=== PATIENT | male | born 1995 | race Caucasian/White ===

== ENCOUNTER 2019-02-22 13:03 | Emergency (ER) | payer BC ==
[2019-02-22] MEDS ORDERED: TETANUS & DIPHTHERIA TOX,ADULT 0.5 ML VIAL ONE (13:59)
--- NOTE | 2019-02-22 16:10 | RAD REPORT ---
EXAM DESCRIPTION: RAD - Hand Left 3 View - 02/22/2019 1:55 pm CLINICAL HISTORY: SMASH INJURY Trauma, injury to fingers. COMPARISON: No comparisons FINDINGS: No fracture or dislocation is seen.
--- NOTE | 2019-02-22 16:35 | EDPHYS ---
Physician Documentation [facility] Name: Gaudencio Kothari Age: 23 yrs Sex: Male : 1995 Arrival Date: 02/22/2019 Time: 13:08 Bed 24 Private MD: ED Physician Doug Chamorro HPI: 02/22 18:39 This 23 yrs old Male presents to ER via Ambulatory with complaints of Finger kdr Injury. 18:39 Mechanism of injury: Crush injury: from Angle iron weighted approximately 20# - 30#, kdr that weighed approximately 20 lb(s). Associated injuries: The patient sustained Left hand finger tips. Onset: The symptoms/episode began/occurred acutely, this morning. The patient has not experienced similar symptoms in the past. The patient has not recently seen a physician. Historical: - Allergies: 13:25 No Known Allergies; aj - Home Meds: 13:25 None [Active]; aj - PMHx: 13:25 None; aj - PSHx: 13:25 None; aj - Immunization history:: Adult Immunizations up to date. - Social history:: Smoking status: Patient uses tobacco products, smokes one-half pack cigarettes per day. - Ebola Screening: : Patient negative for fever greater than or equal to 101.5 degrees Fahrenheit, and additional compatible Ebola Virus Disease symptoms Patient denies exposure to infectious person Patient denies travel to an Ebola-affected area in the 21 days before illness onset No symptoms or risks identified at this time. ROS: 18:39 Constitutional: Negative for fever, chills, and weight loss. kdr 18:39 MS/extremity: Positive for injury or acute deformity, ecchymosis, pain, swelling, tenderness, of the left index fingernail, left middle fingernail and left ring fingernail. Exam: 18:39 Constitutional: This is a well developed, well nourished patient who is awake, alert, kdr and in no acute distress. 18:39 Musculoskeletal/extremity: Extremities: grossly normal except: noted in the left index finger, left middle finger, left ring finger, dorsal aspect of distal phalanx of left ring finger, left index fingernail and left middle fingernail: ecchymosis, pain, swelling, Circulation is intact in all extremities. Sensation intact. Vital Signs: 13:25 BP 130 / 85; Pulse 93; Resp 18; Temp 98.3; Pulse Ox 99% on R/A; Weight 129.27 kg; aj Height 5 ft. 10 in. (177.80 cm); 14:21 BP 123 / 69; Pulse 63; Resp 18 S; Temp 98.1(O); Pulse Ox 98% on R/A; ca1 15:25 BP 115 / 75; Pulse 66; Resp 17 S; Temp 98.3(O); Pulse Ox 98% on R/A; ca1 16:23 BP 121 / 68; Pulse 62; Resp 17 S; Temp 98.1(O); Pulse Ox 99% on R/A; ca1 17:00 BP 118 / 72; Pulse 65; Resp 18 S; Temp 98.2(O); Pulse Ox 99% on R/A; ca1 13:25 Body Mass Index 40.89 (129.27 kg, 177.80 cm) aj MDM: 15:36 Patient medically screened. kdr 18:39 Data reviewed: vital signs, nurses notes, radiologic studies. Counseling: I had a kdr detailed discussion with the patient and/or guardian regarding: the historical points, exam findings, and any diagnostic results supporting the discharge/admit diagnosis, radiology results, the need for outpatient follow up. ED course: The patient declined nail treffination. 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 Exp: ca1 12/16/2020. Lot #: [id number]. } Route: IM; Site: left deltoid; 16:02 Follow up: Response: No adverse reaction ca1 Disposition: 02/22/19 16:34 Discharged to Home. Impression: Crush injury to fingers - 2, 3, 4, (index, middle and ring) of left hand. - Condition is Stable. - Discharge Instructions: Crush Injury of the Hand, [id number], Subungual Hematoma, [id number]. - Prescriptions for ibuprofen 200 mg Oral capsule - take 2 capsule by ORAL route every 6 hours As needed as needed; 20 capsule. - Medication Reconciliation Form, Thank You Letter, Work release form form. - Follow up: Private Physician; When: 2 - 3 days; Reason: If symptoms return, Further diagnostic work-up, Recheck today's complaints, Continuance of care, Re-evaluation by your physician. - Problem is new. - Symptoms have improved. Signatures: Dispatcher [employer] Brittani Lainez, RN RN Doug Martinez MD MD kdr Krystal, Emily RN RN ca1 Corrections: (The following items were deleted from the chart) 15:37 15:36 02/22/2019 15:36 Discharged to Home. Impression: Acute Intracrainial Bleed. kdr Condition is Stable. Forms are Medication Reconciliation Form, Thank You Letter, Antibiotic Education, Prescription Opioid Use. Follow up: Private Physician; When: 2 - 3 days; Reason: If symptoms return, Further diagnostic work-up, Recheck today's complaints, Continuance of care, Re-evaluation by your physician. Problem is new. Symptoms have improved. kdr 17:20 16:34 02/22/2019 16:34 Discharged to Home. Impression: Crush injury to fingers - 2, 3, ca1 4, (index, middle and ring) of left hand. Condition is Stable. Forms are Medication Reconciliation Form, Thank You Letter, Antibiotic Education, Prescription Opioid Use. Follow up: Private Physician; When: 2 - 3 days; Reason: If symptoms return, Further diagnostic work-up, Recheck today's complaints, Continuance of care, Re-evaluation by your physician. Problem is new. Symptoms have improved. kdr
--- NOTE | 2019-02-22 16:35 | ER ---
Nurse's Notes [facility] Name: Gaudencio Kothari Age: 23 yrs Sex: Male : 1995 Arrival Date: 02/22/2019 Time: 13:08 Bed 24 Private MD: Diagnosis: Crush injury to fingers - 2, 3, 4, (index, middle and ring) of left hand Presentation: 02/22 13:23 Presenting complaint: Patient states: Smashed left 2nd, 3rd, and 4th distal digits on aj steel plate today at work. Took 1 Motrin 800 MG. Transition of care: patient was not received from another setting of care. Onset of symptoms was February 22, 2019. Risk Assessment: Do you want to hurt yourself or someone else? Patient reports no desire to harm self or others. Initial Sepsis Screen: Does the patient meet any 2 criteria? No. Patient's initial sepsis screen is negative. Does the patient have a suspected source of infection? No. Patient's initial sepsis screen is negative. Care prior to arrival: None. 13:23 Method Of Arrival: Ambulatory 13:23 Acuity: BELEM 4 Triage Assessment: 13:25 General: Appears in no apparent distress. comfortable, Behavior is calm, cooperative, aj appropriate for age. Pain: Complains of pain in left index fingernail, left middle fingernail and left ring fingernail. Neuro: Level of Consciousness is awake, alert, obeys commands, Oriented to person, place, time, situation, Appropriate for age. Respiratory: Airway is patent Respiratory effort is even, unlabored, Respiratory pattern is regular, symmetrical. Derm: Skin is intact, is healthy with good turgor, Skin is pink, warm \T\ dry. normal. Musculoskeletal: Reports pain in dorsal aspect of distal phalanx of left index finger, dorsal aspect of distal phalanx of left middle finger and dorsal aspect of distal phalanx of left ring finger. 13:25 Injury Description: Bruise sustained to left ring fingernail and left middle fingernail ca1 and left index fingernail is green, was sustained 4-6 hours ago. Historical: - Allergies: 13:25 No Known Allergies; aj - Home Meds: 13:25 None [Active]; aj - PMHx: 13:25 None; aj - PSHx: 13:25 None; aj - Immunization history:: Adult Immunizations up to date. - Social history:: Smoking status: Patient uses tobacco products, smokes one-half pack cigarettes per day. - Ebola Screening: : Patient negative for fever greater than or equal to 101.5 degrees Fahrenheit, and additional compatible Ebola Virus Disease symptoms Patient denies exposure to infectious person Patient denies travel to an Ebola-affected area in the 21 days before illness onset No symptoms or risks identified at this time. Screenin:38 Abuse screen: Denies threats or abuse. Denies injuries from another. Nutritional ca1 screening: No deficits noted. Tuberculosis screening: No symptoms or risk factors identified. Fall Risk None identified. Assessment: 13:38 General: Appears in no apparent distress. comfortable, Behavior is calm, cooperative, ca1 appropriate for age. Pain: Complains of pain in dorsal aspect of distal phalanx of left ring finger and dorsal aspect of distal phalanx of left middle finger and dorsal aspect of distal phalanx of left index finger and left hand and left ring fingernail and left middle fingernail and left index fingernail Pain currently is 3 out of 10 on a pain scale. at worst was 6 out of 10 on a pain scale. Pain began 4 hours ago. Neuro: Level of Consciousness is awake, alert, obeys commands, Oriented to person, place, time, situation. Cardiovascular: Heart tones S1 S2 present Capillary refill < 3 seconds Patient's skin is warm and dry. Respiratory: Airway is patent Respiratory effort is even, unlabored, Respiratory pattern is regular, symmetrical. GI: No deficits noted. No signs and/or symptoms were reported involving the gastrointestinal system. : No deficits noted. No signs and/or symptoms were reported regarding the genitourinary system. EENT: No deficits noted. No signs and/or symptoms were reported regarding the EENT system. Derm: Skin is intact, is healthy with good turgor, Skin is pink, warm \T\ dry. Bruising that is dark purple, on left ring fingernail and left middle fingernail and left index fingernail. Musculoskeletal: Circulation, motion, and sensation intact. Capillary refill < 3 seconds, Range of motion: intact in all extremities. 14:21 Reassessment: Patient appears in no apparent distress at this time. Patient and/or ca1 family updated on plan of care and expected duration. Pain level reassessed. Patient is alert, oriented x 3, equal unlabored respirations, skin warm/dry/pink. 15:25 Reassessment: Patient appears in no apparent distress at this time. Patient is alert, ca1 oriented x 3, equal unlabored respirations, skin warm/dry/pink. Dr. Chamorro at bedside. 16:23 Reassessment: Patient appears in no apparent distress at this time. Patient is alert, ca1 oriented x 3, equal unlabored respirations, skin warm/dry/pink. 17:00 Reassessment: Patient appears in no apparent distress at this time. Patient is alert, ca1 oriented x 3, equal unlabored respirations, skin warm/dry/pink. Patient states feeling better. Vital Signs: 13:25 BP 130 / 85; Pulse 93; Resp 18; Temp 98.3; Pulse Ox 99% on R/A; Weight 129.27 kg; aj Height 5 ft. 10 in. (177.80 cm); 14:21 BP 123 / 69; Pulse 63; Resp 18 S; Temp 98.1(O); Pulse Ox 98% on R/A; ca1 15:25 BP 115 / 75; Pulse 66; Resp 17 S; Temp 98.3(O); Pulse Ox 98% on R/A; ca1 16:23 BP 121 / 68; Pulse 62; Resp 17 S; Temp 98.1(O); Pulse Ox 99% on R/A; ca1 17:00 BP 118 / 72; Pulse 65; Resp 18 S; Temp 98.2(O); Pulse Ox 99% on R/A; ca1 13:25 Body Mass Index 40.89 (129.27 kg, 177.80 cm) ED Course: 13:08 Patient arrived in ED. rg4 13:25 Triage completed. aj 13:25 Doug Chamorro MD is Attending Physician. kdr 13:25 Arm band placed on left wrist. Patient placed in an exam room. aj 13:35 Emily Rice, TOBI is Primary Nurse. ca1 13:38 Patient has correct armband on for positive identification. Bed in low position. Call ca1 light in reach. Side rails up X 1. Pulse ox on. NIBP on. Warm blanket given. 13:38 No provider procedures requiring assistance completed. Patient did not have IV access ca1 during this emergency room visit. 13:56 XRAY Hand LEFT 3 View In Process Unspecified. 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 Exp: ca1 12/16/2020. Lot #: [id number]. } Route: IM; Site: left deltoid; 16:02 Follow up: Response: No adverse reaction ca1 Outcome: 15:36 Discharge ordered by . kdr 16:34 Discharge ordered by . kdr 17:19 Discharged to home ambulatory. ca1 17:19 Condition: stable 17:19 Discharge instructions given to patient, Instructed on discharge instructions, follow up and referral plans. medication usage, Demonstrated understanding of instructions, follow-up care, medications, Prescriptions given X 1. 17:20 Patient left the ED. ca1 Signatures: Dispatcher [employer] EDMS Brittani Quiroz, RN Doug Patterson MD MD kdr Garcia, Rubi rg4 Emily Rice RN RN ca1
== END 2019-02-22 17:20 | disposition home or self-care (01) ==
LOC: ER 13:03
DX: S67.191A Crushing injury of left index finger, initial encounter (principal); S67.193A Crushing injury of left middle finger, initial encounter; S67.195A Crushing injury of left ring finger, initial encounter; W23.0XXA Caught, crushed, jammed, or pinched between moving objects, initial encounter; Y93.89 Activity, other specified; Y92.69 Other specified industrial and construction area as the place of occurrence of the external cause; Y99.0 Civilian activity done for income or pay; F17.210 Nicotine dependence, cigarettes, uncomplicated
CPT/HCPCS: 90471; 90714; 99284

== ENCOUNTER 2019-11-01 13:41 | Emergency (ER) | payer BC, OTHER ==
--- OUTSIDE RECORDS SUMMARY | 2019-11-01 13:43 | XMS REPORT ---
:1995 Author Organization [facility] Address [address] [place] [address] Dr. Brunner [address] [place] [id number] Care Team Providers Name Role Phone Unavailable Unavailable Unavailable Problems This patient has no known problems. Allergies, Adverse Reactions, Alerts This patient has no known allergies or adverse reactions. Medications This patient has no known medications. Encounters Start End Encounter Admission Attending Care Care Encounter Date/Time Date/Time Type Type Clinicians Facility Department ID 2019-10-03 2019-10-03 Emergency E [id number] 19:16:00 19:16:00
--- OUTSIDE RECORDS SUMMARY | 2019-11-01 13:43 | XMS REPORT | Summary of Care ---
:1995 Author Organization [facility] Address [address] [place] [id number] Care Team Providers Name Role Phone Unknown, Attending Unavailable Unavailable Pcp, Patient Does Not Have A Primary Care Provider Reason for Visit Reason Comments Vomiting Body Aches Encounter Details Date Type Department Care Team Description 05/31/2019 Urgent Care [facility] Unknown, Attending Viral gastroenteritis Urgent Care Ernestina Mendoza PA-C [address] [place] [id number] (Primary Dx) [address] [facility] [place] [address] Allergies No Known Allergiesdocumented as of this encounter (statuses as of 05/31/2019) Medications Medication Sig Dispensed Refills Start Date End Date Status bacitracin 500 unit/g Apply to affected 1 Tube 1 04/10/2012 Active ointment area(s) 4 (four) times daily. escitalopram oxalate Take 20 mg by 0 Active 20 mg tablet mouth daily. trazodone HCl Take by mouth. 0 Active (TRAZODONE ORAL) documented as of this encounter (statuses as of 05/31/2019) Active Problems No known active problemsdocumented as of this encounter (statuses as of 2018) Immunizations Name Administration Dates Next Due DTP 09/22/2000, 12/18/1996, 09/14/1996, 05/02/1996, 01/30/1996, 1995 HIB 4 Dose Schedule 12/18/1996, 05/02/1996, 01/30/1996, 1995 Hep B, Adol or Pedi Dosage 05/02/1996, 1995, 1995 MMR 04/26/2001, 12/18/1996, 05/20/1996 Polio (IPV/OPV) 09/22/2000, 09/14/1996, 05/02/1996, 01/30/1996, 1995 Tdap 04/10/2012 Varicella (varivax)(chicken pox) 09/22/2000 documented as of this encounter Social History Tobacco Use Types Packs/Day Years Used Date Never Smoker Alcohol Use Drinks/Week oz/Week Comments Not Asked Sex Assigned at Date Recorded Not on file Job Start Date Occupation Industry Not on file Not on file Not on file Travel History Travel Start Travel End No recent travel history available. documented as of this encounter Last Filed Vital Signs Vital Sign Reading Time Taken Comments Blood Pressure 145/78 05/31/2019 8:09 PM CDT Pulse 100 05/31/2019 8:09 PM CDT Temperature 36.9 C (98.5 F) 05/31/2019 8:09 PM CDT Respiratory Rate 17 05/31/2019 8:09 PM CDT Oxygen Saturation 100% 05/31/2019 8:09 PM CDT Inhaled Oxygen Concentration - - Weight 133.3 kg (293 lb 12.8 oz) 05/31/2019 8:09 PM CDT Height 177.8 cm (5' 10") 05/31/2019 8:09 PM CDT Body Mass Index 42.16 05/31/2019 8:09 PM CDT documented in this encounter Patient Instructions Patient InstructionsErnestina Mendoza PA-C - 05/31/2019 8:00 PM CDT [place] Diet Your healthcare provider may recommend a bland dietif you have an upset stomach. It consists of foods that are mild and easy to digest. It is better to eat small frequent meals rather than3 large meals a day. Beverages OK: Fruit juices, non-caffeinated teas and coffee, non-carbonated merida Avoid: Carbonated beverage, caffeinated tea and coffee, all alcoholic beverages Bread OK: Refined white, wheat or rye bread, jennie or soda crackers, Moore toast, plain rolls, bagels Avoid: Whole-grain bread Cereal OK: Refined cereals: cooked or ready to eat Avoid: Whole-grain cereals and granola, or those containing bran, seeds or nuts Desserts OK: Peanut butter and all others except those to "avoid" Avoid: Chocolate, cocoa, coconut, popcorn, nuts, seeds, jam, marmalade Fruits OK: Canned, cooked, frozen or fresh fruits without seeds or tough skin Avoid: Olives, skin and seeds of fruit Meats OK: All fresh or preserved meat, fish and fowl Avoid: Any that are prepared with those spices to "avoid" Cheese and eggs OK: Eggs, cottage cheese, cream cheese, other cheeses Avoid: All cheeses made with those spices to "avoid" Potatoes and pasta OK: Potato, rice, macaroni, noodles, spaghetti Avoid: None Soups OK: All soups without heavy seasoning Avoid: Soups made with those spices to "avoid" Vegetables OK: Canned, cooked, fresh or frozen mildly flavored vegetables without seeds, skins or coarse fiber Avoid: Vegetables prepared with those spices to "avoid"; skin and seeds of vegetables and those withcoarse fiber Spices OK: Salt, lemon and [place]ond[place] juice, vinegar, all extracts, dwayne, cinnamon, thyme, mace, allspice, paprika Avoid: [place] powder, cloves, pepper, seed spices, garlic, gravy pickles, highly seasoned salad dressings Date Last Reviewed: 08/15/201519990224-9315 [employer]. [address] [place] [address]. All rights reserved. This information is not intended as a substitute for professional medical care. Always follow your healthcare professional's instructions. Food Poisoning or Viral Gastroenteritis (Adult) You have a stomach illness that is likely either food poisoning or viral gastroenteritis. Food poisoning is illness that is passed along in food and affects the stomach and intestinal tract.It usually occurs from 1 to 24 hours after eating food that has spoiled. When it happens within a few hours of eating, it is often caused by toxins from bacteria in food that has not been cooked or refrigerated properly. Viral gastroenteritis is also anillness from a virus that affects the stomach and intestinal tract. Many people call it the stomach flu, but it has nothing to do with influenza. In fact, it canhappen from food poisoning, but it can also happen when germsare passed from nkpmyi-aq-aigxtk or contaminated surface (toothbrush, cutting board, toilet) to a person. Either illness can cause these symptoms: Abdominal pain and cramping Nausea Vomiting Diarrhea Fever and chills Loss of bowel control The symptoms of food poisoning usually last 1 to 2 days. The symptoms of viral gastroenteritis can sometimes last up to 7 days but usually end sooner. Antibiotics are not effective for either illness. Other causes of gastroenteritis include bacteria and parasites which are not discussed here. Home care Follow all instructions given by your healthcare provider. Rest at home for the next 24 hours, or until you feel better. Avoid caffeine, tobacco, and alcohol. These can make diarrhea, cramping, and pain worse. If taking medicines: Dont take mlpz-niw-fwgcxte diarrhea or nausea medicines unless your healthcare provider tells you to. You may use acetaminophen or NSAID medicines like ibuprofen or naproxen to reduce pain and fever.Dont use these if you have chronic liver or kidney disease, or ever had a stomach ulcer or GI bleeding. Talk with your healthcare provider first. Don't use NSAID medicines if you are already taking one for another condition (like arthritis) or are on daily aspirin therapy (such as for heart diseaseor after a stroke). To prevent the spread of illness: Remember that washing with soap and water is the best way to prevent the spread of infection. Wash your hands before and after caring for a sick person. Clean the toilet after each use. Wash your hands or use alcohol-based hand towboat operator before eating. Wash your hands or use alcohol-based hand towboat operator before and after preparing food. Keep in mindthat people with diarrhea or vomiting should not prepare food for others. Wash your hands or use alcohol-based hand towboat operator after using cutting boards, counter-tops, andknives (and other utensils) that have been in contact with raw foods. Wash and then peel fruits and vegetables. Keep uncooked meats away from cooked and awgav-qz-nmx foods. Use a food thermometer when cooking. Cook poultry to at least 165F (74C) . Cook ground meat (beef, veal, pork, thomas) to at least 160F (71C). Cook fresh beef, veal, thomas, and pork to at least 145F (63C). Dont eat raw or undercooked eggs (poached or vicente side up), poultry, meat or unpasteurized milk and juices. Food and drinks The main goal while treating vomiting or diarrhea is to prevent dehydration. This is done by taking small amounts of liquids often. Keep in mind that liquids are more important than food right now. Drink only small amounts of liquids at a time. Dont force yourself to eat, especially if you arehaving cramping, vomiting, or diarrhea. Dont eat large amounts at a time, even if you are hungry. If you eat, avoid fatty, greasy, spicy, or fried foods. Dont eat dairy foods or drink milk if you have diarrhea.These can make diarrhea worse. The first 24 hours you can try: Oral rehydration solutions, available at grocery stores and pharmacies. Sports drinks are not a good choice if you are very dehydrated. They have too much sugar and not enough electrolytes. Soft drinks without caffeine Briana eden Water (plain or flavored) Decaf tea or coffee Clear broth, consomm, or bouillon Gelatin, popsicles, or frozen fruit juice bars The second 24 hours, if you are feeling better, you can add: Hot cereal, plain toast, bread, rolls, or crackers Plain noodles, rice, mashed potatoes, chicken noodle soup, or rice soup Unsweetened canned fruit (no pineapple) Bananas As you recover: Limit fat intake to less than 15 grams per day. Dont eat margarine, butter , oils, mayonnaise, sauces, gravies, fried foods, peanut butter, meat, poultry, or fish. Limit fiber. Dont eat raw or cooked vegetables, fresh fruits except bananas, and bran cereals. Limit caffeine and chocolate. Dont use spices or seasonings except salt. Resume a normal diet over time, as you feel better and your symptoms improve. If the symptoms come back, go back to a simple diet or clear liquids. Follow-up care Follow up with your healthcare provider, or as advised. If a stool sample was taken or cultures weredone, call the healthcare provider for the results as instructed. Call 911 Call 911 if you have any of these symptoms: Trouble breathing Confusion Extreme drowsiness or trouble walking Loss of consciousness Rapid heart rate Chest pain Stiff neck Seizure When to seek medical advice Call your healthcare provider right away if any of these occur: Abdominal pain that gets worse Constant lower right abdominal pain Continued vomiting and inability to keep liquids down Diarrhea more than 5 times a day Blood in vomit or stool Dark urine or no urine for 8 hours, dry mouth and tongue, tiredness, weakness , or dizziness New rash You dont get better in 2 to 3 days Fever of 100.4F (38C) or higher, or asdirected by your healthcare provider You have new symptoms of arthritis Date Last Reviewed: 09/28/201519997151-9958 [employer]. [address] [place] [address]. All rights reserved. This information is not intended as a substitute for professional medical care. Always follow your healthcare professional's instructions. documented in this encounter Progress Notes Ernestina Mendoza PA-C - 05/31/2019 8:00 PM CDT Cc: Chief Complaint Patient presents with Vomiting Body Aches Gaudencio Kothari is a 23 year old male coming in with nausea and vomiting and diarrhea x 1 day. Patient reports his son had simliar sx. Patient denies any fever, chills, body aches. Patient reports he only had 2 episodes of vomiting today and no more diarrhea. HPI Allergies Gaudencio has No Known Allergies. Medications Outpatient Medications Prior to Visit Medication Sig Dispense Refill escitalopram oxalate 20 mg tablet Take 20 mg by mouth daily. trazodone HCl (TRAZODONE ORAL) Take by mouth. bacitracin 500 unit/g ointment Apply to affected area(s) 4 (four) times daily. 1 Tube 1 No facility-administered medications prior to visit. Histories No past medical history on file. No past surgical history on file. Social History Socioeconomic History Marital status: Spouse name: Not on file Number of children: Not on file Years of education: Not on file Highest education level: Not on file Occupational History Not on file Social Needs Financial resource strain: Not on file Food insecurity: Worry: Not on file Inability: Not on file Transportation needs: Medical: Not on file Non-medical: Not on file Tobacco Use Smoking status: Never Smoker Substance and Sexual Activity Alcohol use: Not on file Drug use: Not on file Sexual activity: Not on file Lifestyle Physical activity: Days per week: Not on file Minutes per session: Not on file Stress: Not on file Relationships Social connections: Talks on phone: Not on file Gets together: Not on file Attends congregational service: Not on file Active member of club or organization: Not on file Attends meetings of clubs or organizations: Not on file Relationship status: Not on file Intimate partner violence: Fear of current or ex partner: Not on file Emotionally abused: Not on file Physically abused: Not on file Forced sexual activity: Not on file Other Topics Concern Not on file Social History Narrative 1 sibling . parent . No smoekrs or pets Family History Problem Relation Age of Onset Allergies Mother Allergies Maternal Grandmother Allergies Brother Heart Maternal Grandmother Mitral valve prolapse Review of Systems Constitutional: Negative for chills, fatigue and fever. HENT: Negative for ear pain and sore throat. Eyes: Negative for pain. Respiratory: Negative for cough. Gastrointestinal: Positive for abdominal pain, diarrhea, nausea and vomiting. Negative for constipation. Genitourinary: Negative for dysuria. Musculoskeletal: Negative for arthralgias. Skin: Negative for rash. Neurological: Negative for weakness and headaches. Psychiatric/Behavioral: The patient is not nervous/anxious. Vital Signs BP (!) 145/78 | Pulse 100 | Temp 36.9 C (98.5 F) (Oral) | Resp 17 | Ht 5 ' 10" (1.778 m) | Wt 293 lb 12.8 oz (133.3 kg) | SpO2 100% | BMI 42.16 kg/m Physical Exam Constitutional: He appears well-developed and well-nourished. HENT: Head: Normocephalic and atraumatic. Eyes: Pupils are equal, round, and reactive to light. Conjunctivae are normal. Neck: Normal range of motion. Cardiovascular: Normal rate, regular rhythm and normal heart sounds. Pulmonary/Chest: Effort normal and breath sounds normal. Abdominal: Soft. Bowel sounds are normal. There is no tenderness. Psychiatric: He has a normal mood and affect. His behavior is normal. Judgment and thought content normal. Assessment/Plan Viral gastroenteritis (primary encounter diagnosis) Good hand washing and surface hygiene can reduce contagion. May give acetaminophen or ibuprofen as needed for fever. Follow up recommended as needed or if concerned. Worrisome symptoms would be bloody diarrhea, high-grade fever, inconsolability or lack of urine output within an 8 hour span of time. Most viral diarrheal illnesses would resolve within a two-week span of time. Advised patient to follow bland diet for next few days. - Pt advised to follow up with PCP within 1 week. - Pt advised to return to Urgent Care or go to the nearest Emergency Room sooner for any new, worsening, persistent, or concerning symptoms - Pt verbalized understanding of all instructions This visit did not involve counseling and coordination that comprised more than 50% of the visit time. Ernestina Mendoza PA-C 05/31/2019 9:04 PM documented in this encounter Plan of Treatment Health Maintenance Due Date Last Done Comments VARICELLA VACCINES (2 of 2 - 12/15/2000 09/22/2000 2-dose childhood series) MENINGOCOCCAL B VACCINES (1 2005 of 2 - Risk Bexsero 2-dose series) INFLUENZA VACCINE (#1) 2019 DTaP,Tdap,and Td Vaccines (6 04/10/2022 04/10/2012, 09/22/2000, - Td) 12/18/1996, Additional history exists HPV VACCINES Aged Out No longer eligible based on patient's age to complete this topic PNEUMOCOCCAL 0-64 YEARS Aged Out No longer eligible COMBINED SERIES based on patient's age to complete this topic documented as of this encounter Results Not on filedocumented in this encounter Visit Diagnoses Diagnosis Viral gastroenteritis - Primary Intestinal infection due to other organism, not elsewhere classified documented in this encounter Insurance Payer Benefit Plan Subscriber ID Effective Dates Phone Address Type / Group [facility] [id number] 2018-Maegan [phone] [address] PPO/ POS [place] [employer] t [id number] [place] [address] (Work) documented as of this encounter
[2019-11-01 14:59] LABS: Absolute Lymphocytes (CBC) 0.8 K/uL (0.7-4.9); Basophils % 0.4 % (0-1.3); Lymphocytes % 14.3 % (15.3-44.8); MPV 8.1 fL (7.6-11.3); RBC Red Blood Cell Count 5.16 M/uL (4.33-5.43)
[2019-11-01 15:16] LABS: ALT/SGPT 24 U/L (12-78); AST/SGOT 15 U/L (15-37); Albumin 4.1 g/dL (3.4-5.0); Alkaline Phosphatase 70 U/L (45-117); BUN Blood Urea Nitrogen 6 mg/dL (7-18); Bicarbonate 26 mmol/L (21-32); Bilirubin Total 0.5 mg/dL (0.2-1.0); Glucose Level 84 mg/dL (74-106); Potassium 3.6 mmol/L (3.5-5.1); Protein, Total 7.3 g/dL (6.4-8.2); Sodium Level 141 mmol/L (136-145)
--- NOTE | 2019-11-01 15:57 | RAD REPORT ---
EXAM DESCRIPTION: CT - Chest For Pe Angio - 11/01/2019 3:37 pm CLINICAL HISTORY: HEMOPTYSIS COMPARISON: No comparisonsNo comparisons TECHNIQUE: Dynamically enhanced 3 mm thick images of the chest were obtained during administration o f approximately 150mL Isovue 370 IV contrast. Coronal and oblique MIP reconstruction images were gene rated and reviewed. Exam utilizes a protocol to evaluate the pulmonary arterial tree. All CT scans are performed using dose optimization technique as appropriate and may include automated exposure control or mA/KV adjustment according to patient size. FINDINGS: No pulmonary emboli are identified. The aorta as imaged shows no acute or suspicious finding. No pericardial thickening or effusion. No infiltrate or mass in the lung parenchyma. No pleural effusion or pleural thickening. No mediastinal or hilar suspicious masses. No chest wall masses or abnormal axillary lymphadenopathy. No endobronchial lesion. IMPRESSION: No pulmonary emboli identified. No other significant or suspicious findings.
--- NOTE | 2019-11-01 16:26 | ER ---
Nurse's Notes [facility] Name: Gaudencio Kothari Age: 24 yrs Sex: Male : 1995 Arrival Date: 11/01/2019 Time: 13:44 Bed 27 Private MD: Diagnosis: Acute bronchitis Presentation: 11/01 13:58 Presenting complaint: Patient states: i have had a cough for 4 days, this morning there tw2 was specs of blood in my phlegm and i work in a [employer] and havent had a TB test and i am supposed to be getting my kids this weekend so i wanted to be checked. my chest does feel like its on fire, usually its just when i cough and then it goes away. i also feel congested. Transition of care: patient was not received from another setting of care. Onset of symptoms was November 01, 2019. Risk Assessment: Do you want to hurt yourself or someone else? Patient reports no desire to harm self or others. Initial Sepsis Screen: Does the patient meet any 2 criteria? No. Patient's initial sepsis screen is negative. Does the patient have a suspected source of infection? No. Patient's initial sepsis screen is negative. Care prior to arrival: None. 13:58 Method Of Arrival: Ambulatory tw2 13:58 Acuity: BELEM 2 tw2 14:00 Presenting complaint: Patient states: also i have been having some night sweats as well tw2 for a few days. Note pt is wearing a mask in lobby and in triage. Triage Assessment: 14:03 General: Appears in no apparent distress. well groomed, Behavior is calm, cooperative, tw2 appropriate for age. Pain: Denies pain. Historical: - Allergies: 14:02 No Known Allergies; tw2 - Home Meds: 14:02 citalopram 20 mg tab 1 tab once daily [Active]; Latuda 40 mg oral tab 1 tab once daily tw2 [Active]; trazodone 50 mg Oral tab 1 tab 3 times per day [Active]; - PMHx: 14:02 Anxiety; Depression; borderline personality disorder; tw2 - PSHx: 14:02 None; tw2 - Immunization history:: Adult Immunizations. - Coronavirus screen:: The patient has NOT traveled to [place], [place], or [place] in the past 14 days. - Social history:: Smoking status: Patient reports the use of cigarette tobacco products, smokes one pack cigarettes per day. "i quit few days ago, i have a vape and i hit i often it says its 5 mics of nicotine", Patient reports use of chewing tobacco. Reported history of juuling and/or vaping. - Ebola Screening: : Patient denies travel to an Ebola-affected area in the 21 days before illness onset. Screenin:24 Abuse screen: Denies threats or abuse. Nutritional screening: No deficits noted. tw2 Tuberculosis screening: Possible symptoms: recent fever, recent bloody sputum, Risk factors: pt works in [employer]. Fall Risk None identified. Assessment: 14:39 General: Appears in no apparent distress. comfortable, Behavior is calm, cooperative. ls4 15:29 Neuro: No deficits noted. Cardiovascular: No deficits noted. Respiratory: Reports cough ls4 that is productive, pain with cough Airway is patent Respiratory effort is even, unlabored, Respiratory pattern is regular, Breath sounds are clear bilaterally. GI: No deficits noted. : No deficits noted. Derm: No deficits noted. Musculoskeletal: No deficits noted. Vital Signs: 14:02 BP 140 / 73; Pulse 87; Resp 18; Temp 98.3(TE); Pulse Ox 100% on R/A; Weight 113.4 kg tw2 (R); Height 5 ft. 10 in. (177.80 cm); Pain 3/10; 14:54 BP 110 / 69; Pulse 76; Resp 18; Temp 98.9(O); Pulse Ox 100% on R/A; mh5 15:02 BP 116 / 67; Pulse 72; Resp 16; Pulse Ox 100% on R/A; Pain 3/10; ls4 16:02 BP 110 / 60; Pulse 70; Resp 16; Temp 98.4(O); Pulse Ox 99% on R/A; Pain 3/10; ls4 14:02 Body Mass Index 35.87 (113.40 kg, 177.80 cm) tw2 ED Course: 13:44 Patient arrived in ED. mr 14:00 Triage completed. tw2 14:00 Arm band placed on. tw2 14:02 Bed in low position. Call light in reach. pt placed in n95 mask, pt agreeable to wear tw2 the mask at this time. 14:08 Lawson Chan PA is PHCP. jmm 14:08 Eduardo Long MD is Attending Physician. [facility] 14:46 Mackenzie Mcneil, RN is Primary Nurse. ls4 14:47 CMP Sent. ls4 14:47 CBC with Diff Sent. ls4 14:49 Initial lab(s) drawn, by sd, sent to lab. Inserted saline lock: 22 gauge in left mh5 antecubital area, using aseptic technique. Blood collected. 15:37 No provider procedures requiring assistance completed. ls4 16:[address] Chest For PE Angio CT Sent. ls4 16:53 IV discontinued, intact, bleeding controlled, No redness/swelling at site. Pressure ls4 dressing applied. Administered Medications: No medications were administered Outcome: 16:25 Discharge ordered by . [facility] 16:48 Discharged to home ambulatory. ls4 16:48 Condition: stable 16:48 Discharge instructions given to patient, Instructed on discharge instructions, follow up and referral plans. medication usage, Demonstrated understanding of instructions, follow-up care, medications, Prescriptions given X 3. 16:54 Patient left the ED. ls4 Signatures: Lawson Chan PA PA [facility] Jaswinder Janet mr Sheeba Baldwin, RN RN Nimo Paz, TOBI RN 2 [facility] Mackenzie Mcneil, RN RN ls4 Corrections: (The following items were deleted from the chart) 14:05 14:05 Tuberculosis screening: [facility] 15:36 15:29 General: Appears in no apparent distress. comfortable, ls4 ls4
--- NOTE | 2019-11-01 16:26 | EDPHYS ---
Physician Documentation [facility] Name: Gaudencio Kothari Age: 24 yrs Sex: Male : 1995 Arrival Date: 11/01/2019 Time: 13:44 Bed 27 Private MD: ED Physician Eduardo Long HPI: 11/01 15:17 This 24 yrs old Male presents to ER via Ambulatory with complaints of jmm Coughing up blood. 15:17 The patient or guardian reports cough. Onset: The symptoms/episode began/occurred jmm gradually, 4 day(s) ago. Modifying factors: The symptoms are alleviated by nothing, the symptoms are aggravated by nothing. This is a 24 year old male with a history of depression that presents to the ED with complaints of cough ongoing for the past 4 days. Patient states developing productive cough with blood. Denies chest pain but occasionally has shortness of breath. . Historical: - Allergies: 14:02 No Known Allergies; tw2 - Home Meds: 14:02 citalopram 20 mg tab 1 tab once daily [Active]; Latuda 40 mg oral tab 1 tab once daily tw2 [Active]; trazodone 50 mg Oral tab 1 tab 3 times per day [Active]; - PMHx: 14:02 Anxiety; Depression; borderline personality disorder; tw2 - PSHx: 14:02 None; tw2 - Immunization history:: Adult Immunizations. - Coronavirus screen:: The patient has NOT traveled to [place], [place], or [place] in the past 14 days. - Social history:: Smoking status: Patient reports the use of cigarette tobacco products, smokes one pack cigarettes per day. "i quit few days ago, i have a vape and i hit i often it says its 5 mics of nicotine", Patient reports use of chewing tobacco. Reported history of juuling and/or vaping. - Ebola Screening: : Patient denies travel to an Ebola-affected area in the 21 days before illness onset. ROS: 15:17 Abdomen/GI: Negative for abdominal pain, nausea, vomiting, diarrhea, and constipation, jmm Back: Negative for injury and pain, Skin: Negative for injury, rash, and discoloration, Neuro: Negative for headache, weakness, numbness, tingling, and seizure. 15:17 Constitutional: Positive for chills. 15:17 Cardiovascular: Positive for chest pain, with cough. 15:17 Respiratory: Positive for cough, hemoptysis. 15:17 All other systems are negative. Exam: 15:17 Constitutional: This is a well developed, well nourished patient who is awake, alert, jmm and in no acute distress. Head/Face: atraumatic. Eyes: EOMI, no conjunctival erythema appreciated ENT: Moist Mucus Membranes Neck: Trachea midline, Supple Chest/axilla: Normal chest wall appearance and motion. Cardiovascular: Regular rate and rhythm. No edema appreciated Respiratory: Normal respirations, no respiratory distress appreciated Abdomen/GI: Non distended, soft Back: Normal ROM Skin: General appearance color normal MS/ Extremity: Moves all extremities, no obvious deformities appreciated, no edema noted to the lower extremities Neuro: Awake and alert, normal gait Psych: Behavior is normal, Mood is normal, Patient is cooperative and pleasant 15:17 Respiratory: the patient does not display signs of respiratory distress, Respirations: normal, Breath sounds: are clear throughout. Vital Signs: 14:02 BP 140 / 73; Pulse 87; Resp 18; Temp 98.3(TE); Pulse Ox 100% on R/A; Weight 113.4 kg tw2 (R); Height 5 ft. 10 in. (177.80 cm); Pain 3/10; 14:54 BP 110 / 69; Pulse 76; Resp 18; Temp 98.9(O); Pulse Ox 100% on R/A; mh5 15:02 BP 116 / 67; Pulse 72; Resp 16; Pulse Ox 100% on R/A; Pain 3/10; ls4 16:02 BP 110 / 60; Pulse 70; Resp 16; Temp 98.4(O); Pulse Ox 99% on R/A; Pain 3/10; ls4 14:02 Body Mass Index 35.87 (113.40 kg, 177.80 cm) tw2 MDM: 14:19 Patient medically screened. [facility] 16:24 Data reviewed: vital signs, nurses notes. Counseling: I had a detailed discussion with leon the patient and/or guardian regarding: the historical points, exam findings, and any diagnostic results supporting the discharge/admit diagnosis, lab results, radiology results, the need for outpatient follow up, to return to the emergency department if symptoms worsen or persist or if there are any questions or concerns that arise at home. ED course: Patient is alert and non toxic in appearance in the ED. CTA negative. Patient advised to follow up with pcp and otherwise given strict return precautions. Patient understood and agrees with the plan of care. . 11/01 14:20 Order name: CBC with Diff [facility] 11/01 14:20 Order name: CMP [facility] 11/01 14:20 Order name: Saline Lock; Complete Time: 14:47 [facility] 11/01 14:20 Order name: Chest For PE Angio CT [facility] 11/01 15:02 Order name: CBC with Automated Diff; Complete Time: 15:15 EDMS 11/01 15:17 Order name: Comprehensive Metabolic Panel; Complete Time: 15:29 EDMS Administered Medications: No medications were administered Disposition: 16:24 Chart complete. [facility] 17:38 Co-signature as Attending Physician, Eduardo Long MD. rn Disposition: 11/01/19 16:25 Discharged to Home. Impression: Acute bronchitis. - Condition is Stable. - Discharge Instructions: Acute Bronchitis, Adult. - Prescriptions for Bromfed DM 2- 30-10 mg/5 mL Oral syrup - take 10 milliliter by ORAL route every 4 hours; 1 bottle. Prednisone 20 mg Oral Tablet - take 3 tablet by ORAL route once daily for 5 days; 15 tablet. Albuterol Sulfate 90 mcg/actuation - inhale 1-2 puff by INHALATION route every 4-6 hours; 1 Inhaler. - Medication Reconciliation Form, Thank You Letter, Antibiotic Education, Prescription Opioid Use, Work release form form. - Follow up: Private Physician; When: 2 - 3 days; Reason: Recheck today's complaints, Continuance of care, Re-evaluation by your physician. Signatures: Dispatcher [employer] EDMS Lawson Chan PA PA [facility] Eduardo Long MD MD rn Wise, Tara, RN RN tw2 Mackenzie Mcneil, RN RN ls4 Corrections: (The following items were deleted from the chart) 16:54 16:25 11/01/2019 16:25 Discharged to Home. Impression: Acute bronchitis. Condition is ls4 Stable. Forms are Work release form, Medication Reconciliation Form, Thank You Letter, Antibiotic Education, Prescription Opioid Use. Follow up: Private Physician; When: 2 - 3 days; Reason: Recheck today's complaints, Continuance of care, Re-evaluation by your physician. leon
[2019-11-01 17:29] VITALS: BP 110/60; TEMP 98.4; O2SAT 99
== END 2019-11-01 16:54 | disposition home or self-care (01) ==
LOC: ER 13:41
DX: J20.9 Acute bronchitis, unspecified (principal); F41.8 Other specified anxiety disorders
CPT/HCPCS: 85025; 36415; 80053; 71275; 99284; Q9967

== ENCOUNTER 2021-07-28 13:05 | Emergency (ER) | payer BC, OTHER ==
[2021-07-28 14:14] LABS: Absolute Lymphocytes (CBC) 1.6 K/uL (0.7-4.9); Basophils % 0.3 % (0-1.3); Hematocrit 40.8 % (39.6-49.0); Lymphocytes % 19.4 % (15.3-44.8); MPV 7.5 fL (7.6-11.3); RBC Red Blood Cell Count 4.66 M/uL (4.33-5.43)
[2021-07-28 14:24] LABS: Urine Blood Negative (Negative); Urine Glucose Negative (Negative); Urine Protein Negative (Negative)
[2021-07-28 14:28] LABS: ALT/SGPT 26 U/L (12-78); AST/SGOT 16 U/L (15-37); Alkaline Phosphatase 65 U/L (45-117); BUN Blood Urea Nitrogen 13 mg/dL (7-18); Bicarbonate 30 mmol/L (21-32); Bilirubin Direct 0.1 mg/dL (0-0.2); Bilirubin Total 0.4 mg/dL (0.2-1.0); Glucose Level 74 mg/dL (74-106); Lipase 64 U/L (73-393); Protein, Total 7.2 g/dL (6.4-8.2); Sodium Level 143 mmol/L (136-145)
--- NOTE | 2021-07-28 15:22 | RAD REPORT ---
EXAM DESCRIPTION: CTAbdomen Pelvis W Contrast - 07/28/2021 3:14 pm CLINICAL HISTORY: Abdominal pain. ABD PAIN COMPARISON: No comparisons TECHNIQUE: Biphasic CT imaging of the abdomen and pelvis was performed with 100 ml non-ionic IV cont rast. All CT scans are performed using dose optimization technique as appropriate and may include automated exposure control or mA/KV adjustment according to patient size. FINDINGS: The lung bases are clear. The liver, spleen, pancreas, adrenal glands and kidneys are within normal limits. No bowel obstruction, free air, free fluid or abscess. Mild sigmoid diverticulosis coli is present wi thout diverticulitis. The appendix is normal. No evidence of significant lymphadenopathy. No suspicious bony findings. IMPRESSION: No acute intra-abdominal or pelvic finding.
[2021-07-28] MEDS ORDERED: ONDANSETRON 4 MG/2 ML VIAL ONE (15:26)
[2021-07-28] MEDS ORDERED: NA CHLORIDE 0.9% 1,000 ML ONE (15:26)
--- NOTE | 2021-07-28 16:27 | ER ---
Nurse's Notes [facility] Name: Gaudencio Kothari Age: 25 yrs Sex: Male : 1995 Arrival Date: 07/28/2021 Time: 13:15 Bed DIS1 Private MD: Diagnosis: Diarrhea, unspecified;Nausea with vomiting, unspecified Presentation: 07/28 13:44 Chief complaint: Patient states: Diarrhea started Tuesday, yesterday I began throwing ld1 up. Today I have vomited three times. Left side ABD pain. Coronavirus screen: At this time, the client does not indicate any symptoms associated with coronavirus-19. Ebola Screen: No symptoms or risks identified at this time. Initial Sepsis Screen: Does the patient meet any 2 criteria? No. Patient's initial sepsis screen is negative. Does the patient have a suspected source of infection? No. Patient's initial sepsis screen is negative. Risk Assessment: Do you want to hurt yourself or someone else? Patient reports no desire to harm self or others. Onset of symptoms was July 28, 2021. 13:44 Method Of Arrival: Ambulatory ld1 13:44 Acuity: BELEM 3 ld1 Triage Assessment: 13:46 General: Appears in no apparent distress. comfortable, Behavior is calm, cooperative, ld1 appropriate for age. Pain: Complains of pain in left upper quadrant and left lower quadrant Pain does not radiate. Pain currently is 1 out of 10 on a pain scale. at worst was 8 out of 10 on a pain scale. Quality of pain is described as throbbing, Pain began 2-3 days ago. Is intermittent. EENT: No signs and/or symptoms were reported regarding the EENT system. Neuro: Level of Consciousness is awake, alert, obeys commands, Oriented to person, place, time, situation. Cardiovascular: Capillary refill < 3 seconds Patient's skin is warm and dry. Respiratory: Airway is patent Respiratory effort is even, unlabored, Respiratory pattern is regular, symmetrical. GI: Abdomen is round non-distended, Reports lower abdominal pain, upper abdominal pain, cramping, diarrhea, nausea, vomiting. Historical: - Allergies: 13:46 No Known Allergies; ld1 - Home Meds: 13:46 citalopram 20 mg tab 1 tab once daily [Active]; trazodone 50 mg Oral tab 1 tab 3 times ld1 per day [Active]; Abilify 10 mg oral tab [Active]; - PMHx: 13:46 Anxiety; BORDERLINE PERSONALITY DISORDER; Depression; ld1 - PSHx: 13:46 None; ld1 - Immunization history:: Adult Immunizations not up to date, Client reports having NOT received the Covid vaccine. - Social history:: Smoking status: Patient reports the use of cigarette tobacco products, smokes one-half pack cigarettes per day, Reported history of juuling and/or vaping. Patient uses alcohol, weekly. street drugs, marijuana. Vital Signs: 13:44 BP 131 / 66; Pulse 72; Resp 18; Temp 97.8(TE); Pulse Ox 99% on R/A; Weight 99.79 kg; ld1 Height 5 ft. 11 in. (180.34 cm); Pain 1/10; 13:44 Body Mass Index 30.68 (99.79 kg, 180.34 cm) ld1 ED Course: 13:15 Patient arrived in ED. as 13:46 Triage completed. ld1 13:46 Arm band placed on left wrist. ld1 15:02 Syeda Wolfe FNP-C is PHCP. kb 15:02 Avelino Wright MD is Attending Physician. kb 15:13 CT Abd/Pelvis - IV Contrast Only In Process Unspecified. EDMS 15:23 Sheeba Baldwin, RN is Primary Nurse. iw Administered Medications: 15:34 Drug: NS 0.9% 1000 ml Route: IV; Rate: 1000 ml; Site: right antecubital; iw 15:34 Drug: Zofran (Ondansetron) 4 mg Route: IVP; Site: right antecubital; iw Outcome: 16:27 Discharge ordered by . kb 16:34 Patient left the ED. ap3 Signatures: Dispatcher [employer] EDMS Syeda Wolfe FNP-C FNP-Nola Cox as Sheeba Baldwin, TOBI BRITTON iw Brittani Kam RN RN ap3 Na Sullivan RN RN ld1
--- NOTE | 2021-07-28 16:28 | EDPHYS ---
Physician Documentation [facility] Name: Gaudencio Kothari Age: 25 yrs Sex: Male : 1995 Arrival Date: 07/28/2021 Time: 13:15 Bed DIS1 Private MD: ED Physician Avelino Wright HPI: 07/28 16:28 This 25 yrs old Male presents to ER via Ambulatory with complaints of kb Abdominal Pain, Vomiting. 16:28 The patient presents with abdominal pain. Onset: The symptoms/episode began/occurred 3 kb day(s) ago. The symptoms do not radiate. Associated signs and symptoms: Pertinent positives: nausea, vomiting, and diarrhea, Pertinent negatives: fever. The symptoms are described as crampy. Modifying factors: The symptoms are alleviated by nothing, the symptoms are aggravated by nothing. Severity of pain: At its worst the pain was mild in the emergency department the pain is unchanged. The patient has not experienced similar symptoms in the past. The patient has not recently seen a physician. Pt reports diarrhea since Tuesday with abd cramps. States he has been vomiting twice a day for 4-6 months. Historical: - Allergies: 13:46 No Known Allergies; ld1 - Home Meds: 13:46 citalopram 20 mg tab 1 tab once daily [Active]; trazodone 50 mg Oral tab 1 tab 3 times ld1 per day [Active]; Abilify 10 mg oral tab [Active]; - PMHx: 13:46 Anxiety; BORDERLINE PERSONALITY DISORDER; Depression; ld1 - PSHx: 13:46 None; ld1 - Immunization history:: Adult Immunizations not up to date, Client reports having NOT received the Covid vaccine. - Social history:: Smoking status: Patient reports the use of cigarette tobacco products, smokes one-half pack cigarettes per day, Reported history of juuling and/or vaping. Patient uses alcohol, weekly. street drugs, marijuana. ROS: 16:25 Constitutional: Negative for fever, chills, and weight loss. kb 16:25 Abdomen/GI: Positive for abdominal pain, nausea, vomiting, and diarrhea. 16:25 All other systems are negative. Exam: 16:25 Constitutional: This is a well developed, well nourished patient who is awake, alert, kb and in no acute distress. Head/Face: Normocephalic, atraumatic. ENT: Moist Mucous membranes Cardiovascular: Regular rate and rhythm with a normal S1 and S2. No gallops, murmurs, or rubs. No pulse deficits. Respiratory: Respirations even and unlabored. No increased work of breathing, no retractions or nasal flaring. Skin: Warm, dry with normal turgor. Normal color. MS/ Extremity: Pulses equal, no cyanosis. Neurovascular intact. Full, normal range of motion. Neuro: Awake and alert, GCS 15, oriented to person, place, time, and situation. Moves all extremities. Normal gait. Psych: Awake, alert, with orientation to person, place and time. Behavior, mood, and affect are within normal limits. 16:25 Abdomen/GI: Inspection: abdomen appears normal, Bowel sounds: normal, Palpation: soft, in all quadrants, mild abdominal tenderness, in the left upper quadrant and left lower quadrant. Vital Signs: 13:44 BP 131 / 66; Pulse 72; Resp 18; Temp 97.8(TE); Pulse Ox 99% on R/A; Weight 99.79 kg; ld1 Height 5 ft. 11 in. (180.34 cm); Pain 1/10; 13:44 Body Mass Index 30.68 (99.79 kg, 180.34 cm) ld1 MDM: 15:24 Patient medically screened. kb 16:25 Data reviewed: vital signs, nurses notes. Data interpreted: Pulse oximetry: on room air kb is 99 %. Interpretation: normal. Counseling: I had a detailed discussion with the patient and/or guardian regarding: the historical points, exam findings, and any diagnostic results supporting the discharge/admit diagnosis, lab results, radiology results, the need for outpatient follow up, a family practitioner, to return to the emergency department if symptoms worsen or persist or if there are any questions or concerns that arise at home. 07/28 13:44 Order name: Basic Metabolic Panel; Complete Time: 15: ld1 07/28 13:44 Order name: CBC with Diff; Complete Time: 15: ld1 07/28 13:44 Order name: Hepatic Function; Complete Time: 15: ld1 07/28 13:44 Order name: Lipase; Complete Time: 15: ld1 07/28 14:24 Order name: Urine Dipstick-Ancillary; Complete Time: 15: EDPR 07/28 15:01 Order name: CT Abd/Pelvis - IV Contrast Only; Complete Time: 15:24 kb 07/28 13:44 Order name: IV Saline Lock; Complete Time: 15:34 ld1 07/28 13:44 Order name: Labs collected and sent; Complete Time: 15:34 ld1 07/28 15:26 Order name: PO challenge; Complete Time: 15:46 kb Administered Medications: 15:34 Drug: NS 0.9% 1000 ml Route: IV; Rate: 1000 ml; Site: right antecubital; iw 15:34 Drug: Zofran (Ondansetron) 4 mg Route: IVP; Site: right antecubital; iw Disposition: 23:13 Co-signature as Attending Physician, Avelino Wright MD I agree with the assessment and muna plan of care. Disposition Summary: 07/28/21 16:27 Discharge Ordered Location: Home kb Condition: Stable kb Diagnosis - Diarrhea, unspecified kb - Nausea with vomiting, unspecified kb Followup: kb - With: Emergency Department - When: As needed - Reason: Worsening of condition Followup: kb - With: Private Physician - When: 2 - 3 days - Reason: Recheck today's complaints, Continuance of care, Re-evaluation by your physician Discharge Instructions: - Discharge Summary Sheet kb - Viral Gastroenteritis, Adult, [id number] kb Forms: - Medication Reconciliation Form kb - Thank You Letter kb - Antibiotic Education kb - Prescription Opioid Use kb Prescriptions: - Zofran 4 mg Oral Tablet - take 1 tablet by ORAL route every 6 hours As needed; 20 tablet; Refills: 0, kb Product Selection Permitted - dicyclomine 20 mg Oral Tablet - take 1 tablet by ORAL route 4 times per day As needed; 20 tablet; Refills: 0, kb Product Selection Permitted Signatures: Dispatcher [employer] EDPR Syeda Wolfe, ERIC MORATAYA-Avelino Watts MD MD cha Williams, Irene, RN RN iw Na Sullivan RN RN ld1
[2021-07-28 17:28] VITALS: BP 131/66; TEMP 97.8; O2SAT 99
== END 2021-07-28 16:34 | disposition home or self-care (01) ==
LOC: ER 13:05
DX: R19.7 Diarrhea, unspecified (principal); F41.8 Other specified anxiety disorders; F17.210 Nicotine dependence, cigarettes, uncomplicated
CPT/HCPCS: 85025; 80048; 36415; 80076; 81003; 83690; 74177; 96374; 99283; Q9967; J7030; J2405

== ENCOUNTER 2021-12-23 11:05 | Emergency (ER) | payer OTHER ==
[2021-12-23] MEDS ORDERED: KETOROLAC 30 MG/ML INJ ONE (11:23)
[2021-12-23] MEDS ORDERED: NA CHLORIDE 0.9% 1,000 ML ONE (11:23)
[2021-12-23] MEDS ORDERED: DIPHENHYDRAMINE 50 MG/ML VIAL ONE (11:23)
[2021-12-23] MEDS ORDERED: METOCLOPRAMIDE 10 MG/2mL INJ ONE (11:23)
[2021-12-23] MEDS ORDERED: NA CHLORIDE 0.9% 50 ML ONE (11:23)
--- OUTSIDE RECORDS SUMMARY | 2021-12-23 11:24 | XMS REPORT | Continuity of Care Document ---
:1995 Author Organization [facility] t Address [address] [place] [address] [place] [id number] Care Team Providers Name Role Phone Unavailable Unavailable Unavailable Problems This patient has no known problems. Allergies, Adverse Reactions, Alerts This patient has no known allergies or adverse reactions. Medications This patient has no known medications. Procedures This patient has no known procedures. Results This patient has no known results.
--- NOTE | 2021-12-23 11:43 | RAD REPORT ---
EXAM DESCRIPTION: CT - Head Brain Wo Cont - 12/23/2021 11:38 am CLINICAL HISTORY: HEADACHE COMPARISON: No comparisons TECHNIQUE: All CT scans are performed using dose optimization technique as appropriate and may inclu de automated exposure control or mA/KV adjustment according to patient size. FINDINGS: No intracranial hemorrhage, hydrocephalus or extra-axial fluid collection.No areas of brai n edema or evidence of midline shift. Near complete opacification of the right maxillary sinus. Circumferential thickening in left maxillar y sinus. The calvarium is intact. IMPRESSION: No acute intracranial abnormality.
[2021-12-23 11:44] LABS: Hematocrit 40.1 % (39.6-49.0); Lymphocytes % 26.6 % (15.3-44.8); MPV 7.5 fL (7.6-11.3); RBC Red Blood Cell Count 4.67 M/uL (4.33-5.43)
[2021-12-23 11:53] LABS: BUN Blood Urea Nitrogen 15 mg/dL (7-18); Bicarbonate 29 mmol/L (21-32); Glucose Level 93 mg/dL (74-106); Sodium Level 141 mmol/L (136-145)
--- NOTE | 2021-12-23 12:04 | ER ---
Nurse's Notes [facility] Name: Gaudencio Kothari Age: 26 yrs Sex: Male : 1995 Arrival Date: 12/23/2021 Time: 11:09 Bed 17 Private MD: Diagnosis: Acute sinusitis, unspecified;Headache Presentation: 12/23 11:15 Chief complaint: Patient states: Migraine MUNOZ for 1 week. No fever or N/V. States he ll1 thought it was a sinus infection initially. Coronavirus screen: Vaccine status: Patient reports being unvaccinated. Client denies travel out of the [place] in the last 14 days. congestion. Ebola Screen: Patient denies travel to an Ebola-affected area in the 21 days before illness onset. Initial Sepsis Screen: Does the patient meet any 2 criteria? No. Patient's initial sepsis screen is negative. Does the patient have a suspected source of infection? No. Patient's initial sepsis screen is negative. Risk Assessment: Do you want to hurt yourself or someone else? Patient reports no desire to harm self or others. Onset of symptoms was December 16, 2021. 11:15 Method Of Arrival: Ambulatory 1 11:15 Acuity: BELEM 4 ll1 Triage Assessment: 11:17 General: Appears uncomfortable, Behavior is calm, cooperative, appropriate for age. ll1 Pain: Complains of pain in head Quality of pain is described as aching, throbbing, Pain began 1 week. EENT: Reports nasal congestion. Neuro: Reports headache. Historical: - Allergies: 11:17 No Known Allergies; ll1 - PMHx: 11:10 Anxiety; BORDERLINE PERSONALITY DISORDER; Depression; ph - PSHx: 11:17 None; ll1 - Immunization history:: Client reports having NOT received the Covid vaccine. - Social history:: Smoking status: Reported history of juuling and/or vaping. Screenin:10 Abuse screen: Denies threats or abuse. Denies injuries from another. Nutritional ph screening: No deficits noted. Tuberculosis screening: No symptoms or risk factors identified. Fall Risk None identified. Assessment: 11:54 General: Appears in no apparent distress. comfortable, well groomed, Behavior is calm, ph cooperative, appropriate for age, Denies fever, feeling ill. Pain: Complains of pain in right side of forehead, right church and right eye Pain does not radiate. Neuro: Level of Consciousness is awake, alert, obeys commands, Oriented to person, place, time, situation, Reports headache in right frontal area, Denies weakness blurred vision dizziness. Cardiovascular: Capillary refill < 3 seconds in bilateral fingers Patient's skin is warm and dry. Respiratory: Airway is patent Respiratory effort is even, unlabored. EENT: Reports nasal congestion. Derm: Skin is intact, is healthy with good turgor, Skin is pink, warm \T\ dry. Musculoskeletal: Circulation, motion, and sensation intact. Range of motion: intact in all extremities. 12:06 Reassessment: Patient appears in no apparent distress at this time. Patient and/or ph family updated on plan of care and expected duration. Pain level reassessed. Patient is alert, oriented x 3, equal unlabored respirations, skin warm/dry/pink. D/C pending completion of IV fluids. 12:55 Reassessment: Patient appears in no apparent distress at this time. Patient and/or ph family updated on plan of care and expected duration. Pain level reassessed. Patient is alert, oriented x 3, equal unlabored respirations, skin warm/dry/pink. Patient denies pain at this time. Patient states symptoms have improved. Vital Signs: 11:15 BP 143 / 105; Pulse 96; Resp 17; Temp 98.6(O); Pulse Ox 99% ; Weight 105.69 kg; Height ll1 5 ft. 10 in. (177.80 cm); 11:55 Pulse 70; Resp 18; Pulse Ox 98% on R/A; ph 12:06 BP 114 / 62; ph 12:45 BP 112 / 72; Pulse 71; Resp 16; Temp 97.9; Pulse Ox 99% on R/A; ph 11:15 Body Mass Index 33.43 (105.69 kg, 177.80 cm) ll1 ED Course: 11:09 Patient arrived in ED. ds1 11:10 Syeda Wolfe FNP-C is PHCP. kb 11:10 Cale Ramos DO is Attending Physician. kb 11:10 Kaylyn Jackson RN is Primary Nurse. ph 11:10 Patient has correct armband on for positive identification. Bed in low position. Call ph light in reach. Side rails up X 1. Pulse ox on. NIBP on. Door closed. Noise minimized. Warm blanket given. 11:17 Triage completed. ll1 11:30 Initial lab(s) drawn, by me, sent to lab. Inserted saline lock: 20 gauge in right ph antecubital area, using aseptic technique. Blood collected. 11:39 CT Head Brain wo Cont In Process Unspecified. EDMS 11:52 Arm band placed on Patient placed in an exam room. ph 12:50 No provider procedures requiring assistance completed. IV discontinued, intact, ph bleeding controlled, No redness/swelling at site. Pressure dressing applied. Administered Medications: 11:48 Drug: NS 0.9% 1000 ml Route: IV; Rate: 1000 ml; Site: right antecubital; ph 12:55 Follow up: IV Status: Completed infusion; IV Intake: 1000ml ph 11:48 Drug: Benadryl (diphenhydrAMINE) 12.5 mg Route: IVP; Site: right antecubital; ph 12:15 Follow up: Response: No adverse reaction ph 11:49 Drug: Ketorolac 15 mg Route: IVP; Site: right antecubital; ph 12:15 Follow up: Response: No adverse reaction ph 11:50 Drug: Reglan (metoCLOPramide) 10 mg Route: IVP; Site: right antecubital; ph 12:15 Follow up: Response: No adverse reaction ph Intake: 12:55 IV: 1000ml; Total: 1000ml. ph Outcome: 12:03 Discharge ordered by . kb 12:58 Patient left the ED. ph 12:58 Discharged to home ambulatory. ph 12:58 Condition: good 12:58 Discharge instructions given to patient, Instructed on discharge instructions, follow up and referral plans. medication usage, Demonstrated understanding of instructions, follow-up care, medications, Prescriptions given X 1. Signatures: Dispatcher [employer] EDAL Syeda Wolfe, Annette Damon ds1 Kaylyn Jackson, TOBI RN ph Josephine Xavier RN RN ll1
--- NOTE | 2021-12-23 12:04 | EDPHYS ---
Physician Documentation [facility] Name: Gaudencio Kothari Age: 26 yrs Sex: Male : 1995 Arrival Date: 12/23/2021 Time: 11:09 Bed 17 Private MD: ED Physician Cale Ramos HPI: 12/23 12:01 This 26 yrs old Male presents to ER via Ambulatory with complaints of Migraine. kb 12:01 The patient complains of pain to the right side of forehead. The patient describes the kb headache as throbbing. Onset: The symptoms/episode began/occurred 1 week(s) ago. Associated signs and symptoms: Pertinent positives: Photophobia. Severity of symptoms: At its worst the pain was moderate, in the emergency department the pain is unchanged. Headache History: Denies prior headaches. The symptoms are alleviated by nothing. the symptoms are aggravated by nothing. The patient has not experienced similar symptoms in the past. The patient has not recently seen a physician. Pt reports headache to right side of head. States the pain gets worse when he looks down, reports dizziness upon standing. States lights and sound make the pain worse. . Historical: - Allergies: 11:17 No Known Allergies; ll1 - PMHx: 11:10 Anxiety; BORDERLINE PERSONALITY DISORDER; Depression; ph - PSHx: 11:17 None; ll1 - Immunization history:: Client reports having NOT received the Covid vaccine. - Social history:: Smoking status: Reported history of juuling and/or vaping. ROS: 12:00 Constitutional: Negative for fever, chills, and weight loss. kb 12:00 Neuro: Positive for dizziness, headache. 12:00 All other systems are negative. Exam: 12:00 Constitutional: This is a well developed, well nourished patient who is awake, alert, kb and in no acute distress. Head/Face: Normocephalic, atraumatic. Eyes: Pupils equal round and reactive to light, extra-ocular motions intact. Lids and lashes normal. Conjunctiva and sclera are non-icteric and not injected. Cornea within normal limits. Periorbital areas with no swelling, redness, or edema. Cardiovascular: Regular rate and rhythm with a normal S1 and S2. No gallops, murmurs, or rubs. No pulse deficits. Respiratory: Respirations even and unlabored. No increased work of breathing. Talking in full sentences Skin: Warm, dry with normal turgor. Normal color. MS/ Extremity: Pulses equal, no cyanosis. Neurovascular intact. Full, normal range of motion. Neuro: Awake and alert, GCS 15, oriented to person, place, time, and situation. Moves all extremities. Normal gait. Psych: Awake, alert, with orientation to person, place and time. Behavior, mood, and affect are within normal limits. Vital Signs: 11:15 BP 143 / 105; Pulse 96; Resp 17; Temp 98.6(O); Pulse Ox 99% ; Weight 105.69 kg; Height ll1 5 ft. 10 in. (177.80 cm); 11:55 Pulse 70; Resp 18; Pulse Ox 98% on R/A; ph 12:06 BP 114 / 62; ph 12:45 BP 112 / 72; Pulse 71; Resp 16; Temp 97.9; Pulse Ox 99% on R/A; ph 11:15 Body Mass Index 33.43 (105.69 kg, 177.80 cm) ll1 MDM: 11:10 Patient medically screened. kb 12:00 Data reviewed: vital signs, nurses notes. Data interpreted: Pulse oximetry: on room air kb is 98 %. Interpretation: normal. Counseling: I had a detailed discussion with the patient and/or guardian regarding: the historical points, exam findings, and any diagnostic results supporting the discharge/admit diagnosis, lab results, radiology results, the need for outpatient follow up, a family practitioner, to return to the emergency department if symptoms worsen or persist or if there are any questions or concerns that arise at home. 12/23 11:14 Order name: CBC with Diff; Complete Time: 11:45 kb 12/23 11:14 Order name: Basic Metabolic Panel; Complete Time: 11:53 kb 12/23 11:14 Order name: CT Head Brain wo Cont; Complete Time: 11:45 kb 12/23 11:14 Order name: IV Start; Complete Time: 11:52 kb Administered Medications: 11:48 Drug: NS 0.9% 1000 ml Route: IV; Rate: 1000 ml; Site: right antecubital; ph 12:55 Follow up: IV Status: Completed infusion; IV Intake: 1000ml ph 11:48 Drug: Benadryl (diphenhydrAMINE) 12.5 mg Route: IVP; Site: right antecubital; ph 12:15 Follow up: Response: No adverse reaction ph 11:49 Drug: Ketorolac 15 mg Route: IVP; Site: right antecubital; ph 12:15 Follow up: Response: No adverse reaction ph 11:50 Drug: Reglan (metoCLOPramide) 10 mg Route: IVP; Site: right antecubital; ph 12:15 Follow up: Response: No adverse reaction ph Disposition: 14:53 Co-signature as Attending Physician, Cale Ramos DO I was immediately available on-site ms3 in the Emergency Department for consultation in the care of the patient.. Disposition Summary: 12/23/21 12:03 Discharge Ordered Location: Home kb Condition: Stable kb Diagnosis - Acute sinusitis, unspecified kb - Headache kb Followup: kb - With: Emergency Department - When: As needed - Reason: Worsening of condition Followup: kb - With: Private Physician - When: 2 - 3 days - Reason: Recheck today's complaints, Continuance of care, Re-evaluation by your physician Discharge Instructions: - Discharge Summary Sheet kb - Sinusitis, Adult, Weyt-kh-Nrhl kb - General Headache Without Cause, Micc-lq-Lbzr kb Forms: - Medication Reconciliation Form kb - Thank You Letter kb - Antibiotic Education kb - Prescription Opioid Use kb - Work release form ph Prescriptions: - Augmentin 875-125 mg Oral Tablet - take 1 tablet by ORAL route every 12 hours for 10 days; 20 tablet; Refills: 0, kb Product Selection Permitted Signatures: Dispatcher [employer] Syeda Martinez, ERIC MORATAYA-Kaylyn Cervantes, RN RN Josephine Xavier RN RN [facility] Cale Ramos DO DO ms3
[2021-12-23 13:04] VITALS: TEMP 98.6
[2021-12-23 13:05] VITALS: O2SAT 98
[2021-12-23 13:06] VITALS: BP 114/62
== END 2021-12-23 12:58 | disposition home or self-care (01) ==
LOC: ER 11:05
DX: J01.90 Acute sinusitis, unspecified (principal)
CPT/HCPCS: 96361; 85025; 80048; 36415; 70450; 96375; 96374; 99284; J2765; J1200; J7030

== ENCOUNTER 2022-10-06 10:27 | Emergency (ER) | payer OTHER ==
--- OUTSIDE RECORDS SUMMARY | 2022-10-06 10:30 | XMS REPORT | Continuity of Care Document ---
:1995 Author Organization [facility] t Address [address] [place] [address] Care Team Providers Name Role Phone Asked, No Pcp Primary Care Physician Unavailable Donna Phillip Attending Clinician DONNA PHILLIP Attending Clinician Unavailable Problems Condition Condition Condition Status Onset Resolution Last Treating Co mments Source Name Details Category Date Date Treatment Clinician Date BACK/ BACK/ Diagnosis Active 2020-01-11 Mem [facility] RIBCAGE RIBCAGE 10-03 16:57:00 l PAIN PAIN 00:00: Brooks Active 00 10/03/2019 [facility] History of Past Illness Condition Condition Condition Status Onset Resolution Last Treating Co mments Source Name Details Category Date Date Treatment Clinician Date Suicidal Suicidal Problem 2019-10-06 2019-10-06 Memoria ideations ideations 10-04 22:22:41 22:22:41 l 10/04/2019 18:00: Javy n 00 0 Krzysztof Allergies, Adverse Reactions, Alerts This patient has no known allergies or adverse reactions. Social History Social Habit Start Date Stop Date Quantity Comments Source Tobacco use and 2018-06-17 2018-06-17 Smokeless tobacco [facility] exposure 00:00:00 00:00:00 non-user Hospital Alcohol intake 2018-06-17 2018-06-17 Current [employer] 00:00:00 00:00:00 non-drinker of Hospital alcohol (finding) Sex Ass[birth year] [employer] 00:00:00 00:00:00 Hospital Smoking Status Start Date Stop Date Source Social History [facility] Medications Ordered Filled Start Stop Current Ordering Indication Dosage Frequency Signature Comments Components Source Medication Medication Date Date Medication? Clinician (SIG) Name Name Ibuprofen Yes Notes: Memori a 10-04 (Same as: l 12:09: Motrin) [facility] 00 "Do Not Crush" Take with food. No known No No known Metho di medications 06-[address] 17:53: [facility] l Vital Signs Vital Name Observation Time Observation Value Comments Source Heart Rate 2019-10-04 15:38:00 [facility] Respitory Rate 2019-10-04 15:38:00 [facility] al [facility] Systolic (mm Hg) 2019-10-04 15:38:00 Azar rial [facility] Diastolic (mm Hg) 2019-10-04 15:38:00 Mem orial [place] Temperature Oral (F) 2019-10-04 07:32:00 98.9 F [facility] Heart Rate 2019-10-04 07:32:00 [facility] Respitory Rate 2019-10-04 07:32:00 Memori al [facility] Systolic (mm Hg) 2019-10-04 07:32:00 Azar rial [place] Diastolic (mm Hg) 2019-10-04 07:32:00 Mem orial [facility] Systolic (mm Hg) 2019-10-04 02:45:00 Azar rial [facility] Diastolic (mm Hg) 2019-10-04 02:45:00 Mem orial [place] Respitory Rate 2019-10-04 02:45:00 [facility]ori al [facility] Heart Rate 2019-10-04 02:45:00 [facility] Temperature Oral (F) 2019-10-04 01:34:00 98.1 F [facility] Weight 2019-10-04 01:34:00 [facility] Procedures This patient has no known procedures. Plan of Care Planned Activity Planned Date Details Comments Source Future Scheduled 2022-10-06 COVID-[address] [facility] Test 10:29:53 (#1) [code = COVID-19 VACCINE (#1)] Future Scheduled 2022-10-06 [facility]ACCINE [facility] 10:29:53 [code = INFLUENZA VACCINE] Encounters Start End Encounter Admission Attending Care Care Encounter Source Date/Time Date/Time Type Type Clinicians Facility Department ID 2019-10-04 2019-10-04 Emergency [facility] [id number] Memoria 01:16:42 16:09:00 r [place] 00 l [facility] 2019-10-03 2019-10-04 Outpatient [place], [facility] [id number] 19:16:42 10:09:00 Donna 00 [place] 2019-10-03 2019-10-04 Emergency E F[place], [facility] 7500 [facility] 19:16:00 10:09:00 DONNA Results Test Description Test Time Test Comments Results Result Comments Source DRUG SCREEN 2019-10-04 03:20:00 Test Item Value Reference Range Interpretation Comme nts U Cocaine Scr (test code = U Cocaine Scr) Negative *NA*(10/03/19 9:20 PM) [id number] 03:20:00 Test Item Value Reference Range Interpretation Comments U Cannab Scr (test Negative *NA*(10/03/19 code = U Cannab Scr) 9:20 PM) [facility] [id number] 03:20:00 Test Item Value Reference Range Interpretation Comments U Opiate Scr (test Negative *NA*(10/03/19 code = U Opiate Scr) 9:20 PM) [facility] [id number] 03:20:00 Test Item Value Reference Range Interpretation Comments U Phencyclidine Scr (test Negative *NA*(10/03/19 code = U Phencyclidine 9:20 PM) Scr) [facility] [id number] 03:20:00 Test Item Value Reference Range Interpretation Comments UDS Note (test code = See Note *NA*(10/03/19 UDS Note) 9:20 PM) [facility] [id number] 03:20:00 Test Item Value Reference Range Interpretation Comments U Amph Scr (test code Negative *NA*(10/03/19 = U Amph Scr) 9:20 PM) [facility] [id number] 03:20:00 Test Item Value Reference Range Interpretation Comments U Dede Scr (test code Negative *NA*(10/03/19 = U Dede Scr) 9:20 PM) [facility] [id number] 03:20:00 Test Item Value Reference Range Interpretation Comments U Benzodiaz Scr (test Negative *NA*(10/03/19 code = U Benzodiaz Scr) 9:20 PM) [facility]2020-01-09 03:11:00 Test Item Value Reference Range Interpretation Comments Glucose Lvl (test code = Glucose Lvl) 91 70-99 [facility]2020-01-09 03:11:00 Test Item Value Reference Range Interpretation Comments BUN (test code = BUN) 14 7-22 [facility]2020-01-09 03:11:00 Test Item Value Reference Range Interpretation Comments Creatinine Lvl (test code = Creatinine 1.10 0.50-1.40 Lvl) [facility]2020-01-09 03:11:00 Test Item Value Reference Range Interpretation Comments Sodium Lvl (test code = Sodium Lvl) 140 135-145 [facility]2020-01-09 03:11:00 Test Item Value Reference Range Interpretation Comments Potassium Lvl (test code = Potassium 3.8 3.5-5.1 Lvl) [facility]2020-01-09 03:11:00 Test Item Value Reference Range Interpretation Comments Chloride Lvl (test code = Chloride Lvl) 105 95-109 [facility]2020-01-09 03:11:00 Test Item Value Reference Range Interpretation Comments CO2 (test code = CO2) 27 24-32 [facility]2020-01-09 03:11:00 Test Item Value Reference Range Interpretation Comments Calcium Lvl (test code = Calcium Lvl) 9.5 8.5-10.5 [facility]2020-01-09 03:11:00 Test Item Value Reference Range Interpretation Comments Total Protein (test code = Total 7.5 6.4-8.4 Protein) [facility]2020-01-09 03:11:00 Test Item Value Reference Range Interpretation Comments Albumin Lvl (test code = Albumin Lvl) 4.2 3.5-5.0 [place] [id number] 03:11:00 Test Item Value Reference Range Interpretation Comments ALT (test code = ALT) 25 See_Comment [Auto mated message] The system which ge nerated this result transmit mark reference range : <=65. The reference range was not used to interpr et this result as melinda l/abnormal. [facility] [employer] [id number] 03:11:00 Test Item Value Reference Range Interpretation Comments AST (test code = AST) 13 See_Comment [Auto mated message] The system which ge nerated this result transmit mark reference range : <=37. The reference range was not used to interpr et this result as melinda l/abnormal. [facility] [employer] [id number] 03:11:00 Test Item Value Reference Range Interpretation Comments Alk Phos (test code = Alk Phos) 74 39-136 [facility] [employer] [id number] 03:11:00 Test Item Value Reference Range Interpretation Comments Bili Total (test code = Bili Total) 0.5 0.2-1.3 [facility] [employer] [id number] 03:11:00 Test Item Value Reference Range Interpretation Comments eGFR (test code = eGFR) 93 [facility] [employer] [id number] 03:11:00 Test Item Value Reference Range Interpretation Comments AGAP (test code = AGAP) 11.8 10.0-20.0 [facility] [employer] [id number] 03:11:00 Test Item Value Reference Range Interpretation Comments B/C Ratio (test code = B/C Ratio) 13 1 6-25 [facility] [employer] [id number] 03:11:00 Test Item Value Reference Range Interpretation Comments Globulin (test code = Globulin) 3.3 2.7-4.2 [facility] [employer] [id number] 03:11:00 Test Item Value Reference Range Interpretation Comments A/G Ratio (test code = A/G Ratio) 1.3 1 0.7-1.6 [facility] [id number] 03:11:00 Test Item Value Reference Range Interpretation Comments WBC (test code = WBC) 10.6 3.7-10.4 [id number] 03:11:00 Test Item Value Reference Range Interpretation Comments RBC (test code = RBC) 4.99 4.70-6.10 [id number] 03:11:00 Test Item Value Reference Range Interpretation Comments Hgb (test code = Hgb) 14.3 14.0-18.0 [place] [id number] 03:11:00 Test Item Value Reference Range Interpretation Comments Hct (test code = Hct) 41.9 42.0-54.0 [place] [id number] 03:11:00 Test Item Value Reference Range Interpretation Comments MCV (test code = MCV) 83.8 80.0-94.0 [id number] 03:11:00 Test Item Value Reference Range Interpretation Comments MCH (test code = MCH) 28.6 pg 27.0-31.0 [facility] R[id number] 03:11:00 Test Item Value Reference Range Interpretation Comments MCHC (test code = MCHC) 34.1 32.0-36.0 [place] [id number] 03:11:00 Test Item Value Reference Range Interpretation Comments RDW (test code = RDW) 13.8 11.5-14.5 [facility] [id number] 03:11:00 Test Item Value Reference Range Interpretation Comments Platelet (test code = Platelet) 297 133-450 [facility] [id number] 03:11:00 Test Item Value Reference Range Interpretation Comments MPV (test code = MPV) 7.9 7.4-10.4 [facility] [id number] 03:11:00 Test Item Value Reference Range Interpretation Comments Segs (test code = Segs) 63.8 45.0-75.0 [facility] R[id number] 03:11:00 Test Item Value Reference Range Interpretation Comments Lymphocytes (test code = Lymphocytes) 26.9 20.0-40.0 [place] [id number] 03:11:00 Test Item Value Reference Range Interpretation Comments Monocytes (test code = Monocytes) 8.5 2.0-12.0 [facility] R[id number] 03:11:00 Test Item Value Reference Range Interpretation Comments Eosinophils (test code = 0.4 See_Comment [A utomated message] The Eosinophils) system which ge nerated this result tra nsmitted reference range : <=4.0. The reference r carin was not used to int erpret this result as normal/abnormal . [facility] R[id number] 03:11:00 Test Item Value Reference Range Interpretation Comments Basophils (test code = 0.4 See_Comment [Aut omated message] The Basophils) system which ge nerated this result tra nsmitted reference range : <=1.0. The reference r carin was not used to int erpret this result as normal/abnormal . [facility] [id number] 03:11:00 Test Item Value Reference Range Interpretation Comments Neutrophils # (test code = Neutrophils 6.8 1.5-8.1 #) [facility] [id number] 03:11:00 Test Item Value Reference Range Interpretation Comments Lymphocytes # (test code = Lymphocytes 2.9 1.0-5.5 #) [facility] [id number] 03:11:00 Test Item Value Reference Range Interpretation Comments Monocytes # (test code 0.9 See_Comment [Aut omated message] The = Monocytes #) system which generated this result tra nsmitted reference range : <=0.8. The reference r carin was not used to int erpret this result as normal/abnormal . [id number] 03:11:00 Test Item Value Reference Range Interpretation Comments Acetaminoph Lvl (test code = (10/03/19 9:11 PM) 10-20 Acetaminoph Lvl) [place] [id number] 03:11:00 Test Item Value Reference Range Interpretation Comments Ethanol Lvl (test code = Ethanol Lvl) no gt [id number] 03:11:00 Test Item Value Reference Range Interpretation Comments Etoh (%) (test code = Etoh (%)) no gt [facility] [id number] 03:11:00 Test Item Value Reference Range Interpretation Comments Salicylate Lvl (test no gt See_Comment [Autom ated message] The code = Salicylate Lvl) syste m which generated this result tra nsmitted reference range : <=30.0. The reference r carin was not used to int erpret this result as normal/abnormal . [facility]
[2022-10-06 11:17] LABS: Absolute Lymphocytes (CBC) 1.9 K/uL (0.7-4.9); Hematocrit 42.2 % (39.6-49.0); Lymphocytes % 27.8 % (15.3-44.8); MCV 86.2 fL (80-100); MPV 7.7 fL (7.6-11.3)
[2022-10-06 11:17] LABS: Urine Blood Negative (Negative); Urine Glucose Negative (Negative); Urine Protein Negative (Negative); Urine Specific Gravity >=1.030 (1.005-1.030)
[2022-10-06 11:36] LABS: Albumin 3.9 g/dL (3.4-5.0); Bilirubin Total 0.3 mg/dL (0.2-1.0); Potassium 3.9 mmol/L (3.5-5.1); Protein, Total 6.8 g/dL (6.4-8.2)
[2022-10-06] MEDS ORDERED: NA CHLORIDE 0.9% 1,000 ML ONE (11:47)
--- NOTE | 2022-10-06 12:04 | RAD REPORT ---
EXAM DESCRIPTION: CTAbdomen Pelvis W Contrast - 10/06/2022 11:48 am CLINICAL HISTORY: Abdominal pain. abd pain COMPARISON: Abdomen Pelvis W Contrast dated 07/28/2021 TECHNIQUE: Biphasic CT imaging of the abdomen and pelvis was performed with 100 ml non-ionic IV cont rast. All CT scans are performed using dose optimization technique as appropriate and may include automated exposure control or mA/KV adjustment according to patient size. FINDINGS: The lung bases are clear. The liver, spleen, pancreas, adrenal glands and kidneys are within normal limits. No bowel obstruction, free air, free fluid or abscess. The appendix is normal. No evidence of signi ficant lymphadenopathy. No suspicious bony findings. IMPRESSION: No acute intra-abdominal or pelvic finding.
--- NOTE | 2022-10-06 12:11 | EDPHYS ---
Physician Documentation [facility] Name: Gaudencio Kothari Age: 27 yrs Sex: Male : 1995 Arrival Date: 10/06/2022 Time: 10:28 Bed 9 Private MD: ED Physician Aris Trujillo HPI: 10/06 12:02 This 27 yrs old Male presents to ER via Ambulatory with complaints of Abdominal Pain - kb LUQ. 12:02 The patient presents with abdominal pain in the left upper quadrant. The patient has kb not recently seen a physician. 12:02 Onset: The symptoms/episode began/occurred 3 day(s) ago. The symptoms radiate to left kb lower quadrant. Associated signs and symptoms: Pertinent positives: nausea, vomiting, and diarrhea, Pertinent negatives: fever. The symptoms are described as constant. Modifying factors: The symptoms are alleviated by nothing, the symptoms are aggravated by nothing. Severity of pain: At its worst the pain was moderate in the emergency department the pain is unchanged. The patient has not experienced similar symptoms in the past. Historical: - Allergies: 10:49 No Known Allergies; aa5 - Home Meds: 10:49 Abilify 10 mg Oral tab [Active]; citalopram 20 mg tab 1 tab once daily [Active]; aa5 trazodone 50 mg Oral tab 1 tab 3 times per day [Active]; - PMHx: 10:49 Anxiety; BORDERLINE PERSONALITY DISORDER; Depression; aa5 - PSHx: 10:49 None; aa5 - Immunization history:: Adult Immunizations up to date. - Social history:: Smoking status: Reported history of juuling and/or vaping. ROS: 12:02 Constitutional: Negative for fever, chills, and weight loss. kb 12:02 Abdomen/GI: Positive for abdominal pain, nausea, vomiting, and diarrhea. 12:02 All other systems are negative. Exam: 12:02 Constitutional: This is a well developed, well nourished patient who is awake, alert, kb and in no acute distress. Head/Face: Normocephalic, atraumatic. ENT: Moist Mucous membranes Cardiovascular: Regular rate and rhythm with a normal S1 and S2. No gallops, murmurs, or rubs. No pulse deficits. Respiratory: Respirations even and unlabored. No increased work of breathing. Talking in full sentences Skin: Warm, dry with normal turgor. Normal color. MS/ Extremity: Pulses equal, no cyanosis. Neurovascular intact. Full, normal range of motion. Neuro: Awake and alert, GCS 15, oriented to person, place, time, and situation. Moves all extremities. Normal gait. Psych: Awake, alert, with orientation to person, place and time. Behavior, mood, and affect are within normal limits. 12:02 Abdomen/GI: Inspection: abdomen appears normal, Bowel sounds: normal, Palpation: soft, in all quadrants, mild abdominal tenderness, in the left upper quadrant and left lower quadrant. Vital Signs: 10:48 BP 136 / 71; Pulse 96; Resp 18 S; Temp 97.3(TE); Pulse Ox 99% on R/A; Weight 115.21 kg aa5 (R); Height 5 ft. 10 in. (177.80 cm) (R); 10:48 Body Mass Index 36.44 (115.21 kg, 177.80 cm) aa5 MDM: 10:52 Patient medically screened. 12:02 Data reviewed: vital signs, nurses notes. 12:02 Differential diagnosis: bowel obstruction, diverticulitis, gastritis, non-specific abd kb pain. 12:06 I considered the following discharge prescriptions or medication management in the emergency department Antibiotics: At this time antibiotics are not recommended. Counseling: I had a detailed discussion with the patient and/or guardian regarding: the historical points, exam findings, and any diagnostic results supporting the discharge/admit diagnosis, lab results, radiology results, the need for outpatient follow up, a family practitioner, to return to the emergency department if symptoms worsen or persist or if there are any questions or concerns that arise at home. 10/06 10:52 Order name: CBC with Diff; Complete Time: 11:30 kb 10/06 10:52 Order name: CMP; Complete Time: 11:43 kb 10/06 10:52 Order name: Lipase; Complete Time: 11:43 kb 10/06 10:52 Order name: CT Abd/Pelvis - IV Contrast Only; Complete Time: 12:06 kb 10/06 11:17 Order name: Urine Dipstick-Ancillary; Complete Time: 11:30 EDMS 10/06 10:52 Order name: IV Saline Lock; Complete Time: 11:18 kb 10/06 10:52 Order name: Labs collected and sent; Complete Time: 11:18 kb 10/06 10:52 Order name: Urine Dipstick-Ancillary (obtain specimen); Complete Time: 11:18 kb Administered Medications: 12:01 Drug: NS 0.9% 1000 ml Route: IV; Rate: 1 bolus; Site: left antecubital; [facility] 12:22 Drug: Zofran (Ondansetron) 4 mg Route: IVP; Site: left antecubital; [facility] 12:22 Drug: Bentyl (dicyclomine) 20 mg Route: PO; [facility] Disposition Summary: 10/06/22 12:10 Discharge Ordered Location: Home kb Condition: Stable kb Diagnosis - Abdominal pain, Generalized - left kb Followup: kb - With: Emergency Department - When: As needed - Reason: Worsening of condition Followup: kb - With: Private Physician - When: 2 - 3 days - Reason: Recheck today's complaints, Continuance of care, Re-evaluation by your physician Discharge Instructions: - Discharge Summary Sheet kb - Abdominal Pain, Adult, [id number] kb Forms: - Medication Reconciliation Form kb - Thank You Letter kb - Antibiotic Education kb - Prescription Opioid Use kb Prescriptions: - Zofran 4 mg Oral Tablet - take 1 tablet by ORAL route every 6 hours As needed; 20 tablet; Refills: 0, kb Product Selection Permitted - dicyclomine 20 mg Oral Tablet - take 1 tablet by ORAL route 4 times per day As needed; 20 tablet; Refills: 0, kb Product Selection Permitted Signatures: Dispatcher [employer] Syeda Martinez, RAFIA-C CORK INSULATION INSTALLER-Cristela Cates, RN RN aa5 Dedra Zavala RN RN [id number]
--- NOTE | 2022-10-06 12:11 | ER ---
Nurse's Notes [facility] Name: Gaudencio Kothari Age: 27 yrs Sex: Male : 1995 Arrival Date: 10/06/2022 Time: 10:28 Bed 9 Private MD: Diagnosis: Abdominal pain, Generalized-left Presentation: 10/06 10:48 Chief complaint: Patient states: LUQ cramping pain that began 2-3 days ago. Pt also aa5 reports nausea/vomiting/diarrhea. Coronavirus screen: nausea, vomiting. Ebola Screen: Patient denies travel to an Ebola-affected area in the 21 days before illness onset. Initial Sepsis Screen: Does the patient meet any 2 criteria? HR > 90 bpm. Does the patient have a suspected source of infection? No. Patient's initial sepsis screen is negative. Risk Assessment: Do you want to hurt yourself or someone else? Patient reports no desire to harm self or others. Onset of symptoms was September 2022. 10:48 Method Of Arrival: Ambulatory aa5 10:48 Acuity: BELEM 3 aa5 Historical: - Allergies: 10:49 No Known Allergies; aa5 - Home Meds: 10:49 Abilify 10 mg Oral tab [Active]; citalopram 20 mg tab 1 tab once daily [Active]; aa5 trazodone 50 mg Oral tab 1 tab 3 times per day [Active]; - PMHx: 10:49 Anxiety; BORDERLINE PERSONALITY DISORDER; Depression; aa5 - PSHx: 10:49 None; aa5 - Immunization history:: Adult Immunizations up to date. - Social history:: Smoking status: Reported history of juuling and/or vaping. Vital Signs: 10:48 BP 136 / 71; Pulse 96; Resp 18 S; Temp 97.3(TE); Pulse Ox 99% on R/A; Weight 115.21 kg aa5 (R); Height 5 ft. 10 in. (177.80 cm) (R); 10:48 Body Mass Index 36.44 (115.21 kg, 177.80 cm) aa5 ED Course: 10:28 Patient arrived in ED. am2 10:30 Syeda Wolfe FNP-C [facility]. kb 10:30 Aris Trujillo MD is Attending Physician. kb 10:48 Arm band placed on. aa5 10:49 Triage completed. aa5 11:18 CBC with Diff Sent. bc6 11:18 CMP Sent. bc6 11:18 Lipase Sent. bc6 11:18 Initial lab(s) drawn, by me, sent to lab. Urine collected: clean catch specimen. bc6 Inserted saline lock: 20 gauge in left antecubital area, using aseptic technique. 11:50 CT Abd/Pelvis - IV Contrast Only In Process Unspecified. EDMS Administered Medications: 12:01 Drug: NS 0.9% 1000 ml Route: IV; Rate: 1 bolus; Site: left antecubital; [facility] 12:22 Drug: Zofran (Ondansetron) 4 mg Route: IVP; Site: left antecubital; [facility] 12:22 Drug: Bentyl (dicyclomine) 20 mg Route: PO; 5 Outcome: 12:10 Discharge ordered by . kb 12:50 Patient left the ED. [facility] Signatures: Dispatcher [employer] EDMS Syeda Wolfe, DIABETES TERRITORY MANAGER-C DIABETES TERRITORY MANAGER-Cristela Cates, RN RN aa5 Brittani Rodarte amDedra Be RN RN 5 Kelly Monroy 6
[2022-10-06] MEDS ORDERED: ONDANSETRON 4 MG/2 ML VIAL ONE (12:20)
[2022-10-06] MEDS ORDERED: DICYCLOMINE HCL 10 MG CAP ONE (12:21)
[2022-10-06 13:10] VITALS: BP 136/71; TEMP 97.3; O2SAT 99
== END 2022-10-06 12:50 | disposition home or self-care (01) ==
LOC: ER 10:27
DX: R10.84 Generalized abdominal pain (principal)
CPT/HCPCS: 85025; 36415; 81003; 83690; 80053; 74177; 96374; 99284; Q9967; J7030; J2405

== ENCOUNTER 2022-11-29 09:06 | Emergency (ER) | payer OTHER ==
[2022-11-29] MEDS ORDERED: MAGNES/ALUMIN/SIMET 30ML UCUP ONE (09:28)
[2022-11-29] MEDS ORDERED: FAMOTIDINE 20 MG TAB ONE (09:28)
[2022-11-29] MEDS ORDERED: LIDOCAINE VISCOUS 2% SOLN 15 ML UDC ONE (09:28)
--- OUTSIDE RECORDS SUMMARY | 2022-11-29 09:34 | XMS REPORT | Continuity of Care Document ---
:1995 Author Organization [facility] t Address [address] [place] [address] [address] [place] [address] Care Team Providers Name Role Phone Asked, No Pcp Primary Care Physician Unavailable Donna Phillip Attending Clinician [phone] DONNA PHILLIP Attending Clinician Unavailable Problems Condition Condition Condition Status Onset Resolution Last Treating Co mments Source Name Details Category Date Date Treatment Clinician Date BACK/ BACK/ Diagnosis Active 2020-01-11 [facility] RIBCAGE RIBCAGE 10-03 16:57:00 l PAIN PAIN 00:00: Wilber[place] Active 00 10/03/2019 [facility] History of Past Illness Condition Condition Condition [...] Start Date Stop Date Quantity Comments Source Alcohol intake 2018-06-17 2018-06-17 Current Catholic 00:00:00 00:00:00 non-drinker of Hospital alcohol (finding) Tobacco use and 2018-06-17 2018-06-17 Smokeless tobacco Me [facility] exposure 00:00:00 00:00:00 non-user Hospital Sex Assigned At [birth year] Catholic 00:00:00 00:00:00 Hospital Smoking Status Start Date Stop Date Source Social History [facility] Medications Ordered Filled Start Stop Current Ordering Indication Dosage Frequency Signature Comments Components Source Medication Medication Date Date Medication? Clinician (SIG) Name Name Ibuprofen Yes Notes: Memori a 10-04 (Same as: l 12:09: Motrin) [place] 00 "Do Not Crush" Take with food. Ibuprofen Yes Notes: [facility] a 10-04 (Same as: l 12:09: Motrin) [place] 00 "Do Not Crush" Take with food. No known No No known Metho di medications 06-[address] 17:53: [facility] l Vital Signs Vital Name Observation Time Observation Value Comments Source Heart Rate 2019-10-04 15:38:00 [facility] Respitory Rate 2019-10-04 15:38:00 [facility] [place] Systolic (mm Hg) 2019-10-04 15:38:00 Azar rial [place] Diastolic (mm Hg) 2019-10-04 15:38:00 Mem orial [place] Temperature Oral (F) 2019-10-04 07:32:00 98.9 F [facility] Heart Rate 2019-10-04 07:32:00 [facility] Respitory Rate 2019-10-04 07:32:00 [facility] [place] Systolic (mm Hg) 2019-10-04 07:32:00 Azar rial [place] Diastolic (mm Hg) 2019-10-04 07:32:00 Mem orial [place] Systolic (mm Hg) 2019-10-04 02:45:00 Azar rial [place] Diastolic (mm Hg) 2019-10-04 02:45:00 Mem orial [place] Respitory Rate 2019-10-04 02:45:00 [facility] [place] Heart Rate 2019-10-04 02:45:00 [facility] Temperature Oral (F) 2019-10-04 01:34:00 98.1 F [facility] [place] Weight 2019-10-04 01:34:00 [facility] [place] Procedures This patient has no known procedures. Plan of Care Planned Activity Planned Date Details Comments Source Future Scheduled 2022-10-06 COVID-[address] [facility] Test 10:29:53 (#1) [code = COVID-19 VACCINE (#1)] Future Scheduled 2022-10-06 INFLUENZA VACCINE Method [facility] Test 10:29:53 [code = INFLUENZA VACCINE] [facility]22[facility]10-[facility] (#[facility] [code = COVID-19 VACCINE (#1)] Future Scheduled 2022-10-06 INFLUENZA VACCINE Method [facility] Test 10:29:53 [code = INFLUENZA VACCINE] Encounters Start End Encounter Admission Attending Care Care Encounter Source Date/Time Date/Time Type Type Clinicians Facility Department ID 2019-10-04 2019-10-04 [facility] [id number] Memoria 01:16:42 16:09:00 r [place] 00 [facility] 2019-10-04 2019-10-04 Emergency [facility] [id number] Memoria 01:16:42 16:09:00 r [place] 00 [facility] 2019-10-03 2019-10-04 Outpatient [place], MHPL MHPL [id number] 19:16:42 10:09:00 Donna 00 [place] 2019-10-03 2019-10-04 Emergency E FADOWOLE, MHBL MHBL [id number] MHBL 19:16:00 10:09:00 DONNA Results Test Description Test Time Test Comments Results Result Comments Source DRUG SCREEN 2019-10-04 03:20:00 Test Item Value Reference Range Interpretation Comme nts U Amph Scr (test code = U Amph Scr) Negative *NA*(10/03/19 9:20 PM) [facility] [id number] 03:20:00 Test Item Value Reference Range Interpretation Comments U Dede Scr (test code Negative *NA*(10/03/19 = U Dede Scr) 9:20 PM) [facility] [id number] 03:20:00 Test Item Value Reference Range Interpretation Comments U Benzodiaz Scr (test Negative *NA*(10/03/19 code = U Benzodiaz Scr) 9:20 PM) [facility] [id number] 03:20:00 Test Item Value Reference Range Interpretation Comments U Cannab Scr (test Negative *NA*(10/03/19 code = U Cannab Scr) 9:20 PM) [facility] [id number] 03:20:00 Test Item Value Reference Range Interpretation Comments U Opiate Scr (test Negative *NA*(10/03/19 code = U Opiate Scr) 9:20 PM) [facility] [id number] 03:20:00 Test Item Value Reference Range Interpretation Comments U Amph Scr (test code Negative *NA*(10/03/19 = U Amph Scr) 9:20 PM) [facility] [id number] 03:20:00 Test Item Value Reference Range Interpretation Comments U Dede Scr (test code Negative *NA*(10/03/19 = U Dede Scr) 9:20 PM) [facility] [id number] 03:20:00 Test Item Value Reference Range Interpretation Comments U Benzodiaz Scr (test Negative *NA*(10/03/19 code = U Benzodiaz Scr) 9:20 PM) [facility] [id number] 03:20:00 Test Item Value Reference Range Interpretation Comments U Cocaine Scr (test Negative *NA*(10/03/19 code = U Cocaine Scr) 9:20 PM) [facility] [id number] 03:20:00 Test Item Value Reference Range Interpretation Comments U Phencyclidine Scr (test Negative *NA*(10/03/19 code = U Phencyclidine 9:20 PM) Scr) [facility] [id number] 03:20:00 Test Item Value Reference Range Interpretation Comments UDS Note (test code = See Note *NA*(10/03/19 UDS Note) 9:20 PM) [facility] [id number] 03:20:00 Test Item Value Reference Range Interpretation Comments U Cocaine Scr (test Negative *NA*(10/03/19 code = U Cocaine Scr) 9:20 PM) [facility] [id number] 03:20:00 Test Item Value Reference Range Interpretation Comments U Cannab Scr (test Negative *NA*(10/03/19 code = U Cannab Scr) 9:20 PM) [facility] [id number] 03:20:00 Test Item Value Reference Range Interpretation Comments U Opiate Scr (test Negative *NA*(10/03/19 code = U Opiate Scr) 9:20 PM) [facility] [id number] 03:20:00 Test Item Value Reference Range Interpretation Comments U Phencyclidine Scr (test Negative *NA*(10/03/19 code = U Phencyclidine 9:20 PM) Scr) [facility] [id number] 03:20:00 Test Item Value Reference Range Interpretation Comments UDS Note (test code = See Note *NA*(10/03/19 UDS Note) 9:20 PM) [facility] [employer] [id number] 03:11:00 Test Item Value Reference Range Interpretation Comments Glucose Lvl (test code = Glucose Lvl) 91 70-99 [facility] [employer] [id number] 03:11:00 Test Item Value Reference Range Interpretation Comments Chloride Lvl (test code = Chloride Lvl) 105 95-109 [facility] [employer] [id number] 03:11:00 Test Item Value Reference Range Interpretation Comments CO2 (test code = CO2) 27 24-32 [facility] [employer] [id number] 03:11:00 Test Item Value Reference Range Interpretation Comments Calcium Lvl (test code = Calcium Lvl) 9.5 8.5-10.5 [facility] [employer] [id number] 03:11:00 Test Item Value Reference Range Interpretation Comments Total Protein (test code = Total 7.5 6.4-8.4 Protein) [facility] [id number] 03:11:00 Test Item Value Reference Range Interpretation Comments Albumin Lvl (test code = Albumin Lvl) 4.2 3.5-5.0 [facility] [employer] [id number] 03:11:00 Test Item Value Reference Range Interpretation Comments ALT (test code = ALT) 25 See_Comment [Auto mated message] The system which ge nerated this result transmit mark reference range : <=65. The reference range was not used to interpr et this result as melinda l/abnormal. [facility] [employer] [id number] 03:11:00 Test Item Value Reference Range Interpretation Comments AST (test code = AST) 13 See_Comment [Auto mated message] The system which ge nerated this result transmit mark reference range : <=37. The reference range was not used to interpr et this result as melinda l/abnormal. [facility]2020-01-09 03:11:00 Test Item Value Reference Range Interpretation Comments Alk Phos (test code = Alk Phos) 74 39-136 [place] [id number] 03:11:00 Test Item Value Reference Range Interpretation Comments Bili Total (test code = Bili Total) 0.5 0.2-1.3 [facility]2020-01-09 03:11:00 Test Item Value Reference Range Interpretation Comments eGFR (test code = eGFR) 93 [facility]2020-01-09 03:11:00 Test Item Value Reference Range Interpretation Comments BUN (test code = BUN) 14 7-22 [facility]2020-01-09 03:11:00 Test Item Value Reference Range Interpretation Comments AGAP (test code = AGAP) 11.8 10.0-20.0 [facility]2020-01-09 03:11:00 Test Item Value Reference Range Interpretation Comments B/C Ratio (test code = B/C Ratio) 13 1 6-25 [facility]2020-01-09 03:11:00 Test Item Value Reference Range Interpretation Comments Globulin (test code = Globulin) 3.3 2.7-4.2 [facility] [id number] 03:11:00 Test Item Value Reference Range Interpretation Comments A/G Ratio (test code = A/G Ratio) 1.3 1 0.7-1.6 [facility] [id number] 03:11:00 Test Item Value Reference Range Interpretation Comments WBC (test code = WBC) 10.6 3.7-10.4 [facility] S[id number] 03:11:00 Test Item Value Reference Range Interpretation Comments RBC (test code = RBC) 4.99 4.70-6.10 [place] [id number] 03:11:00 Test Item Value Reference Range Interpretation Comments Hgb (test code = Hgb) 14.3 14.0-18.0 [place] [id number] 03:11:00 Test Item Value Reference Range Interpretation Comments Hct (test code = Hct) 41.9 42.0-54.0 [place] [id number] 03:11:00 Test Item Value Reference Range Interpretation Comments MCV (test code = MCV) 83.8 80.0-94.0 [facility] [id number] 03:11:00 Test Item Value Reference Range Interpretation Comments MCH (test code = MCH) 28.6 pg 27.0-31.0 [facility]2020-01-09 03:11:00 Test Item Value Reference Range Interpretation Comments Creatinine Lvl (test code = Creatinine 1.10 0.50-1.40 Lvl) [facility] [id number] 03:11:00 Test Item Value Reference Range Interpretation Comments MCHC (test code = MCHC) 34.1 32.0-36.0 [facility]UjkuwizXXRBEUIANV1590-55-13 03:11:00 Test Item Value Reference Range Interpretation Comments RDW (test code = RDW) 13.8 11.5-14.5 [facility] [id number] 03:11:00 Test Item Value Reference Range Interpretation Comments Platelet (test code = Platelet) 297 133-450 [facility] S[id number] 03:11:00 Test Item Value Reference Range Interpretation Comments MPV (test code = MPV) 7.9 7.4-10.4 [facility] HospitalUzunnctHVAKOWVKDF9478-73-11 03:11:00 Test Item Value Reference Range Interpretation Comments Segs (test code = Segs) 63.8 45.0-75.0 [facility] SystemNohtxuhWIGDPUZHNG6498-54-59 03:11:00 Test Item Value Reference Range Interpretation Comments Lymphocytes (test code = Lymphocytes) 26.9 20.0-40.0 [facility] H[id number] 03:11:00 Test Item Value Reference Range Interpretation Comments Monocytes (test code = Monocytes) 8.5 2.0-12.0 [facility] SystemCeycjapWGKUUIYQBE0277-73-00 03:11:00 Test Item Value Reference Range Interpretation Comments Eosinophils (test code = 0.4 See_Comment [A utomated message] The Eosinophils) system which ge nerated this result tra nsmitted reference range : <=4.0. The reference r carin was not used to int erpret this result as normal/abnormal . [facility] [id number] 03:11:00 Test Item Value Reference Range Interpretation Comments Basophils (test code = 0.4 See_Comment [Aut omated message] The Basophils) system which ge nerated this result tra nsmitted reference range : <=1.0. The reference r carin was not used to int erpret this result as normal/abnormal . [facility] SystemAfrtynzFOOLNWVNAZ7143-56-03 03:11:00 Test Item Value Reference Range Interpretation Comments Neutrophils # (test code = Neutrophils 6.8 1.5-8.1 #) [facility] [id number] 03:11:00 Test Item Value Reference Range Interpretation Comments Sodium Lvl (test code = Sodium Lvl) 140 135-145 [facility] SystemZgmhzteYBAQCVMBWR7102-96-30 03:11:00 Test Item Value Reference Range Interpretation Comments Lymphocytes # (test code = Lymphocytes 2.9 1.0-5.5 #) [facility] SystemHxzagduEHZWQVRLZX8817-67-55 03:11:00 Test Item Value Reference Range Interpretation Comments Monocytes # (test code 0.9 See_Comment [Aut omated message] The = Monocytes #) system which generated this result tra nsmitted reference range : <=0.8. The reference r carin was not used to int erpret this result as normal/abnormal . [facility] AustinJvbxhcoYYGLEESJJM7505-90-06 03:11:00 Test Item Value Reference Range Interpretation Comments Acetaminoph Lvl (test code = (10/03/19 9:11 PM) 10-20 Acetaminoph Lvl) [place] [id number] 03:11:00 Test Item Value Reference Range Interpretation Comments Ethanol Lvl (test code = Ethanol Lvl) no gt [facility] AustinSxsmxezSXIOYCXKZL5287-45-14 03:11:00 Test Item Value Reference Range Interpretation Comments Etoh (%) (test code = Etoh (%)) no gt [facility] AustinWiiengnKUXLCWSRKC9386-72-73 03:11:00 Test Item Value Reference Range Interpretation Comments Salicylate Lvl (test no gt See_Comment [Autom ated message] The code = Salicylate Lvl) syste m which generated this result tra nsmitted reference range : <=30.0. The reference r carin was not used to int erpret this result as normal/abnormal . [facility] [id number] 03:11:00 Test Item Value Reference Range Interpretation Comments Potassium Lvl (test code = Potassium 3.8 3.5-5.1 Lvl) [place] 657910-01-09 03:11:00 Test Item Value Reference Range Interpretation Comments Chloride Lvl (test code = Chloride Lvl) 105 95-109 [place] 657910-01-09 03:11:00 Test Item Value Reference Range Interpretation Comments CO2 (test code = CO2) 27 24-32 [place] 657910-01-09 03:11:00 Test Item Value Reference Range Interpretation Comments Calcium Lvl (test code = Calcium Lvl) 9.5 8.5-10.5 [facility]BL[facility] [id number] 03:11:00 Test Item Value Reference Range Interpretation Comments Total Protein (test code = Total 7.5 6.4-8.4 Protein) [facility]2020-01-09 03:11:00 Test Item Value Reference Range Interpretation Comments Albumin Lvl (test code = Albumin Lvl) 4.2 3.5-5.0 [facility] [id number] 03:11:00 Test Item Value Reference Range Interpretation Comments ALT (test code = ALT) 25 See_Comment [Auto mated message] The system which ge nerated this result transmit mark reference range : <=65. The reference range was not used to interpr et this result as melinda l/abnormal. [facility] [id number] 03:11:00 Test Item Value Reference Range Interpretation Comments AST (test code = AST) 13 See_Comment [Auto mated message] The system which ge nerated this result transmit mark reference range : <=37. The reference range was not used to interpr et this result as melinda l/abnormal. [facility] [id number] 03:11:00 Test Item Value Reference Range Interpretation Comments Alk Phos (test code = Alk Phos) 74 39-136 [place] 657910-01-09 03:11:00 Test Item Value Reference Range Interpretation Comments Bili Total (test code = Bili Total) 0.5 0.2-1.3 [place] 657910-01-09 03:11:00 Test Item Value Reference Range Interpretation Comments eGFR (test code = eGFR) 93 [place] 657910-01-09 03:11:00 Test Item Value Reference Range Interpretation Comments AGAP (test code = AGAP) 11.8 10.0-20.0 [facility]2020-01-09 03:11:00 Test Item Value Reference Range Interpretation Comments B/C Ratio (test code = B/C Ratio) 13 1 6-25 [facility]2020-01-09 03:11:00 Test Item Value Reference Range Interpretation Comments Globulin (test code = Globulin) 3.3 2.7-4.2 [facility]2020-01-09 03:11:00 Test Item Value Reference Range Interpretation Comments A/G Ratio (test code = A/G Ratio) 1.3 1 0.7-1.6 [facility] S[id number] 03:11:00 Test Item Value Reference Range Interpretation Comments WBC (test code = WBC) 10.6 3.7-10.4 [facility] SystemTbgoklsGEOVTMCEMG7959-89-43 03:11:00 Test Item Value Reference Range Interpretation Comments RBC (test code = RBC) 4.99 4.70-6.10 [facility] SystemYjskpjfXRGLHYATON7800-36-11 03:11:00 Test Item Value Reference Range Interpretation Comments Hgb (test code = Hgb) 14.3 14.0-18.0 [facility] SystemLbaprpnJUCVCWERSF6082-31-52 03:11:00 Test Item Value Reference Range Interpretation Comments Hct (test code = Hct) 41.9 42.0-54.0 [facility] SystemNavtbzcMOHWOYWNOL0657-51-72 03:11:00 Test Item Value Reference Range Interpretation Comments MCV (test code = MCV) 83.8 80.0-94.0 [facility] SystemJscqyhwAUHTOLBNGK4585-80-96 03:11:00 Test Item Value Reference Range Interpretation Comments MCH (test code = MCH) 28.6 pg 27.0-31.0 [facility] SystemYqugldvDUSKKIVUSK9828-61-31 03:11:00 Test Item Value Reference Range Interpretation Comments MCHC (test code = MCHC) 34.1 32.0-36.0 [place] 912070-01-09 03:11:00 Test Item Value Reference Range Interpretation Comments RDW (test code = RDW) 13.8 11.5-14.5 [facility] SystemNjeekghXMHNLEBJEE0574-36-85 03:11:00 Test Item Value Reference Range Interpretation Comments Platelet (test code = Platelet) 297 133-450 [place] 912070-01-09 03:11:00 Test Item Value Reference Range Interpretation Comments MPV (test code = MPV) 7.9 7.4-10.4 [place] 912070-01-09 03:11:00 Test Item Value Reference Range Interpretation Comments Segs (test code = Segs) 63.8 45.0-75.0 [place] 912070-01-09 03:11:00 Test Item Value Reference Range Interpretation Comments Lymphocytes (test code = Lymphocytes) 26.9 20.0-40.0 [place] 912070-01-09 03:11:00 Test Item Value Reference Range Interpretation Comments Monocytes (test code = Monocytes) 8.5 2.0-12.0 [place] 912070-01-09 03:11:00 Test Item Value Reference Range Interpretation Comments Eosinophils (test code = 0.4 See_Comment [A utomated message] The Eosinophils) system which ge nerated this result tra nsmitted reference range : <=4.0. The reference r carin was not used to int erpret this result as normal/abnormal . [facility] SystemRbntsmnJFMXIFKDWZ6483-33-15 03:11:00 Test Item Value Reference Range Interpretation Comments Basophils (test code = 0.4 See_Comment [Aut omated message] The Basophils) system which ge nerated this result tra nsmitted reference range : <=1.0. The reference r carin was not used to int erpret this result as normal/abnormal . [facility] SystemEeuieqhNIVAEUSCOA3931-27-15 03:11:00 Test Item Value Reference Range Interpretation Comments Neutrophils # (test code = Neutrophils 6.8 1.5-8.1 #) [facility] SystemIofvuwpLUZRIUHTQV2110-49-63 03:11:00 Test Item Value Reference Range Interpretation Comments Lymphocytes # (test code = Lymphocytes 2.9 1.0-5.5 #) [facility] SystemDsaeyrjNCGDPTUQXQ7060-38-64 03:11:00 Test Item Value Reference Range Interpretation Comments Monocytes # (test code 0.9 See_Comment [Aut omated message] The = Monocytes #) system which generated this result tra nsmitted reference range : <=0.8. The reference r carin was not used to int erpret this result as normal/abnormal . [place] [id number] 03:11:00 Test Item Value Reference Range Interpretation Comments Acetaminoph Lvl (test code = (10/03/19 9:11 PM) 10-20 Acetaminoph Lvl) [place] 311290-01-09 03:11:00 Test Item Value Reference Range Interpretation Comments Ethanol Lvl (test code = Ethanol Lvl) no gt [place] [id number] 03:11:00 Test Item Value Reference Range Interpretation Comments Etoh (%) (test code = Etoh (%)) no gt [place] [id number] 03:11:00 Test Item Value Reference Range Interpretation Comments Salicylate Lvl (test no gt See_Comment [Autom ated message] The code = Salicylate Lvl) syste m which generated this result tra nsmitted reference range : <=30.0. The reference r carin was not used to int erpret this result as normal/abnormal . [facility] [employer] [id number] 03:11:00 Test Item Value Reference Range Interpretation Comments Glucose Lvl (test code = Glucose Lvl) 91 70-99 [facility] [employer] [id number] 03:11:00 Test Item Value Reference Range Interpretation Comments BUN (test code = BUN) 14 7-22 [facility] [employer] [id number] 03:11:00 Test Item Value Reference Range Interpretation Comments Creatinine Lvl (test code = Creatinine 1.10 0.50-1.40 Lvl) [facility] [id number] 03:11:00 Test Item Value Reference Range Interpretation Comments Sodium Lvl (test code = Sodium Lvl) 140 135-145 [facility] [employer] [id number] 03:11:00 Test Item Value Reference Range Interpretation Comments Potassium Lvl (test code = Potassium 3.8 3.5-5.1 Lvl) [facility]
--- NOTE | 2022-11-29 09:56 | EDPHYS ---
Physician Documentation [facility] Name: Gaudencio Kothari Age: 27 yrs Sex: Male : 1995 Arrival Date: 11/29/2022 Time: 09:09 Bed 9 Private MD: ED Physician Cale Ramos HPI: 11/29 09:58 This 27 yrs old Male presents to ER via Ambulatory with complaints of Abdominal Pain, ms3 Nausea/Vomiting/Diarrhea. 09:58 27-year-old male with past medical history of anxiety, borderline personality disorder, ms3 depression presents for abdominal pain that has been ongoing for 1/2 months. Patient states the pain is described as cramping. Patient states he has been seen in the emergency department previously and had negative blood work and CT scans. Patient states his discomfort is a 6/10 located in the left upper quadrant. Patient states alcohol makes his pain worse. Tylenol makes the pain better.. Historical: - Allergies: 09:19 No Known Allergies; aa5 - PMHx: 09:19 Anxiety; BORDERLINE PERSONALITY DISORDER; Depression; aa5 - Immunization history:: Adult Immunizations unknown. - Social history:: Smoking status: Patient reports the use of cigarette tobacco products, 5 cigarettes a day. ROS: 09:58 Constitutional: Negative for fever, and chills. Neck: Negative for injury, pain, and ms3 swelling, Cardiovascular: Negative for chest pain, and palpitations. Respiratory: Negative for shortness of breath, cough, wheezing, and pleuritic chest pain. 09:58 MS/Extremity: Negative for injury and deformity, Skin: Negative for injury, rash, and discoloration. 09:58 Abdomen/GI: Positive for abdominal pain. 09:58 All other systems are negative. Exam: 09:58 Constitutional: This is a well developed, well nourished patient who is awake, alert, ms3 and in no acute distress. Head/Face: Normocephalic, atraumatic. Neck: Trachea midline, no cervical lymphadenopathy. Supple, full range of motion without nuchal rigidity, or vertebral point tenderness. No Meningismus. Chest/axilla: Normal chest wall appearance and motion. Nontender with no deformity. Cardiovascular: Regular rate and rhythm with a normal S1 and S2. No gallops, murmurs, or rubs. Normal PMI, no JVD. No pulse deficits. Respiratory: Lungs have equal breath sounds bilaterally, clear to auscultation and percussion. No rales, rhonchi or wheezes noted. No increased work of breathing, no retractions or nasal flaring. 09:58 Abdomen/GI: Inspection: abdomen appears normal, Bowel sounds: normal, Palpation: mild abdominal tenderness, in the left upper quadrant. Vital Signs: 09:19 BP 138 / 73; Pulse 82; Resp 18 S; Temp 97.8(TE); Pulse Ox 100% on R/A; Weight 113.4 kg aa5 (R); Height 5 ft. 10 in. (177.80 cm) (R); 09:19 Body Mass Index 35.87 (113.40 kg, 177.80 cm) aa5 MDM: 09:24 Patient medically screened. ms3 09:58 Differential diagnosis: Nonspecific abd pain, gastritis, viral gastroenteritis. Data ms3 reviewed: vital signs, nurses notes, and as a result, I will discharge patient. I considered the following discharge prescriptions or medication management in the emergency department I discussed and recommended Over The Counter medications, Medications were administered in the Emergency Department. See MAR. Counseling: I had a detailed discussion with the patient and/or guardian regarding: the historical points, exam findings, and any diagnostic results supporting the discharge/admit diagnosis, the need for outpatient follow up, to return to the emergency department if symptoms worsen or persist or if there are any questions or concerns that arise at home. ED course: Patient symptoms improved at this time after GI cocktail and Pepcid. Patient to follow-up with Dr. Christie in 2 to 3 days. Patient understands and agrees to plan. All questions were answered. Return precautions discussed include worsening symptoms, or any other concerns. Administered Medications: 09:31 Drug: GI Cocktail without - (Maalox Suspension 30 ml, Lidocaine Liquid 2 % 15 iw ml) Route: PO; 09:31 Drug: Pepcid (famotidine) 20 mg Route: PO; iw Disposition Summary: 11/29/22 09:56 Discharge Ordered Location: Home ms3 Condition: Stable ms3 Diagnosis - Acute gastritis ms3 - Upper abdominal pain, unspecified ms3 Followup: ms3 - With: Agus Christie MD - When: 2 - 3 days - Reason: Recheck today's complaints Discharge Instructions: - Discharge Summary Sheet ms3 - Abdominal Pain, Adult ms3 - Gastritis, Adult ms3 Forms: - Work release form iw - Medication Reconciliation Form ms3 - Thank You Letter ms3 - Antibiotic Education ms3 - Prescription Opioid Use ms3 Prescriptions: - Pepcid 20 mg Oral Tablet - take 1 tablet by ORAL route once daily; 20 tablet; Refills: 0, Product ms3 Selection Permitted Signatures: Sheeba Baldwin RN RN iw Cristela Fuller RN RN aa5 Cale Ramos DO DO ms3
--- NOTE | 2022-11-29 09:56 | ER ---
Nurse's Notes [facility] Name: Gaudencio Kothari Age: 27 yrs Sex: Male : 1995 Arrival Date: 11/29/2022 Time: 09:09 Bed 9 Private MD: Diagnosis: Acute gastritis;Upper abdominal pain, unspecified Presentation: 11/29 09:19 Chief complaint: Patient states: abd burning pain x 1 month ago, pt also reports aa5 nausea/vomiting. States "when I drink alcohol it hurts". Coronavirus screen: vomiting. Ebola Screen: Patient denies travel to an Ebola-affected area in the 21 days before illness onset. Initial Sepsis Screen: Does the patient meet any 2 criteria? No. Patient's initial sepsis screen is negative. Does the patient have a suspected source of infection? No. Patient's initial sepsis screen is negative. Risk Assessment: Do you want to hurt yourself or someone else? Patient reports no desire to harm self or others. Onset of symptoms was November 2022. 09:19 Acuity: BELEM 3 aa5 09:19 Method Of Arrival: Ambulatory aa5 Historical: - Allergies: 09:19 No Known Allergies; aa5 - PMHx: 09:19 Anxiety; BORDERLINE PERSONALITY DISORDER; Depression; aa5 - Immunization history:: Adult Immunizations unknown. - Social history:: Smoking status: Patient reports the use of cigarette tobacco products, 5 cigarettes a day. Vital Signs: 09:19 BP 138 / 73; Pulse 82; Resp 18 S; Temp 97.8(TE); Pulse Ox 100% on R/A; Weight 113.4 kg aa5 (R); Height 5 ft. 10 in. (177.80 cm) (R); 09:19 Body Mass Index 35.87 (113.40 kg, 177.80 cm) aa5 ED Course: 09:09 Patient arrived in ED. rg4 09:14 Cale Ramos DO is Attending Physician. ms3 09:19 Arm band placed on. aa5 09:20 Triage completed. aa5 09:22 Sheeba Baldwin, TOBI is Primary Nurse. iw 09:55 Agus Christie MD is Referral Physician. ms3 Administered Medications: 09:31 Drug: GI Cocktail without - (Maalox Suspension 30 ml, Lidocaine Liquid 2 % 15 iw ml) Route: PO; 09:31 Drug: Pepcid (famotidine) 20 mg Route: PO; iw Outcome: 09:56 Discharge ordered by ms3 10:03 Patient left the ED. iw Signatures: Sheeba Baldwin, RN Cristela Joseph RN RN aa5 Reyna Lama4 Cale Ramos DO DO ms3
[2022-11-29 10:14] VITALS: BP 138/73; TEMP 97.8; O2SAT 100
== END 2022-11-29 10:03 | disposition home or self-care (01) ==
LOC: ER 09:06
DX: K29.00 Acute gastritis without bleeding (principal)
CPT/HCPCS: 99283

== ENCOUNTER 2022-12-14 12:06 | Emergency (ER) | payer OTHER ==
--- OUTSIDE RECORDS SUMMARY | 2022-12-14 12:13 | XMS REPORT | Continuity of Care Document ---
:1995 [facility] t Address [address] [facility] [address] [place] [address] Care Team Providers Name Role Phone Asked, No Pcp Primary Care Physician Unavailable Donna Phillip Attending Clinician DONNA PHILLIP Attending Clinician Unavailable Problems Condition Condition Condition Status Onset Resolution Last Treating Co mments Source Name Details Category Date Date Treatment Clinician Date BACK/ BACK/ Diagnosis Active 2020-01-11 Mem oria RIBCAGE RIBCAGE 10-03 16:57:00 l PAIN PAIN 00:00: Wilberto Active 00 10/03/2019 [facility] History of Past Illness Condition Condition Condition Status Onset Resolution Last Treating Co mments Source Name Details Category Date Date Treatment Clinician Date Suicidal Suicidal Problem 2019-10-06 2019-10-06 Memoria ideations ideations 10-04 22:22:41 22:22:41 l 10/04/2019 18:00: Javy n 10/06/[address] [place] [address] Allergies, Adverse Reactions, Alerts This patient has no known allergies or adverse reactions. Social History Social Habit Start Date Stop Date Quantity Comments Source Alcohol intake 2018-06-17 2018-06-17 Current [facility] 00:00:00 00:00:00 non-drinker of Hospital alcohol (finding) Tobacco use and 2018-06-17 2018-06-17 Smokeless tobacco [facility] exposure 00:00:00 00:00:00 non-user Hospital Sex Assigned At [birth year] [facility] 00:00:00 00:00:00 Hospital Smoking Status Start Date Stop Date Source Social History [facility] Medications Ordered Filled Start Stop Current Ordering Indication Dosage Frequency Signature Comments Components Source Medication Medication Date Date Medication? Clinician (SIG) Name Name Ibuprofen Yes Notes: Memori a 10-04 (Same as: l 12:09: Motrin) [place] 00 "Do Not Crush" Take with food. Ibuprofen Yes Notes: Memori a 10-04 (Same as: l 12:09: Motrin) [place] 00 "Do Not Crush" Take with food. Ibuprofen Yes Notes: Memori a 10-04 (Same as: l 12:09: Motrin) [place] 00 "Do Not Crush" Take with food. No known No No known Metho di medications 06-[address] 17:53: [facility] l Vital Signs Vital Name Observation Time Observation Value Comments Source Heart Rate 2019-10-04 15:38:00 [facility] [place] Respitory Rate 2019-10-04 15:38:00 Memori al [place] Systolic (mm Hg) 2019-10-04 15:38:00 Azar rial [place] Diastolic (mm Hg) 2019-10-04 15:38:00 Mem orial [place] Temperature Oral (F) 2019-10-04 07:32:00 98.9 F [facility] Heart Rate 2019-10-04 07:32:00 [facility] [place] Respitory Rate 2019-10-04 07:32:00 Memori al [place] Systolic (mm Hg) 2019-10-04 07:32:00 Azar rial [place] Diastolic (mm Hg) 2019-10-04 07:32:00 Mem orial [place] Systolic (mm Hg) 2019-10-04 02:45:00 Azar rial [place] Diastolic (mm Hg) 2019-10-04 02:45:00 Mem o[facility] [place] Respitory Rate 2019-10-04 02:45:00 Memori al [place] Heart Rate 2019-10-04 02:45:00 [facility] Temperature Oral (F) 2019-10-04 01:34:00 98.1 F [facility] Weight 2019-10-04 01:34:00 [facility] [place] Procedures This patient has no known procedures. Plan of Care Planned Activity Planned Date Details Comments Source Future Scheduled 2022-10-06 COVID-19 VACCINE [facility] Test 10:29:53 (#1) [code = COVID-19 VACCINE (#1)] Future Scheduled 2022-10-06 INFLUENZA VACCINE Method [facility] Test 10:29:53 [code = INFLUENZA VACCINE] Future Scheduled 2022-10-06 COVID-19 VACCINE [facility] Test 10:29:53 (#1) [code = COVID-19 VACCINE (#1)] Future Scheduled 2022-10-06 INFLUENZA VACCINE Method [facility] Test 10:29:53 [code = INFLUENZA VACCINE] Future Scheduled 2022-10-06 COVID-19 VACCINE [facility] Test 10:29:53 (#1) [code = COVID-19 VACCINE (#1)] Future Scheduled 2022-10-06 INFLUENZA VACCINE Method [facility] Test 10:29:53 [code = INFLUENZA VACCINE] Encounters Start End Encounter Admission Attending Care Care Encounter Source Date/Time Date/Time Type Type Clinicians Facility Department ID 2019-10-04 2019-10-04 Emergency [facility] [id number] Memoria 01:16:42 16:09:00 r [place] 00 [facility] 2019-10-04 2019-10-04 Emergency nullFlavo [facility] [id number] Memoria 01:16:42 16:09:00 r [place] 00 [facility] 2019-10-03 2019-10-04 [place]patient [place], [place] [id number] 19:16:42 10:09:00 Donna 00 [place] 2019-10-03 2019-10-04 Emergency E [place], MHBL MHBL 7500 MHBL 19:16:00 10:09:00 DONNA Results Test Description Test Time Test Comments Results Result Comments Source DRUG SCREEN 2019-10-04 03:20:00 Test Item Value Reference Range Interpretation Comme nts U Cocaine Scr (test code = U Cocaine Scr) Negative *NA*(10/03/19 9:20 PM) [facility] [id number] 03:20:00 Test Item Value Reference Range Interpretation Comments U Cocaine Scr (test Negative *NA*(10/03/19 code = U Cocaine Scr) 9:20 PM) [facility] [id number] 03:20:00 Test Item Value Reference Range Interpretation Comments U Cannab Scr (test Negative *NA*(10/03/19 code = U Cannab Scr) 9:20 PM) [facility] [id number] 03:20:00 Test Item Value Reference Range Interpretation Comments U Opiate Scr (test Negative *NA*(10/03/19 code = U Opiate Scr) 9:20 PM) [facility] [id number] 03:20:00 Test Item Value Reference Range Interpretation Comments U Phencyclidine Scr (test Negative *NA*(10/03/19 code = U Phencyclidine 9:20 PM) Scr) [facility] [id number] 03:20:00 Test Item Value Reference Range Interpretation Comments UDS Note (test code = See Note *NA*(10/03/19 UDS Note) 9:20 PM) [facility] [id number] 03:20:00 Test Item Value Reference Range Interpretation Comments U Amph Scr (test code Negative *NA*(10/03/19 = U Amph Scr) 9:20 PM) [facility] [id number] 03:20:00 Test Item Value Reference Range Interpretation Comments U Dede Scr (test code Negative *NA*(10/03/19 = U Dede Scr) 9:20 PM) [facility] [id number] 03:20:00 Test Item Value Reference Range Interpretation Comments U Benzodiaz Scr (test Negative *NA*(10/03/19 code = U Benzodiaz Scr) 9:20 PM) [facility] [id number] 03:20:00 Test Item Value Reference Range Interpretation Comments U Cannab Scr (test Negative *NA*(10/03/19 code = U Cannab Scr) 9:20 PM) [facility] [id number] 03:20:00 Test Item Value Reference Range Interpretation Comments U Opiate Scr (test Negative *NA*(10/03/19 code = U Opiate Scr) 9:20 PM) [facility] [id number] 03:20:00 Test Item Value Reference Range Interpretation Comments U Phencyclidine Scr (test Negative *NA*(10/03/19 code = U Phencyclidine 9:20 PM) Scr) [facility] [id number] 03:20:00 Test Item Value Reference Range Interpretation Comments UDS Note (test code = See Note *NA*(10/03/19 UDS Note) 9:20 PM) [facility] [id number] 03:20:00 Test Item Value Reference Range Interpretation Comments U Amph Scr (test code Negative *NA*(10/03/19 = U Amph Scr) 9:20 PM) [facility] [id number] 03:20:00 Test Item Value Reference Range Interpretation Comments U Dede Scr (test code Negative *NA*(10/03/19 = U Dede Scr) 9:20 PM) [facility] [id number] 03:20:00 Test Item Value Reference Range Interpretation Comments U Amph Scr (test code Negative *NA*(10/03/19 = U Amph Scr) 9:20 PM) [facility] [id number] 03:20:00 Test Item Value Reference Range Interpretation Comments U Dede Scr (test code Negative *NA*(10/03/19 = U Dede Scr) 9:20 PM) [facility] [id number] 03:20:00 Test Item Value Reference Range Interpretation Comments U Benzodiaz Scr (test Negative *NA*(10/03/19 code = U Benzodiaz Scr) 9:20 PM) [facility] [id number] 03:20:00 Test Item Value Reference Range Interpretation Comments U Cocaine Scr (test Negative *NA*(10/03/19 code = U Cocaine Scr) 9:20 PM) [facility] [id number] 03:20:00 Test Item Value Reference Range Interpretation Comments U Cannab Scr (test Negative *NA*(10/03/19 code = U Cannab Scr) 9:20 PM) [facility] [id number] 03:20:00 Test Item Value Reference Range Interpretation Comments U Opiate Scr (test Negative *NA*(10/03/19 code = U Opiate Scr) 9:20 PM) [facility] [id number] 03:20:00 Test Item Value Reference Range Interpretation Comments U Phencyclidine Scr (test Negative *NA*(10/03/19 code = U Phencyclidine 9:20 PM) Scr) [facility] [id number] 03:20:00 Test Item Value Reference Range Interpretation Comments UDS Note (test code = See Note *NA*(10/03/19 UDS Note) 9:20 PM) [facility] [employer] [id number] 03:20:00 Test Item Value Reference Range Interpretation Comments U Benzodiaz Scr (test Negative *NA*(10/03/19 code = U Benzodiaz Scr) 9:20 PM) [facility] [employer] [id number] 03:11:00 Test Item Value Reference Range Interpretation Comments Potassium Lvl (test code = Potassium 3.8 3.5-5.1 Lvl) [facility] [employer] [id number] 03:11:00 Test Item Value Reference Range Interpretation Comments Chloride Lvl (test code = Chloride Lvl) 105 95-109 [facility] [employer] [id number] 03:11:00 Test Item Value Reference Range Interpretation Comments CO2 (test code = CO2) 27 24-32 [facility] [employer] [id number] 03:11:00 Test Item Value Reference Range Interpretation Comments Calcium Lvl (test code = Calcium Lvl) 9.5 8.5-10.5 [facility] [employer] [id number] 03:11:00 Test Item Value Reference Range Interpretation Comments Total Protein (test code = Total 7.5 6.4-8.4 Protein) [facility] [employer] [id number] 03:11:00 Test Item Value Reference Range Interpretation Comments Albumin Lvl (test code = Albumin Lvl) 4.2 3.5-5.0 [facility] [employer] [id number] 03:11:00 Test Item Value Reference Range Interpretation Comments ALT (test code = ALT) 25 See_Comment [Auto mated message] The system which ge nerated this result transmit mark reference range : <=65. The reference range was not used to interpr et this result as melinda l/abnormal. [facility] [employer] [id number] 03:11:00 Test Item Value Reference Range Interpretation Comments AST (test code = AST) 13 See_Comment [Auto mated message] The system which ge nerated this result transmit mark reference range : <=37. The reference range was not used to interpr et this result as melinda l/abnormal. [place] [id number] 03:11:00 Test Item Value Reference Range Interpretation Comments Alk Phos (test code = Alk Phos) 74 39-136 [place] [id number] 03:11:00 Test Item Value Reference Range Interpretation Comments Bili Total (test code = Bili Total) 0.5 0.2-1.3 [place] 754730-01-09 03:11:00 Test Item Value Reference Range Interpretation Comments eGFR (test code = eGFR) 93 [place] 754730-01-09 03:11:00 Test Item Value Reference Range Interpretation Comments AGAP (test code = AGAP) 11.8 10.0-20.0 [place] [id number] 03:11:00 Test Item Value Reference Range Interpretation Comments B/C Ratio (test code = B/C Ratio) 13 1 6-25 [place] 754730-01-09 03:11:00 Test Item Value Reference Range Interpretation Comments Globulin (test code = Globulin) 3.3 2.7-4.2 [place] 754730-01-09 03:11:00 Test Item Value Reference Range Interpretation Comments A/G Ratio (test code = A/G Ratio) 1.3 1 0.7-1.6 [place] [id number] 03:11:00 Test Item Value Reference Range Interpretation Comments WBC (test code = WBC) 10.6 3.7-10.4 [place] [id number] 03:11:00 Test Item Value Reference Range Interpretation Comments RBC (test code = RBC) 4.99 4.70-6.10 [facility]2020-01-09 03:11:00 Test Item Value Reference Range Interpretation Comments Glucose Lvl (test code = Glucose Lvl) 91 70-99 [place] 754730-01-09 03:11:00 Test Item Value Reference Range Interpretation Comments BUN (test code = BUN) 14 7-22 [place] 754730-01-09 03:11:00 Test Item Value Reference Range Interpretation Comments Creatinine Lvl (test code = Creatinine 1.10 0.50-1.40 Lvl) [place] 754730-01-09 03:11:00 Test Item Value Reference Range Interpretation Comments Sodium Lvl (test code = Sodium Lvl) 140 135-[facility] [id number] 03:11:00 Test Item Value Reference Range Interpretation Comments Potassium Lvl (test code = Potassium 3.8 3.5-5.1 Lvl) [place] 754730-01-09 03:11:00 Test Item Value Reference Range Interpretation Comments Chloride Lvl (test code = Chloride Lvl) 105 95-109 [facility] [id number] 03:11:00 Test Item Value Reference Range Interpretation Comments CO2 (test code = CO2) 27 24-32 [facility] [id number] 03:11:00 Test Item Value Reference Range Interpretation Comments Calcium Lvl (test code = Calcium Lvl) 9.5 8.5-10.5 [facility] [id number] 03:11:00 Test Item Value Reference Range Interpretation Comments Total Protein (test code = Total 7.5 6.4-8.4 Protein) [place] 754730-01-09 03:11:00 Test Item Value Reference Range Interpretation Comments Albumin Lvl (test code = Albumin Lvl) 4.2 3.5-5.0 [facility] [id number] 03:11:00 Test Item Value Reference Range Interpretation Comments ALT (test code = ALT) 25 See_Comment [Auto mated message] The system which ge nerated this result transmit mark reference range : <=65. The reference range was not used to interpr et this result as melinda l/abnormal. [facility] [id number] 03:11:00 Test Item Value Reference Range Interpretation Comments AST (test code = AST) 13 See_Comment [Auto mated message] The system which ge nerated this result transmit mark reference range : <=37. The reference range was not used to interpr et this result as melinda l/abnormal. [facility] [id number] 03:11:00 Test Item Value Reference Range Interpretation Comments Alk Phos (test code = Alk Phos) 74 39-136 [facility] [id number] 03:11:00 Test Item Value Reference Range Interpretation Comments Bili Total (test code = Bili Total) 0.5 0.2-1.3 [facility]2020-01-09 03:11:00 Test Item Value Reference Range Interpretation Comments eGFR (test code = eGFR) 93 [facility]2020-01-09 03:11:00 Test Item Value Reference Range Interpretation Comments AGAP (test code = AGAP) 11.8 10.0-20.0 [place] 754730-01-09 03:11:00 Test Item Value Reference Range Interpretation Comments B/C Ratio (test code = B/C Ratio) 13 1 6-25 [place] 754730-01-09 03:11:00 Test Item Value Reference Range Interpretation Comments Globulin (test code = Globulin) 3.3 2.7-4.2 [place] 754730-01-09 03:11:00 Test Item Value Reference Range Interpretation Comments A/G Ratio (test code = A/G Ratio) 1.3 1 0.7-1.6 [place] 582080-01-09 03:11:00 Test Item Value Reference Range Interpretation Comments WBC (test code = WBC) 10.6 3.7-10.4 [facility]Nvk[facility]ttNUPGJDZQYL4584-12-32 03:11:00 Test Item Value Reference Range Interpretation Comments RBC (test code = RBC) 4.99 4.70-6.10 [facility] [id number] 03:11:00 Test Item Value Reference Range Interpretation Comments Hgb (test code = Hgb) 14.3 14.0-18.0 [facility] C[id number] 03:11:00 Test Item Value Reference Range Interpretation Comments Hct (test code = Hct) 41.9 42.0-54.0 [place] 582080-01-09 03:11:00 Test Item Value Reference Range Interpretation Comments MCV (test code = MCV) 83.8 80.0-94.0 [facility] CenterLnlnjygGVMTDNXWIM2873-55-98 03:11:00 Test Item Value Reference Range Interpretation Comments MCH (test code = MCH) 28.6 pg 27.0-31.0 [facility] CenterZsrdacgFWGMUKOMYN4369-98-89 03:11:00 Test Item Value Reference Range Interpretation Comments MCHC (test code = MCHC) 34.1 32.0-36.0 [place] 582080-01-09 03:11:00 Test Item Value Reference Range Interpretation Comments RDW (test code = RDW) 13.8 11.5-14.5 [place] 582080-01-09 03:11:00 Test Item Value Reference Range Interpretation Comments Platelet (test code = Platelet) 297 133-450 [facility] CenterLgxqfpzSCJFTZQBDU8301-94-17 03:11:00 Test Item Value Reference Range Interpretation Comments MPV (test code = MPV) 7.9 7.4-10.4 [facility] CenterXjomsbfFVPALAHIKB9344-01-49 03:11:00 Test Item Value Reference Range Interpretation Comments Segs (test code = Segs) 63.8 45.0-75.0 [place] 582080-01-09 03:11:00 Test Item Value Reference Range Interpretation Comments Lymphocytes (test code = Lymphocytes) 26.9 20.0-40.0 [facility] [id number] 03:11:00 Test Item Value Reference Range Interpretation Comments Monocytes (test code = Monocytes) 8.5 2.0-12.0 [facility] CenterUqissoiVZTNCIZEOA9254-79-17 03:11:00 Test Item Value Reference Range Interpretation Comments Eosinophils (test code = 0.4 See_Comment [A utomated message] The Eosinophils) system which ge nerated this result tra nsmitted reference range : <=4.0. The reference r carin was not used to int erpret this result as normal/abnormal . [facility] CenterOvoqddhCBAUTOKRNW4333-13-56 03:11:00 Test Item Value Reference Range Interpretation Comments Basophils (test code = 0.4 See_Comment [Aut omated message] The Basophils) system which ge nerated this result tra nsmitted reference range : <=1.0. The reference r carin was not used to int erpret this result as normal/abnormal . [facility] CenterWhtyqdoOSJFPIBPAW0755-05-18 03:11:00 Test Item Value Reference Range Interpretation Comments Neutrophils # (test code = Neutrophils 6.8 1.5-8.1 #) [facility] CenterAsuvcvpIUGZLBEOHT9994-21-39 03:11:00 Test Item Value Reference Range Interpretation Comments Lymphocytes # (test code = Lymphocytes 2.9 1.0-5.5 #) [place] [id number] 03:11:00 Test Item Value Reference Range Interpretation Comments Monocytes # (test code 0.9 See_Comment [Aut omated message] The = Monocytes #) system which generated this result tra nsmitted reference range : <=0.8. The reference r carin was not used to int erpret this result as normal/abnormal . [facility] HospitalOldpmpzSZBSEYUSGI0755-85-71 03:11:00 Test Item Value Reference Range Interpretation Comments Acetaminoph Lvl (test code = (10/03/19 9:11 PM) 10-20 Acetaminoph Lvl) [place] [id number] 03:11:00 Test Item Value Reference Range Interpretation Comments Ethanol Lvl (test code = Ethanol Lvl) no gt [facility] HospitalJbogcdiFSQYZHQPXN4475-49-67 03:11:00 Test Item Value Reference Range Interpretation Comments Etoh (%) (test code = Etoh (%)) no gt [facility] HospitalFlvyjqjHVAZKHBMTR2894-75-18 03:11:00 Test Item Value Reference Range Interpretation Comments Salicylate Lvl (test no gt See_Comment [Autom ated message] The code = Salicylate Lvl) syste m which generated this result tra nsmitted reference range : <=30.0. The reference r carin was not used to int erpret this result as normal/abnormal . [facility] HospitalYwbgwdlNQDMRKQBUW9097-89-70 03:11:00 Test Item Value Reference Range Interpretation Comments Hgb (test code = Hgb) 14.3 14.0-18.0 [facility] CenterHzdbltjNGZNXWLGRO8735-78-85 03:11:00 Test Item Value Reference Range Interpretation Comments Hct (test code = Hct) 41.9 42.0-54.0 [facility] HospitalEczmyqeSDWKAYCMMR2982-16-77 03:11:00 Test Item Value Reference Range Interpretation Comments MCV (test code = MCV) 83.8 80.0-94.0 [facility] HospitalNxxsihtCAWSSUZZLL3226-44-86 03:11:00 Test Item Value Reference Range Interpretation Comments MCH (test code = MCH) 28.6 pg 27.0-31.0 [facility]wt[facility]veBZKQYIVDDB7995-91-50 03:11:00 Test Item Value Reference Range Interpretation Comments MCHC (test code = MCHC) 34.1 32.0-36.0 [facility] HospitalNnuiwyhCFJUCCUZRW2640-72-81 03:11:00 Test Item Value Reference Range Interpretation Comments RDW (test code = RDW) 13.8 11.5-14.5 [facility] CenterKugmkvnTURPYIIKNW2345-31-97 03:11:00 Test Item Value Reference Range Interpretation Comments Platelet (test code = Platelet) 297 133-450 [place] 582080-01-09 03:11:00 Test Item Value Reference Range Interpretation Comments MPV (test code = MPV) 7.9 7.4-10.4 [facility] CenterIxxrjcvWDHWWWHMQT0246-38-03 03:11:00 Test Item Value Reference Range Interpretation Comments Segs (test code = Segs) 63.8 45.0-75.0 [facility] CenterIzhjkyqNBQYUWEKCO8610-35-77 03:11:00 Test Item Value Reference Range Interpretation Comments Lymphocytes (test code = Lymphocytes) 26.9 20.0-40.0 [place] 582080-01-09 03:11:00 Test Item Value Reference Range Interpretation Comments Monocytes (test code = Monocytes) 8.5 2.0-12.0 [facility] CenterMnkbbqjTCGTZMMRXO9400-89-18 03:11:00 Test Item Value Reference Range Interpretation Comments Eosinophils (test code = 0.4 See_Comment [A utomated message] The Eosinophils) system which ge nerated this result tra nsmitted reference range : <=4.0. The reference r carin was not used to int erpret this result as normal/abnormal . [facility] CenterGbulhmiHOOKRXINLL8313-30-60 03:11:00 Test Item Value Reference Range Interpretation Comments Basophils (test code = 0.4 See_Comment [Aut omated message] The Basophils) system which ge nerated this result tra nsmitted reference range : <=1.0. The reference r carin was not used to int erpret this result as normal/abnormal . [facility] CenterXclqktsBARVEZPHAB8796-88-15 03:11:00 Test Item Value Reference Range Interpretation Comments Neutrophils # (test code = Neutrophils 6.8 1.5-8.1 #) [facility] CenterQcvrhkcCOBONZXSWM4521-16-29 03:11:00 Test Item Value Reference Range Interpretation Comments Lymphocytes # (test code = Lymphocytes 2.9 1.0-5.5 #) [facility] CenterUfylaobBZWAFKNUSV5612-82-64 03:11:00 Test Item Value Reference Range Interpretation Comments Monocytes # (test code 0.9 See_Comment [Aut omated message] The = Monocytes #) system which generated this result tra nsmitted reference range : <=0.8. The reference r carin was not used to int erpret this result as normal/abnormal . [facility] HospitalEivovbyJSZKOUHYBL1127-25-34 03:11:00 Test Item Value Reference Range Interpretation Comments Acetaminoph Lvl (test code = (10/03/19 9:11 PM) 10-20 Acetaminoph Lvl) [place] [id number] 03:11:00 Test Item Value Reference Range Interpretation Comments Ethanol Lvl (test code = Ethanol Lvl) no gt [place] [id number] 03:11:00 Test Item Value Reference Range Interpretation Comments Etoh (%) (test code = Etoh (%)) no gt [place] [id number] 03:11:00 Test Item Value Reference Range Interpretation Comments Salicylate Lvl (test no gt See_Comment [Autom ated message] The code = Salicylate Lvl) syste m which generated this result tra nsmitted reference range : <=30.0. The reference r carin was not used to int erpret this result as normal/abnormal . [facility] [employer] [id number] 03:11:00 Test Item Value Reference Range Interpretation Comments Glucose Lvl (test code = Glucose Lvl) 91 70-99 [facility] [employer] [id number] 03:11:00 Test Item Value Reference Range Interpretation Comments BUN (test code = BUN) 14 7-22 [facility] [employer] [id number] 03:11:00 Test Item Value Reference Range Interpretation Comments Creatinine Lvl (test code = Creatinine 1.10 0.50-1.40 Lvl) [facility] [facility] [employer] [id number] 03:11:00 Test Item Value Reference Range Interpretation Comments Sodium Lvl (test code = Sodium Lvl) 140 135-145 [facility] [employer] [id number] 03:11:00 Test Item Value Reference Range Interpretation Comments Potassium Lvl (test code = Potassium 3.8 3.5-5.1 Lvl) [facility] [employer] [id number] 03:11:00 Test Item Value Reference Range Interpretation Comments Chloride Lvl (test code = Chloride Lvl) 105 95-109 [place] [id number] 03:11:00 Test Item Value Reference Range Interpretation Comments CO2 (test code = CO2) 27 24-32 [place] [id number] 03:11:00 Test Item Value Reference Range Interpretation Comments Calcium Lvl (test code = Calcium Lvl) 9.5 8.5-10.5 [facility] [id number] 03:11:00 Test Item Value Reference Range Interpretation Comments Total Protein (test code = Total 7.5 6.4-8.4 Protein) [place] [id number] 03:11:00 Test Item Value Reference Range Interpretation Comments Albumin Lvl (test code = Albumin Lvl) 4.2 3.5-5.0 [facility] [id number] 03:11:00 Test Item Value Reference Range Interpretation Comments ALT (test code = ALT) 25 See_Comment [Auto mated message] The system which ge nerated this result transmit mark reference range : <=65. The reference range was not used to interpr et this result as melinda l/abnormal. [facility] [id number] 03:11:00 Test Item Value Reference Range Interpretation Comments AST (test code = AST) 13 See_Comment [Auto mated message] The system which ge nerated this result transmit mark reference range : <=37. The reference range was not used to interpr et this result as melinda l/abnormal. [facility] [id number] 03:11:00 Test Item Value Reference Range Interpretation Comments Alk Phos (test code = Alk Phos) 74 39-136 [facility] [id number] 03:11:00 Test Item Value Reference Range Interpretation Comments Bili Total (test code = Bili Total) 0.5 0.2-1.3 [facility] [id number] 03:11:00 Test Item Value Reference Range Interpretation Comments eGFR (test code = eGFR) 93 [facility] [id number] 03:11:00 Test Item Value Reference Range Interpretation Comments AGAP (test code = AGAP) 11.8 10.0-20.0 [facility] [id number] 03:11:00 Test Item Value Reference Range Interpretation Comments B/C Ratio (test code = B/C Ratio) 13 1 6-25 [facility] [id number] 03:11:00 Test Item Value Reference Range Interpretation Comments Globulin (test code = Globulin) 3.3 2.7-4.2 [facility] [id number] 03:11:00 Test Item Value Reference Range Interpretation Comments A/G Ratio (test code = A/G Ratio) 1.3 1 0.7-1.6 [id number] 03:11:00 Test Item Value Reference Range Interpretation Comments WBC (test code = WBC) 10.6 3.7-10.4 [facility] [id number] 03:11:00 Test Item Value Reference Range Interpretation Comments RBC (test code = RBC) 4.99 4.70-6.10 [facility] C[id number] 03:11:00 Test Item Value Reference Range Interpretation Comments Hgb (test code = Hgb) 14.3 14.0-18.0 [place] [id number] 03:11:00 Test Item Value Reference Range Interpretation Comments Hct (test code = Hct) 41.9 42.0-54.0 [facility] [id number] 03:11:00 Test Item Value Reference Range Interpretation Comments MCV (test code = MCV) 83.8 80.0-94.0 [facility] [id number] 03:11:00 Test Item Value Reference Range Interpretation Comments MCH (test code = MCH) 28.6 pg 27.0-31.0 [facility] C[id number] 03:11:00 Test Item Value Reference Range Interpretation Comments MCHC (test code = MCHC) 34.1 32.0-36.0 [facility] [id number] 03:11:00 Test Item Value Reference Range Interpretation Comments RDW (test code = RDW) 13.8 11.5-14.5 [facility] CenterDsaovwqNGZWPVLUHT3275-05-85 03:11:00 Test Item Value Reference Range Interpretation Comments Platelet (test code = Platelet) 297 133-450 [facility] CenterNopeodxEQAUTQVYVL1829-02-52 03:11:00 Test Item Value Reference Range Interpretation Comments MPV (test code = MPV) 7.9 7.4-10.4 [facility] CenterZkchyovOPWMCFGNPV0325-33-14 03:11:00 Test Item Value Reference Range Interpretation Comments Segs (test code = Segs) 63.8 45.0-75.0 [facility] CenterBrdoqrkQFHOEBCCCE3054-22-41 03:11:00 Test Item Value Reference Range Interpretation Comments Lymphocytes (test code = Lymphocytes) 26.9 20.0-40.0 [facility] [id number] 03:11:00 Test Item Value Reference Range Interpretation Comments Monocytes (test code = Monocytes) 8.5 2.0-12.0 [facility] [id number] 03:11:00 Test Item Value Reference Range Interpretation Comments Eosinophils (test code = 0.4 See_Comment [A utomated message] The Eosinophils) system which ge nerated this result tra nsmitted reference range : <=4.0. The reference r carin was not used to int erpret this result as normal/abnormal . [facility] CenterZajliqbRUXIRVONZL3336-49-12 03:11:00 Test Item Value Reference Range Interpretation Comments Basophils (test code = 0.4 See_Comment [Aut omated message] The Basophils) system which ge nerated this result tra nsmitted reference range : <=1.0. The reference r carin was not used to int erpret this result as normal/abnormal . [facility] CenterMvddicsUHYSMZRGAV6483-93-05 03:11:00 Test Item Value Reference Range Interpretation Comments Neutrophils # (test code = Neutrophils 6.8 1.5-8.1 #) [facility] [id number] 03:11:00 Test Item Value Reference Range Interpretation Comments Lymphocytes # (test code = Lymphocytes 2.9 1.0-5.5 #) [facility] [id number] 03:11:00 Test Item Value Reference Range Interpretation Comments Monocytes # (test code 0.9 See_Comment [Aut omated message] The = Monocytes #) system which generated this result tra nsmitted reference range : <=0.8. The reference r carin was not used to int erpret this result as normal/abnormal . [facility] HospitalEfxpxmlMNIMEWDRJR5125-65-27 03:11:00 Test Item Value Reference Range Interpretation Comments Acetaminoph Lvl (test code = (1/8/20 9:11 PM) 10-20 Acetaminoph Lvl) [facility] [id number] 03:11:00 Test Item Value Reference Range Interpretation Comments Ethanol Lvl (test code = Ethanol Lvl) [facility] gt [id number] 03:11:00 Test Item Value Reference Range Interpretation Comments Etoh (%) (test code = Etoh (%)) [facility]t [facility]ZZ[facility]UJ8392-91-77 03:11:00 Test Item Value Reference Range Interpretation Comments Salicylate Lvl (test no gt See_Comment [Autom ated message] The code = Salicylate Lvl) syste m which generated this result tra nsmitted reference range : <=30.0. The reference r carin was not used to int erpret this result as normal/abnormal . [facility] [id number] 03:11:00 Test Item Value Reference Range Interpretation Comments Glucose Lvl (test code = Glucose Lvl) 91 70-99 [facility] [id number] 03:11:00 Test Item Value Reference Range Interpretation Comments BUN (test code = BUN) 14 7-22 [facility] [id number] 03:11:00 Test Item Value Reference Range Interpretation Comments Creatinine Lvl (test code = Creatinine 1.10 0.50-1.40 Lvl) [facility] [id number] 03:11:00 Test Item Value Reference Range Interpretation Comments Sodium Lvl (test code = Sodium Lvl) 140 135-145 [facility]
--- NOTE | 2022-12-14 13:37 | RAD REPORT ---
EXAM DESCRIPTION: RAD - Chest Pa And Lat (2 Views) - 12/14/2022 1:29 pm CLINICAL HISTORY: COUGH Chest pain. COMPARISON: No comparisons FINDINGS: The lungs are clear. The heart is normal in size. No displaced fractures. IMPRESSION: No acute or concerning finding suspected.
[2022-12-14 14:17] LABS: SARS-COV-2 RT PCR NEGATIVE (NEGATIVE)
--- NOTE | 2022-12-14 14:25 | EDPHYS ---
Physician Documentation [facility] Name: Gaudencio Kothari Age: 27 yrs Sex: Male : 1995 Arrival Date: 12/14/2022 Time: 12:08 Bed 9 Private MD: ED Physician Eduardo Long HPI: 12/14 13:29 This 27 yrs old Male presents to ER via Ambulatory with complaints of Cough, Congestion.rn 13:29 The patient or guardian reports cough, that is intermittent, described as mild, with rn productive sputum. 13:30 Onset: The symptoms/episode began/occurred 2 day(s) ago. Severity of symptoms: At their rn worst the symptoms were mild, in the emergency department the symptoms are unchanged. Modifying factors: The symptoms are alleviated by nothing, the symptoms are aggravated by nothing. Associated signs and symptoms: Pertinent positives: diarrhea, nausea, rhinorrhea, sore throat, Pertinent negatives: fever. The patient has experienced similar episodes in the past. The patient has not recently seen a physician. Pt reports 2 days of cough, congestion, nausea, headache, sore throat, + exposure to someone with similar illness who has now improved with cough medication. + smoker. No fever. NO sob. No hemoptysis. . Historical: - Home Meds: 14:31 Abilify 10 mg Oral tab [Active]; citalopram 20 mg tab 1 tab once daily [Active]; iw trazodone 50 mg Oral tab 1 tab 3 times per day [Active]; - PMHx: 14:31 Anxiety; BORDERLINE PERSONALITY DISORDER; Depression; iw - Family history:: pertinent for. - Hospitalizations: : No recent hospitalization is reported. ROS: 13:30 Constitutional: Negative for fever, chills, and weight loss, Eyes: Negative for injury, rn pain, redness, and discharge, ENT: + congestion and sore throat Neck: Negative for injury, pain, and swelling, Cardiovascular: Negative for chest pain, palpitations, and edema, Respiratory: Negative for shortness of breath, cough, wheezing, and pleuritic chest pain, Abdomen/GI: + nausea and diarrhea MS/Extremity: Negative for injury and deformity, Skin: Negative for injury, rash, and discoloration, Neuro: + headache and generalized weakness Exam: 13:30 Constitutional: This is a well developed, well nourished patient who is awake, alert, rn and in no acute distress. Ambulatory to room without difficulty Head/Face: Normocephalic, atraumatic. Eyes: Pupils equal round and reactive to light, extra-ocular motions intact. ENT: No stridor, no swelling, uvula midline Neck: Non tender cervical LAD, no crepitus Cardiovascular: Regular rate and rhythm. No pulse deficits. Respiratory: No increased work of breathing, no retractions or nasal flaring. Skin: Warm, dry MS/ Extremity: Pulses equal, no cyanosis. Neuro: Awake and alert, GCS 15 MDM: 12:22 Patient medically screened. rn 14:23 Differential Diagnosis: Bronchitis Influenza Upper Respiratory Infection Sinusitis rn Pharyngitis Viral Syndrome Pneumonia. Data reviewed: vital signs, nurses notes, lab test result(s), radiologic studies, plain films, and as a result, I will discharge patient. 14:23 Independent interpretation of the following test(s) in the Emergency Department X-Ray: rn My interpretation is CXR images neg for pneumonia/pneumothorax. Counseling: I had a detailed discussion with the patient and/or guardian regarding: the historical points, exam findings, and any diagnostic results supporting the discharge/admit diagnosis, lab results, radiology results, the need for outpatient follow up, to return to the emergency department if symptoms worsen or persist or if there are any questions or concerns that arise at home. Response to treatment: There is no appreciated change of the patient's symptoms at this time, and as a result, I will discharge patient. Special discussion: I discussed with the patient/guardian in detail that at this point there is no indication for admission to the hospital. It is understood, however, that if the symptoms persist or worsen the patient needs to return immediately for re-evaluation. 14:23 I considered the following discharge prescriptions or medication management in the rn emergency department Antibiotics: At this time antibiotics are not recommended, Antivirals: At this time, antivirals are not recommended, Medications were administered in the Emergency Department. See MAR. 14:25 Counseling: I had a detailed discussion with the patient and/or guardian regarding: rn smoking cessation. 12/14 12:44 Order name: COVID-19/FLU A+B; Complete Time: 14:23 rn 12/14 12:44 Order name: Strep; Complete Time: 14:23 rn 12/14 13:48 Order name: Throat Culture EDMS 12/14 12:44 Order name: XRAY Chest Pa And Lat (2 Views); Complete Time: 13:45 rn Administered Medications: No medications were administered Disposition Summary: 12/14/22 14:25 Discharge Ordered Location: Home rn Problem: new rn Symptoms: are unchanged rn Condition: Stable rn Diagnosis - Acute upper respiratory infection, unspecified - Viral rn Followup: rn - With: Private Physician - When: As needed - Reason: Recheck today's complaints, Re-evaluation by your physician Discharge Instructions: - Discharge Summary Sheet rn - Upper Respiratory Infection, Adult rn - Viral Respiratory Infection rn Forms: - Work release form iw - Medication Reconciliation Form rn - Thank You Letter rn - Antibiotic 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
--- NOTE | 2022-12-14 14:25 | ER ---
Nurse's Notes [facility] Name: Gaudencio Kothari Age: 27 yrs Sex: Male : 1995 Arrival Date: 12/14/2022 Time: 12:08 Bed 9 Private MD: Diagnosis: Acute upper respiratory infection, unspecified-Viral Presentation: 12/14 13:16 Chief complaint: Chief complaint: Patient states: cough, congestion X 2days. iw Coronavirus screen: Client presents with at least one sign or symptom that may indicate coronavirus-19. Ebola Screen: Patient negative for fever greater than or equal to 101.5 degrees Fahrenheit, and additional compatible Ebola Virus Disease symptoms Patient denies exposure to infectious person. Patient denies travel to an Ebola-affected area in the 21 days before illness onset. No symptoms or risks identified at this time. Initial Sepsis Screen: Does the patient meet any 2 criteria? No. Patient's initial sepsis screen is negative. Does the patient have a suspected source of infection? No. Patient's initial sepsis screen is negative. Risk Assessment: Do you want to hurt yourself or someone else? Patient reports no desire to harm self or others. 13:16 Acuity: BELEM 4 iw 13:16 Method Of Arrival: Ambulatory iw 14:30 Onset of symptoms was December 12, 2022. iw Historical: - Home Meds: 14:31 Abilify 10 mg Oral tab [Active]; citalopram 20 mg tab 1 tab once daily [Active]; iw trazodone 50 mg Oral tab 1 tab 3 times per day [Active]; - PMHx: 14:31 Anxiety; BORDERLINE PERSONALITY DISORDER; Depression; iw - Family history:: pertinent for. - Hospitalizations: : No recent hospitalization is reported. Screenin:36 [facility] ED Fall Risk Assessment (Adult) History of falling in the last 3 months, iw including since admission. Abuse screen: Denies threats or abuse. Denies injuries from another. Nutritional screening: No deficits noted. Tuberculosis screening: No symptoms or risk factors identified. Assessment: 14:30 General: Appears in no apparent distress. Pain: Denies pain. Neuro: Level of iw Consciousness is awake, alert, obeys commands, Oriented to person, place, time, situation, Moves all extremities. Full function. Cardiovascular: Patient's skin is warm and dry. Respiratory: Airway is patent Respiratory effort is even, unlabored, Respiratory pattern is regular, symmetrical. Respiratory: Breath sounds are clear bilaterally. Derm: Skin is intact, is healthy with good turgor. ED Course: 12:08 Patient arrived in ED. rg4 12:22 Eduardo Long MD is Attending Physician. rn 13:16 Sheeba Baldwin, RN is Primary Nurse. iw 13:16 Triage completed. iw 13:30 XRAY Chest Pa And Lat (2 Views) In Process Unspecified. EDMS 14:30 Arm band placed on. iw Administered Medications: No medications were administered Outcome: 14:25 Discharge ordered by . rn 14:37 Patient left the ED. iw Signatures: Dispatcher [employer] EDSheeba Pike RN RN iw Nieto, Roman, MD MD rn Garcia, Rubi rg4 Corrections: (The following items were deleted from the chart) 14:30 13:16 Chief complaint: iw iw
== END 2022-12-14 14:37 | disposition home or self-care (01) ==
LOC: ER 12:06
DX: J06.9 Acute upper respiratory infection, unspecified (principal); Z20.822 Contact with and (suspected) exposure to COVID-19
CPT/HCPCS: 87070; 87081; 0240U; 71046; 99282

== ENCOUNTER 2023-05-06 11:26 | Emergency (ER) | payer OTHER ==
--- OUTSIDE RECORDS SUMMARY | 2023-05-06 11:48 | XMS REPORT | Continuity of Care Document ---
:1995 Author Organization [facility] t Address [address] [facility] [address] [place] [address] Care Team Providers Name Role Phone Asked, No Pcp Primary Care Physician Unavailable DULCE GOMEZ Attending Clinician Unavailable Dulce Clifford Attending Clinician Donna Phillip Attending Clinician [phone] DONNA PHILLIP Attending Clinician Unavailable Payers Payer Name Policy Type Policy Number Effective Date Expiration Date Lucio pathak [facility] [id number] 2018 00:00:00 SELECT Problems Condition Condition Condition Status Onset Resolution Last Treating Co mments Source Name Details Category Date Date Treatment Clinician Date BACK/ BACK/ Diagnosis Active 2020-01-11 Mem oria RIBCAGE RIBCAGE 10-03 16:57:00 l PAIN PAIN 00:00: Wilberto Active 10/03/2019 [facility] Wilberto History of Past Illness Condition Condition Condition Status Onset Resolution Last Treating Co mments Source Name Details Category Date Date Treatment Clinician Date Suicidal Suicidal Problem 2019-10-06 2019-10-06 Memoria ideations ideations 1-09 22:22:41 22:22:41 l 10/04/2019 18:00: Javy n 10/06/2019 00 [facility] Allergies, Adverse Reactions, Alerts Allergy Allergy Status Severity Reaction(s) Onset Inactive Treating Comm ents Source Name Type Date Date Clinician NO KNOWN Drug Active [facility] ALLERGIE Class ity of S [facility] Social History Social Habit Start Date Stop Date Quantity Comments Source [facility] of Social 2019-05-19 2019-05-[address] function 00:00:00 00:00:00 Hospital Tobacco use and 2018-06-17 2018-06-17 Smokeless [facility] exposure 00:00:00 00:00:00 tobacco non-user Hospital Alcohol intake 2018-06-17 2018-06-17 Current [facility] 00:00:00 00:00:00 non-drinker of Hospital alcohol (finding) Sex Assigned At [birth year] [facility] 00:[facility] Smoking Status Start Date Stop Date Source Social History [facility] Medications Ordered Filled Start Stop Current Ordering Indication Dosage Frequency Signature Comments Components Source Medication Medication Date Date Medication? Clinician (SIG) Name Name NaCl 0.9% 2022- No 1000mL at 999 Uni vers (NS) bolus 04-20 mL/hr, ity of infusion 18:00: 18:13 1,000 mL, Rex as 1,000 mL 00 :00 IV Medical Infusion, Branch ONCE, 1 dose, On 04/20/23 at 1300, STAT dicyclomine 2022- No 20mg 20 mg, Uni vers (BENTYL) 04-20 Intramuscu ity of injection 18:00: 17:09 lar, ONCE, [place] 20 mg 00 :00 1 dose, On Medical Wed Branch 04/20/23 at 1300, KLEBER famotidine 2022- No 20mg 20 mg, Univ ers (PEPCID 04-20 Slow IV ity of (PF)) 17:00: 17:06 Push, [place] injection 00 :00 ONCE, 1 Medical 20 mg dose, On Branch 04/20/23 at 1200, KLEBER ketorolac 2022- No 30mg 30 mg, Unive rs (TORADOL) 04-20 Slow IV ity of injection 17:00: 17:08 Push, [place] 30 mg 00 :00 ONCE, 1 Medical dose, On Branch 04/20/23 at 1200, KLEBER ondansetron No 4mg 4 mg, Slow Univers (ZOFRAN 04-20 IV Push, ity of (PF)) 17:00: 17:07 ONCE, 1 [place] injection 4 00 :00 dose, On Medi luz maria mg Tue Branch 04/20/23 at 1200, KLEBER dicyclomine 0 Yes [id number] 20mg Take 1 Univers 20 mg - tablet by ity of tablet 00:00: mouth 4 [place] 00 (four) Medical times Branch daily as needed for Abdominal pain. ondansetron Yes [id number] 4mg Take 1 Univers 4 mg 7-26 tablet by ity of disintegrat 00:00: mouth [place] ing tablet 00 every 8 Medica l (eight) Branch hours as needed for Nausea and Vomiting (N/V). Ibuprofen Yes Notes: Memori a 10-04 (Same as: l 12:09: Motrin) [place] 00 "Do Not Crush" Take with food. Ibuprofen Yes Notes: Memori a 10-04 (Same as: l 12:09: Motrin) [place] 00 "Do Not Crush" Take with food. Ibuprofen Yes Notes: Memori a 10-04 (Same as: l 12:09: Motrin) [place] 00 "Do Not Crush" Take with food. Ibuprofen Yes Notes: Memori a 10-04 (Same as: l 12:09: Motrin) [place] 00 "Do Not Crush" Take with food. Ibuprofen Yes Notes: Memori a 10-04 (Same as: l 12:09: Motrin) [place] 00 "Do Not Crush" Take with food. escitalopra Yes 20mg Take 20 mg Univers m oxalate 05-31 by mouth ity of 20 mg 20:12: daily. [place] tablet 57 Medical Branch trazodone Yes Take by Unive rs HCl 05-31 mouth. ity of (TRAZODONE 20:12: [place] ORAL) 57 Medical Branch No known 2018-0 No No known Metho di medications 06-[address] 17:53: [facility] 11 l bacitracin Yes Apply to Uni vers 500 unit/g 04-10 affected ity o f ointment 00:00: area(s) 4 [place] (four) Medical times [place] daily. Immunizations Ordered Filled Immunization Date Status Comments Sour e Immunization Name Name TDCLARISSA 2012-04-10 Completed University of 00:00:00 [facility] MMR 2001-04-26 Completed University of 00:00:00 [facility] DTP 2000-09-22 Completed University of 00:00:00 [facility] Polio (IPV/OPV) 2000-09-22 Completed Universit y of 00:00:00 [facility] Varicella 2000-09-22 Completed University of (varivax)(chicken 00:00:00 [facility] edical pox) Branch [facility] 1996-12-18 Completed University of 00:00:00 [facility] HIB 4 Dose Schedule 1996-12-18 Completed Unive rsity of 00:00:00 [facility] MMR 1996-12-18 Completed University of 00:00:00 [facility] DTP 1996-09-14 Completed University of 00:00:00 [facility] Polio (IPV/OPV) 1996-09-14 Completed Universit y of 00:00:00 [facility] MMR 1996-05-20 Completed University of 00:00:00 [facility] DTP 1996-05-02 Completed University of 00:00:00 [facility] HIB 4 Dose Schedule 1996-05-02 Completed Unive rsity of 00:00:00 [facility] Hep B, Adol or Pedi 1996-05-02 Completed Unive rsity of Dosage 00:00:00 [facility] Polio (IPV/OPV) 1996-05-02 Completed Universit y of 00:00:00 [facility] DTP 1996-01-30 Completed University of 00:00:00 [facility] HIB 4 Dose Schedule 1996-01-30 Completed Unive rsity of 00:00:00 [facility] Polio (IPV/OPV) 1996-01-30 Completed Universit y of 00:00:00 [facility] DTP 1995 Completed University of 00:00:00 [facility] HIB 4 Dose Schedule 1995 Completed Unive rsity of 00:00:00 [facility] Polio (IPV/OPV) 1995 Completed Universit y of 00:00:00 [facility] Hep B, Adol or Pedi 1995 Completed Unive rsity of Dosage 00:00:00 [facility] Hep B, Adol or Pedi 1995 Completed Unive rsity of Dosage 00:00:00 [facility] Vital Signs Vital Name Observation Time Observation Value Comments Source Body temperature 2023-04-20 18:15:28 36.67 [facility] 2023-04-20 18:10:00 138 mm[Hg] Univer sity of pressure [facility] Diastolic blood 2023-04-20 18:10:00 81 mm[Hg] Unive rsity of pressure [facility] Heart rate 2023-04-20 18:10:00 75 /min [facility] Respiratory rate 2023-04-20 18:10:00 16 /min [facility] Body height 2023-04-20 16:24:00 177.8 cm [facility] Body weight 2023-04-20 16:24:00 113.399 kg [facility] BMI 2023-04-20 16:24:00 35.87 kg/m2 [facility] Heart Rate 2019-10-04 15:38:00 [facility] [place] Respitory Rate 2019-10-04 15:38:00 Memori al [place] Systolic (mm Hg) 2019-10-04 15:38:00 Azar rial [place] Diastolic (mm Hg) 2019-10-04 15:38:00 Mem orial [place] Temperature Oral (F) 2019-10-04 07:32:00 98.9 F [facility] [place] Heart Rate 2019-10-04 07:32:00 [facility] [place] Respitory Rate 2019-10-04 07:32:00 Memori al [place] Systolic (mm Hg) 2019-10-04 07:32:00 Azar rial [place] Diastolic (mm Hg) 2019-10-04 07:32:00 Mem orial [place] Systolic (mm Hg) 2019-10-04 02:45:00 Azar rial [place] Diastolic (mm Hg) 2019-10-04 02:45:00 Mem orial [place] Respitory Rate 2019-10-04 02:45:00 Mirza al [place] Heart Rate 2019-10-04 02:45:00 [facility] [place] Temperature Oral (F) 2019-10-04 01:34:00 98.1 F [facility] [place] Weight 2019-10-04 01:34:00 [facility] Procedures Procedure Date / Time Performing Clinician Source Performed LIPASE 2023-04-20 16:48:00 Dulce Gmoez [facility] HEPATIC FUNCTION PANEL 2023-04-20 16:48:00 Dulce Gomez [facility] ([id number]) (ALB,T.PRO,[facility] T,BU/BC,ALT,AST,ALK PHOS) BASIC METABOLIC PANEL 2023-04-20 16:48:00 Dulce Gomez [facility] (NA, K, CL, CO2, Medical Branch GLUCOSE, BUN, CREATININE, CA) CBC WITH DIFF 2023-04-20 16:48:00 [facility] URINALYSIS 2023-04-20 16:48[facility] (IMMUNOASSAY) 2023-04-20 16:48:00 Dulce Gomez [facility] DRUG Medical [facility] SCREEN W/O REFLEX CONSENT/REFUSAL FOR 2023-04-20 16:16:26 Doctor Unassigned, No [facility] DIAGNOSIS AND TREATMENT Name Medical Branch Plan of Care Planned Activity Planned Date Details Comments Source Future Scheduled 2023-05-06 COVID-19 VACCINE Methodi [facility] Test 11:37:25 (#1) [code = COVID-19 VACCINE (#1)] Future Scheduled 2023-05-06 INFLUENZA VACCINE Method [facility] Test 11:37:25 [code = INFLUENZA VACCINE] Future Scheduled 2022-10-06 COVID-19 VACCINE Method[facility] Test 10:29:53 (#1) [code = COVID-19 VACCINE (#1)] Future Scheduled 2022-10-06 INFLUENZA VACCINE Method [facility] Test 10:29:53 [code = INFLUENZA VACCINE] Future Scheduled 2022-10-06 COVID-19 VACCINE Methodi [facility] Test 10:29:53 (#1) [code = COVID-19 VACCINE (#1)] Future Scheduled 2022-10-06 INFLUENZA VACCINE Method is Hospital Test 10:29:53 [code = INFLUENZA VACCINE] Future Scheduled 2022-10-06 COVID-19 VACCINE Methodi Hospital Test 10:29:53 (#1) [code = COVID-19 VACCINE (#1)] Future Scheduled 2022-10-06 INFLUENZA VACCINE Method [facility] Test 10:29:53 [code = INFLUENZA VACCINE] Encounters Start End Encounter Admission Attending Care Care Encounter Source Date/Time Date/Time Type Type Clinicians Facility Department ID 2023-04-20 2023-04-20 Emergency X [facility] ERT [id number] Univers 11:26:00 13:27:00 DULCE parisi [facility] 2023-04-20 2023-04-20 Emergency Patricia, [facility] [id number] Univers 11:26:00 13:27:00 Dulce MARY [id number] i ty [facility] [id number] [facility] [id number] [address] 2019-10-04 2019-10-04 Emergency [facility] [id number] Memoria 01:16:42 16:09:00 r [place] 00 [facility] 2019-10-04 2019-10-04 Emergency nullFlavo [facility] [id number] Memoria 01:16:42 16:09:00 r [place] 00 [facility] 2019-10-03 2019-10-04 Outpatient [place], [facility]PL MHPL [id number] 19:16:42 10:09:00 Donna 00 [place] 2019-10-03 2019-10-04 Emergency E FADOWO[place], MHBL MHBL 7500 MHBL 19:16:00 10:09:00 DONNA Results Test Description Test Time Test Comments Results Result Comments Source DRUG SCREEN 2019-10-04 03:20:00 Test Item Value Reference Range Interpretation Comme nts U Opiate Scr (test code = U Opiate Scr) Negative *NA*(10/03/19 9:20 P M) [facility] [id number] 03:20:00 Test Item Value Reference Range Interpretation Comments U Phencyclidine Scr (test Negative *NA*(10/03/19 code = U Phencyclidine 9:20 PM) Scr) [facility] [id number] 03:20:00 Test Item Value Reference Range Interpretation Comments U Amph Scr (test code Negative *NA*(10/03/19 = U Amph Scr) 9:20 PM) [facility] [id number] 03:20:00 Test Item Value Reference Range Interpretation Comments U Dede Scr (test code Negative *NA*(10/03/19 = U Dede Scr) 9:20 PM) [facility] [id number] 03:20:00 Test Item Value Reference Range Interpretation Comments U Benzodiaz Scr (test Negative *NA*(10/03/19 code = U Benzodiaz Scr) 9:20 PM) [facility] [id number] 03:20:00 Test Item Value Reference Range Interpretation Comments U Cocaine Scr (test Negative *NA*(10/03/19 code = U Cocaine Scr) 9:20 PM) [facility] [id number] 03:20:00 Test Item Value Reference Range Interpretation Comments U Cannab Scr (test Negative *NA*(10/03/19 code = U Cannab Scr) 9:20 PM) [facility] [id number] 03:20:00 Test Item Value Reference Range Interpretation Comments U Opiate Scr (test Negative *NA*(10/03/19 code = U Opiate Scr) 9:20 PM) [facility] [id number] 03:20:00 Test Item Value Reference Range Interpretation Comments U Phencyclidine Scr (test Negative *NA*(10/03/19 code = U Phencyclidine 9:20 PM) Scr) [facility] [id number] 03:20:00 Test Item Value Reference Range Interpretation Comments UDS Note (test code = See Note *NA*(10/03/19 UDS Note) 9:20 PM) [facility] [id number] 03:20:00 Test Item Value Reference Range Interpretation Comments UDS Note (test code = See Note *NA*(10/03/19 UDS Note) 9:20 PM) [facility] [id number] 03:20:00 Test Item Value Reference Range Interpretation Comments U Amph Scr (test code Negative *NA*(10/03/19 = U Amph Scr) 9:20 PM) [facility] [id number] 03:20:00 Test Item Value Reference Range Interpretation Comments U Dede Scr (test code Negative *NA*(10/03/19 = U Dede Scr) 9:20 PM) [facility] [id number] 03:20:00 Test Item Value Reference Range Interpretation Comments U Benzodiaz Scr (test Negative *NA*(10/03/19 code = U Benzodiaz Scr) 9:20 PM) [facility] [id number] 03:20:00 Test Item Value Reference Range Interpretation Comments U Cocaine Scr (test Negative *NA*(10/03/19 code = U Cocaine Scr) 9:20 PM) [facility] [id number] 03:20:00 Test Item Value Reference Range Interpretation Comments U Cannab Scr (test Negative *NA*(10/03/19 code = U Cannab Scr) 9:20 PM) [facility] [id number] 03:20:00 Test Item Value Reference Range Interpretation Comments U Opiate Scr (test Negative *NA*(10/03/19 code = U Opiate Scr) 9:20 PM) [facility] [id number] 03:20:00 Test Item Value Reference Range Interpretation Comments U Phencyclidine Scr (test Negative *NA*(10/03/19 code = U Phencyclidine 9:20 PM) Scr) [facility] [id number] 03:20:00 Test Item Value Reference Range Interpretation Comments UDS Note (test code = See Note *NA*(10/03/19 UDS Note) 9:20 PM) [facility] [id number] 03:20:00 Test Item Value Reference Range Interpretation Comments U Amph Scr (test code Negative *NA*(10/03/19 = U Amph Scr) 9:20 PM) [facility] [id number] 03:20:00 Test Item Value Reference Range Interpretation Comments U Dede Scr (test code Negative *NA*(10/03/19 = U Dede Scr) 9:20 PM) [facility] [id number] 03:20:00 Test Item Value Reference Range Interpretation Comments U Amph Scr (test code Negative *NA*(10/03/19 = U Amph Scr) 9:20 PM) [facility] [id number] 03:20:00 Test Item Value Reference Range Interpretation Comments U Dede Scr (test code Negative *NA*(10/03/19 = U Dede Scr) 9:20 PM) [facility] [id number] 03:20:00 Test Item Value Reference Range Interpretation Comments U Benzodiaz Scr (test Negative *NA*(10/03/19 code = U Benzodiaz Scr) 9:20 PM) [facility] [id number] 03:20:00 Test Item Value Reference Range Interpretation Comments U Cocaine Scr (test Negative *NA*(10/03/19 code = U Cocaine Scr) 9:20 PM) [facility] [id number] 03:20:00 Test Item Value Reference Range Interpretation Comments U Cannab Scr (test Negative *NA*(10/03/19 code = U Cannab Scr) 9:20 PM) [facility] [id number] 03:20:00 Test Item Value Reference Range Interpretation Comments U Opiate Scr (test Negative *NA*(10/03/19 code = U Opiate Scr) 9:20 PM) [facility] [id number] 03:20:00 Test Item Value Reference Range Interpretation Comments U Phencyclidine Scr (test Negative *NA*(10/03/19 code = U Phencyclidine 9:20 PM) Scr) [facility] [id number] 03:20:00 Test Item Value Reference Range Interpretation Comments UDS Note (test code = See Note *NA*(10/03/19 UDS Note) 9:20 PM) [facility] [id number] 03:20:00 Test Item Value Reference Range Interpretation Comments U Benzodiaz Scr (test Negative *NA*(10/03/19 code = U Benzodiaz Scr) 9:20 PM) [facility] [id number] 03:20:00 Test Item Value Reference Range Interpretation Comments U Cocaine Scr (test Negative *NA*(10/03/19 code = U Cocaine Scr) 9:20 PM) [facility] [id number] 03:20:00 Test Item Value Reference Range Interpretation Comments U Cocaine Scr (test Negative *NA*(10/03/19 code = U Cocaine Scr) 9:20 PM) [facility] [id number] 03:20:00 Test Item Value Reference Range Interpretation Comments U Cannab Scr (test Negative *NA*(10/03/19 code = U Cannab Scr) 9:20 PM) [facility] [id number] 03:20:00 Test Item Value Reference Range Interpretation Comments U Opiate Scr (test Negative *NA*(10/03/19 code = U Opiate Scr) 9:20 PM) [facility] [id number] 03:20:00 Test Item Value Reference Range Interpretation Comments U Phencyclidine Scr (test Negative *NA*(10/03/19 code = U Phencyclidine 9:20 PM) Scr) [facility] [id number] 03:20:00 Test Item Value Reference Range Interpretation Comments UDS Note (test code = See Note *NA*(10/03/19 UDS Note) 9:20 PM) [facility] [id number] 03:20:00 Test Item Value Reference Range Interpretation Comments U Amph Scr (test code Negative *NA*(10/03/19 = U Amph Scr) 9:20 PM) [facility] [id number] 03:20:00 Test Item Value Reference Range Interpretation Comments U Dede Scr (test code Negative *NA*(10/03/19 = U Dede Scr) 9:20 PM) [facility] [id number] 03:20:00 Test Item Value Reference Range Interpretation Comments U Benzodiaz Scr (test Negative *NA*(10/03/19 code = U Benzodiaz Scr) 9:20 PM) [facility] [id number] 03:20:00 Test Item Value Reference Range Interpretation Comments U Cannab Scr (test Negative *NA*(10/03/19 code = U Cannab Scr) 9:20 PM) Memorial [id number] 03:11:00 Test Item Value Reference Range Interpretation Comments MCH (test code = MCH) 28.6 pg 27.0-31.0 Memorial [id number] 03:11:00 Test Item Value Reference Range Interpretation Comments MCHC (test code = MCHC) 34.1 32.0-36.0 [id number] 03:11:00 Test Item Value Reference Range Interpretation Comments RDW (test code = RDW) 13.8 11.5-14.5 [id number] 03:11:00 Test Item Value Reference Range Interpretation Comments Platelet (test code = Platelet) 297 133-450 [id number] 03:11:00 Test Item Value Reference Range Interpretation Comments MPV (test code = MPV) 7.9 7.4-10.4 [id number] 03:11:00 Test Item Value Reference Range Interpretation Comments Segs (test code = Segs) 63.8 45.0-75.0 [id number] 03:11:00 Test Item Value Reference Range Interpretation Comments Lymphocytes (test code = Lymphocytes) 26.9 20.0-40.0 [id number] 03:11:00 Test Item Value Reference Range Interpretation Comments Monocytes (test code = Monocytes) 8.5 2.0-12.0 [id number] 03:11:00 Test Item Value Reference Range Interpretation Comments Eosinophils (test code = 0.4 See_Comment [A utomated message] The Eosinophils) system which ge nerated this result tra nsmitted reference range : <=4.0. The reference r carin was not used to int erpret this result as normal/abnormal . [facility] [id number] 03:11:00 Test Item Value Reference Range Interpretation Comments Basophils (test code = 0.4 See_Comment [Aut omated message] The Basophils) system which ge nerated this result tra nsmitted reference range : <=1.0. The reference r carin was not used to int erpret this result as normal/abnormal . [id number] 03:11:00 Test Item Value Reference Range Interpretation Comments Neutrophils # (test code = Neutrophils 6.8 1.5-8.1 #) [id number] 03:11:00 Test Item Value Reference Range Interpretation Comments Lymphocytes # (test code = Lymphocytes 2.9 1.0-5.5 #) [id number] 03:11:00 Test Item Value Reference Range Interpretation Comments Monocytes # (test code 0.9 See_Comment [Aut omated message] The = Monocytes #) system which generated this result tra nsmitted reference range : <=0.8. The reference r carin was not used to int erpret this result as normal/abnormal . [place] [id number] 03:11:00 Test Item Value Reference Range Interpretation Comments Acetaminoph Lvl (test code = (10/03/19 9:11 PM) 10-20 Acetaminoph Lvl) [place] [id number] 03:11:00 Test Item Value Reference Range Interpretation Comments Ethanol Lvl (test code = Ethanol Lvl) no gt [place] [id number] 03:11:00 Test Item Value Reference Range Interpretation Comments Etoh (%) (test code = Etoh (%)) no gt [place] [id number] 03:11:00 Test Item Value Reference Range Interpretation Comments Salicylate Lvl (test no gt See_Comment [Autom ated message] The code = Salicylate Lvl) syste m which generated this result tra nsmitted reference range : <=30.0. The reference r carin was not used to int erpret this result as normal/abnormal . [facility] [id number] 03:11:00 Test Item Value Reference Range Interpretation Comments Glucose Lvl (test code = Glucose Lvl) 91 70-99 [facility] [id number] 03:11:00 Test Item Value Reference Range Interpretation Comments BUN (test code = BUN) 14 7-22 [facility] [id number] 03:11:00 Test Item Value Reference Range Interpretation Comments Creatinine Lvl (test code = Creatinine 1.10 0.50-1.40 Lvl) [place] [id number] 03:11:00 Test Item Value Reference Range Interpretation Comments Sodium Lvl (test code = Sodium Lvl) 140 135-145 [facility] [id number] 03:11:00 Test Item Value Reference Range Interpretation Comments Potassium Lvl (test code = Potassium 3.8 3.5-5.1 Lvl) [facility] SouthEqvilibriaPAUL[place] [id number] 03:11:00 Test Item Value Reference Range Interpretation Comments Chloride Lvl (test code = Chloride Lvl) 105 95-109 [place] [id number] 03:11:00 Test Item Value Reference Range Interpretation Comments CO2 (test code = CO2) 27 24-32 [place] [id number] 03:11:00 Test Item Value Reference Range Interpretation Comments Calcium Lvl (test code = Calcium Lvl) 9.5 8.5-10.5 [place] [id number] 03:11:00 Test Item Value Reference Range Interpretation Comments Total Protein (test code = Total 7.5 6.4-8.4 Protein) [place] [id number] 03:11:00 Test Item Value Reference Range Interpretation Comments Albumin Lvl (test code = Albumin Lvl) 4.2 3.5-5.0 [place] [id number] 03:11:00 Test Item Value Reference Range Interpretation Comments ALT (test code = ALT) 25 See_Comment [Auto mated message] The system which ge nerated this result transmit mark reference range : <=65. The reference range was not used to interpr et this result as melinda l/abnormal. [facility] [id number] 03:11:00 Test Item Value Reference Range Interpretation Comments Glucose Lvl (test code = Glucose Lvl) 91 70-99 [facility] [place]2020-01-09 03:11:00 Test Item Value Reference Range Interpretation Comments AST (test code = AST) 13 See_Comment [Auto mated message] The system which ge nerated this result transmit mark reference range : <=37. The reference range was not used to interpr et this result as melinda l/abnormal. [facility] [id number] 03:11:00 Test Item Value Reference Range Interpretation Comments Alk Phos (test code = Alk Phos) 74 39-136 [facility] [id number] 03:11:00 Test Item Value Reference Range Interpretation Comments Bili Total (test code = Bili Total) 0.5 0.2-1.3 [facility] [id number] 03:11:00 Test Item Value Reference Range Interpretation Comments eGFR (test code = eGFR) 93 [facility] [place]2020-01-09 03:11:00 Test Item Value Reference Range Interpretation Comments AGAP (test code = AGAP) 11.8 10.0-20.0 [facility] [place]2020-01-09 03:11:00 Test Item Value Reference Range Interpretation Comments B/C Ratio (test code = B/C Ratio) 13 1 6-25 [facility] [place]2020-01-09 03:11:00 Test Item Value Reference Range Interpretation Comments Globulin (test code = Globulin) 3.3 2.7-4.2 [facility] [place]2020-01-09 03:11:00 Test Item Value Reference Range Interpretation Comments A/G Ratio (test code = A/G Ratio) 1.3 1 0.7-1.6 [facility]DxqhhngDDIXPQBIOE3021-64-05 03:11:00 Test Item Value Reference Range Interpretation Comments WBC (test code = WBC) 10.6 3.7-10.4 [facility]cosRordxfqHHOBQSDWRQ8850-70-98 03:11:00 Test Item Value Reference Range Interpretation Comments RBC (test code = RBC) 4.99 4.70-6.10 [facility] [place]2020-01-09 03:11:00 Test Item Value Reference Range Interpretation Comments BUN (test code = BUN) 14 7-22 [facility]cosWlwnupoRZLRSHMWNA3324-04-62 03:11:00 Test Item Value Reference Range Interpretation Comments Hgb (test code = Hgb) 14.3 14.0-18.0 [facility]cosFpjlsopCLEVJMYAZM0644-97-12 03:11:00 Test Item Value Reference Range Interpretation Comments Hct (test code = Hct) 41.9 42.0-54.0 [facility]cosSdhsvnlWXPEVEACFO8900-20-57 03:11:00 Test Item Value Reference Range Interpretation Comments MCV (test code = MCV) 83.8 80.0-94.0 [facility]cosKuqawevTHAMBNKONM7368-60-02 03:11:00 Test Item Value Reference Range Interpretation Comments MCH (test code = MCH) 28.6 pg 27.0-31.0 [facility]cosZpdcncaUBFITIWEEX9161-21-23 03:11:00 Test Item Value Reference Range Interpretation Comments MCHC (test code = MCHC) 34.1 32.0-36.0 [place] [id number] 03:11:00 Test Item Value Reference Range Interpretation Comments RDW (test code = RDW) 13.8 11.5-14.5 [facility]cosIeygxtbVBGRUCRZFP3254-75-87 03:11:00 Test Item Value Reference Range Interpretation Comments Platelet (test code = Platelet) 297 133-450 [facility]cosTzkqjkfRXIDPPBKXD1668-55-08 03:11:00 Test Item Value Reference Range Interpretation Comments MPV (test code = MPV) 7.9 7.4-10.4 [facility]cosPxewxmgZLVCYJXIHW4464-05-52 03:11:00 Test Item Value Reference Range Interpretation Comments Segs (test code = Segs) 63.8 45.0-75.0 [facility] MarcosGrpzwxvQNYWKLCEDH5254-00-13 03:11:00 Test Item Value Reference Range Interpretation Comments Lymphocytes (test code = Lymphocytes) 26.9 20.0-40.0 [facility] [place]2020-01-09 03:11:00 Test Item Value Reference Range Interpretation Comments Creatinine Lvl (test code = Creatinine 1.10 0.50-1.40 Lvl) [facility]cosVxpjwdaEOGACBVIPV5160-37-87 03:11:00 Test Item Value Reference Range Interpretation Comments Monocytes (test code = Monocytes) 8.5 2.0-12.0 [facility]cosSdbpuaeBQZNPJVTQS8038-82-83 03:11:00 Test Item Value Reference Range Interpretation Comments Eosinophils (test code = 0.4 See_Comment [A utomated message] The Eosinophils) system which ge nerated this result tra nsmitted reference range : <=4.0. The reference r carin was not used to int erpret this result as normal/abnormal . [facility] MarcosGabiodvIMGRXTMKFN7673-90-18 03:11:00 Test Item Value Reference Range Interpretation Comments Basophils (test code = 0.4 See_Comment [Aut omated message] The Basophils) system which ge nerated this result tra nsmitted reference range : <=1.0. The reference r carin was not used to int erpret this result as normal/abnormal . [place] 500340-01-09 03:11:00 Test Item Value Reference Range Interpretation Comments Neutrophils # (test code = Neutrophils 6.8 1.5-8.1 #) [facility] MarcosQvcynhrYQIUUFQCOT8013-11-84 03:11:00 Test Item Value Reference Range Interpretation Comments Lymphocytes # (test code = Lymphocytes 2.9 1.0-5.5 #) [facility]cosPaurflzUQWGTJXIGE5112-91-36 03:11:00 Test Item Value Reference Range Interpretation Comments Monocytes # (test code 0.9 See_Comment [Aut omated message] The = Monocytes #) system which generated this result tra nsmitted reference range : <=0.8. The reference r carin was not used to int erpret this result as normal/abnormal . [facility]BusnspsLWXXBNSJGY4376-49-26 03:11:00 Test Item Value Reference Range Interpretation Comments Acetaminoph Lvl (test code = (10/03/19 9:11 PM) 10-20 Acetaminoph Lvl) [place] [id number] 03:11:00 Test Item Value Reference Range Interpretation Comments Ethanol Lvl (test code = Ethanol Lvl) no gt [place] [id number] 03:11:00 Test Item Value Reference Range Interpretation Comments Etoh (%) (test code = Etoh (%)) no gt [place] [id number] 03:11:00 Test Item Value Reference Range Interpretation Comments Salicylate Lvl (test no gt See_Comment [Autom ated message] The code = Salicylate Lvl) syste m which generated this result tra nsmitted reference range : <=30.0. The reference r carin was not used to int erpret this result as normal/abnormal . [facility] [id number] 03:11:00 Test Item Value Reference Range Interpretation Comments Sodium Lvl (test code = Sodium Lvl) 140 135-145 [facility] [id number] 03:11:00 Test Item Value Reference Range Interpretation Comments Glucose Lvl (test code = Glucose Lvl) 91 70-99 [facility] [id number] 03:11:00 Test Item Value Reference Range Interpretation Comments Potassium Lvl (test code = Potassium 3.8 3.5-5.1 Lvl) [facility] [id number] 03:11:00 Test Item Value Reference Range Interpretation Comments BUN (test code = BUN) 14 7-22 [facility] [id number] 03:11:00 Test Item Value Reference Range Interpretation Comments Creatinine Lvl (test code = Creatinine 1.10 0.50-1.40 Lvl) [place] [id number] 03:11:00 Test Item Value Reference Range Interpretation Comments Sodium Lvl (test code = Sodium Lvl) 140 135-145 [place] 214760-01-09 03:11:00 Test Item Value Reference Range Interpretation Comments Potassium Lvl (test code = Potassium 3.8 3.5-5.1 Lvl) [place] 214760-01-09 03:11:00 Test Item Value Reference Range Interpretation Comments Chloride Lvl (test code = Chloride Lvl) 105 95-109 [place] 214760-01-09 03:11:00 Test Item Value Reference Range Interpretation Comments CO2 (test code = CO2) 27 24-32 [place] 214760-01-09 03:11:00 Test Item Value Reference Range Interpretation Comments Calcium Lvl (test code = Calcium Lvl) 9.5 8.5-10.5 [place] 214760-01-09 03:11:00 Test Item Value Reference Range Interpretation Comments Total Protein (test code = Total 7.5 6.4-8.4 Protein) [facility] [place]2020-01-09 03:11:00 Test Item Value Reference Range Interpretation Comments Albumin Lvl (test code = Albumin Lvl) 4.2 3.5-5.0 [place] 214760-01-09 03:11:00 Test Item Value Reference Range Interpretation Comments ALT (test code = ALT) 25 See_Comment [Auto mated message] The system which ge nerated this result transmit mark reference range : <=65. The reference range was not used to interpr et this result as melinda l/abnormal. [facility] [place]2020-01-09 03:11:00 Test Item Value Reference Range Interpretation Comments Chloride Lvl (test code = Chloride Lvl) 105 95-109 [place] 214760-01-09 03:11:00 Test Item Value Reference Range Interpretation Comments AST (test code = AST) 13 See_Comment [Auto mated message] The system which ge nerated this result transmit mark reference range : <=37. The reference range was not used to interpr et this result as melinda l/abnormal. [facility] [place]2020-01-09 03:11:00 Test Item Value Reference Range Interpretation Comments Alk Phos (test code = Alk Phos) 74 39-136 [place] 214760-01-09 03:11:00 Test Item Value Reference Range Interpretation Comments Bili Total (test code = Bili Total) 0.5 0.2-1.3 [place] 214760-01-09 03:11:00 Test Item Value Reference Range Interpretation Comments eGFR (test code = eGFR) 93 [place] 214760-01-09 03:11:00 Test Item Value Reference Range Interpretation Comments AGAP (test code = AGAP) 11.8 10.0-20.0 [place] 214760-01-09 03:11:00 Test Item Value Reference Range Interpretation Comments B/C Ratio (test code = B/C Ratio) 13 1 6-25 [place] 214760-01-09 03:11:00 Test Item Value Reference Range Interpretation Comments Globulin (test code = Globulin) 3.3 2.7-4.2 [place] 214760-01-09 03:11:00 Test Item Value Reference Range Interpretation Comments A/G Ratio (test code = A/G Ratio) 1.3 1 0.7-1.6 [place] 500340-01-09 03:11:00 Test Item Value Reference Range Interpretation Comments WBC (test code = WBC) 10.6 3.7-10.4 [place] 500340-01-09 03:11:00 Test Item Value Reference Range Interpretation Comments RBC (test code = RBC) 4.99 4.70-6.10 [place] 214760-01-09 03:11:00 Test Item Value Reference Range Interpretation Comments CO2 (test code = CO2) 27 24-32 [place] 500340-01-09 03:11:00 Test Item Value Reference Range Interpretation Comments Hgb (test code = Hgb) 14.3 14.0-18.0 [place] [address]-01-09 03:11:00 Test Item Value Reference Range Interpretation Comments Hct (test code = Hct) 41.9 42.0-54.0 [place] 500340-01-09 03:11:00 Test Item Value Reference Range Interpretation Comments MCV (test code = MCV) 83.8 80.0-94.0 [facility] CenterNykzmkrPLHLMGMMIX3540-05-55 03:11:00 Test Item Value Reference Range Interpretation Comments MCH (test code = MCH) 28.6 pg 27.0-31.0 [facility]ikpjsaWJCHHFEXMD0475-93-16 03:11:00 Test Item Value Reference Range Interpretation Comments MCHC (test code = MCHC) 34.1 32.0-36.0 [facility]AocebleBICARWFJIW6241-47-77 03:11:00 Test Item Value Reference Range Interpretation Comments RDW (test code = RDW) 13.8 11.5-14.5 [facility]SyldktzJLATDVOWNN9303-88-35 03:11:00 Test Item Value Reference Range Interpretation Comments Platelet (test code = Platelet) 297 133-450 [facility]cosHdypwncGZROSQAEXD4268-94-86 03:11:00 Test Item Value Reference Range Interpretation Comments MPV (test code = MPV) 7.9 7.4-10.4 [facility]StqokxoYABAHGYWPQ2859-35-18 03:11:00 Test Item Value Reference Range Interpretation Comments Segs (test code = Segs) 63.8 45.0-75.0 [facility] CenterCyxvirlSWGTHFEAHQ0626-08-62 03:11:00 Test Item Value Reference Range Interpretation Comments Lymphocytes (test code = Lymphocytes) 26.9 20.0-40.0 [facility] [id number] 03:11:00 Test Item Value Reference Range Interpretation Comments Calcium Lvl (test code = Calcium Lvl) 9.5 8.5-10.5 [facility]LomzzelWYHGUOCWDA6237-56-37 03:11:00 Test Item Value Reference Range Interpretation Comments Monocytes (test code = Monocytes) 8.5 2.0-12.0 [facility]OztvkqiDPOQVCUGQA8012-26-17 03:11:00 Test Item Value Reference Range Interpretation Comments Eosinophils (test code = 0.4 See_Comment [A utomated message] The Eosinophils) system which ge nerated this result tra nsmitted reference range : <=4.0. The reference r carin was not used to int erpret this result as normal/abnormal . [facility]SfzefemPBRLXEPLKC5252-78-31 03:11:00 Test Item Value Reference Range Interpretation Comments Basophils (test code = 0.4 See_Comment [Aut omated message] The Basophils) system which ge nerated this result tra nsmitted reference range : <=1.0. The reference r carin was not used to int erpret this result as normal/abnormal . [facility] CenterNeemgkbARHWWMQJWI8536-18-39 03:11:00 Test Item Value Reference Range Interpretation Comments Neutrophils # (test code = Neutrophils 6.8 1.5-8.1 #) [facility] CenterEkwlgjtSDLKFFATUS0138-74-86 03:11:00 Test Item Value Reference Range Interpretation Comments Lymphocytes # (test code = Lymphocytes 2.9 1.0-5.5 #) [facility] CenterZvupjmhBPTBUPYUPQ3410-09-39 03:11:00 Test Item Value Reference Range Interpretation Comments Monocytes # (test code 0.9 See_Comment [Aut omated message] The = Monocytes #) system which generated this result tra nsmitted reference range : <=0.8. The reference r carin was not used to int erpret this result as normal/abnormal . [facility] CenterCgldddzSVAFFUSESS9882-07-22 03:11:00 Test Item Value Reference Range Interpretation Comments Acetaminoph Lvl (test code = (10/03/19 9:11 PM) 10-20 Acetaminoph Lvl) [facility] CenterEcrjuvzYHYRUYJQUA3406-99-02 03:11:00 Test Item Value Reference Range Interpretation Comments Ethanol Lvl (test code = Ethanol Lvl) no gt [facility] CenterQclswspCVOEQPVWXV7932-94-87 03:11:00 Test Item Value Reference Range Interpretation Comments Etoh (%) (test code = Etoh (%)) no gt [facility] CenterBfrqjnsNVYNVUEYOU9623-83-69 03:11:00 Test Item Value Reference Range Interpretation Comments Salicylate Lvl (test no gt See_Comment [Autom ated message] The code = Salicylate Lvl) syste m which generated this result tra nsmitted reference range : <=30.0. The reference r carin was not used to int erpret this result as normal/abnormal . [facility] [id number] 03:11:00 Test Item Value Reference Range Interpretation Comments Total Protein (test code = Total 7.5 6.4-8.4 Protein) [facility] SouthCrossCoreYALJA3868-88-79 03:11:00 Test Item Value Reference Range Interpretation Comments Albumin Lvl (test code = Albumin Lvl) 4.2 3.5-5.0 [facility] [id number] 03:11:00 Test Item Value Reference Range Interpretation Comments ALT (test code = ALT) 25 See_Comment [Auto mated message] The system which ge nerated this result transmit mark reference range : <=65. The reference range was not used to interpr et this result as melinda l/abnormal. [facility] [id number] 03:11:00 Test Item Value Reference Range Interpretation Comments AST (test code = AST) 13 See_Comment [Auto mated message] The system which ge nerated this result transmit mark reference range : <=37. The reference range was not used to interpr et this result as melinda l/abnormal. [facility] [id number] 03:11:00 Test Item Value Reference Range Interpretation Comments Alk Phos (test code = Alk Phos) 74 39-136 [facility] [id number] 03:11:00 Test Item Value Reference Range Interpretation Comments Bili Total (test code = Bili Total) 0.5 0.2-1.3 [facility] [id number] 03:11:00 Test Item Value Reference Range Interpretation Comments eGFR (test code = eGFR) 93 [facility] [id number] 03:11:00 Test Item Value Reference Range Interpretation Comments AGAP (test code = AGAP) 11.8 10.0-20.0 [facility] [id number] 03:11:00 Test Item Value Reference Range Interpretation Comments B/C Ratio (test code = B/C Ratio) 13 1 6-25 [facility] [id number] 03:11:00 Test Item Value Reference Range Interpretation Comments Globulin (test code = Globulin) 3.3 2.7-4.2 [facility] [id number] 03:11:00 Test Item Value Reference Range Interpretation Comments A/G Ratio (test code = A/G Ratio) 1.3 1 0.7-1.6 [facility] SouthSvafqakFALGWSAQKK3391-71-52 03:11:00 Test Item Value Reference Range Interpretation Comments WBC (test code = WBC) 10.6 3.7-10.4 [place] 500340-01-09 03:11:00 Test Item Value Reference Range Interpretation Comments RBC (test code = RBC) 4.99 4.70-6.10 [facility]cosWkvdaiwHYRJEHGRWB0970-02-56 03:11:00 Test Item Value Reference Range Interpretation Comments Hgb (test code = Hgb) 14.3 14.0-18.0 [facility] MarcosJreoymxQPQORGITZU3251-71-73 03:11:00 Test Item Value Reference Range Interpretation Comments Hct (test code = Hct) 41.9 42.0-54.0 [facility] MarcosLslwpaaBADRBHVWTP4968-85-35 03:11:00 Test Item Value Reference Range Interpretation Comments MCV (test code = MCV) 83.8 80.0-94.0 [facility] MarcosVldvypzAFCEBFOZTD7636-35-31 03:11:00 Test Item Value Reference Range Interpretation Comments MCH (test code = MCH) 28.6 pg 27.0-31.0 [facility] MarcosGsrgtcoFGFYROIBVH4535-58-33 03:11:00 Test Item Value Reference Range Interpretation Comments MCHC (test code = MCHC) 34.1 32.0-36.0 [facility] MarcosNlolaghLODHIHAFMU1029-25-86 03:11:00 Test Item Value Reference Range Interpretation Comments RDW (test code = RDW) 13.8 11.5-14.5 [facility] MarcosGygqgbdIJVYGDAMQU7397-70-56 03:11:00 Test Item Value Reference Range Interpretation Comments Platelet (test code = Platelet) 297 133-450 [facility] MarcosHdpldjjXTLPRQTYPV6832-43-43 03:11:00 Test Item Value Reference Range Interpretation Comments MPV (test code = MPV) 7.9 7.4-10.4 [facility] MarcosTthyhvpEHHTSNNBIF2614-01-87 03:11:00 Test Item Value Reference Range Interpretation Comments Segs (test code = Segs) 63.8 45.0-75.0 [facility] MarcosLkjebwiXZOADPIZDE4555-86-36 03:11:00 Test Item Value Reference Range Interpretation Comments Lymphocytes (test code = Lymphocytes) 26.9 20.0-40.0 [place] 500340-01-09 03:11:00 Test Item Value Reference Range Interpretation Comments Monocytes (test code = Monocytes) 8.5 2.0-12.0 [facility]cosWdnichwESXNLGECGB8608-27-39 03:11:00 Test Item Value Reference Range Interpretation Comments Eosinophils (test code = 0.4 See_Comment [A utomated message] The Eosinophils) system which ge nerated this result tra nsmitted reference range : <=4.0. The reference r carin was not used to int erpret this result as normal/abnormal . [facility] MarcosJxzwlzoLROPSFKKGV5401-04-98 03:11:00 Test Item Value Reference Range Interpretation Comments Basophils (test code = 0.4 See_Comment [Aut omated message] The Basophils) system which ge nerated this result tra nsmitted reference range : <=1.0. The reference r carin was not used to int erpret this result as normal/abnormal . [facility] MarcosWcqdlbiLHLQGPCRZB0753-67-72 03:11:00 Test Item Value Reference Range Interpretation Comments Neutrophils # (test code = Neutrophils 6.8 1.5-8.1 #) [facility] MarcosZybnmsxWPJJSCQFUZ9792-79-11 03:11:00 Test Item Value Reference Range Interpretation Comments Lymphocytes # (test code = Lymphocytes 2.9 1.0-5.5 #) [facility] MarcosXpqcyspOKWCBKKVYE1749-65-14 03:11:00 Test Item Value Reference Range Interpretation Comments Monocytes # (test code 0.9 See_Comment [Aut omated message] The = Monocytes #) system which generated this result tra nsmitted reference range : <=0.8. The reference r carin was not used to int erpret this result as normal/abnormal . [place] [id number] 03:11:00 Test Item Value Reference Range Interpretation Comments Acetaminoph Lvl (test code = (10/03/19 9:11 PM) 10-20 Acetaminoph Lvl) [place] [id number] 03:11:00 Test Item Value Reference Range Interpretation Comments Ethanol Lvl (test code = Ethanol Lvl) no gt [place] [id number] 03:11:00 Test Item Value Reference Range Interpretation Comments Etoh (%) (test code = Etoh (%)) no [place] [id number] 03:11:00 Test Item Value Reference Range Interpretation Comments Salicylate Lvl (test no gt See_Comment [Autom ated message] The code = Salicylate Lvl) syste m which generated this result tra nsmitted reference range : <=30.0. The reference r carin was not used to int erpret this result as normal/abnormal . [place] 214760-01-09 03:11:00 Test Item Value Reference Range Interpretation Comments Glucose Lvl (test code = Glucose Lvl) 91 70-99 [place] 214760-01-09 03:11:00 Test Item Value Reference Range Interpretation Comments BUN (test code = BUN) 14 7-22 [place] 214760-01-09 03:11:00 Test Item Value Reference Range Interpretation Comments Creatinine Lvl (test code = Creatinine 1.10 0.50-1.40 Lvl) [place] 214760-01-09 03:11:00 Test Item Value Reference Range Interpretation Comments Sodium Lvl (test code = Sodium Lvl) 140 135-145 [place] 214760-01-09 03:11:00 Test Item Value Reference Range Interpretation Comments Potassium Lvl (test code = Potassium 3.8 3.5-5.1 Lvl) [place] 214760-01-09 03:11:00 Test Item Value Reference Range Interpretation Comments Chloride Lvl (test code = Chloride Lvl) 105 95-109 [place] 214760-01-09 03:11:00 Test Item Value Reference Range Interpretation Comments CO2 (test code = CO2) 27 24-32 [place] 214760-01-09 03:11:00 Test Item Value Reference Range Interpretation Comments Calcium Lvl (test code = Calcium Lvl) 9.5 8.5-10.5 [place] 214760-01-09 03:11:00 Test Item Value Reference Range Interpretation Comments Total Protein (test code = Total 7.5 6.4-8.4 Protein) [place] 214760-01-09 03:11:00 Test Item Value Reference Range Interpretation Comments Albumin Lvl (test code = Albumin Lvl) 4.2 3.5-5.0 [place] 214760-01-09 03:11:00 Test Item Value Reference Range Interpretation Comments ALT (test code = ALT) 25 See_Comment [Auto mated message] The system which ge nerated this result transmit mark reference range : <=65. The reference range was not used to interpr et this result as melinda l/abnormal. [facility] [place]2020-01-09 03:11:00 Test Item Value Reference Range Interpretation Comments AST (test code = AST) 13 See_Comment [Auto mated message] The system which ge nerated this result transmit mark reference range : <=37. The reference range was not used to interpr et this result as melinda l/abnormal. [place] 214760-01-09 03:11:00 Test Item Value Reference Range Interpretation Comments Alk Phos (test code = Alk Phos) 74 39-136 [place] 214760-01-09 03:11:00 Test Item Value Reference Range Interpretation Comments Bili Total (test code = Bili Total) 0.5 0.2-1.3 [place] 214760-01-09 03:11:00 Test Item Value Reference Range Interpretation Comments eGFR (test code = eGFR) 93 [facility]2020-01-09 03:11:00 Test Item Value Reference Range Interpretation Comments AGAP (test code = AGAP) 11.8 10.0-20.0 [place] 214760-01-09 03:11:00 Test Item Value Reference Range Interpretation Comments B/C Ratio (test code = B/C Ratio) 13 1 6-25 [place] 214760-01-09 03:11:00 Test Item Value Reference Range Interpretation Comments Globulin (test code = Globulin) 3.3 2.7-4.2 [place] 214760-01-09 03:11:00 Test Item Value Reference Range Interpretation Comments A/G Ratio (test code = A/G Ratio) 1.3 1 0.7-1.6 [place] [id number] 03:11:00 Test Item Value Reference Range Interpretation Comments WBC (test code = WBC) 10.6 3.7-10.4 [place] [id number] 03:11:00 Test Item Value Reference Range Interpretation Comments RBC (test code = RBC) 4.99 4.70-6.10 [place] [id number] 03:11:00 Test Item Value Reference Range Interpretation Comments Glucose Lvl (test code = Glucose Lvl) 91 70-99 [place] [id number] 03:11:00 Test Item Value Reference Range Interpretation Comments BUN (test code = BUN) 14 7-22 [place] [id number] 03:11:00 Test Item Value Reference Range Interpretation Comments Creatinine Lvl (test code = Creatinine 1.10 0.50-1.40 Lvl) [place] [id number] 03:11:00 Test Item Value Reference Range Interpretation Comments Sodium Lvl (test code = Sodium Lvl) 140 135-145 [place] [id number] 03:11:00 Test Item Value Reference Range Interpretation Comments Potassium Lvl (test code = Potassium 3.8 3.5-5.1 Lvl) [place] [id number] 03:11:00 Test Item Value Reference Range Interpretation Comments Chloride Lvl (test code = Chloride Lvl) 105 95-109 [place] [id number] 03:11:00 Test Item Value Reference Range Interpretation Comments CO2 (test code = CO2) 27 24-32 [place] [id number] 03:11:00 Test Item Value Reference Range Interpretation Comments Calcium Lvl (test code = Calcium Lvl) 9.5 8.5-10.5 [place] [id number] 03:11:00 Test Item Value Reference Range Interpretation Comments Total Protein (test code = Total 7.5 6.4-8.4 Protein) [place] [id number] 03:11:00 Test Item Value Reference Range Interpretation Comments Albumin Lvl (test code = Albumin Lvl) 4.2 3.5-5.0 [place] [id number] 03:11:00 Test Item Value Reference Range Interpretation Comments ALT (test code = ALT) 25 See_Comment [Auto mated message] The system which ge nerated this result transmit mark reference range : <=65. The reference range was not used to interpr et this result as melinda l/abnormal. [place] [id number] 03:11:00 Test Item Value Reference Range Interpretation Comments AST (test code = AST) 13 See_Comment [Auto mated message] The system which ge nerated this result transmit mark reference range : <=37. The reference range was not used to interpr et this result as melinda l/abnormal. [place] [id number] 03:11:00 Test Item Value Reference Range Interpretation Comments Alk Phos (test code = Alk Phos) 74 39-136 [facility]2020-01-09 03:11:00 Test Item Value Reference Range Interpretation Comments Bili Total (test code = Bili Total) 0.5 0.2-1.3 [place] [id number] 03:11:00 Test Item Value Reference Range Interpretation Comments eGFR (test code = eGFR) 93 [facility]2020-01-09 03:11:00 Test Item Value Reference Range Interpretation Comments AGAP (test code = AGAP) 11.8 10.0-20.0 [place] [id number] 03:11:00 Test Item Value Reference Range Interpretation Comments B/C Ratio (test code = B/C Ratio) 13 1 6-25 [place] [id number] 03:11:00 Test Item Value Reference Range Interpretation Comments Globulin (test code = Globulin) 3.3 2.7-4.2 [place] [id number] 03:11:00 Test Item Value Reference Range Interpretation Comments A/G Ratio (test code = A/G Ratio) 1.3 1 0.7-1.6 [place] [id number] 03:11:00 Test Item Value Reference Range Interpretation Comments WBC (test code = WBC) 10.6 3.7-10.4 [facility]ig[facility]AYGCBHF7582[facility] 03:11:00 Test Item Value Reference Range Interpretation Comments RBC (test code = RBC) 4.99 4.70-6.10 [facility]GbhhcjjOTLJIXZKYH3796-39-34 03:11:00 Test Item Value Reference Range Interpretation Comments Hgb (test code = Hgb) 14.3 14.0-18.0 [place] [id number] 03:11:00 Test Item Value Reference Range Interpretation Comments Hct (test code = Hct) 41.9 42.0-54.0 [place] [id number] 03:11:00 Test Item Value Reference Range Interpretation Comments MCV (test code = MCV) 83.8 80.0-94.0 [place] [id number] 03:11:00 Test Item Value Reference Range Interpretation Comments MCH (test code = MCH) 28.6 pg 27.0-31.0 [facility]EggzpfwKPKJFXOGYW7278-30-18 03:11:00 Test Item Value Reference Range Interpretation Comments MCHC (test code = MCHC) 34.1 32.0-36.0 [place] [id number] 03:11:00 Test Item Value Reference Range Interpretation Comments RDW (test code = RDW) 13.8 11.5-14.5 [facility]AujyldrHGNZERVSFU6443-04-33 03:11:00 Test Item Value Reference Range Interpretation Comments Platelet (test code = Platelet) 297 133-450 [facility]cosTroaspjHATOMNUTVC0372-30-15 03:11:00 Test Item Value Reference Range Interpretation Comments MPV (test code = MPV) 7.9 7.4-10.4 [facility]cosUemfppePTVHCYDOSU7957-67-69 03:11:00 Test Item Value Reference Range Interpretation Comments Segs (test code = Segs) 63.8 45.0-75.0 [facility]cosQdkukkaUORNTMPFGA9295-98-89 03:11:00 Test Item Value Reference Range Interpretation Comments Lymphocytes (test code = Lymphocytes) 26.9 20.0-40.0 [facility]cosLkuvzzcAEMRKDSHFB0127-74-86 03:11:00 Test Item Value Reference Range Interpretation Comments Monocytes (test code = Monocytes) 8.5 2.0-12.0 [facility]cosKnwzvxcZAHLJJILMN3609-79-23 03:11:00 Test Item Value Reference Range Interpretation Comments Eosinophils (test code = 0.4 See_Comment [A utomated message] The Eosinophils) system which ge nerated this result tra nsmitted reference range : <=4.0. The reference r carin was not used to int erpret this result as normal/abnormal . [facility]cosUnvkhumTGTMZKUTRQ8366-25-20 03:11:00 Test Item Value Reference Range Interpretation Comments Basophils (test code = 0.4 See_Comment [Aut omated message] The Basophils) system which ge nerated this result tra nsmitted reference range : <=1.0. The reference r carin was not used to int erpret this result as normal/abnormal . [facility]cosJvjdfzoAABOGZPOHC5840-81-24 03:11:00 Test Item Value Reference Range Interpretation Comments Neutrophils # (test code = Neutrophils 6.8 1.5-8.1 #) [facility]1694[facility]65-28 03:11:00 Test Item Value Reference Range Interpretation Comments Lymphocytes # (test code = Lymphocytes 2.9 1.0-5.5 #) [facility]cosYwjcmhuFFTDUQDXDE6028-21-79 03:11:00 Test Item Value Reference Range Interpretation Comments Monocytes # (test code 0.9 See_Comment [Aut omated message] The = Monocytes #) system which generated this result tra nsmitted reference range : <=0.8. The reference r carin was not used to int erpret this result as normal/abnormal . [facility]HaxwlduMKAGOTAXFC0503-74-66 03:11:00 Test Item Value Reference Range Interpretation Comments Acetaminoph Lvl (test code = (10/03/19 9:11 PM) 10-20 Acetaminoph Lvl) [place] [id number] 03:11:00 Test Item Value Reference Range Interpretation Comments Ethanol Lvl (test code = Ethanol Lvl) no gt [facility]stDsiocrmQVHAKGNRJS2508-52-17 03:11:00 Test Item Value Reference Range Interpretation Comments Etoh (%) (test code = Etoh (%)) no gt [facility]avmgjwSKEZVNMZYM6764-10-[facility] 03:11:00 Test Item Value Reference Range Interpretation Comments Salicylate Lvl (test no gt See_Comment [Autom ated message] The code = Salicylate Lvl) syste m which generated this result tra nsmitted reference range : <=30.0. The reference r carin was not used to int erpret this result as normal/abnormal . [id number] 03:11:00 Test Item Value Reference Range Interpretation Comments Hgb (test code = Hgb) 14.3 14.0-18.0 [facility]cosVqmkorjMSPCUVCCPJ5910-86-87 03:11:00 Test Item Value Reference Range Interpretation Comments Hct (test code = Hct) 41.9 42.0-54.0 [facility]cosJqvgwalSCQZWKRDEU8369-62-30 03:11:00 Test Item Value Reference Range Interpretation Comments MCV (test code = MCV) 83.8 80.0-94.0 [facility] Notes Date/Time Note Provider Source 2023-04-20 Formatting of this note might be differe nt from the original. Lauryn Brooke RN [facility] 13:26:11-00:00 Pt given printed and verbal discharge instructions regarding abd pain, encouraged hydration, Prescriptions provided Discussed ibuprofen and to t crys with food to avoid GI distress, alternate with Tylenol to help with pain and/or fever Discussed medication side af fects and to avoid driving/operating machinery/or engaging in activities requiring alertness while taking. Pt verbalized understanding of instructions,pt encouraged to follow up with pcp and or specialist Advised to seek medical attention for new/prolon ged/worsening of symptoms, No adverse reaction to meds given in ER noted up on discharge PIV d'cd, dressing to site, catheter in tact. Awake, alert oriented, resp reg unlabored, skin w/d, pt leaving in no apparent distress, Electronically signed by Lauryn Brooke RN a t 04/20/2023 1:27 PM CDT 2023-04-20 Formatting of this note might be differe nt from the original. Franco Diaz [facility] 11:23:17-00:00 Patient to ED for n/v/d x 3 days. Denies fever. Abdominal pain and cramping that is intermittent. RN 2019-10-03 PROCEDURE INFORMATION: [facility] 23:23:00-00:00 Exam: XR Left Ribs with PA Chest, 3 Views Exam date and time: 10/04/2019 12:16 AM Age: 24 years old Clinical indication: Pain; Additional info: /s/p fall TECHNIQUE: Imaging protocol: XR Left ribs 3 views with PA c hest. Views: Frontal view of the chest with Frontal an d Oblique rib views COMPARISON: No relevant prior studies available. FINDINGS: Lungs: No consolidation. Pleural space: No pleural effusion. No pneumotho rax. Heart/Mediastinum: No cardiomegaly.Vasculature i s unremarkable. Bones/joints: No radiographically evident rib fr acture. Notes: If there is further concern can consider addtional views or bone scan. IMPRESSION: No acute findings. Gabby Dimas MD On 10/04/2019 00:36:21; [id number] 2019-10-03 PROCEDURE INFORMATION: [facility] 23:23:00-00:00 Exam: XR Left Ribs with PA Chest, 3 Views Exam date and time: 10/04/2019 12:16 AM Age: 24 years old Clinical indication: Pain; Additional info: /s/p fall TECHNIQUE: Imaging protocol: XR Left ribs 3 views with PA c hest. Views: Frontal view of the chest with Frontal an d Oblique rib views COMPARISON: No relevant prior studies available. FINDINGS: Lungs: No consolidation. Pleural space: No pleural effusion. No pneumotho rax. Heart/Mediastinum: No cardiomegaly.Vasculature i s unremarkable. Bones/joints: No radiographically evident rib fr acture. Notes: If there is further concern can consider addtional views or bone scan. IMPRESSION: No acute findings. Gabby Dimas MD On 10/04/2019 00:36:21; [id number]
--- NOTE | 2023-05-06 12:29 | RAD REPORT ---
EXAM DESCRIPTION: RAD - Abdomen Acute Series - 05/06/2023 12:22 pm CLINICAL HISTORY: Pain;Nausea / vomiting COMPARISON: Chest Pa And Lat (2 Views) dated 12/14/2022 FINDINGS: Nonobstructive bowel gas pattern. No acute osseous abnormality.Visualized lungs are unrema rkable.No abnormal calcifications. Formed stool burden is low. No air-fluid levels. IMPRESSION: Nonobstructive bowel gas pattern.
--- NOTE | 2023-05-06 13:16 | EDPHYS ---
Physician Documentation [facility] Name: Gaudencio Kothari Age: 27 yrs Sex: Male : 1995 Arrival Date: 05/06/2023 Time: 11:26 Bed 12 Private MD: ED Physician Dick Mckenna HPI: 05/06 12:35 This 27 yrs old Male presents to ER via Ambulatory with complaints of Abdominal cp3 Cramping, Diarrhea. 12:35 Patient is a 27-year-old male who presents to the ED secondary to 1-1/2 years of cp3 abdominal cramping with associated painful retching, loose stools and abdominal cramps. The patient endorses he had 2 episodes of painful retching this morning without associated loose stool. The pain patient endorses he is pain-free at this time. The patient endorses he has had multiple ED evaluations for this problem with a negative CT of the abdomen pelvis 5 months ago. The patient denies fever, chills. The patient endorses he supposed to follow-up with GI and has been working on getting an appointment. Historical: - Allergies: 12:08 No Known Allergies; hb - Home Meds: 12:08 Abilify 10 mg Oral tab [Active]; citalopram 20 mg oral tablet [Active]; trazodone 50 mg hb Oral tab 1 tab 3 times per day [Active]; Xanax Oral [Active]; Bentyl Oral [Active]; - PMHx: 12:08 Anxiety; BORDERLINE PERSONALITY DISORDER; Depression; hb - PSHx: 12:08 None; hb - Immunization history:: Adult Immunizations up to date. - Social history:: Smoking status: Patient denies any tobacco usage or history of. Patient uses street drugs, marijuana. - Family history:: not pertinent. ROS: 12:35 Constitutional: Negative for fever, chills, and weight loss, Eyes: Negative for injury, cp3 pain, redness, and discharge, ENT: Negative for injury, pain, and discharge, Neck: Negative for injury, pain, and swelling, Cardiovascular: Negative for chest pain, palpitations, and edema, Respiratory: Negative for shortness of breath, cough, wheezing, and pleuritic chest pain, Back: Negative for injury and pain, : Negative for injury, bleeding, discharge, and swelling, MS/Extremity: Negative for injury and deformity, Skin: Negative for injury, rash, and discoloration, Neuro: Negative for headache, weakness, numbness, tingling, and seizure, Psych: Negative for depression, anxiety, suicide ideation, homicidal ideation, and hallucinations, Allergy/Immunology: Negative for hives, rash, and allergies, Endocrine: Negative for neck swelling, polydipsia, polyuria, polyphagia, and marked weight changes, Hematologic/Lymphatic: Negative for swollen nodes, abnormal bleeding, and unusual bruising. 12:35 Abdomen/GI: Positive for nausea, vomiting, and diarrhea, abdominal cramps. Exam: 12:35 Constitutional: This is a well developed, well nourished patient who is awake, alert, cp3 and in no acute distress. Head/Face: Normocephalic, atraumatic. Eyes: Pupils equal round and reactive to light, extra-ocular motions intact. Lids and lashes normal. Conjunctiva and sclera are non-icteric and not injected. Cornea within normal limits. Periorbital areas with no swelling, redness, or edema. ENT: Nares patent. No nasal discharge, no septal abnormalities noted. Tympanic membranes are normal and external auditory canals are clear. Oropharynx with no redness, swelling, or masses, exudates, or evidence of obstruction, uvula midline. Mucous membranes moist. Neck: Trachea midline, no thyromegaly or masses palpated, and no cervical lymphadenopathy. Supple, full range of motion without nuchal rigidity, or vertebral point tenderness. No Meningismus. Chest/axilla: Normal chest wall appearance and motion. Nontender with no deformity. No lesions are appreciated. Cardiovascular: Regular rate and rhythm with a normal S1 and S2. No gallops, murmurs, or rubs. Normal PMI, no JVD. No pulse deficits. Respiratory: Lungs have equal breath sounds bilaterally, clear to auscultation and percussion. No rales, rhonchi or wheezes noted. No increased work of breathing, no retractions or nasal flaring. Abdomen/GI: Soft, non-tender, with normal bowel sounds. No distension or tympany. No guarding or rebound. No evidence of tenderness throughout. Back: No spinal tenderness. No costovertebral tenderness. Full range of motion. MS/ Extremity: Pulses equal, no cyanosis. Neurovascular intact. Full, normal range of motion. Neuro: Awake and alert, GCS 15, oriented to person, place, time, and situation. Cranial nerves II-XII grossly intact. Motor strength 5/5 in all extremities. Sensory grossly intact. Cerebellar exam normal. Normal gait. Psych: Awake, alert, with orientation to person, place and time. Behavior, mood, and affect are within normal limits. Vital Signs: 11:32 BP 137 / 77; Pulse 74; Resp 16; Temp 98.3(O); Pulse Ox 100% on R/A; Weight 117.93 kg; hb Height 5 ft. 10 in. ; Pain 3/10; 11:32 Body Mass Index 37.31 (117.93 kg, 177.8 cm) hb 11:32 Pain Scale: Adult hb MDM: 11:31 Patient medically screened. cp3 13:17 Differential diagnosis: The differential diagnosis includes bowel obstruction, cp3 irritable bowel syndrome, cyclical vomiting syndrome. Data reviewed: vital signs, nurses notes, CT abdomen pelvis reviewed from previous visit and negative acute. Consideration of Admission/Observation No emergent indication for acute hospitalization although considered and patient would prefer outpatient follow-up. I considered the following discharge prescriptions or medication management in the emergency department Medications were administered in the Emergency Department. See MAR. Test considered but Not performed: Other Details CT of the abdomen pelvis considered patient with benign symptoms on exam today and with recent imaging will defer as patient needs outpatient follow-up with gastroenterology. Historians other than the Patient: Spouse/Significant Other: Endorse patient was violently retching today which prompted her to encourage him to come to the ED. Response to treatment: the patient's symptoms have markedly improved after treatment. 05/06 11:45 Order name: XRAY Abdomen Acute Series; Complete Time: 13:00 cp3 Administered Medications: No medications were administered Disposition Summary: 05/06/23 13:15 Discharge Ordered Location: Home cp3 Problem: new cp3 Symptoms: have improved cp3 Condition: Stable cp3 Diagnosis - Vomiting cp3 - Abdominal pain, Generalized cp3 - Diarrhea, unspecified cp3 Followup: cp3 - With: Agus Christie MD - When: - Reason: Recheck today's complaints Discharge Instructions: - Discharge Summary Sheet cp3 - Abdominal Pain, Adult, Smop-fg-Rbxk cp3 - Diarrhea, Adult, Vlge-cq-Gqfo cp3 - Vomiting, Adult cp3 Forms: - Medication Reconciliation Form cp3 - Thank You Letter cp3 - Antibiotic Education cp3 - Prescription Opioid Use cp3 - Patient Portal Instructions cp3 - Work release form Prescriptions: - promethazine 25 mg Oral Tablet - take 1 tablet by ORAL route every 6 hours As needed; 20 tablet; Refills: 0, cp3 Product Selection Permitted Signatures: Dispatcher [employer] Dick Loo MD MD cp3 Yelitza Herrera, RN RN
--- NOTE | 2023-05-06 13:16 | ER ---
Nurse's Notes [facility] Name: Gaudencio Kothari Age: 27 yrs Sex: Male : 1995 Arrival Date: 05/06/2023 Time: 11:26 Bed 12 Private MD: Diagnosis: Vomiting;Abdominal pain, Generalized;Diarrhea, unspecified Presentation: 05/06 11:32 Chief complaint: Abdominal pain x 1.5 years, became severe last night, vomit x 2 today. hb Denies diarrhea. Coronavirus screen: At this time, the client does not indicate any symptoms associated with coronavirus-19. Ebola Screen: No symptoms or risks identified at this time. Initial Sepsis Screen: Does the patient meet any 2 criteria? No. Patient's initial sepsis screen is negative. Does the patient have a suspected source of infection? No. Patient's initial sepsis screen is negative. Risk Assessment: Do you want to hurt yourself or someone else? Patient reports no desire to harm self or others. Onset of symptoms was May 06, 2023. 11:32 Method Of Arrival: Ambulatory hb 11:32 Acuity: BELEM 3 hb Triage Assessment: 11:33 General: Appears in no apparent distress. Behavior is calm, cooperative. Pain: Pain hb currently is 3 out of 10 on a pain scale. Neuro: Level of Consciousness is awake, alert, obeys commands, Oriented to person, place, time, situation. Cardiovascular: Patient's skin is warm and dry. Respiratory: Respiratory effort is even, unlabored, Respiratory pattern is regular, symmetrical. GI: Reports lower abdominal pain, upper abdominal pain. Historical: - Allergies: 12:08 No Known Allergies; hb - Home Meds: 12:08 Abilify 10 mg Oral tab [Active]; citalopram 20 mg oral tablet [Active]; trazodone 50 mg hb Oral tab 1 tab 3 times per day [Active]; Xanax Oral [Active]; Bentyl Oral [Active]; - PMHx: 12:08 Anxiety; BORDERLINE PERSONALITY DISORDER; Depression; hb - PSHx: 12:08 None; hb - Immunization history:: Adult Immunizations up to date. - Social history:: Smoking status: Patient denies any tobacco usage or history of. Patient uses street drugs, marijuana. - Family history:: not pertinent. Screenin:35 [facility] ED Fall Risk Assessment (Adult) Score/Fall Risk Level 0 - 2 = Low Risk hb Oriented to surroundings, Maintained a safe environment. Abuse screen: Denies threats or abuse. Denies injuries from another. Nutritional screening: No deficits noted. Tuberculosis screening: No symptoms or risk factors identified. Assessment: 11:35 General: See triage assessment. hb Vital Signs: 11:32 BP 137 / 77; Pulse 74; Resp 16; Temp 98.3(O); Pulse Ox 100% on R/A; Weight 117.93 kg; hb Height 5 ft. 10 in. ; Pain 3/10; 11:32 Body Mass Index 37.31 (117.93 kg, 177.8 cm) hb 11:32 Pain Scale: Adult hb ED Course: 11:29 Patient arrived in ED. rg4 11:30 Dick Mckenna MD is Attending Physician. cp3 11:35 Patient has correct armband on for positive identification. Provided Education on: . hb 12:04 Yelitza Herrera, RN is Primary Nurse. hb 12:07 Triage completed. hb 12:10 Arm band placed on. hb 12:22 X-ray completed. Patient tolerated procedure well. mh1 12:22 Patient moved back from radiology. mh1 12:24 XRAY Abdomen Acute Series In Process Unspecified. EDMS 12:31 No provider procedures requiring assistance completed. hb 13:14 Agus Christie MD is Referral Physician. cp3 Administered Medications: No medications were administered Medication: 11:35 VIS not applicable for this client. hb Outcome: 13:15 Discharge ordered by . cp3 13:34 Patient left the ED. ap3 Signatures: Dispatcher [employer] EDDick Ortega MD MD cp3 Phylicia Cobos 1 Yelitza Herrera, RN RN Reyna Dye 4 Brittani Kam RN RN ap3 Corrections: (The following items were deleted from the chart) 12:07 12:04 Chief complaint: hb hb
[2023-05-06 14:08] VITALS: BP 137/77; TEMP 98.3; O2SAT 100
== END 2023-05-06 13:34 | disposition home or self-care (01) ==
LOC: ER 11:26
DX: R11.10 Vomiting, unspecified (principal); R10.84 Generalized abdominal pain; R19.7 Diarrhea, unspecified; F60.3 Borderline personality disorder
CPT/HCPCS: 74022; 99282

== ENCOUNTER 2023-05-16 20:39 | Emergency (ER) | payer OTHER ==
--- OUTSIDE RECORDS SUMMARY | 2023-05-16 20:43 | XMS REPORT | Continuity of Care Document ---
:1995 Author Organization [facility] t Address [address] [facility] [address] [place] [address] Care Team Providers Name Role Phone Asked, No Pcp Primary Care Physician Unavailable DULCE GOMEZ Attending Clinician Unavailable Dulce Clifford Attending Clinician Donna Phillip Attending Clinician DONNA PHILLIP Attending Clinician Unavailable Payers Payer Name Policy Type Policy Number Effective Date Expiration Date Lucio pathak [facility] [id number] 2018 00:00:00 SELECT Problems Condition Condition Condition Status Onset Resolution Last Treating Co mments Source Name Details Category Date Date Treatment Clinician Date BACK/ BACK/ Diagnosis Active 2020-01-11 Mem oria RIBCAGE RIBCAGE 10-03 16:57:00 l PAIN PAIN 00:00: Wilberto Active 10/03/2019 [facility] Wilberto History of Past Illness Condition Condition Condition Status Onset Resolution Last Treating Co mments Source Name Details Category Date Date Treatment Clinician Date Suicidal Suicidal Problem 2019-10-06 2019-10-06 Memoria ideations ideations 1-09 22:22:41 22:22:41 l 10/04/2019 18:00: Javy n 10/06/2019 00 [facility] Allergies, Adverse Reactions, Alerts Allergy Allergy Status Severity Reaction(s) Onset Inactive Treating Comm ents Source Name Type Date Date Clinician NO KNOWN Drug Active [facility] ALLERGIE Class ity of S [facility] Social History Social Habit Start Date Stop Date Quantity Comments Source [facility] Sexual [facility] History of Social 2019-05-19 2019-05-[address] function 00:00:00 00:00:00 Hospital Tobacco use and 2018-06-17 2018-06-17 Smokeless Muslim exposure 00:00:00 00:00:00 tobacco non-user Hospital Alcohol intake 2018-06-17 2018-06-17 Current Muslim 00:00:00 00:00:00 non-drinker of Hospital alcohol (finding) Sex Assigned At [birth year] Muslim 00:00:00 00:00:00 Hospital Smoking Status Start Date Stop Date Source Social History [facility] Medications Ordered Filled Start Stop [...] :00 dose, On Medi luz maria mg Tue04/20/23 at 1200, KLEBER dicyclomine 0 Yes [id number] 20mg Take 1 Univers 20 mg - tablet by ity of tablet 00:00: mouth 4 [place] 00 (four) Medical times Branch daily as needed for Abdominal pain. ondansetron Yes [id number] 4mg Take 1 Univers 4 mg 7-26 tablet by ity of disintegrat 00:00: mouth [place] ing tablet 00 every 8 Medica l (eight) Branch hours as needed for Nausea and Vomiting (N/V). Ibuprofen Yes Notes: Memori a 10-04 (Same as: l 12:09: Motrin) Nelson 00 "Do Not Crush" Take with food. Ibuprofen 0 Yes Notes: Memori a 10-04 (Same as: l 12:09: Motrin) [place] 00 "Do Not Crush" Take with food. Ibuprofen 0 Yes Notes: Memori a 10-04 (Same as: l 12:09: Motrin) Wilberto 00 "Do Not Crush" Take with food. Ibuprofen 0 Yes Notes: Memori a 10-04 (Same as: l 12:09: Motrin) [place] 00 "Do Not Crush" Take with food. Ibuprofen 2019-0 Yes Notes: Memori a 10-04 (Same as: l 12:09: Motrin) [place] 00 "Do Not Crush" Take with food. Ibuprofen 2019- Yes Notes: Memori a - (Same as: l 12:09: Motrin) [place] 00 "Do Not Crush" Take with food. escitalopra Yes 20mg Take 20 mg Univers m oxalate 05-31 by mouth ity of 20 mg 20:12: daily. [place] tablet 57 Medical Branch trazodone Yes Take by Unive rs HCl 05-31 mouth. ity of (TRAZODONE 20:12: [place] ORAL) 57 Medical Branch No known No No known Metho di medications 06-[address] 17:53: s [facility] 11 l bacitracin Yes Apply to Uni vers 500 unit/g 04-10 affected ity o f ointment 00:00: [place] ([place] Medical times Branch daily. Immunizations Ordered Filled Immunization Date Status Comments [facility] Immunization Name Name TDAP 2012-04-10 Completed University of 00:00:00 [facility] MMR 2001-04-26 Completed University of 00:00:00 [facility] DTP 2000-09-22 Completed University of 00:00:00 [facility] Polio (IPV/OPV) 2000-09-22 Completed Universit y of 00:00:00 [facility] Varicella 2000-09-22 Completed University of (varivax)(chicken 00:00:00 [facility] edical pox) Branch DTP 1996-12-18 Completed University of 00:00:00 [facility] HIB 4 Dose Schedule 1996-12-18 Completed Unive rsity of 00:00:00 [facility] MMR 1996-12-18 Completed University of 00:00:00 [facility] DTP 1996-09-14 Completed University of 00:00:00 [facility] Polio (IPV/OPV) 1996-09-14 Completed Universit y of 00:00:00 [facility] MMR 1996-05-20 Completed University of 00:00:00 [facility] DTP 1996-05-02 Completed University of 00:00:00 [facility] HIB 4 Dose Schedule 1996-05-02 Completed Unive rsity of 00:00:00 [facility] Hep B, Adol or Pedi 1996-05-02 Completed Unive rsity of Dosage 00:00:00 [facility] Polio (IPV/OPV) 1996-05-02 Completed Universit y of 00:00:00 [facility] DTP 1996-01-30 Completed University of 00:00:00 [facility] HIB 4 Dose Schedule 1996-01-30 Completed Unive rsity of 00:00:00 [facility] Polio (IPV/OPV) 1996-01-30 Completed Universit y of 00:00:00 [facility] DTP 1995 Completed University of 00:00:00 [facility] HIB 4 Dose Schedule 1995 Completed Unive rsity of 00:00:00 [facility] Polio (IPV/OPV) 1995 Completed Universit y of 00:00:00 [facility] Hep B, Adol or Pedi 1995 Completed Unive rsity of Dosage 00:00:00 [facility] Hep B, Adol or Pedi 1995 Completed Unive rsity of Dosage 00:00:00 [facility] Vital Signs Vital Name Observation Time Observation Value Comments Source Body temperature 2023-04-20 18:15:28 36.67 Jossy Univ ersity of [facility] Systolic blood 2023-04-20 18:10:00 138 mm[Hg] Univer sity of pressure [facility] Diastolic blood 2023-04-20 18:10:00 81 mm[Hg] Unive rsity of pressure [facility] Heart rate 2023-04-20 18:10:00 75 /min [facility] Respiratory rate 2023-04-20 18:10:00 16 /[facility] height 2023-04-20 16:24:[address] [facility] Body weight 2023-04-20 16:24:[address] [facility] BMI 2023-04-20 16:24:00 35.87 kg/m2 [facility] Heart Rate 2019-10-04 15:38:00 [facility] [place] Respitory Rate 2019-10-04 15:38:00 Memori al [place] Systolic (mm Hg) 2019-10-04 15:38:00 Azar rial [place] Diastolic (mm Hg) 2019-10-04 15:38:00 Mem orial [place] Temperature Oral (F) 2019-10-04 07:32:00 98.9 F [facility] [place] Heart Rate 2019-10-04 07:32:00 [facility] [place] Respitory Rate 2019-10-04 07:32:00 Memori al [place] Systolic (mm Hg) 2019-10-04 07:32:00 Azar rial [place] Diastolic (mm Hg) 2019-10-04 07:32:00 Mem orial [place] Systolic (mm Hg) 2019-10-04 02:45:00 Azar morrell [place] Diastolic (mm Hg) 2019-10-04 02:45:00 Mem orial Wilberto Respitory Rate 2019-10-04 02:45:00 Mirza al [place]ber[place] Heart Rate 2019-10-04 02:45:00 [facility] Temperature Oral (F) 2019-10-04 01:34:00 98.1 F [facility] [place] Weight 2019-10-04 01:34:00 [facility] Procedures Procedure Date / Time Performing Clinician Source Performed LIPASE 2023-04-20 16:48:00 [facility] HEPATIC FUNCTION PANEL 2023-04-20 16:48:00 Dulce Gomez [facility] ([id number]) (ALB,T.PRO,BILI Medical Branch T,BU/BC,ALT,AST,ALK PHOS) BASIC METABOLIC PANEL 2023-04-20 16:48:[address] [facility] (NA, K, CL, CO2, Medical Branch GLUCOSE, BUN, CREATININE, CA) CBC WITH DIFF 2023-04-20 16:48:00 [facility] URIN[facility]YSIS 2023-04-20 16:48[facility]OASSAY[facility] 2023-04-20 16:48:00 Dulce Gomez [facility] DRUG Medical [facility] SCREEN W/O REFLEX CONSENT/REFUSAL FOR 2023-04-20 16:16:26 Doctor Unassigned, No Un [facility] DIAGNOSIS AND TREATMENT Name Medical Branch Plan of Care Planned Activity Planned Date Details Comments Source Future Scheduled 2023-05-06 COVID-19 VACCINE Methodi [facility] Test 11:37:25 (#1) [code = COVID-19 VACCINE (#1)] Future Scheduled 2023-05-06 COVID-19 VACCINE Methodi [facility] Test 11:37:25 (#1) [code = COVID-19 VACCINE (#1)] Future Scheduled 2023-05-06 INFLUENZA VACCINE Method [facility] Test 11:37:25 [code = INFLUENZA VACCINE] Future Scheduled 2023-05-06 INFLUENZA VACCINE Method [facility] Test 11:37:25 [code = INFLUENZA VACCINE] Future Scheduled 2022-10-06 INFLUENZA VACCINE Method [facility] Test 10:29:53 [code = INFLUENZA VACCINE] Future Scheduled 2022-10-06 [facility] (#1) [code = COVID-19 VACCINE (#1)] Future Scheduled 2022-10-06 INFLUENZA VACCINE Method [facility] Test 10:29:53 [code = INFLUENZA VACCINE] Future Scheduled 2022-10-06 [facility] 10:[facility]53 (#1) [code = COVID-19 VACCINE (#1)] Future Scheduled 2022-10-06 INFLUENZA VACCINE Method [facility] Test 10:29:53 [code = INFLUENZA VACCINE] Future Scheduled 2022-10-06 [facility] 10:29:53 (#1) [code = COVID-19 VACCINE (#1)] Encounters Start End Encounter Admission Attending Care Care Encounter Source Date/Time Date/Time Type Type Clinicians Facility Department ID 2023-04-20 2023-04-20 Emergency [facility] [id number] Univers 11:26:00 13:27:00 DULCE parisi [facility] 2023-04-20 2023-04-[address] [facility] [id number] Univers 11:26:00 13:27:00 Dulce MARY [id number] i [facility] [id number] [facility] [id number] [address] 2019-10-04 2019-10-04 Emergency nullFlavo [facility] [id number] Memoria 01:16:42 16:09:00 r Wilberto 00 l [facility] 2019-10-04 2019-10-04 Emergency nullFlavo [facility] [id number] Memoria 01:16:42 16:09:00 r Wilberto 00 l [facility] [place] [facility] 2019-10-03 2019-10-04 Outpatient Ileneole, MHPL MHPL [id number] 19:16:42 10:09:00 Donna 00 Juan Pablo 2019-10-03 2019-10-04 Emergency E FADOWOLE, MHBL MHBL [id number] MHBL 19:16:00 10:09:00 DONNA Results Test Description Test Time Test Comments Results Result Comments Source DRUG SCREEN 2019-10-04 03:20:00 Test Item Value Reference Range Interpretation Comme nts U Cannab Scr (test code = U Cannab Scr) Negative *NA*(10/03/19 9:20 P M) [facility] [id number] 03:20:00 Test Item Value Reference Range Interpretation Comments U Opiate Scr (test Negative *NA*(10/03/19 code = U Opiate Scr) 9:20 PM) [facility] [id number] 03:20:00 Test Item Value Reference Range Interpretation Comments U Phencyclidine Scr (test Negative *NA*(10/03/19 code = U Phencyclidine 9:20 PM) Scr) [facility] [id number] 03:20:00 Test Item Value Reference Range Interpretation Comments U Amph Scr (test code Negative *NA*(10/03/19 = U Amph Scr) 9:20 PM) [facility] [id number] 03:20:00 Test Item Value Reference Range Interpretation Comments U Dede Scr (test code Negative *NA*(10/03/19 = U Dede Scr) 9:20 PM) [facility] [id number] 03:20:00 Test Item Value Reference Range Interpretation Comments U Benzodiaz Scr (test Negative *NA*(10/03/19 code = U Benzodiaz Scr) 9:20 PM) [facility] [id number] 03:20:00 Test Item Value Reference Range Interpretation Comments U Cocaine Scr (test Negative *NA*(10/03/19 code = U Cocaine Scr) 9:20 PM) [facility] [id number] 03:20:00 Test Item Value Reference Range Interpretation Comments U Cannab Scr (test Negative *NA*(10/03/19 code = U Cannab Scr) 9:20 PM) [facility] [id number] 03:20:00 Test Item Value Reference Range Interpretation Comments U Opiate Scr (test Negative *NA*(10/03/19 code = U Opiate Scr) 9:20 PM) [facility] [id number] 03:20:00 Test Item Value Reference Range Interpretation Comments U Phencyclidine Scr (test Negative *NA*(10/03/19 code = U Phencyclidine 9:20 PM) Scr) [facility] [id number] 03:20:00 Test Item Value Reference Range Interpretation Comments UDS Note (test code = See Note *NA*(10/03/19 UDS Note) 9:20 PM) [facility] [id number] 03:20:00 Test Item Value Reference Range Interpretation Comments UDS Note (test code = See Note *NA*(10/03/19 UDS Note) 9:20 PM) [facility] [id number] 03:20:00 Test Item Value Reference Range Interpretation Comments U Amph Scr (test code Negative *NA*(10/03/19 = U Amph Scr) 9:20 PM) [facility] [id number] 03:20:00 Test Item Value Reference Range Interpretation Comments U Dede Scr (test code Negative *NA*(10/03/19 = U Dede Scr) 9:20 PM) [facility] [id number] 03:20:00 Test Item Value Reference Range Interpretation Comments U Benzodiaz Scr (test Negative *NA*(10/03/19 code = U Benzodiaz Scr) 9:20 PM) [facility] [id number] 03:20:00 Test Item Value Reference Range Interpretation Comments U Cocaine Scr (test Negative *NA*(10/03/19 code = U Cocaine Scr) 9:20 PM) [facility] [id number] 03:20:00 Test Item Value Reference Range Interpretation Comments U Cannab Scr (test Negative *NA*(10/03/19 code = U Cannab Scr) 9:20 PM) [facility] [id number] 03:20:00 Test Item Value Reference Range Interpretation Comments U Opiate Scr (test Negative *NA*(10/03/19 code = U Opiate Scr) 9:20 PM) [facility] [id number] 03:20:00 Test Item Value Reference Range Interpretation Comments U Phencyclidine Scr (test Negative *NA*(10/03/19 code = U Phencyclidine 9:20 PM) Scr) [facility] [id number] 03:20:00 Test Item Value Reference Range Interpretation Comments UDS Note (test code = See Note *NA*(10/03/19 UDS Note) 9:20 PM) [facility] [id number] 03:20:00 Test Item Value Reference Range Interpretation Comments U Amph Scr (test code Negative *NA*(10/03/19 = U Amph Scr) 9:20 PM) [facility] [id number] 03:20:00 Test Item Value Reference Range Interpretation Comments U Dede Scr (test code Negative *NA*(10/03/19 = U Dede Scr) 9:20 PM) [facility] [id number] 03:20:00 Test Item Value Reference Range Interpretation Comments U Benzodiaz Scr (test Negative *NA*(10/03/19 code = U Benzodiaz Scr) 9:20 PM) [facility] [id number] 03:20:00 Test Item Value Reference Range Interpretation Comments U Cocaine Scr (test Negative *NA*(10/03/19 code = U Cocaine Scr) 9:20 PM) [facility] [id number] 03:20:00 Test Item Value Reference Range Interpretation Comments U Cannab Scr (test Negative *NA*(10/03/19 code = U Cannab Scr) 9:20 PM) [facility] [id number] 03:20:00 Test Item Value Reference Range Interpretation Comments U Opiate Scr (test Negative *NA*(10/03/19 code = U Opiate Scr) 9:20 PM) [facility] [id number] 03:20:00 Test Item Value Reference Range Interpretation Comments U Phencyclidine Scr (test Negative *NA*(10/03/19 code = U Phencyclidine 9:20 PM) Scr) [facility] [id number] 03:20:00 Test Item Value Reference Range Interpretation Comments UDS Note (test code = See Note *NA*(10/03/19 UDS Note) 9:20 PM) [facility] [id number] 03:20:00 Test Item Value Reference Range Interpretation Comments U Amph Scr (test code Negative *NA*(10/03/19 = U Amph Scr) 9:20 PM) [facility] [id number] 03:20:00 Test Item Value Reference Range Interpretation Comments U Dede Scr (test code Negative *NA*(10/03/19 = U Dede Scr) 9:20 PM) [facility] [id number] 03:20:00 Test Item Value Reference Range Interpretation Comments U Amph Scr (test code Negative *NA*(10/03/19 = U Amph Scr) 9:20 PM) [facility] [id number] 03:20:00 Test Item Value Reference Range Interpretation Comments U Dede Scr (test code Negative *NA*(10/03/19 = U Dede Scr) 9:20 PM) [facility] [id number] 03:20:00 Test Item Value Reference Range Interpretation Comments U Benzodiaz Scr (test Negative *NA*(10/03/19 code = U Benzodiaz Scr) 9:20 PM) [facility] [id number] 03:20:00 Test Item Value Reference Range Interpretation Comments U Cocaine Scr (test Negative *NA*(10/03/19 code = U Cocaine Scr) 9:20 PM) [facility] [id number] 03:20:00 Test Item Value Reference Range Interpretation Comments U Cannab Scr (test Negative *NA*(10/03/19 code = U Cannab Scr) 9:20 PM) [facility] [id number] 03:20:00 Test Item Value Reference Range Interpretation Comments U Opiate Scr (test Negative *NA*(10/03/19 code = U Opiate Scr) 9:20 PM) [facility] [id number] 03:20:00 Test Item Value Reference Range Interpretation Comments U Phencyclidine Scr (test Negative *NA*(10/03/19 code = U Phencyclidine 9:20 PM) Scr) [facility] [id number] 03:20:00 Test Item Value Reference Range Interpretation Comments UDS Note (test code = See Note *NA*(10/03/19 UDS Note) 9:20 PM) [facility] [id number] 03:20:00 Test Item Value Reference Range Interpretation Comments U Benzodiaz Scr (test Negative *NA*(10/03/19 code = U Benzodiaz Scr) 9:20 PM) [facility] [id number] 03:20:00 Test Item Value Reference Range Interpretation Comments U Cocaine Scr (test Negative *NA*(10/03/19 code = U Cocaine Scr) 9:20 PM) [facility] [id number] 03:20:00 Test Item Value Reference Range Interpretation Comments U Cocaine Scr (test Negative *NA*(10/03/19 code = U Cocaine Scr) 9:20 PM) [facility] [id number] 03:20:00 Test Item Value Reference Range Interpretation Comments U Cannab Scr (test Negative *NA*(10/03/19 code = U Cannab Scr) 9:20 PM) [facility] [id number] 03:20:00 Test Item Value Reference Range Interpretation Comments U Opiate Scr (test Negative *NA*(10/03/19 code = U Opiate Scr) 9:20 PM) [facility] [id number] 03:20:00 Test Item Value Reference Range Interpretation Comments U Phencyclidine Scr (test Negative *NA*(10/03/19 code = U Phencyclidine 9:20 PM) Scr) [facility] [id number] 03:20:00 Test Item Value Reference Range Interpretation Comments UDS Note (test code = See Note *NA*(10/03/19 UDS Note) 9:20 PM) [facility] [id number] 03:20:00 Test Item Value Reference Range Interpretation Comments U Amph Scr (test code Negative *NA*(10/03/19 = U Amph Scr) 9:20 PM) [facility] [id number] 03:20:00 Test Item Value Reference Range Interpretation Comments U Dede Scr (test code Negative *NA*(10/03/19 = U Dede Scr) 9:20 PM) [facility] [id number] 03:20:00 Test Item Value Reference Range Interpretation Comments U Benzodiaz Scr (test Negative *NA*(10/03/19 code = U Benzodiaz Scr) 9:20 PM) [facility] [id number] 03:11:00 Test Item Value Reference Range Interpretation Comments Hgb (test code = Hgb) 14.3 14.0-18.0 Memorial [id number] 03:11:00 Test Item Value Reference Range Interpretation Comments Hct (test code = Hct) 41.9 42.0-54.0 [id number] 03:11:00 Test Item Value Reference Range Interpretation Comments MCV (test code = MCV) 83.8 80.0-94.0 [facility] [id number] 03:11:00 Test Item Value Reference Range Interpretation Comments MCH (test code = MCH) 28.6 pg 27.0-31.0 [facility] [id number] 03:11:00 Test Item Value Reference Range Interpretation Comments MCHC (test code = MCHC) 34.1 32.0-36.0 [facility] [id number] 03:11:00 Test Item Value Reference Range Interpretation Comments RDW (test code = RDW) 13.8 11.5-14.5 [facility] [id number] 03:11:00 Test Item Value Reference Range Interpretation Comments Platelet (test code = Platelet) 297 133-450 [facility] [id number] 03:11:00 Test Item Value Reference Range Interpretation Comments MPV (test code = MPV) 7.9 7.4-10.4 [facility] [id number] 03:11:00 Test Item Value Reference Range Interpretation Comments Segs (test code = Segs) 63.8 45.0-75.0 [facility] [id number] 03:11:00 Test Item Value Reference Range Interpretation Comments Lymphocytes (test code = Lymphocytes) 26.9 20.0-40.0 [place] [id number] 03:11:00 Test Item Value Reference Range Interpretation Comments Monocytes (test code = Monocytes) 8.5 2.0-12.0 [place] [id number] 03:11:00 Test Item Value Reference Range Interpretation Comments Eosinophils (test code = 0.4 See_Comment [A utomated message] The Eosinophils) system which ge nerated this result tra nsmitted reference range : <=4.0. The reference r carin was not used to int erpret this result as normal/abnormal . [facility] [id number] 03:11:00 Test Item Value Reference Range Interpretation Comments Basophils (test code = 0.4 See_Comment [Aut omated message] The Basophils) system which ge nerated this result tra nsmitted reference range : <=1.0. The reference r carin was not used to int erpret this result as normal/abnormal . [facility] [id number] 03:11:00 Test Item Value Reference Range Interpretation Comments Neutrophils # (test code = Neutrophils 6.8 1.5-8.1 #) [facility] [id number] 03:11:00 Test Item Value Reference Range Interpretation Comments Lymphocytes # (test code = Lymphocytes 2.9 1.0-5.5 #) [facility] [id number] 03:11:00 Test Item Value Reference Range Interpretation Comments Monocytes # (test code 0.9 See_Comment [Aut omated message] The = Monocytes #) system which generated this result tra nsmitted reference range : <=0.8. The reference r carin was not used to int erpret this result as normal/abnormal . [place] [id number] 03:11:00 Test Item Value Reference Range Interpretation Comments Acetaminoph Lvl (test code = (10/03/19 9:11 PM) 10-20 Acetaminoph Lvl) [place] [id number] 03:11:00 Test Item Value Reference Range Interpretation Comments Ethanol Lvl (test code = Ethanol Lvl) no gt [place] [id number] 03:11:00 Test Item Value Reference Range Interpretation Comments Etoh (%) (test code = Etoh (%)) no gt [place] [id number] 03:11:00 Test Item Value Reference Range Interpretation Comments Salicylate Lvl (test no gt See_Comment [Autom ated message] The code = Salicylate Lvl) syste m which generated this result tra nsmitted reference range : <=30.0. The reference r carin was not used to int erpret this result as normal/abnormal . [facility] CenterLookIt [id number] 03:11:00 Test Item Value Reference Range Interpretation Comments Glucose Lvl (test code = Glucose Lvl) 91 70-99 [facility] [id number] 03:11:00 Test Item Value Reference Range Interpretation Comments BUN (test code = BUN) 14 7-22 [place] [id number] 03:11:00 Test Item Value Reference Range Interpretation Comments Creatinine Lvl (test code = Creatinine 1.10 0.50-1.40 Lvl) [place] [id number] 03:11:00 Test Item Value Reference Range Interpretation Comments Sodium Lvl (test code = Sodium Lvl) 140 135-145 [place] 027970-01-09 03:11:00 Test Item Value Reference Range Interpretation Comments Potassium Lvl (test code = Potassium 3.8 3.5-5.1 Lvl) [place] 027970-01-09 03:11:00 Test Item Value Reference Range Interpretation Comments Chloride Lvl (test code = Chloride Lvl) 105 95-109 [place] 027970-01-09 03:11:00 Test Item Value Reference Range Interpretation Comments CO2 (test code = CO2) 27 24-32 [place] 027970-01-09 03:11:00 Test Item Value Reference Range Interpretation Comments Calcium Lvl (test code = Calcium Lvl) 9.5 8.5-10.5 [place] 027970-01-09 03:11:00 Test Item Value Reference Range Interpretation Comments Total Protein (test code = Total 7.5 6.4-8.4 Protein) [place] 027970-01-09 03:11:00 Test Item Value Reference Range Interpretation Comments Albumin Lvl (test code = Albumin Lvl) 4.2 3.5-5.0 [place] 027970-01-09 03:11:00 Test Item Value Reference Range Interpretation Comments ALT (test code = ALT) 25 See_Comment [Auto mated message] The system which ge nerated this result transmit mark reference range : <=65. The reference range was not used to interpr et this result as melinda l/abnormal. [facility]2020-01-09 03:11:00 Test Item Value Reference Range Interpretation Comments Glucose Lvl (test code = Glucose Lvl) 91 70-99 [place] 027970-01-09 03:11:00 Test Item Value Reference Range Interpretation Comments AST (test code = AST) 13 See_Comment [Auto mated message] The system which ge nerated this result transmit mark reference range : <=37. The reference range was not used to interpr et this result as melinda l/abnormal. [place] 027970-01-09 03:11:00 Test Item Value Reference Range Interpretation Comments Alk Phos (test code = Alk Phos) 74 39-136 [facility]2020-01-09 03:11:00 Test Item Value Reference Range Interpretation Comments Bili Total (test code = Bili Total) 0.5 0.2-1.3 [facility]2020-01-09 03:11:00 Test Item Value Reference Range Interpretation Comments eGFR (test code = eGFR) 93 [facility]2020-01-09 03:11:00 Test Item Value Reference Range Interpretation Comments AGAP (test code = AGAP) 11.8 10.0-20.0 [facility]2020-01-09 03:11:00 Test Item Value Reference Range Interpretation Comments B/C Ratio (test code = B/C Ratio) 13 1 6-25 [place] 027970-01-09 03:11:00 Test Item Value Reference Range Interpretation Comments Globulin (test code = Globulin) 3.3 2.7-4.2 [facility]2020-01-09 03:11:00 Test Item Value Reference Range Interpretation Comments A/G Ratio (test code = A/G Ratio) 1.3 1 0.7-1.6 [facility]SWN[facility]BOF3521[facility] 03:11:00 Test Item Value Reference Range Interpretation Comments WBC (test code = WBC) 10.6 3.7-10.4 [facility]NmuzkitFJMGEOAKVC0831-35-18 03:11:00 Test Item Value Reference Range Interpretation Comments RBC (test code = RBC) 4.99 4.70-6.10 [place] 027970-01-09 03:11:00 Test Item Value Reference Range Interpretation Comments BUN (test code = BUN) 14 7-22 [place] 008530-01-09 03:11:00 Test Item Value Reference Range Interpretation Comments Hgb (test code = Hgb) 14.3 14.0-18.0 [place] 008530-01-09 03:11:00 Test Item Value Reference Range Interpretation Comments Hct (test code = Hct) 41.9 42.0-54.0 [facility]QcwiixhFFEBFHMJDC2316-17-47 03:11:00 Test Item Value Reference Range Interpretation Comments MCV (test code = MCV) 83.8 80.0-94.0 [facility]bxmxjoYOTCCYBWUE4974-85-80 03:11:00 Test Item Value Reference Range Interpretation Comments MCH (test code = MCH) 28.6 pg 27.0-31.0 [facility]AssdjzkDSVDJKXBDR8046-25-65 03:11:00 Test Item Value Reference Range Interpretation Comments MCHC (test code = MCHC) 34.1 32.0-36.0 [facility] HospitalJrcqzsgKETIKCFJLA7759-99-96 03:11:00 Test Item Value Reference Range Interpretation Comments RDW (test code = RDW) 13.8 11.5-14.5 [facility] HospitalMldustzQKTRUBNLTU4782-14-78 03:11:00 Test Item Value Reference Range Interpretation Comments Platelet (test code = Platelet) 297 133-450 [facility]MmkbyndUYMWFPTGKV8430-92-19 03:11:00 Test Item Value Reference Range Interpretation Comments MPV (test code = MPV) 7.9 7.4-10.4 [facility]FrclmkgOECHVBLVUD4973-09-45 03:11:00 Test Item Value Reference Range Interpretation Comments Segs (test code = Segs) 63.8 45.0-75.0 [facility] HospitalJvzvdrmWRVSMZWCBR3988-87-37 03:11:00 Test Item Value Reference Range Interpretation Comments Lymphocytes (test code = Lymphocytes) 26.9 20.0-40.0 [facility]2020-01-09 03:11:00 Test Item Value Reference Range Interpretation Comments Creatinine Lvl (test code = Creatinine 1.10 0.50-1.40 Lvl) [facility]FjtdtpwAVISTDXHPX3118-43-52 03:11:00 Test Item Value Reference Range Interpretation Comments Monocytes (test code = Monocytes) 8.5 2.0-12.0 [facility] HospitalAxvpakhPOAETJUFPZ0188-09-06 03:11:00 Test Item Value Reference Range Interpretation Comments Eosinophils (test code = 0.4 See_Comment [A utomated message] The Eosinophils) system which ge nerated this result tra nsmitted reference range : <=4.0. The reference r carin was not used to int erpret this result as normal/abnormal . [facility] HospitalTlszoxmLIQXCNSWZX4250-16-70 03:11:00 Test Item Value Reference Range Interpretation Comments Basophils (test code = 0.4 See_Comment [Aut omated message] The Basophils) system which ge nerated this result tra nsmitted reference range : <=1.0. The reference r carin was not used to int erpret this result as normal/abnormal . [facility] HospitalTgvuofsLTIUNPLRTE3360-33-46 03:11:00 Test Item Value Reference Range Interpretation Comments Neutrophils # (test code = Neutrophils 6.8 1.5-8.1 #) [facility] HospitalOmcbuesYVXGIWXSTQ7013-99-86 03:11:00 Test Item Value Reference Range Interpretation Comments Lymphocytes # (test code = Lymphocytes 2.9 1.0-5.5 #) [facility] HospitalWlmbxaxVNNFVKIUMX4687-36-11 03:11:00 Test Item Value Reference Range Interpretation Comments Monocytes # (test code 0.9 See_Comment [Aut omated message] The = Monocytes #) system which generated this result tra nsmitted reference range : <=0.8. The reference r carin was not used to int erpret this result as normal/abnormal . [facility]akangwWDRHLIMKBI2419-64-03 03:11:00 Test Item Value Reference Range Interpretation Comments Acetaminoph Lvl (test code = (10/03/19 9:11 PM) 10-20 Acetaminoph Lvl) [place] 23875020-01-09 03:11:00 Test Item Value Reference Range Interpretation Comments Ethanol Lvl (test code = Ethanol Lvl) no [place] 250[address]2020-01-09 03:11:00 Test Item Value Reference Range Interpretation Comments Etoh (%) (test code = Etoh (%)) no gt [facility]enPtgkqybYHTAYMKDCN1014-17-26 03:11:00 Test Item Value Reference Range Interpretation Comments Salicylate Lvl (test no gt See_Comment [Autom ated message] The code = Salicylate Lvl) syste m which generated this result tra nsmitted reference range : <=30.0. The reference r carin was not used to int erpret this result as normal/abnormal . [facility] CUKRG5694-48-06 03:11:00 Test Item Value Reference Range Interpretation Comments Sodium Lvl (test code = Sodium Lvl) 140 135-145 [place] 027970-01-09 03:11:00 Test Item Value Reference Range Interpretation Comments Glucose Lvl (test code = Glucose Lvl) 91 70-99 [place] 027970-01-09 03:11:00 Test Item Value Reference Range Interpretation Comments Potassium Lvl (test code = Potassium 3.8 3.5-5.1 Lvl) [place] 027970-01-09 03:11:00 Test Item Value Reference Range Interpretation Comments BUN (test code = BUN) 14 7-22 [place] 027970-01-09 03:11:00 Test Item Value Reference Range Interpretation Comments Creatinine Lvl (test code = Creatinine 1.10 0.50-1.40 Lvl) [place] 027970-01-09 03:11:00 Test Item Value Reference Range Interpretation Comments Sodium Lvl (test code = Sodium Lvl) 140 135-145 [place] 027970-01-09 03:11:00 Test Item Value Reference Range Interpretation Comments Potassium Lvl (test code = Potassium 3.8 3.5-5.1 Lvl) [place] 027970-01-09 03:11:00 Test Item Value Reference Range Interpretation Comments Chloride Lvl (test code = Chloride Lvl) 105 95-109 [place] 027970-01-09 03:11:00 Test Item Value Reference Range Interpretation Comments CO2 (test code = CO2) 27 24-32 [place] 027970-01-09 03:11:00 Test Item Value Reference Range Interpretation Comments Calcium Lvl (test code = Calcium Lvl) 9.5 8.5-10.5 [place] 027970-01-09 03:11:00 Test Item Value Reference Range Interpretation Comments Total Protein (test code = Total 7.5 6.4-8.4 Protein) [place] 027970-01-09 03:11:00 Test Item Value Reference Range Interpretation Comments Albumin Lvl (test code = Albumin Lvl) 4.2 3.5-5.0 [place] 027970-01-09 03:11:00 Test Item Value Reference Range Interpretation Comments ALT (test code = ALT) 25 See_Comment [Auto mated message] The system which ge nerated this result transmit mark reference range : <=65. The reference range was not used to interpr et this result as melinda l/abnormal. [facility] [id number] 03:11:00 Test Item Value Reference Range Interpretation Comments Chloride Lvl (test code = Chloride Lvl) 105 95-109 [facility]2020-01-09 03:11:00 Test Item Value Reference Range Interpretation Comments AST (test code = AST) 13 See_Comment [Auto mated message] The system which ge nerated this result transmit mark reference range : <=37. The reference range was not used to interpr et this result as melinda l/abnormal. [facility] [id number] 03:11:00 Test Item Value Reference Range Interpretation Comments Alk Phos (test code = Alk Phos) 74 39-136 [facility]2020-01-09 03:11:00 Test Item Value Reference Range Interpretation Comments Bili Total (test code = Bili Total) 0.5 0.2-1.3 [facility] ZNLWP8869-05-57 03:11:00 Test Item Value Reference Range Interpretation Comments eGFR (test code = eGFR) 93 [facility] [id number] 03:11:00 Test Item Value Reference Range Interpretation Comments AGAP (test code = AGAP) 11.8 10.0-20.0 [facility] ZDOWG2404-36-00 03:11:00 Test Item Value Reference Range Interpretation Comments B/C Ratio (test code = B/C Ratio) 13 1 6-25 [facility] [id number] 03:11:00 Test Item Value Reference Range Interpretation Comments Globulin (test code = Globulin) 3.3 2.7-4.2 [facility] [id number] 03:11:00 Test Item Value Reference Range Interpretation Comments A/G Ratio (test code = A/G Ratio) 1.3 1 0.7-1.6 [facility] CenterBhxxdlgJYXAMYCGZH9793-87-07 03:11:00 Test Item Value Reference Range Interpretation Comments WBC (test code = WBC) 10.6 3.7-10.4 [facility] CenterIigpkwzPWWZMDQDKL9704-27-23 03:11:00 Test Item Value Reference Range Interpretation Comments RBC (test code = RBC) 4.99 4.70-6.10 [facility] CenterannCHEM SOQEK1009-81-64 03:11:00 Test Item Value Reference Range Interpretation Comments CO2 (test code = CO2) 27 24-32 [facility] HospitalNwfaspvSWUSQTZBXD6739-93-55 03:11:00 Test Item Value Reference Range Interpretation Comments Hgb (test code = Hgb) 14.3 14.0-18.0 [facility] HospitalMwfwxxlHODLOCGPOS6309-68-83 03:11:00 Test Item Value Reference Range Interpretation Comments Hct (test code = Hct) 41.9 42.0-54.0 [facility] HospitalYggaqduSZQUDAOQYW3323-01-11 03:11:00 Test Item Value Reference Range Interpretation Comments MCV (test code = MCV) 83.8 80.0-94.0 [facility] HospitalPiaalcaWPRVWBDSVY6399-72-31 03:11:00 Test Item Value Reference Range Interpretation Comments MCH (test code = MCH) 28.6 pg 27.0-31.0 [facility] HospitalEmdqbflTXFCKIIELM1330-82-85 03:11:00 Test Item Value Reference Range Interpretation Comments MCHC (test code = MCHC) 34.1 32.0-36.0 [facility] HospitalPnpzjufGLBKZZVXTB4728-47-03 03:11:00 Test Item Value Reference Range Interpretation Comments RDW (test code = RDW) 13.8 11.5-14.5 [facility] HospitalIlrjhjyDVFBLLVTZB4478-46-68 03:11:00 Test Item Value Reference Range Interpretation Comments Platelet (test code = Platelet) 297 133-450 [facility] HospitalGctnskjHQASNFEKLU8032-52-05 03:11:00 Test Item Value Reference Range Interpretation Comments MPV (test code = MPV) 7.9 7.4-10.4 [facility] HospitalTcwyhzcGLKBCSOJGV3919-32-71 03:11:00 Test Item Value Reference Range Interpretation Comments Segs (test code = Segs) 63.8 45.0-75.0 [facility] HospitalTawnkfcPULBHQKRCX8213-94-91 03:11:00 Test Item Value Reference Range Interpretation Comments Lymphocytes (test code = Lymphocytes) 26.9 20.0-40.0 [facility] [id number] 03:11:00 Test Item Value Reference Range Interpretation Comments Calcium Lvl (test code = Calcium Lvl) 9.5 8.5-10.5 [facility] HospitalUmuubzkXDCUQEIPFR8034-40-70 03:11:00 Test Item Value Reference Range Interpretation Comments Monocytes (test code = Monocytes) 8.5 2.0-12.0 [facility] HospitalXeccdeoKINHDWFJTA7253-28-67 03:11:00 Test Item Value Reference Range Interpretation Comments Eosinophils (test code = 0.4 See_Comment [A utomated message] The Eosinophils) system which ge nerated this result tra nsmitted reference range : <=4.0. The reference r carin was not used to int erpret this result as normal/abnormal . [facility] HospitalXwlkigsHJFWUTBFZB9983-97-42 03:11:00 Test Item Value Reference Range Interpretation Comments Basophils (test code = 0.4 See_Comment [Aut omated message] The Basophils) system which ge nerated this result tra nsmitted reference range : <=1.0. The reference r carin was not used to int erpret this result as normal/abnormal . [facility] HospitalKkqwvmbDBZQSYTZUX4931-22-17 03:11:00 Test Item Value Reference Range Interpretation Comments Neutrophils # (test code = Neutrophils 6.8 1.5-8.1 #) [facility] HospitalUgozugiIOHAZLSYUI5994-80-80 03:11:00 Test Item Value Reference Range Interpretation Comments Lymphocytes # (test code = Lymphocytes 2.9 1.0-5.5 #) [facility] HospitalEbwhcslTXMINQIQWI1236-60-32 03:11:00 Test Item Value Reference Range Interpretation Comments Monocytes # (test code 0.9 See_Comment [Aut omated message] The = Monocytes #) system which generated this result tra nsmitted reference range : <=0.8. The reference r carin was not used to int erpret this result as normal/abnormal . [place] 23875020-01-09 03:11:00 Test Item Value Reference Range Interpretation Comments Acetaminoph Lvl (test code = (10/03/19 9:11 PM) 10-20 Acetaminoph Lvl) [place] [id number] 03:11:00 Test Item Value Reference Range Interpretation Comments Ethanol Lvl (test code = Ethanol Lvl) no gt [place] [id number] 03:11:00 Test Item Value Reference Range Interpretation Comments Etoh (%) (test code = Etoh (%)) no gt [place] [id number] 03:11:00 Test Item Value Reference Range Interpretation Comments Salicylate Lvl (test no gt See_Comment [Autom ated message] The code = Salicylate Lvl) syste m which generated this result tra nsmitted reference range : <=30.0. The reference r carin was not used to int erpret this result as normal/abnormal . [facility] [id number] 03:11:00 Test Item Value Reference Range Interpretation Comments Total Protein (test code = Total 7.5 6.4-8.4 Protein) [facility] [id number] 03:11:00 Test Item Value Reference Range Interpretation Comments Albumin Lvl (test code = Albumin Lvl) 4.2 3.5-5.0 [facility] [id number] 03:11:00 Test Item Value Reference Range Interpretation Comments Glucose Lvl (test code = Glucose Lvl) 91 70-99 [facility] [id number] 03:11:00 Test Item Value Reference Range Interpretation Comments BUN (test code = BUN) 14 7-22 [facility] [id number] 03:11:00 Test Item Value Reference Range Interpretation Comments Creatinine Lvl (test code = Creatinine 1.10 0.50-1.40 Lvl) [facility] CTFOF3600-15-21 03:11:00 Test Item Value Reference Range Interpretation Comments Sodium Lvl (test code = Sodium Lvl) 140 135-145 [facility] [id number] 03:11:00 Test Item Value Reference Range Interpretation Comments Potassium Lvl (test code = Potassium 3.8 3.5-5.1 Lvl) [facility] EEONK9732-26-14 03:11:00 Test Item Value Reference Range Interpretation Comments Chloride Lvl (test code = Chloride Lvl) 105 95-109 [facility] [id number] 03:11:00 Test Item Value Reference Range Interpretation Comments CO2 (test code = CO2) 27 24-32 [facility] [id number] 03:11:00 Test Item Value Reference Range Interpretation Comments Calcium Lvl (test code = Calcium Lvl) 9.5 8.5-10.5 [facility] HEOGW0803-86-29 03:11:00 Test Item Value Reference Range Interpretation Comments Total Protein (test code = Total 7.5 6.4-8.4 Protein) [facility] [id number] 03:11:00 Test Item Value Reference Range Interpretation Comments Albumin Lvl (test code = Albumin Lvl) 4.2 3.5-5.0 [facility] [id number] 03:11:00 Test Item Value Reference Range Interpretation Comments ALT (test code = ALT) 25 See_Comment [Auto mated message] The system which ge nerated this result transmit mark reference range : <=65. The reference range was not used to interpr et this result as melinda l/abnormal. [facility] [id number] 03:11:00 Test Item Value Reference Range Interpretation Comments ALT (test code = ALT) 25 See_Comment [Auto mated message] The system which ge nerated this result transmit mark reference range : <=65. The reference range was not used to interpr et this result as melinda l/abnormal. [facility] [id number] 03:11:00 Test Item Value Reference Range Interpretation Comments AST (test code = AST) 13 See_Comment [Auto mated message] The system which ge nerated this result transmit mark reference range : <=37. The reference range was not used to interpr et this result as melinda l/abnormal. [facility] [id number] 03:11:00 Test Item Value Reference Range Interpretation Comments Alk Phos (test code = Alk Phos) 74 39-136 [facility] [place] [id number] 03:11:00 Test Item Value Reference Range Interpretation Comments Bili Total (test code = Bili Total) 0.5 0.2-1.3 [facility] [place] [id number] 03:11:00 Test Item Value Reference Range Interpretation Comments eGFR (test code = eGFR) 93 [facility] [id number] 03:11:00 Test Item Value Reference Range Interpretation Comments AGAP (test code = AGAP) 11.8 10.0-20.0 [facility] [id number] 03:11:00 Test Item Value Reference Range Interpretation Comments B/C Ratio (test code = B/C Ratio) 13 1 6-25 [facility] [place] [id number] 03:11:00 Test Item Value Reference Range Interpretation Comments Globulin (test code = Globulin) 3.3 2.7-4.2 [facility] [id number] 03:11:00 Test Item Value Reference Range Interpretation Comments A/G Ratio (test code = A/G Ratio) 1.3 1 0.7-1.6 [facility] CenterVggytasBZGJXLAQCZ6398-57-87 03:11:00 Test Item Value Reference Range Interpretation Comments WBC (test code = WBC) 10.6 3.7-10.4 [facility] [id number] 03:11:00 Test Item Value Reference Range Interpretation Comments AST (test code = AST) 13 See_Comment [Auto mated message] The system which ge nerated this result transmit mark reference range : <=37. The reference range was not used to interpr et this result as melinda l/abnormal. [facility] CenterFulxphaCNMGTOATZN3196-27-86 03:11:00 Test Item Value Reference Range Interpretation Comments RBC (test code = RBC) 4.99 4.70-6.10 [facility] CenterRxxgypjPMNRKRHTFH3456-02-07 03:11:00 Test Item Value Reference Range Interpretation Comments Hgb (test code = Hgb) 14.3 14.0-18.0 [facility] CenterPvfjqioWFYFMSGYKS2510-91-14 03:11:00 Test Item Value Reference Range Interpretation Comments Hct (test code = Hct) 41.9 42.0-54.0 [facility] CenterVckhnanFMPXBYAQQJ0173-64-63 03:11:00 Test Item Value Reference Range Interpretation Comments MCV (test code = MCV) 83.8 80.0-94.0 [facility] CenterGltvrxsRYCVGMSHSO5961-63-73 03:11:00 Test Item Value Reference Range Interpretation Comments MCH (test code = MCH) 28.6 pg 27.0-31.0 [facility] CenterXdbbdhaKIVHYCTVMF6408-03-12 03:11:00 Test Item Value Reference Range Interpretation Comments MCHC (test code = MCHC) 34.1 32.0-36.0 [facility] CenterPffipakRSBGSOVZPN1550-00-89 03:11:00 Test Item Value Reference Range Interpretation Comments RDW (test code = RDW) 13.8 11.5-14.5 [facility] CenterOagzoddMIYRDWRWSX6818-18-57 03:11:00 Test Item Value Reference Range Interpretation Comments Platelet (test code = Platelet) 297 133-450 [place] 008530-01-09 03:11:00 Test Item Value Reference Range Interpretation Comments MPV (test code = MPV) 7.9 7.4-10.4 [facility]KjdjakxESMFBCAGLD6053-05-96 03:11:00 Test Item Value Reference Range Interpretation Comments Segs (test code = Segs) 63.8 45.0-75.0 [facility]2020-01-09 03:11:00 Test Item Value Reference Range Interpretation Comments Alk Phos (test code = Alk Phos) 74 39-136 [facility] HospitalQtgpymjMILNMBTDZJ8525-05-66 03:11:00 Test Item Value Reference Range Interpretation Comments Lymphocytes (test code = Lymphocytes) 26.9 20.0-40.0 [facility] HospitalDmpqfhjALABDTNMMD4037-63-23 03:11:00 Test Item Value Reference Range Interpretation Comments Monocytes (test code = Monocytes) 8.5 2.0-12.0 [facility] HospitalAncxompELGDHRWVMI3857-61-61 03:11:00 Test Item Value Reference Range Interpretation Comments Eosinophils (test code = 0.4 See_Comment [A utomated message] The Eosinophils) system which ge nerated this result tra nsmitted reference range : <=4.0. The reference r carin was not used to int erpret this result as normal/abnormal . [facility] HospitalNavpkwuNFGOZZQYMQ3289-96-63 03:11:00 Test Item Value Reference Range Interpretation Comments Basophils (test code = 0.4 See_Comment [Aut omated message] The Basophils) system which ge nerated this result tra nsmitted reference range : <=1.0. The reference r carin was not used to int erpret this result as normal/abnormal . [facility] HospitalWljzkclOLZWWTUVEM6349-24-65 03:11:00 Test Item Value Reference Range Interpretation Comments Neutrophils # (test code = Neutrophils 6.8 1.5-8.1 #) [place] 008530-01-09 03:11:00 Test Item Value Reference Range Interpretation Comments Lymphocytes # (test code = Lymphocytes 2.9 1.0-5.5 #) [place] 008530-01-09 03:11:00 Test Item Value Reference Range Interpretation Comments Monocytes # (test code 0.9 See_Comment [Aut omated message] The = Monocytes #) system which generated this result tra nsmitted reference range : <=0.8. The reference r carin was not used to int erpret this result as normal/abnormal . [place] 859590-01-09 03:11:00 Test Item Value Reference Range Interpretation Comments Acetaminoph Lvl (test code = (10/03/19 9:11 PM) 10-20 Acetaminoph Lvl) [place] 859590-01-09 03:11:00 Test Item Value Reference Range Interpretation Comments Ethanol Lvl (test code = Ethanol Lvl) no gt [place] [id number] 03:11:00 Test Item Value Reference Range Interpretation Comments Etoh (%) (test code = Etoh (%)) no gt [facility] [id number] 03:11:00 Test Item Value Reference Range Interpretation Comments Bili Total (test code = Bili Total) 0.5 0.2-1.3 [place] 859590-01-09 03:11:00 Test Item Value Reference Range Interpretation Comments Salicylate Lvl (test no gt See_Comment [Autom ated message] The code = Salicylate Lvl) syste m which generated this result tra nsmitted reference range : <=30.0. The reference r carin was not used to int erpret this result as normal/abnormal . [facility] [id number] 03:11:00 Test Item Value Reference Range Interpretation Comments eGFR (test code = eGFR) 93 [facility]2020-01-09 03:11:00 Test Item Value Reference Range Interpretation Comments AGAP (test code = AGAP) 11.8 10.0-20.0 [place] [id number] 03:11:00 Test Item Value Reference Range Interpretation Comments B/C Ratio (test code = B/C Ratio) 13 1 6-25 [place] [id number] 03:11:00 Test Item Value Reference Range Interpretation Comments Globulin (test code = Globulin) 3.3 2.7-4.2 [facility] [id number] 03:11:00 Test Item Value Reference Range Interpretation Comments A/G Ratio (test code = A/G Ratio) 1.3 1 0.7-1.6 [place] 008530-01-09 03:11:00 Test Item Value Reference Range Interpretation Comments WBC (test code = WBC) 10.6 3.7-10.4 [facility]J2019[facility] 03:11:00 Test Item Value Reference Range Interpretation Comments RBC (test code = RBC) 4.99 4.70-6.10 [facility]VeekrhnTHOGCIHDUH7017-04-09 03:11:00 Test Item Value Reference Range Interpretation Comments Hgb (test code = Hgb) 14.3 14.0-18.0 [facility]PklhzudBVUVAUPJWS1271-44-77 03:11:00 Test Item Value Reference Range Interpretation Comments Hct (test code = Hct) 41.9 42.0-54.0 [facility] HospitalSpklxueOMLBBFJGKV4504-88-65 03:11:00 Test Item Value Reference Range Interpretation Comments MCV (test code = MCV) 83.8 80.0-94.0 [facility]NhziwvcKTORWMAFVJ7635-15-18 03:11:00 Test Item Value Reference Range Interpretation Comments MCH (test code = MCH) 28.6 pg 27.0-31.0 [facility]PknvamxVRAZDBHTIM5119-91-09 03:11:00 Test Item Value Reference Range Interpretation Comments MCHC (test code = MCHC) 34.1 32.0-36.0 [facility] HospitalEwmtsaeZCOAKAHAUB6141-67-29 03:11:00 Test Item Value Reference Range Interpretation Comments RDW (test code = RDW) 13.8 11.5-14.5 [facility] HospitalYfgqdsrNPGFHQNPBX1400-50-08 03:11:00 Test Item Value Reference Range Interpretation Comments Platelet (test code = Platelet) 297 133-450 [facility] HospitalCwzvpalDJKHMHEYWT6564-93-93 03:11:00 Test Item Value Reference Range Interpretation Comments MPV (test code = MPV) 7.9 7.4-10.4 [facility] HospitalXokxdopNAEQJHCDEO8024-73-35 03:11:00 Test Item Value Reference Range Interpretation Comments Segs (test code = Segs) 63.8 45.0-75.0 [facility] HospitalSgpuouaKMKTOVOYOF8829-17-01 03:11:00 Test Item Value Reference Range Interpretation Comments Lymphocytes (test code = Lymphocytes) 26.9 20.0-40.0 [facility] HospitalNywdghkGLWFMJJYAR0535-17-55 03:11:00 Test Item Value Reference Range Interpretation Comments Monocytes (test code = Monocytes) 8.5 2.0-12.0 [facility] HospitalFuhivpjKXBMKGYTVQ1308-06-18 03:11:00 Test Item Value Reference Range Interpretation Comments Eosinophils (test code = 0.4 See_Comment [A utomated message] The Eosinophils) system which ge nerated this result tra nsmitted reference range : <=4.0. The reference r carin was not used to int erpret this result as normal/abnormal . [facility] HospitalMrpqpvhKFVUBRBUOX8483-48-73 03:11:00 Test Item Value Reference Range Interpretation Comments Basophils (test code = 0.4 See_Comment [Aut omated message] The Basophils) system which ge nerated this result tra nsmitted reference range : <=1.0. The reference r carin was not used to int erpret this result as normal/abnormal . [facility] HospitalPkgzggkTQFYQMXORR9295-36-35 03:11:00 Test Item Value Reference Range Interpretation Comments Neutrophils # (test code = Neutrophils 6.8 1.5-8.1 #) [facility] HospitalKfbdmieLABLZYDEFI4534-22-38 03:11:00 Test Item Value Reference Range Interpretation Comments Lymphocytes # (test code = Lymphocytes 2.9 1.0-5.5 #) [facility] HospitalMjglayzRRVBALHFNN7495-16-85 03:11:00 Test Item Value Reference Range Interpretation Comments Monocytes # (test code 0.9 See_Comment [Aut omated message] The = Monocytes #) system which generated this result tra nsmitted reference range : <=0.8. The reference r carin was not used to int erpret this result as normal/abnormal . [place] [id number] 03:11:00 Test Item Value Reference Range Interpretation Comments Acetaminoph Lvl (test code = (10/03/19 9:11 PM) 10-20 Acetaminoph Lvl) [place] [id number] 03:11:00 Test Item Value Reference Range Interpretation Comments Ethanol Lvl (test code = Ethanol Lvl) no gt [place] [id number] 03:11:00 Test Item Value Reference Range Interpretation Comments Etoh (%) (test code = Etoh (%)) no gt [facility]icsTdapligIIGWWVEWWC4415-94-28 03:11:00 Test Item Value Reference Range Interpretation Comments Salicylate Lvl (test no gt See_Comment [Autom ated message] The code = Salicylate Lvl) syste m which generated this result tra nsmitted reference range : <=30.0. The reference r carin was not used to int erpret this result as normal/abnormal . [facility] [id number] 03:11:00 Test Item Value Reference Range Interpretation Comments Glucose Lvl (test code = Glucose Lvl) 91 70-99 [facility] [id number] 03:11:00 Test Item Value Reference Range Interpretation Comments BUN (test code = BUN) 14 7-22 [facility] [id number] 03:11:00 Test Item Value Reference Range Interpretation Comments Creatinine Lvl (test code = Creatinine 1.10 0.50-1.40 Lvl) [facility] CenterGT Advanced TechnologiesUNC HOSPITALS HILLSB[facility] CAMPUSOEFWJ9734-92-45 03:11:00 Test Item Value Reference Range Interpretation Comments Sodium Lvl (test code = Sodium Lvl) 140 135-145 [facility] [id number] 03:11:00 Test Item Value Reference Range Interpretation Comments Potassium Lvl (test code = Potassium 3.8 3.5-5.1 Lvl) [facility] [id number] 03:11:00 Test Item Value Reference Range Interpretation Comments Chloride Lvl (test code = Chloride Lvl) 105 95-109 [facility] [id number] 03:11:00 Test Item Value Reference Range Interpretation Comments CO2 (test code = CO2) 27 24-32 [facility] [id number] 03:11:00 Test Item Value Reference Range Interpretation Comments Calcium Lvl (test code = Calcium Lvl) 9.5 8.5-10.5 [facility] [id number] 03:11:00 Test Item Value Reference Range Interpretation Comments Total Protein (test code = Total 7.5 6.4-8.4 Protein) [facility] [id number] 03:11:00 Test Item Value Reference Range Interpretation Comments Albumin Lvl (test code = Albumin Lvl) 4.2 3.5-5.0 [facility] [id number] 03:11:00 Test Item Value Reference Range Interpretation Comments ALT (test code = ALT) 25 See_Comment [Auto mated message] The system which ge nerated this result transmit mark reference range : <=65. The reference range was not used to interpr et this result as melinda l/abnormal. [facility] [place] [id number] 03:11:00 Test Item Value Reference Range Interpretation Comments AST (test code = AST) 13 See_Comment [Auto mated message] The system which ge nerated this result transmit mark reference range : <=37. The reference range was not used to interpr et this result as melinda l/abnormal. [facility] [place] [id number] 03:11:00 Test Item Value Reference Range Interpretation Comments Alk Phos (test code = Alk Phos) 74 39-136 [facility] [place] [id number] 03:11:00 Test Item Value Reference Range Interpretation Comments Bili Total (test code = Bili Total) 0.5 0.2-1.3 [facility] [place] [id number] 03:11:00 Test Item Value Reference Range Interpretation Comments eGFR (test code = eGFR) 93 [facility] [place] [id number] 03:11:00 Test Item Value Reference Range Interpretation Comments AGAP (test code = AGAP) 11.8 10.0-20.0 [facility] [place] [id number] 03:11:00 Test Item Value Reference Range Interpretation Comments B/C Ratio (test code = B/C Ratio) 13 1 6-25 [facility] [place] [id number] 03:11:00 Test Item Value Reference Range Interpretation Comments Globulin (test code = Globulin) 3.3 2.7-4.2 [facility] [employer]2020-01-09 03:11:00 Test Item Value Reference Range Interpretation Comments A/G Ratio (test code = A/G Ratio) 1.3 1 0.7-1.6 [facility] QltfikcKEMHOIRHBL7587-65-11 03:11:00 Test Item Value Reference Range Interpretation Comments WBC (test code = WBC) 10.6 3.7-10.4 [facility] EnzlgrfTJYSEIRAEI8987-56-41 03:11:00 Test Item Value Reference Range Interpretation Comments RBC (test code = RBC) 4.99 4.70-6.10 [facility] [place] [id number] 03:11:00 Test Item Value Reference Range Interpretation Comments Glucose Lvl (test code = Glucose Lvl) 91 70-99 [place] 027970-01-09 03:11:00 Test Item Value Reference Range Interpretation Comments BUN (test code = BUN) 14 7-22 [place] 027970-01-09 03:11:00 Test Item Value Reference Range Interpretation Comments Creatinine Lvl (test code = Creatinine 1.10 0.50-1.40 Lvl) [place] 027970-01-09 03:11:00 Test Item Value Reference Range Interpretation Comments Sodium Lvl (test code = Sodium Lvl) 140 135-145 [place] 027970-01-09 03:11:00 Test Item Value Reference Range Interpretation Comments Potassium Lvl (test code = Potassium 3.8 3.5-5.1 Lvl) [place] 027970-01-09 03:11:00 Test Item Value Reference Range Interpretation Comments Chloride Lvl (test code = Chloride Lvl) 105 95-109 [place] 027970-01-09 03:11:00 Test Item Value Reference Range Interpretation Comments CO2 (test code = CO2) 27 24-32 [place] 027970-01-09 03:11:00 Test Item Value Reference Range Interpretation Comments Calcium Lvl (test code = Calcium Lvl) 9.5 8.5-10.5 [place] 027970-01-09 03:11:00 Test Item Value Reference Range Interpretation Comments Total Protein (test code = Total 7.5 6.4-8.4 Protein) [place] 027970-01-09 03:11:00 Test Item Value Reference Range Interpretation Comments Albumin Lvl (test code = Albumin Lvl) 4.2 3.5-5.0 [place] 027970-01-09 03:11:00 Test Item Value Reference Range Interpretation Comments ALT (test code = ALT) 25 See_Comment [Auto mated message] The system which ge nerated this result transmit mark reference range : <=65. The reference range was not used to interpr et this result as melinda l/abnormal. [place] 027970-01-09 03:11:00 Test Item Value Reference Range Interpretation Comments AST (test code = AST) 13 See_Comment [Auto mated message] The system which ge nerated this result transmit mark reference range : <=37. The reference range was not used to interpr et this result as melinda l/abnormal. [facility] [id number] 03:11:00 Test Item Value Reference Range Interpretation Comments Alk Phos (test code = Alk Phos) 74 39-136 [facility] [id number] 03:11:00 Test Item Value Reference Range Interpretation Comments Bili Total (test code = Bili Total) 0.5 0.2-1.3 [facility] [id number] 03:11:00 Test Item Value Reference Range Interpretation Comments eGFR (test code = eGFR) 93 [facility] [id number] 03:11:00 Test Item Value Reference Range Interpretation Comments AGAP (test code = AGAP) 11.8 10.0-20.0 [facility] [id number] 03:11:00 Test Item Value Reference Range Interpretation Comments B/C Ratio (test code = B/C Ratio) 13 1 6-25 [facility] [id number] 03:11:00 Test Item Value Reference Range Interpretation Comments Globulin (test code = Globulin) 3.3 2.7-4.2 [facility] [id number] 03:11:00 Test Item Value Reference Range Interpretation Comments A/G Ratio (test code = A/G Ratio) 1.3 1 0.7-1.6 [facility] CenterSchlkyyCAWIRNLCFC6622-26-57 03:11:00 Test Item Value Reference Range Interpretation Comments WBC (test code = WBC) 10.6 3.7-10.4 [facility] CenterNdeblmlEUQSUKUIXT0344-05-00 03:11:00 Test Item Value Reference Range Interpretation Comments RBC (test code = RBC) 4.99 4.70-6.10 [facility] CenterQahepznYAIEJMSUKG6449-68-00 03:11:00 Test Item Value Reference Range Interpretation Comments Hgb (test code = Hgb) 14.3 14.0-18.0 [place] 008530-01-09 03:11:00 Test Item Value Reference Range Interpretation Comments Hct (test code = Hct) 41.9 42.0-54.0 [facility] CenterGhhwtjoMLJKKTCOEX9651-63-06 03:11:00 Test Item Value Reference Range Interpretation Comments MCV (test code = MCV) 83.8 80.0-94.0 [place] 008530-01-09 03:11:00 Test Item Value Reference Range Interpretation Comments MCH (test code = MCH) 28.6 pg 27.0-31.0 [place] 008530-01-09 03:11:00 Test Item Value Reference Range Interpretation Comments MCHC (test code = MCHC) 34.1 32.0-36.0 [facility] HospitalAurhvslSGHSVPZYHG8598-22-58 03:11:00 Test Item Value Reference Range Interpretation Comments RDW (test code = RDW) 13.8 11.5-14.5 [place] 008530-01-09 03:11:00 Test Item Value Reference Range Interpretation Comments Platelet (test code = Platelet) 297 133-450 [facility] HospitalBzdcpztKSKRONSUCN9756-76-97 03:11:00 Test Item Value Reference Range Interpretation Comments MPV (test code = MPV) 7.9 7.4-10.4 [facility] HospitalGjemmvoNJKSTQBXDC0750-34-76 03:11:00 Test Item Value Reference Range Interpretation Comments Segs (test code = Segs) 63.8 45.0-75.0 [place] 008530-01-09 03:11:00 Test Item Value Reference Range Interpretation Comments Lymphocytes (test code = Lymphocytes) 26.9 20.0-40.0 [facility] HospitalPknbrjkDYWFNOORWO9820-38-66 03:11:00 Test Item Value Reference Range Interpretation Comments Monocytes (test code = Monocytes) 8.5 2.0-12.0 [place] 008530-01-09 03:11:00 Test Item Value Reference Range Interpretation Comments Eosinophils (test code = 0.4 See_Comment [A utomated message] The Eosinophils) system which ge nerated this result tra nsmitted reference range : <=4.0. The reference r carin was not used to int erpret this result as normal/abnormal . [place] 008530-01-09 03:11:00 Test Item Value Reference Range Interpretation Comments Basophils (test code = 0.4 See_Comment [Aut omated message] The Basophils) system which ge nerated this result tra nsmitted reference range : <=1.0. The reference r carin was not used to int erpret this result as normal/abnormal . [facility] HospitalYlwcepjROVCIBJSEQ1789-27-00 03:11:00 Test Item Value Reference Range Interpretation Comments Neutrophils # (test code = Neutrophils 6.8 1.5-8.1 #) [facility] HospitalNeswopkBSEEGUANKF6059-07-87 03:11:00 Test Item Value Reference Range Interpretation Comments Lymphocytes # (test code = Lymphocytes 2.9 1.0-5.5 #) [facility] HospitalNbxjnqgKHVCAGTSNC8014-17-49 03:11:00 Test Item Value Reference Range Interpretation Comments Monocytes # (test code 0.9 See_Comment [Aut omated message] The = Monocytes #) system which generated this result tra nsmitted reference range : <=0.8. The reference r carin was not used to int erpret this result as normal/abnormal . [facility]xqPIKWAZLIZA6758-86-43 03:11:00 Test Item Value Reference Range Interpretation Comments Acetaminoph Lvl (test code = (10/03/19 9:11 PM) 10-20 Acetaminoph Lvl) [place] [id number] 03:11:00 Test Item Value Reference Range Interpretation Comments Ethanol Lvl (test code = Ethanol Lvl) no gt [facility] CenterMgzmycoBYHGVNNYKS4496-23-19 03:11:00 Test Item Value Reference Range Interpretation Comments Etoh (%) (test code = Etoh (%)) no gt [facility]lingenEqavxuaFGKCMTANGN5413-57-79 03:11:00 Test Item Value Reference Range Interpretation Comments Salicylate Lvl (test no gt See_Comment [Autom ated message] The code = Salicylate Lvl) alexandrue which generated this result tra nsmitted reference range : <=30.0. The reference r carin was not used to int erpret this result as normal/abnormal . [facility] Notes Date/Time Note Provider Source 2023-04-20 Formatting of this note might be differe nt from the original. Lauryn Brooke RN [facility] 13:26:11-00:00 Pt given printed and verbal discharge [...] differe nt from the original. Franco Diaz [facility] 11:23:17-00:00 Patient to ED for n/v/d x 3 days. Denies fever. Abdominal pain and cramping that is intermittent. RN 2019-10-03 PROCEDURE INFORMATION: [facility] 23:23:-:00 Exam: XR Left Ribs with PA Chest, [...] Gabby Dimas MD On 10/04/2019 00:36:21; [id number] 2019-10-03 PROCEDURE INFORMATION: [facility] 23:23:00-00:00 Exam: XR Left Ribs [...] Gabby Dimas MD On 10/04/2019 00:36:21; [id number] 2019-10-03 PROCEDURE INFORMATION: [facility] 23:23:00-00:00 Exam: XR Left Ribs [...] Gabby Dimas MD On 10/04/2019 00:36:21; [id number]
[2023-05-16] MEDS ORDERED: IBUPROFEN 400 MG TAB ONE (21:47)
--- NOTE | 2023-05-16 22:22 | RAD REPORT ---
EXAM DESCRIPTION: RAD - Elbow Right 3 View - 05/16/2023 10:14 pm CLINICAL HISTORY: Right elbow pain FINDINGS: No fracture or dislocation is seen.
--- NOTE | 2023-05-16 22:26 | RAD REPORT ---
EXAM DESCRIPTION: RAD - Knee Right 3 View - 05/16/2023 10:14 pm CLINICAL HISTORY: Right knee pain status post fall FINDINGS: No fracture or dislocation is seen.
--- NOTE | 2023-05-16 22:33 | ER ---
Nurse's Notes [facility] Name: Gaudencio Kothari Age: 27 yrs Sex: Male : 1995 Arrival Date: 05/16/2023 Time: 20:39 Bed 10 Private MD: Diagnosis: Contusion of right knee;Fall on same level, unspecified;Abrasion of right elbow Presentation: 05/16 20:52 Chief complaint: Patient states: right elbow and right knee pain of 5,onset 1200 today pf1 while walking up some concrete steps. Patient denies any head injury. Abrasion noted to right elbow and contusion to right knee. Coronavirus screen: Vaccine status: Patient reports being unvaccinated. Client denies travel out of the [place] in the last 14 days. At this time, the client does not indicate any symptoms associated with coronavirus-19. Ebola Screen: Patient negative for fever greater than or equal to 101.5 degrees Fahrenheit, and additional compatible Ebola Virus Disease symptoms. Initial Sepsis Screen: Does the patient meet any 2 criteria? No. Patient's initial sepsis screen is negative. Does the patient have a suspected source of infection? No. Patient's initial sepsis screen is negative. Risk Assessment: Do you want to hurt yourself or someone else? Patient reports no desire to harm self or others. 20:52 Method Of Arrival: Ambulatory pf1 20:52 Acuity: BELEM 4 pf1 Historical: - Allergies: 20:54 No Known Allergies; pf1 - PMHx: 20:54 Anxiety; BORDERLINE PERSONALITY DISORDER; Depression; pf1 - PSHx: 20:54 None; pf1 - Immunization history:: Adult Immunizations up to date, Client reports having NOT received the Covid vaccine. Last tetanus immunization: < 5 years ago Flu vaccine is not up to date. - Social history:: Smoking status: Reported history of juuling and/or vaping. Patient uses alcohol, but reports only rare drinking. street drugs, marijuana. Screenin:47 [facility] ED Fall Risk Assessment (Adult) History of falling in the last 3 months, mb9 including since admission Yes- single mechanical fall (1 pt) Confusion or Disorientation No (0 pts) Intoxicated or Sedated No (0 pts) Impaired Gait No (0 pts) Mobility Assist Device Used No (0 pt) Altered Elimination No (0 pt) Score/Fall Risk Level 0 - 2 = Low Risk Oriented to surroundings, Maintained a safe environment, Educated pt \T\ family on fall prevention, incl call for assistance when getting out of bed. Abuse screen: Denies threats or abuse. Nutritional screening: No deficits noted. Tuberculosis screening: No symptoms or risk factors identified. Assessment: 21:47 General: Appears in no apparent distress. Behavior is calm, cooperative. Pain: mb9 Complains of pain in right leg Pain does not radiate. Pain currently is 7 out of 10 on a pain scale. Quality of pain is described as throbbing, Pain began suddenly, Is continuous. Neuro: Barth Agitation-Sedation Scale (RASS): 0 - Alert and Calm Level of Consciousness is awake, alert, obeys commands, Oriented to person, place, time, situation, Appropriate for age. Cardiovascular: Patient's skin is warm and dry. Respiratory: Airway is patent Respiratory effort is even, unlabored, Respiratory pattern is regular, symmetrical, Breath sounds are clear bilaterally. GI: No signs and/or symptoms were reported involving the gastrointestinal system. : No signs and/or symptoms were reported regarding the genitourinary system. EENT: No signs and/or symptoms were reported regarding the EENT system. Derm: Bruising that is dark purple, on right knee. Musculoskeletal: Range of motion: intact in all extremities. 22:40 Reassessment: No changes from previously documented assessment. Patient and/or family mb9 updated on plan of care and expected duration. Pain level reassessed. Patient is alert, oriented x 3, equal unlabored respirations, skin warm/dry/pink. Vital Signs: 20:52 BP 136 / 80; Pulse 69; Resp 18; Temp 97.9; Pulse Ox 97% ; Weight 117.93 kg; Height 5 pf1 ft. 10 in. ; Pain 5/10; 22:40 BP 128 / 74; Pulse 74; Resp 18; Pulse Ox 100% on R/A; mb9 20:52 Body Mass Index 37.31 (117.93 kg, 177.8 cm) pf1 20:52 Pain Scale: Adult pf1 ED Course: 20:43 Patient arrived in ED. kj1 20:54 Triage completed. pf1 21:01 Avelino House PA is PHCP. cp 21:01 Aris Trujillo MD is Attending Physician. cp 21:34 Janet Perry, RN is Primary Nurse. mb9 21:48 Bed in low position. Call light in reach. Side rails up X 1. Client placed on mb9 continuous cardiac and pulse oximetry monitoring. NIBP monitoring applied. 21:48 Arm band placed on. mb9 21:48 No provider procedures requiring assistance completed. Patient did not have IV access mb9 during this emergency room visit. 22:17 XRAY Knee RIGHT 3 view In Process Unspecified. EDMS 22:17 XRAY Elbow RIGHT 3 view In Process Unspecified. EDMS Administered Medications: 21:40 Drug: Ibuprofen PO 800 mg Route: PO; mb9 22:23 Follow up: Response: No adverse reaction mb9 Medication: 21:48 VIS not applicable for this client. mb9 Outcome: 22:32 Discharge ordered by MD. cp 22:40 Discharged to home ambulatory. mb9 22:40 Condition: stable 22:40 Discharge instructions given to patient, Instructed on discharge instructions, follow up and referral plans. Demonstrated understanding of instructions, follow-up care, medications, Prescriptions given X 1. 22:40 Patient left the ED. mb9 Signatures: Dispatcher [employer] EDMS Avelino House PA PA cp Jackson, Kandis kj1 Janet Perry, RN RN mb9 Francisca Bloom RN RN pf1
--- NOTE | 2023-05-16 22:33 | EDPHYS ---
Physician Documentation [facility] Name: Gaudencio Kothari Age: 27 yrs Sex: Male : 1995 Arrival Date: 05/16/2023 Time: 20:39 Bed 10 Private MD: ED Physician Aris Trujillo HPI: 05/16 21:35 This 27 yrs old Male presents to ER via Ambulatory with complaints of Fall Injury, Knee cp Injury, Shoulder Injury. 21:35 Details of fall: The patient fell from an upright position, while walking. Onset: The cp symptoms/episode began/occurred today. Associated injuries: The patient sustained right elbow, painful injury, right knee, painful injury. Patient reports he was walking and talking on phone when he lost his balance and fell injuring right elbow and right knee. Historical: - Allergies: 20:54 No Known Allergies; pf1 - PMHx: 20:54 Anxiety; BORDERLINE PERSONALITY DISORDER; Depression; pf1 - PSHx: 20:54 None; pf1 - Immunization history:: Adult Immunizations up to date, Client reports having NOT received the Covid vaccine. Last tetanus immunization: < 5 years ago Flu vaccine is not up to date. - Social history:: Smoking status: Reported history of juuling and/or vaping. Patient uses alcohol, but reports only rare drinking. street drugs, marijuana. ROS: 21:40 Constitutional: Negative for body aches, chills, fever, poor PO intake. cp 21:40 Eyes: Negative for injury, pain, redness, and discharge. cp 21:40 Neck: Negative for pain with movement, pain at rest, stiffness. 21:40 Respiratory: Negative for cough, shortness of breath, wheezing. 21:40 Abdomen/GI: Negative for abdominal pain, nausea, vomiting, and diarrhea. 21:40 Back: Negative for pain at rest, pain with movement. 21:40 MS/extremity: Positive for ecchymosis, pain, tenderness, of the right elbow and right knee. Exam: 21:45 Constitutional: The patient appears in no acute distress, alert, awake, comfortable, cp non-toxic, well developed, well nourished, obese. 21:45 Head/Face: Normocephalic, atraumatic. cp 21:45 Eyes: Periorbital structures: appear normal, Conjunctiva: normal, no exudate, no injection, Lids and lashes: appear normal, bilaterally. 21:45 ENT: External ear(s): are unremarkable, Nose: is normal, Mouth: Lips: moist, Oral mucosa: pink and intact, moist, Posterior pharynx: is normal, airway is patent, no erythema, no exudate. 21:45 Neck: ROM/movement: is normal, is supple, without pain, no range of motions limitations. 21:45 Chest/axilla: Inspection: normal. 21:45 Cardiovascular: Rate: normal. 21:45 Respiratory: the patient does not display signs of respiratory distress, Respirations: normal, no use of accessory muscles, no retractions. 21:45 Back: pain, is absent, ROM is normal. 21:45 Musculoskeletal/extremity: Extremities: noted in the right elbow: pain, tenderness, There is no evidence of decreased ROM, deformity, noted in the right knee: ecchymosis, pain, tenderness, mild prepatellar swelling, no evidence of decreased ROM, deformity. 21:45 Neuro: Orientation: to person, place \T\ time. Mentation: is normal, Motor: moves all fours, strength is normal, Sensation: is normal. 21:45 Skin: injury, abrasion(s), small abrasion noted, of the posterior right elbow. cp Vital Signs: 20:52 BP 136 / 80; Pulse 69; Resp 18; Temp 97.9; Pulse Ox 97% ; Weight 117.93 kg; Height 5 pf1 ft. 10 in. ; Pain 5/10; 22:40 BP 128 / 74; Pulse 74; Resp 18; Pulse Ox 100% on R/A; mb9 20:52 Body Mass Index 37.31 (117.93 kg, 177.8 cm) pf1 20:52 Pain Scale: Adult pf1 MDM: 21:01 Patient medically screened. cp 22:30 Data reviewed: vital signs, nurses notes, radiologic studies, plain films. cp 22:30 Differential diagnosis: contusion, fracture, laceration, multiple trauma. I considered cp the following discharge prescriptions or medication management in the emergency department Medications were administered in the Emergency Department. See MAR. Counseling: I had a detailed discussion with the patient and/or guardian regarding the historical points, exam findings, and any diagnostic results supporting the discharge/admit diagnosis, radiology results, to return to the emergency department if symptoms worsen or persist or if there are any questions or concerns that arise at home. Response to treatment: the patient's symptoms have markedly improved after treatment, and as a result, I will discharge patient. 05/16 21:31 Order name: XRAY Knee RIGHT 3 view; Complete Time: 22:29 cp 05/16 22:29 Interpretation: Report reviewed. cp 05/16 21:31 Order name: XRAY Elbow RIGHT 3 view; Complete Time: 22:29 cp 05/16 22:29 Order name: Wound dressing; Complete Time: 22:36 cp Administered Medications: 21:40 Drug: Ibuprofen PO 800 mg Route: PO; mb9 22:23 Follow up: Response: No adverse reaction mb9 Disposition Summary: 05/16/23 22:32 Discharge Ordered Location: Home cp Problem: new cp Symptoms: have improved cp Condition: Stable cp Diagnosis - Contusion of right knee cp - Fall on same level, unspecified cp - Abrasion of right elbow cp Followup: cp - With: Private Physician - When: 2 - 3 days - Reason: Worsening of condition Discharge Instructions: - Discharge Summary Sheet cp - Abrasion cp - Acute Knee Pain, Adult cp Forms: - Medication Reconciliation Form cp - Thank You Letter cp - Antibiotic Education cp - Prescription Opioid Use cp - Patient Portal Instructions cp - Leadership Thank You Letter cp Prescriptions: - Ibuprofen 800 mg Oral Tablet - take 1 tablet by ORAL route every 8 hours As needed take with food; 30 tablet; cp Refills: 0, Product Selection Permitted Signatures: Dispatcher [employer] EDIA Avelino House PA PA cp Breneman, Mary Beth RN RN mb9 Francisca Bloom RN RN pf1 Corrections: (The following items were deleted from the chart) 22:33 22:32 Contusion of right elbow cp cp
[2023-05-16 22:49] VITALS: BP 136/80; TEMP 97.9; O2SAT 97
== END 2023-05-16 22:40 | disposition home or self-care (01) ==
LOC: ER 20:39
DX: S50.311A Abrasion of right elbow, initial encounter (principal); S80.01XA Contusion of right knee, initial encounter; W18.30XA Fall on same level, unspecified, initial encounter
CPT/HCPCS: 99283

== ENCOUNTER 2023-06-07 07:44 | Emergency (ER) | payer OTHER ==
--- OUTSIDE RECORDS SUMMARY | 2023-06-07 07:50 | XMS REPORT | Continuity of Care Document ---
:1995 Author Organization [facility] t Address [address] [place] [address] Care Team Providers Name Role Phone Asked, No Pcp Primary Care Physician Unavailable DULCE GOMEZ Attending Clinician Unavailable Dulce Clifford Attending Clinician Donna Phillip Attending Clinician [phone] DONNA PHILLIP Attending Clinician Unavailable Payers Payer Name Policy Type Policy Number Effective Date Expiration Date [facility] [id number] 2023 00:00:00 Problems Condition Condition Condition Status Onset Resolution Last Treating Co mments Source Name Details Category Date Date Treatment Clinician Date BACK/ BACK/ Diagnosis Active 2020-01-11 Mem oria RIBCAGE RIBCAGE 10-03 16:57:00 l PAIN PAIN 00:00: Wilberto Active 10/03/2019 Ghassan Ladd History of Past Illness Condition Condition Condition Status Onset Resolution Last Treating Co mments Source Name Details Category Date Date Treatment Clinician Date Suicidal Suicidal Problem 2019-10-06 2019-10-06 Memoria ideations ideations 10-04 22:22:41 22:22:41 l 10/04/2019 18:00: Javy n 10/06/2019 00 [facility] Allergies, Adverse Reactions, Alerts Allergy Allergy Status Severity Reaction(s) Onset Inactive Treating Comm ents Source Name Type Date Date Clinician NO KNOWN Drug Active [facility] ALLERGIE Class ity of S [facility] Social History Social Habit Start Date Stop Date Quantity Comments Source Gender identity [facility] Sexual [facility] History of Social 2019-05-19 2019-05-[address] function 00:00:00 00:00:00 Hospital Tobacco use and 2018-06-17 2018-06-17 Smokeless [facility] 00:00:00 00:00:00 tobacco non-user Hospital Alcohol intake 2018-06-17 2018-06-17 Current [facility] 00:00:00 00:00:00 non-drinker of Hospital alcohol (finding) Sex Assigned At [birth year] [facility] 00:00:00 00:00:00 Hospital Smoking Status Start Date Stop Date Source Social History [facility] Medications Ordered Filled Start Stop Current Ordering [...] :00 ONCE, 1 Medical dose, On Branch Tue04/20/23 at 1200, KLEBER ondansetron 2022- No 4mg 4 mg, Slow Univers (ZOFRAN 04-20 IV Push, ity of (PF)) 17:00: 17:07 ONCE, 1 [place] injection 4 00 :00 dose, On Medi luz maria mg Tue04/20/23 at 1200, KLEBER dicyclomine 2022-0 Yes [id number] 20mg Take 1 Univers 20 mg - tablet by ity of tablet 00:00: mouth 4 [place] 00 (four) Medical times Branch daily as needed for Abdominal pain. ondansetron 0 Yes [id number] 4mg Take 1 Univers 4 mg 7-26 tablet by ity of disintegrat 00:00: mouth [place] ing tablet 00 every 8 Medica l (eight) Branch hours as needed for Nausea and Vomiting (N/V). Ibuprofen 2019-0 Yes Notes: Memori a 10-04 (Same as: l 12:09: Motrin) [place] 00 "Do Not Crush" Take with food. Ibuprofen 2019-0 Yes Notes: Memori a 10-04 (Same as: l 12:09: Motrin) [place] 00 "Do Not Crush" Take with food. Ibuprofen 2019-0 Yes Notes: Memori a 10-04 (Same as: l 12:09: Motrin) [place] 00 "Do Not Crush" Take with food. Ibuprofen 2019-0 Yes Notes: Memori a 10-04 (Same as: l 12:09: Motrin) [place] 00 "Do Not Crush" Take with food. Ibuprofen 2020-0 Yes Notes: Memori a 10-04 (Same as: l 12:09: Motrin) [place] 00 "Do Not Crush" Take with food. Ibuprofen 2020-0 Yes Notes: Memori a - (Same as: l 12:09: Motrin) [place] 00 "Do Not Crush" Take with food. Ibuprofen 2019-0 Yes Notes: Memori a - (Same as: l 12:09: Motrin) [place] 00 "Do Not Crush" Take with food. escitalopra Yes 20mg Take 20 mg Univers m oxalate 05-31 by mouth ity of 20 mg 20:12: daily. [place] tablet 57 [facility] Branch trazodone Yes Take by Unive rs [...] Immunizations Ordered Filled Immunization Date Status Comments [facility] e Immunization Name Name TDAP 2012-04-10 Completed University of 00:00:00 [facility] MMR 2001-04-26 Completed University of 00:00:00 [facility] DTP 2000-09-22 Completed University of 00:00:00 [facility] Polio (IPV/OPV) 2000-09-22 Completed Universit y of 00:00:00 [facility] Varicella 2000-09-22 Completed University of (varivax)(chicken 00:00:00 [facility] edical pox) Branch DTP 1996-12-18 Completed University of 00:00:00 [facility] HIB 4 Dose Schedule 1996-12-18 Completed Unive rsity of 00:00:00 [facility] MMR 1996-12-18 Completed University of 00:00:00 [facility] DTP 1996-09-14 Completed University of 00:00:00 [facility] Polio (IPV/OPV) 1996-09-14 Completed Universit y of 00:00:00 [facility] MMR 1996-05-20 Completed University of 00:00:00 [facility] DTP 1996-05-02 Completed University of 00:00:00 [facility] HIB 4 Dose Schedule 1996-05-02 Completed Unive rsity of 00:00:00 [facility] Hep B, Adol or Pedi 1996-05-02 Completed Unive rsity of Dosage 00:00:00 [facility] Polio (IPV/OPV) 1996-05-02 Completed Universit y of 00:00:00 [facility] DTP 1996-01-30 Completed University of 00:00:00 [facility] HIB 4 Dose Schedule 1996-01-30 Completed Unive rsity of 00:00:00 [facility] Polio (IPV/OPV) 1996-01-30 Completed Universit y of 00:00:00 [facility] DTP 1995 Completed University of 00:00:00 [facility] HIB 4 Dose Schedule 1995 Completed Unive rsity of 00:00:00 [facility] Polio (IPV/OPV) 1995 Completed Universit y of 00:00:00 [facility] Hep B, Adol or Pedi 1995 Completed Unive rsity of Dosage 00:00:00 [facility] Hep B, Adol or Pedi 1995 Completed Unive rsity of Dosage 00:00:00 [facility] Vital Signs Vital Name Observation Time Observation Value Comments Source Body temperature 2023-04-20 18:15:28 36.67 Jossy [facility] blood 2023-04-20 18:10:00 138 mm[Hg] Univer sity of pressure [facility] Diastolic blood 2023-04-20 18:10:00 81 mm[Hg] Unive rsity of pressure [facility] Heart rate 2023-04-20 18:10:00 75 /min [facility] Respiratory rate 2023-04-20 18:10:00 16 /min [facility] Body height 2023-04-20 16:24:00 177.8 cm [facility] Body weight 2023-04-20 16:24:00 113.399 kg [facility] BMI 2023-04-20 16:24:00 35.87 kg/m2 [facility] Heart Rate 2019-10-04 15:38:00 [facility] [place] Respitory Rate 2019-10-04 15:38:00 Memori al [place] Systolic (mm Hg) 2019-10-04 15:38:00 Azar rial [place] Diastolic (mm Hg) 2019-10-04 15:38:00 Mem orial [place] Temperature Oral (F) 2019-10-04 07:32:00 98.9 F [facility] [place] Heart Rate 2019-10-04 07:32:00 [facility] [place] Respitory Rate 2019-10-04 07:32:00 Memori al [place] Systolic (mm Hg) 2019-10-04 07:32:00 Azar rial [place] Diastolic (mm Hg) 2019-10-04 07:32:00 Mem orial [place] Systolic (mm Hg) 2019-10-04 02:45:00 Azar rial [place] Diastolic (mm Hg) 2019-10-04 02:45:00 Mem orial [place] Respitory Rate 2019-10-04 02:45:00 Mimiori al [place] Heart Rate 2019-10-04 02:45:00 [facility] [place] Temperature Oral (F) 2019-10-04 01:34:00 98.1 F [facility] [place] Weight 2019-10-04 01:34:00 [facility] [place] Procedures Procedure Date / Time Performing Clinician Source Performed LIPASE 2023-04-20 16:48:00 Dulce Gomez [facility] HEPATIC FUNCTION PANEL 2023-04-20 16:48:00 Dulce Gomez [facility] ([id number]) (ALB,T.PRO,BILI [facility] Branch T,BU/BC,ALT,AST,ALK PHOS) BASIC METABOLIC PANEL 2023-04-20 16:48:00 Dulce Gomez [facility] (NA, K, CL, CO2, Medical Branch GLUCOSE, BUN, CREATININE, CA) CBC WITH DIFF 2023-04-20 16:48:00 [facility] URINALYSIS 2023-04-20 16:48:00 Ramon, [facility] URINE DRUG (IMMUNOASSAY) 2023-04-20 16:48:00 Dulce Gomez [facility] DRUG Medical [facility] SCREEN W/O REFLEX CONSENT/REFUSAL FOR 2023-04-20 16:16:26 Doctor Unassigned, No Un [facility] DIAGNOSIS AND TREATMENT Name Medical Branch Plan of Care Planned Activity Planned Date Details Comments Source Future Scheduled 2023-05-31 [facility] (#1) [code = COVID-19 VACCINE (#1)] Future Scheduled 2023-05-31 INFLUENZA VACCINE Method [facility] Test 23:51:56 (#1) [code = INFLUENZA VACCINE (#1)] Future Scheduled 2023-05-06 COVID-19 VACCINE Methodi [facility] Test 11:37:25 (#1) [code = COVID-19 VACCINE (#1)] Future Scheduled 2023-05-06 INFLUENZA VACCINE Method [facility] Test 11:37:25 [code = INFLUENZA VACCINE] Future Scheduled 2023-05-06 COVID-19 VACCINE Methodi [facility] Test 11:37:25 (#1) [code = COVID-19 VACCINE (#1)] Future Scheduled 2023-05-06 INFLUENZA VACCINE Method [facility] Test 11:37:25 [code = INFLUENZA VACCINE] Future Scheduled 2022-10-06 COVID-19 VACCINE Methodi [facility] Test 10:29:53 (#1) [code = COVID-19 VACCINE (#1)] Future Scheduled 2022-10-06 INFLUENZA VACCINE Method [facility] Test 10:29:53 [code = INFLUENZA VACCINE] Future Scheduled 2022-10-06 COVID-19 VACCINE Methodi [facility] Test 10:29:53 (#1) [code = COVID-19 VACCINE (#1)] Future Scheduled 2022-10-06 INFLUENZA VACCINE Method [facility] Test 10:29:53 [code = INFLUENZA VACCINE] Future Scheduled 2022-10-06 COVID-19 VACCINE Methodi [facility] Test 10:29:53 (#1) [code = COVID-19 VACCINE (#1)] Future Scheduled 2022-10-06 INFLUENZA VACCINE Method [facility] Test 10:29:53 [code = INFLUENZA VACCINE] Encounters Start End Encounter Admission Attending Care Care Encounter Source Date/Time Date/Time Type Type Clinicians Facility Department ID 2023-04-20 2023-04-20 [id number] Univers 11:26:00 13:27:00 DULCE parisi of [facility] 2023-04-20 2023-04-20 Emergency [facility] [id number] Univers 11:26:00 13:27:00 Dulce MARY [id number] heather sanchez [place] [id number] [facility] [id number] [place] [id number] Branch 2019-10-04 2019-10-04 Emergency [facility] [id number] Memoria 01:16:42 16:09:00 r [place] 00 l [facility] 2019-10-04 2019-10-04 Emergency [facility] [id number] Memoria 01:16:42 16:09:00 r [place] 00 l [facility] 2019-10-03 2019-10-04 Outpatient [place], [place] [id number] 19:16:42 10:09:00 Donna 00 [place] 2019-10-03 2019-10-04 Emergency E [place], MHBL MHBL 7500 MHBL 19:16:00 10:09:00 DONNA Results Test Description Test Time Test Comments Results Result Comments Source DRUG SCREEN 2019-10-04 03:20:00 Test Item Value Reference Range Interpretation Comme nts U Cannab Scr (test code = U Cannab Scr) Negative *NA*(10/03/19 9:20 P M) [facility] [id number] 03:20:00 Test Item Value Reference Range Interpretation Comments U Opiate Scr (test Negative *NA*(10/03/19 code = U Opiate Scr) 9:20 PM) [facility] [id number] 03:20:00 Test Item Value Reference Range Interpretation Comments U Phencyclidine Scr (test Negative *NA*(10/03/19 code = U Phencyclidine 9:20 PM) Scr) [facility] [id number] 03:20:00 Test Item Value Reference Range Interpretation Comments U Amph Scr (test code Negative *NA*(10/03/19 = U Amph Scr) 9:20 PM[facility] [id number] 03:20:00 Test Item Value Reference Range Interpretation Comments U Dede Scr (test code Negative *NA*(10/03/19 = U Dede Scr) 9:20 PM) [facility] [id number] 03:20:00 Test Item Value Reference Range Interpretation Comments U Benzodiaz Scr (test Negative *NA*(10/03/19 code = U Benzodiaz Scr) 9:20 PM) [facility] [id number] 03:20:00 Test Item Value Reference Range Interpretation Comments U Cocaine Scr (test Negative *NA*(10/03/19 code = U Cocaine Scr) 9:20 PM) [facility] [id number] 03:20:00 Test Item Value Reference Range Interpretation Comments U Cannab Scr (test Negative *NA*(10/03/19 code = U Cannab Scr) 9:20 PM) [facility] [id number] 03:20:00 Test Item Value Reference Range Interpretation Comments U Opiate Scr (test Negative *NA*(10/03/19 code = U Opiate Scr) 9:20 PM) [facility] [id number] 03:20:00 Test Item Value Reference Range Interpretation Comments U Phencyclidine Scr (test Negative *NA*(10/03/19 code = U Phencyclidine 9:20 PM) Scr) [facility] [id number] 03:20:00 Test Item Value Reference Range Interpretation Comments UDS Note (test code = See Note *NA*(10/03/19 UDS Note) 9:20 PM) [facility] [id number] 03:20:00 Test Item Value Reference Range Interpretation Comments UDS Note (test code = See Note *NA*(10/03/19 UDS Note) 9:20 PM) [facility] [id number] 03:20:00 Test Item Value Reference Range Interpretation Comments U Amph Scr (test code Negative *NA*(10/03/19 = U Amph Scr) 9:20 PM) [facility] [id number] 03:20:00 Test Item Value Reference Range Interpretation Comments U Dede Scr (test code Negative *NA*(10/03/19 = U Dede Scr) 9:20 PM) [facility] [id number] 03:20:00 Test Item Value Reference Range Interpretation Comments U Benzodiaz Scr (test Negative *NA*(10/03/19 code = U Benzodiaz Scr) 9:20 PM) [facility] [id number] 03:20:00 Test Item Value Reference Range Interpretation Comments U Cocaine Scr (test Negative *NA*(10/03/19 code = U Cocaine Scr) 9:20 PM) [facility] [id number] 03:20:00 Test Item Value Reference Range Interpretation Comments U Cannab Scr (test Negative *NA*(10/03/19 code = U Cannab Scr) 9:20 PM) [facility] [id number] 03:20:00 Test Item Value Reference Range Interpretation Comments U Opiate Scr (test Negative *NA*(10/03/19 code = U Opiate Scr) 9:20 PM) [facility] [id number] 03:20:00 Test Item Value Reference Range Interpretation Comments U Phencyclidine Scr (test Negative *NA*(10/03/19 code = U Phencyclidine 9:20 PM) Scr) [facility] [id number] 03:20:00 Test Item Value Reference Range Interpretation Comments UDS Note (test code = See Note *NA*(10/03/19 UDS Note) 9:20 PM) [facility] [id number] 03:20:00 Test Item Value Reference Range Interpretation Comments U Amph Scr (test code Negative *NA*(10/03/19 = U Amph Scr) 9:20 PM) [facility] [id number] 03:20:00 Test Item Value Reference Range Interpretation Comments U Dede Scr (test code Negative *NA*(10/03/19 = U Dede Scr) 9:20 PM) [facility] [id number] 03:20:00 Test Item Value Reference Range Interpretation Comments U Benzodiaz Scr (test Negative *NA*(10/03/19 code = U Benzodiaz Scr) 9:20 PM) [facility] [id number] 03:20:00 Test Item Value Reference Range Interpretation Comments U Cocaine Scr (test Negative *NA*(10/03/19 code = U Cocaine Scr) 9:20 PM) [facility] [id number] 03:20:00 Test Item Value Reference Range Interpretation Comments U Cannab Scr (test Negative *NA*(10/03/19 code = U Cannab Scr) 9:20 PM) [facility] [id number] 03:20:00 Test Item Value Reference Range Interpretation Comments U Opiate Scr (test Negative *NA*(10/03/19 code = U Opiate Scr) 9:20 PM) [facility] [id number] 03:20:00 Test Item Value Reference Range Interpretation Comments U Phencyclidine Scr (test Negative *NA*(10/03/19 code = U Phencyclidine 9:20 PM) Scr) [facility] [id number] 03:20:00 Test Item Value Reference Range Interpretation Comments UDS Note (test code = See Note *NA*(10/03/19 UDS Note) 9:20 PM) [facility] [id number] 03:20:00 Test Item Value Reference Range Interpretation Comments U Amph Scr (test code Negative *NA*(10/03/19 = U Amph Scr) 9:20 PM) [facility] [id number] 03:20:00 Test Item Value Reference Range Interpretation Comments U Dede Scr (test code Negative *NA*(10/03/19 = U Dede Scr) 9:20 PM) [facility] [id number] 03:20:00 Test Item Value Reference Range Interpretation Comments U Benzodiaz Scr (test Negative *NA*(10/03/19 code = U Benzodiaz Scr) 9:20 PM) [facility] [id number] 03:20:00 Test Item Value Reference Range Interpretation Comments U Cocaine Scr (test Negative *NA*(10/03/19 code = U Cocaine Scr) 9:20 PM) [facility] [id number] 03:20:00 Test Item Value Reference Range Interpretation Comments U Cannab Scr (test Negative *NA*(10/03/19 code = U Cannab Scr) 9:20 PM) [facility] [id number] 03:20:00 Test Item Value Reference Range Interpretation Comments U Opiate Scr (test Negative *NA*(10/03/19 code = U Opiate Scr) 9:20 PM) [facility] [id number] 03:20:00 Test Item Value Reference Range Interpretation Comments U Phencyclidine Scr (test Negative *NA*(10/03/19 code = U Phencyclidine 9:20 PM) Scr) [facility] [id number] 03:20:00 Test Item Value Reference Range Interpretation Comments UDS Note (test code = See Note *NA*(10/03/19 UDS Note) 9:20 PM) [facility] [id number] 03:20:00 Test Item Value Reference Range Interpretation Comments U Amph Scr (test code Negative *NA*(10/03/19 = U Amph Scr) 9:20 PM) [facility] [id number] 03:20:00 Test Item Value Reference Range Interpretation Comments U Dede Scr (test code Negative *NA*(10/03/19 = U Dede Scr) 9:20 PM) [facility] [id number] 03:20:00 Test Item Value Reference Range Interpretation Comments U Amph Scr (test code Negative *NA*(10/03/19 = U Amph Scr) 9:20 PM) [facility] [id number] 03:20:00 Test Item Value Reference Range Interpretation Comments U Dede Scr (test code Negative *NA*(10/03/19 = U Dede Scr) 9:20 PM) [facility] [id number] 03:20:00 Test Item Value Reference Range Interpretation Comments U Benzodiaz Scr (test Negative *NA*(10/03/19 code = U Benzodiaz Scr) 9:20 PM) [facility] [id number] 03:20:00 Test Item Value Reference Range Interpretation Comments U Cocaine Scr (test Negative *NA*(10/03/19 code = U Cocaine Scr) 9:20 PM) [facility] [id number] 03:20:00 Test Item Value Reference Range Interpretation Comments U Cannab Scr (test Negative *NA*(10/03/19 code = U Cannab Scr) 9:20 PM) [facility] [id number] 03:20:00 Test Item Value Reference Range Interpretation Comments U Opiate Scr (test Negative *NA*(10/03/19 code = U Opiate Scr) 9:20 PM) [facility] [id number] 03:20:00 Test Item Value Reference Range Interpretation Comments U Phencyclidine Scr (test Negative *NA*(10/03/19 code = U Phencyclidine 9:20 PM) Scr) [facility] [id number] 03:20:00 Test Item Value Reference Range Interpretation Comments UDS Note (test code = See Note *NA*(10/03/19 UDS Note) 9:20 PM) [facility] [id number] 03:20:00 Test Item Value Reference Range Interpretation Comments U Benzodiaz Scr (test Negative *NA*(10/03/19 code = U Benzodiaz Scr) 9:20 PM) [facility] [id number] 03:20:00 Test Item Value Reference Range Interpretation Comments U Cocaine Scr (test Negative *NA*(10/03/19 code = U Cocaine Scr) 9:20 PM) [facility] [id number] 03:20:00 Test Item Value Reference Range Interpretation Comments U Cocaine Scr (test Negative *NA*(10/03/19 code = U Cocaine Scr) 9:20 PM) [facility] [id number] 03:20:00 Test Item Value Reference Range Interpretation Comments U Cannab Scr (test Negative *NA*(10/03/19 code = U Cannab Scr) 9:20 PM) [facility] [id number] 03:20:00 Test Item Value Reference Range Interpretation Comments U Opiate Scr (test Negative *NA*(10/03/19 code = U Opiate Scr) 9:20 PM) [facility] [id number] 03:20:00 Test Item Value Reference Range Interpretation Comments U Phencyclidine Scr (test Negative *NA*(10/03/19 code = U Phencyclidine 9:20 PM) Scr) [facility] [id number] 03:20:00 Test Item Value Reference Range Interpretation Comments UDS Note (test code = See Note *NA*(10/03/19 UDS Note) 9:20 PM) [facility] [id number] 03:20:00 Test Item Value Reference Range Interpretation Comments U Amph Scr (test code Negative *NA*(10/03/19 = U Amph Scr) 9:20 PM) [facility] [id number] 03:20:00 Test Item Value Reference Range Interpretation Comments U Dede Scr (test code Negative *NA*(10/03/19 = U Dede Scr) 9:20 PM) [facility] [id number] 03:20:00 Test Item Value Reference Range Interpretation Comments U Benzodiaz Scr (test Negative *NA*(10/03/19 code = U Benzodiaz Scr) 9:20 PM) [facility] [id number] 03:11:00 Test Item Value Reference Range Interpretation Comments Hgb (test code = Hgb) 14.3 14.0-18.0 Memorial [id number] 03:11:00 Test Item Value Reference Range Interpretation Comments Hct (test code = Hct) 41.9 42.0-54.0 [facility] [id number] 03:11:00 Test Item Value Reference Range Interpretation Comments MCV (test code = MCV) 83.8 80.0-94.0 [facility] [id number] 03:11:00 Test Item Value Reference Range Interpretation Comments MCH (test code = MCH) 28.6 pg 27.0-31.0 [facility] [id number] 03:11:00 Test Item Value Reference Range Interpretation Comments MCHC (test code = MCHC) 34.1 32.0-36.0 [facility] [id number] 03:11:00 Test Item Value Reference Range Interpretation Comments RDW (test code = RDW) 13.8 11.5-14.5 [facility] [id number] 03:11:00 Test Item Value Reference Range Interpretation Comments Platelet (test code = Platelet) 297 133-450 [facility] [id number] 03:11:00 Test Item Value Reference Range Interpretation Comments MPV (test code = MPV) 7.9 7.4-10.4 [facility] [id number] 03:11:00 Test Item Value Reference Range Interpretation Comments Segs (test code = Segs) 63.8 45.0-75.0 [facility] [id number] 03:11:00 Test Item Value Reference Range Interpretation Comments Lymphocytes (test code = Lymphocytes) 26.9 20.0-40.0 [facility] [id number] 03:11:00 Test Item Value Reference Range Interpretation Comments Monocytes (test code = Monocytes) 8.5 2.0-12.0 [facility] [id number] 03:11:00 Test Item Value Reference Range Interpretation Comments Eosinophils (test code = 0.4 See_Comment [A utomated message] The Eosinophils) system which ge nerated this result tra nsmitted reference range : <=4.0. The reference r carin was not used to int erpret this result as normal/abnormal . [facility] [id number] 03:11:00 Test Item Value Reference Range Interpretation Comments Basophils (test code = 0.4 See_Comment [Aut omated message] The Basophils) system which ge nerated this result tra nsmitted reference range : <=1.0. The reference r carin was not used to int erpret this result as normal/abnormal . [facility] H[id number] 03:11:00 Test Item Value Reference Range Interpretation Comments Neutrophils # (test code = Neutrophils 6.8 1.5-8.1 #) [facility] HospitalJscxsirGPJQCSFLIX1074-95-24 03:11:00 Test Item Value Reference Range Interpretation Comments Lymphocytes # (test code = Lymphocytes 2.9 1.0-5.5 #) [facility] HospitalZqozrutRADTJHQHXC5674-66-65 03:11:00 Test Item Value Reference Range Interpretation Comments Monocytes # (test code 0.9 See_Comment [Aut omated message] The = Monocytes #) system which generated this result tra nsmitted reference range : <=0.8. The reference r carin was not used to int erpret this result as normal/abnormal . [facility] SystemMofjizmIMHFUIKLOW6011-26-80 03:11:00 Test Item Value Reference Range Interpretation Comments Acetaminoph Lvl (test code = (10/03/19 9:11 PM) 10-20 Acetaminoph Lvl) [place] [id number] 03:11:00 Test Item Value Reference Range Interpretation Comments Ethanol Lvl (test code = Ethanol Lvl) no gt [place] [id number] 03:11:00 Test Item Value Reference Range Interpretation Comments Etoh (%) (test code = Etoh (%)) no gt [facility] HospitalCijpberYKPXRTQKOG4332-47-95 03:11:00 Test Item Value Reference Range Interpretation Comments Salicylate Lvl (test no gt See_Comment [Autom ated message] The code = Salicylate Lvl) syste m which generated this result tra nsmitted reference range : <=30.0. The reference r carin was not used to int erpret this result as normal/abnormal . [facility] [place] [id number] 03:11:00 Test Item Value Reference Range Interpretation Comments Glucose Lvl (test code = Glucose Lvl) 91 70-99 [facility] [id number] 03:11:00 Test Item Value Reference Range Interpretation Comments BUN (test code = BUN) 14 7-22 [place] 463930-01-09 03:11:00 Test Item Value Reference Range Interpretation Comments Creatinine Lvl (test code = Creatinine 1.10 0.50-1.40 Lvl) [place] 463930-01-09 03:11:00 Test Item Value Reference Range Interpretation Comments Sodium Lvl (test code = Sodium Lvl) 140 135-145 [place] 463930-01-09 03:11:00 Test Item Value Reference Range Interpretation Comments Potassium Lvl (test code = Potassium 3.8 3.5-5.1 Lvl) [place] 463930-01-09 03:11:00 Test Item Value Reference Range Interpretation Comments Chloride Lvl (test code = Chloride Lvl) 105 95-109 [place] 463930-01-09 03:11:00 Test Item Value Reference Range Interpretation Comments CO2 (test code = CO2) 27 24-32 [place] 463930-01-09 03:11:00 Test Item Value Reference Range Interpretation Comments Calcium Lvl (test code = Calcium Lvl) 9.5 8.5-10.5 [place] 463930-01-09 03:11:00 Test Item Value Reference Range Interpretation Comments Total Protein (test code = Total 7.5 6.4-8.4 Protein) [place] 463930-01-09 03:11:00 Test Item Value Reference Range Interpretation Comments Albumin Lvl (test code = Albumin Lvl) 4.2 3.5-5.0 [place] 463930-01-09 03:11:00 Test Item Value Reference Range Interpretation Comments ALT (test code = ALT) 25 See_Comment [Auto mated message] The system which ge nerated this result transmit mark reference range : <=65. The reference range was not used to interpr et this result as melinda l/abnormal. [place] 463930-01-09 03:11:00 Test Item Value Reference Range Interpretation Comments Glucose Lvl (test code = Glucose Lvl) 91 70-99 [place] 463930-01-09 03:11:00 Test Item Value Reference Range Interpretation Comments AST (test code = AST) 13 See_Comment [Auto mated message] The system which ge nerated this result transmit mark reference range : <=37. The reference range was not used to interpr et this result as melinda l/abnormal. [facility] [id number] 03:11:00 Test Item Value Reference Range Interpretation Comments Alk Phos (test code = Alk Phos) 74 39-136 [facility] HospitalClearway Technology PartnersJOHN [place] [id number] 03:11:00 Test Item Value Reference Range Interpretation Comments Bili Total (test code = Bili Total) 0.5 0.2-1.3 [facility] [id number] 03:11:00 Test Item Value Reference Range Interpretation Comments eGFR (test code = eGFR) 93 [facility]2020-01-09 03:11:00 Test Item Value Reference Range Interpretation Comments AGAP (test code = AGAP) 11.8 10.0-20.0 [facility] [id number] 03:11:00 Test Item Value Reference Range Interpretation Comments B/C Ratio (test code = B/C Ratio) 13 1 6-25 [facility] [id number] 03:11:00 Test Item Value Reference Range Interpretation Comments Globulin (test code = Globulin) 3.3 2.7-4.2 [facility] [id number] 03:11:00 Test Item Value Reference Range Interpretation Comments A/G Ratio (test code = A/G Ratio) 1.3 1 0.7-1.6 [place] [id number] 03:11:00 Test Item Value Reference Range Interpretation Comments WBC (test code = WBC) 10.6 3.7-10.4 [place] [id number] 03:11:00 Test Item Value Reference Range Interpretation Comments RBC (test code = RBC) 4.99 4.70-6.10 [facility] [id number] 03:11:00 Test Item Value Reference Range Interpretation Comments BUN (test code = BUN) 14 7-22 [facility] HospitalCtjvjviTJOGBTCFFC5146-24-34 03:11:00 Test Item Value Reference Range Interpretation Comments Hgb (test code = Hgb) 14.3 14.0-18.0 [facility] SystemRscjybiQTSHKXQOBH8814-38-36 03:11:00 Test Item Value Reference Range Interpretation Comments Hct (test code = Hct) 41.9 42.0-54.0 [facility] HospitalGglshzgWDJUYYWFPQ5287-17-73 03:11:00 Test Item Value Reference Range Interpretation Comments MCV (test code = MCV) 83.8 80.0-94.0 [facility] HospitalIpqnshzUVFQQPLVDQ9886-72-94 03:11:00 Test Item Value Reference Range Interpretation Comments MCH (test code = MCH) 28.6 pg 27.0-31.0 [facility] HospitalBvvoovqNYHXADXLAS3436-49-56 03:11:00 Test Item Value Reference Range Interpretation Comments MCHC (test code = MCHC) 34.1 32.0-36.0 [facility] HospitalHocmartCEGGXSLJXV8614-57-47 03:11:00 Test Item Value Reference Range Interpretation Comments RDW (test code = RDW) 13.8 11.5-14.5 [facility] SystemQfgabgxTMAYNEIVMG8731-91-10 03:11:00 Test Item Value Reference Range Interpretation Comments Platelet (test code = Platelet) 297 133-450 [facility] HospitalUrtqbdrMNRFDFXZLN0680-27-21 03:11:00 Test Item Value Reference Range Interpretation Comments MPV (test code = MPV) 7.9 7.4-10.4 [facility] HospitalCczxyogKZJFFNUSVC6348-88-97 03:11:00 Test Item Value Reference Range Interpretation Comments Segs (test code = Segs) 63.8 45.0-75.0 [facility] SystemZnptobkFZFXFYEESG6774-82-85 03:11:00 Test Item Value Reference Range Interpretation Comments Lymphocytes (test code = Lymphocytes) 26.9 20.0-40.0 [facility] SystemCHEM [id number] 03:11:00 Test Item Value Reference Range Interpretation Comments Creatinine Lvl (test code = Creatinine 1.10 0.50-1.40 Lvl) [facility] SystemYdludjgEPNEZIDQGE7870-34-24 03:11:00 Test Item Value Reference Range Interpretation Comments Monocytes (test code = Monocytes) 8.5 2.0-12.0 [facility] SystemNdvidcdNPIYQEOKEM6342-64-44 03:11:00 Test Item Value Reference Range Interpretation Comments Eosinophils (test code = 0.4 See_Comment [A utomated message] The Eosinophils) system which ge nerated this result tra nsmitted reference range : <=4.0. The reference r carin was not used to int erpret this result as normal/abnormal . [facility] HospitalLfntbvnSLEOXSDEZS2748-95-18 03:11:00 Test Item Value Reference Range Interpretation Comments Basophils (test code = 0.4 See_Comment [Aut omated message] The Basophils) system which ge nerated this result tra nsmitted reference range : <=1.0. The reference r carin was not used to int erpret this result as normal/abnormal . [facility] HospitalToimkxaHQQJBGVOFQ5319-63-90 03:11:00 Test Item Value Reference Range Interpretation Comments Neutrophils # (test code = Neutrophils 6.8 1.5-8.1 #) [facility] HospitalViwyzpgVNUDMPODPA2724-64-56 03:11:00 Test Item Value Reference Range Interpretation Comments Lymphocytes # (test code = Lymphocytes 2.9 1.0-5.5 #) [facility] HospitalBkjmlxvOWAZORSZEA9851-46-25 03:11:00 Test Item Value Reference Range Interpretation Comments Monocytes # (test code 0.9 See_Comment [Aut omated message] The = Monocytes #) system which generated this result tra nsmitted reference range : <=0.8. The reference r carin was not used to int erpret this result as normal/abnormal . [facility] SystemDxuswxlMXZOVPTSPS8041-14-63 03:11:00 Test Item Value Reference Range Interpretation Comments Acetaminoph Lvl (test code = (10/03/19 9:11 PM) 10-20 Acetaminoph Lvl) [facility]YtuqzluHAWJOXVEYN2873-25-20 03:11:00 Test Item Value Reference Range Interpretation Comments Ethanol Lvl (test code = Ethanol Lvl) no gt [facility] SystemMaiocyiOTBLFJZWXX8757-13-00 03:11:00 Test Item Value Reference Range Interpretation Comments Etoh (%) (test code = Etoh (%)) no gt [facility] SystemTuvzapoAKZYQTGGZY8046-51-66 03:11:00 Test Item Value Reference Range Interpretation Comments Salicylate Lvl (test no gt See_Comment [Autom ated message] The code = Salicylate Lvl) syste m which generated this result tra nsmitted reference range : <=30.0. The reference r carin was not used to int erpret this result as normal/abnormal . [facility] [id number] 03:11:00 Test Item Value Reference Range Interpretation Comments Sodium Lvl (test code = Sodium Lvl) 140 135-145 [facility]2020-01-09 03:11:00 Test Item Value Reference Range Interpretation Comments Glucose Lvl (test code = Glucose Lvl) 91 70-99 [place] 463930-01-09 03:11:00 Test Item Value Reference Range Interpretation Comments Potassium Lvl (test code = Potassium 3.8 3.5-5.1 Lvl) [place] 463930-01-09 03:11:00 Test Item Value Reference Range Interpretation Comments BUN (test code = BUN) 14 7-22 [place] 463930-01-09 03:11:00 Test Item Value Reference Range Interpretation Comments Creatinine Lvl (test code = Creatinine 1.10 0.50-1.40 Lvl) [place] 463930-01-09 03:11:00 Test Item Value Reference Range Interpretation Comments Sodium Lvl (test code = Sodium Lvl) 140 135-145 [place] 463930-01-09 03:11:00 Test Item Value Reference Range Interpretation Comments Potassium Lvl (test code = Potassium 3.8 3.5-5.1 Lvl) [place] 463930-01-09 03:11:00 Test Item Value Reference Range Interpretation Comments Chloride Lvl (test code = Chloride Lvl) 105 95-109 [place] 463930-01-09 03:11:00 Test Item Value Reference Range Interpretation Comments CO2 (test code = CO2) 27 24-32 [place] 463930-01-09 03:11:00 Test Item Value Reference Range Interpretation Comments Calcium Lvl (test code = Calcium Lvl) 9.5 8.5-10.5 [place] 463930-01-09 03:11:00 Test Item Value Reference Range Interpretation Comments Total Protein (test code = Total 7.5 6.4-8.4 Protein) [place] 463930-01-09 03:11:00 Test Item Value Reference Range Interpretation Comments Albumin Lvl (test code = Albumin Lvl) 4.2 3.5-5.0 [place] 463930-01-09 03:11:00 Test Item Value Reference Range Interpretation Comments ALT (test code = ALT) 25 See_Comment [Auto mated message] The system which ge nerated this result transmit mark reference range : <=65. The reference range was not used to interpr et this result as melinda l/abnormal. [facility] [id number] 03:11:00 Test Item Value Reference Range Interpretation Comments Chloride Lvl (test code = Chloride Lvl) 105 95-109 [facility] [id number] 03:11:00 Test Item Value Reference Range Interpretation Comments AST (test code = AST) 13 See_Comment [Auto mated message] The system which ge nerated this result transmit mark reference range : <=37. The reference range was not used to interpr et this result as melinda l/abnormal. [facility] [id number] 03:11:00 Test Item Value Reference Range Interpretation Comments Alk Phos (test code = Alk Phos) 74 39-136 [facility] [id number] 03:11:00 Test Item Value Reference Range Interpretation Comments Bili Total (test code = Bili Total) 0.5 0.2-1.3 [facility] [id number] 03:11:00 Test Item Value Reference Range Interpretation Comments eGFR (test code = eGFR) 93 [facility] [id number] 03:11:00 Test Item Value Reference Range Interpretation Comments AGAP (test code = AGAP) 11.8 10.0-20.0 [facility] [id number] 03:11:00 Test Item Value Reference Range Interpretation Comments B/C Ratio (test code = B/C Ratio) 13 1 6-25 [facility] [id number] 03:11:00 Test Item Value Reference Range Interpretation Comments Globulin (test code = Globulin) 3.3 2.7-4.2 [facility] [id number] 03:11:00 Test Item Value Reference Range Interpretation Comments A/G Ratio (test code = A/G Ratio) 1.3 1 0.7-1.6 [facility] SystemKfjtjomIADKPOGMHK4475-28-83 03:11:00 Test Item Value Reference Range Interpretation Comments WBC (test code = WBC) 10.6 3.7-10.4 [facility] SystemVyowdcfOJABMQYFDU2770-73-63 03:11:00 Test Item Value Reference Range Interpretation Comments RBC (test code = RBC) 4.99 4.70-6.10 [facility]2020-01-09 03:11:00 Test Item Value Reference Range Interpretation Comments CO2 (test code = CO2) 27 24-32 [facility] HospitalPugbhvaINVKYSCIBA3506-38-62 03:11:00 Test Item Value Reference Range Interpretation Comments Hgb (test code = Hgb) 14.3 14.0-18.0 [facility] HospitalEqwrkfeYGDKITDAKU8440-53-44 03:11:00 Test Item Value Reference Range Interpretation Comments Hct (test code = Hct) 41.9 42.0-54.0 [facility] HospitalFtixybkDEIZEGBXKH7349-22-79 03:11:00 Test Item Value Reference Range Interpretation Comments MCV (test code = MCV) 83.8 80.0-94.0 [facility] HospitalWthsvpfKVXZDYQSTN6336-44-13 03:11:00 Test Item Value Reference Range Interpretation Comments MCH (test code = MCH) 28.6 pg 27.0-31.0 [facility] HospitalUcxmlymLSNHTIOSTG3326-36-95 03:11:00 Test Item Value Reference Range Interpretation Comments MCHC (test code = MCHC) 34.1 32.0-36.0 [facility] HospitalKdeyrfhDTTEFRAEOC0264-93-98 03:11:00 Test Item Value Reference Range Interpretation Comments RDW (test code = RDW) 13.8 11.5-14.5 [facility] HospitalUeypjqtMRNXKMQHBX9879-49-91 03:11:00 Test Item Value Reference Range Interpretation Comments Platelet (test code = Platelet) 297 133-450 [facility] HospitalFqjwyfgIPGHAOPIRD9755-14-83 03:11:00 Test Item Value Reference Range Interpretation Comments MPV (test code = MPV) 7.9 7.4-10.4 [facility] HospitalLwxdazpHUZIIIIVHA6451-52-29 03:11:00 Test Item Value Reference Range Interpretation Comments Segs (test code = Segs) 63.8 45.0-75.0 [facility] HospitalQasnjvfWEBVPPFCQK9887-55-26 03:11:00 Test Item Value Reference Range Interpretation Comments Lymphocytes (test code = Lymphocytes) 26.9 20.0-40.0 [facility]2020-01-09 03:11:00 Test Item Value Reference Range Interpretation Comments Calcium Lvl (test code = Calcium Lvl) 9.5 8.5-10.5 [facility] HospitalVbwhbciMBRWLJIPFF1384-39-22 03:11:00 Test Item Value Reference Range Interpretation Comments Monocytes (test code = Monocytes) 8.5 2.0-12.0 [facility] HospitalZrvfttgPQQJSBPUGO2070-86-58 03:11:00 Test Item Value Reference Range Interpretation Comments Eosinophils (test code = 0.4 See_Comment [A utomated message] The Eosinophils) system which ge nerated this result tra nsmitted reference range : <=4.0. The reference r carin was not used to int erpret this result as normal/abnormal . [facility] HospitalUwgdhchZNRZIQKAJF3227-14-98 03:11:00 Test Item Value Reference Range Interpretation Comments Basophils (test code = 0.4 See_Comment [Aut omated message] The Basophils) system which ge nerated this result tra nsmitted reference range : <=1.0. The reference r carin was not used to int erpret this result as normal/abnormal . [facility] HospitalWugesdtJOLDYEIZMR1910-49-32 03:11:00 Test Item Value Reference Range Interpretation Comments Neutrophils # (test code = Neutrophils 6.8 1.5-8.1 #) [facility] HospitalLssrcloATFSDONSKU6886-29-76 03:11:00 Test Item Value Reference Range Interpretation Comments Lymphocytes # (test code = Lymphocytes 2.9 1.0-5.5 #) [facility] HospitalPrixehrHJVDTHPMFO9952-76-66 03:11:00 Test Item Value Reference Range Interpretation Comments Monocytes # (test code 0.9 See_Comment [Aut omated message] The = Monocytes #) system which generated this result tra nsmitted reference range : <=0.8. The reference r carin was not used to int erpret this result as normal/abnormal . [place] [id number] 03:11:00 Test Item Value Reference Range Interpretation Comments Acetaminoph Lvl (test code = (10/03/19 9:11 PM) 10-20 Acetaminoph Lvl) [place] [id number] 03:11:00 Test Item Value Reference Range Interpretation Comments Ethanol Lvl (test code = Ethanol Lvl) no gt [place] [id number] 03:11:00 Test Item Value Reference Range Interpretation Comments Etoh (%) (test code = Etoh (%)) no gt [place] [id number] 03:11:00 Test Item Value Reference Range Interpretation Comments Salicylate Lvl (test no gt See_Comment [Autom ated message] The code = Salicylate Lvl) syste m which generated this result tra nsmitted reference range : <=30.0. The reference r carin was not used to int erpret this result as normal/abnormal . [facility] [id number] 03:11:00 Test Item Value Reference Range Interpretation Comments Total Protein (test code = Total 7.5 6.4-8.4 Protein) [facility] [id number] 03:11:00 Test Item Value Reference Range Interpretation Comments Albumin Lvl (test code = Albumin Lvl) 4.2 3.5-5.0 [place] 463930-01-09 03:11:00 Test Item Value Reference Range Interpretation Comments Glucose Lvl (test code = Glucose Lvl) 91 70-99 [facility] [id number] 03:11:00 Test Item Value Reference Range Interpretation Comments BUN (test code = BUN) 14 7-22 [facility] [id number] 03:11:00 Test Item Value Reference Range Interpretation Comments Creatinine Lvl (test code = Creatinine 1.10 0.50-1.40 Lvl) [facility]2020-01-09 03:11:00 Test Item Value Reference Range Interpretation Comments Sodium Lvl (test code = Sodium Lvl) 140 135-145 [facility]2020-01-09 03:11:00 Test Item Value Reference Range Interpretation Comments Potassium Lvl (test code = Potassium 3.8 3.5-5.1 Lvl) [facility] [id number] 03:11:00 Test Item Value Reference Range Interpretation Comments Chloride Lvl (test code = Chloride Lvl) 105 95-109 [facility] [id number] 03:11:00 Test Item Value Reference Range Interpretation Comments CO2 (test code = CO2) 27 24-32 [place] 463930-01-09 03:11:00 Test Item Value Reference Range Interpretation Comments Calcium Lvl (test code = Calcium Lvl) 9.5 8.5-10.5 [facility] [id number] 03:11:00 Test Item Value Reference Range Interpretation Comments Total Protein (test code = Total 7.5 6.4-8.4 Protein) [facility] [id number] 03:11:00 Test Item Value Reference Range Interpretation Comments Albumin Lvl (test code = Albumin Lvl) 4.2 3.5-5.0 [place] 463930-01-09 03:11:00 Test Item Value Reference Range Interpretation Comments ALT (test code = ALT) 25 See_Comment [Auto mated message] The system which ge nerated this result transmit mark reference range : <=65. The reference range was not used to interpr et this result as melinda l/abnormal. [facility] [id number] 03:11:00 Test Item Value Reference Range Interpretation Comments ALT (test code = ALT) 25 See_Comment [Auto mated message] The system which ge nerated this result transmit mark reference range : <=65. The reference range was not used to interpr et this result as melinda l/abnormal. [facility] [id number] 03:11:00 Test Item Value Reference Range Interpretation Comments AST (test code = AST) 13 See_Comment [Auto mated message] The system which ge nerated this result transmit mark reference range : <=37. The reference range was not used to interpr et this result as melinda l/abnormal. [facility] [id number] 03:11:00 Test Item Value Reference Range Interpretation Comments Alk Phos (test code = Alk Phos) 74 39-136 [facility] [id number] 03:11:00 Test Item Value Reference Range Interpretation Comments Bili Total (test code = Bili Total) 0.5 0.2-1.3 [facility] [id number] 03:11:00 Test Item Value Reference Range Interpretation Comments eGFR (test code = eGFR) 93 [facility] [id number] 03:11:00 Test Item Value Reference Range Interpretation Comments AGAP (test code = AGAP) 11.8 10.0-20.0 [facility] [id number] 03:11:00 Test Item Value Reference Range Interpretation Comments B/C Ratio (test code = B/C Ratio) 13 1 6-25 [facility] [id number] 03:11:00 Test Item Value Reference Range Interpretation Comments Globulin (test code = Globulin) 3.3 2.7-4.2 [facility] [id number] 03:11:00 Test Item Value Reference Range Interpretation Comments A/G Ratio (test code = A/G Ratio) 1.3 1 0.7-1.6 [facility] HospitalEtcllwaECIJANDUJF1032-45-39 03:11:00 Test Item Value Reference Range Interpretation Comments WBC (test code = WBC) 10.6 3.7-10.4 [facility] [id number] 03:11:00 Test Item Value Reference Range Interpretation Comments AST (test code = AST) 13 See_Comment [Auto mated message] The system which ge nerated this result transmit mark reference range : <=37. The reference range was not used to interpr et this result as melinda l/abnormal. [facility] HospitalJteqcjaTOYVOCXZQH8100-43-32 03:11:00 Test Item Value Reference Range Interpretation Comments RBC (test code = RBC) 4.99 4.70-6.10 [facility] SystemYduczebDIDULJUFDC5459-50-66 03:11:00 Test Item Value Reference Range Interpretation Comments Hgb (test code = Hgb) 14.3 14.0-18.0 [facility] HospitalRargwlnJVNUIDUUYH7764-68-98 03:11:00 Test Item Value Reference Range Interpretation Comments Hct (test code = Hct) 41.9 42.0-54.0 [facility] HospitalQwyrppyLVDAXPSFYS1047-06-90 03:11:00 Test Item Value Reference Range Interpretation Comments MCV (test code = MCV) 83.8 80.0-94.0 [facility] HospitalRbbrkqfFCRXYTIKHQ6039-39-80 03:11:00 Test Item Value Reference Range Interpretation Comments MCH (test code = MCH) 28.6 pg 27.0-31.0 [facility] HospitalQxglzqsPHKGOWZCCA5110-12-74 03:11:00 Test Item Value Reference Range Interpretation Comments MCHC (test code = MCHC) 34.1 32.0-36.0 [facility] H[id number] 03:11:00 Test Item Value Reference Range Interpretation Comments RDW (test code = RDW) 13.8 11.5-14.5 [facility] HospitalJlxdvylQTOWWBLIGR4951-17-08 03:11:00 Test Item Value Reference Range Interpretation Comments Platelet (test code = Platelet) 297 133-450 [facility] HospitalZwgolwaFWLQOWKZWH4532-10-13 03:11:00 Test Item Value Reference Range Interpretation Comments MPV (test code = MPV) 7.9 7.4-10.4 [facility] HospitalZipmzyxPZZTABZXAV3754-77-76 03:11:00 Test Item Value Reference Range Interpretation Comments Segs (test code = Segs) 63.8 45.0-75.0 [facility]2020-01-09 03:11:00 Test Item Value Reference Range Interpretation Comments Alk Phos (test code = Alk Phos) 74 39-136 [facility] HospitalByzbopmYNFSHIILWM4840-85-13 03:11:00 Test Item Value Reference Range Interpretation Comments Lymphocytes (test code = Lymphocytes) 26.9 20.0-40.0 [place] [id number] 03:11:00 Test Item Value Reference Range Interpretation Comments Monocytes (test code = Monocytes) 8.5 2.0-12.0 [facility] HospitalUmycfpyAWFKSIEJQF2203-38-87 03:11:00 Test Item Value Reference Range Interpretation Comments Eosinophils (test code = 0.4 See_Comment [A utomated message] The Eosinophils) system which ge nerated this result tra nsmitted reference range : <=4.0. The reference r carin was not used to int erpret this result as normal/abnormal . [facility] HospitalIvtjefiQTIFNYQNKF0736-89-32 03:11:00 Test Item Value Reference Range Interpretation Comments Basophils (test code = 0.4 See_Comment [Aut omated message] The Basophils) system which ge nerated this result tra nsmitted reference range : <=1.0. The reference r carin was not used to int erpret this result as normal/abnormal . [facility] HospitalVxjxlamKWFHJHAWVZ6085-10-57 03:11:00 Test Item Value Reference Range Interpretation Comments Neutrophils # (test code = Neutrophils 6.8 1.5-8.1 #) [place] [id number] 03:11:00 Test Item Value Reference Range Interpretation Comments Lymphocytes # (test code = Lymphocytes 2.9 1.0-5.5 #) [place] 660070-01-09 03:11:00 Test Item Value Reference Range Interpretation Comments Monocytes # (test code 0.9 See_Comment [Aut omated message] The = Monocytes #) system which generated this result tra nsmitted reference range : <=0.8. The reference r carin was not used to int erpret this result as normal/abnormal . [place] [id number] 03:11:00 Test Item Value Reference Range Interpretation Comments Acetaminoph Lvl (test code = (10/03/19 9:11 PM) 10-20 Acetaminoph Lvl) [place] [id number] 03:11:00 Test Item Value Reference Range Interpretation Comments Ethanol Lvl (test code = Ethanol Lvl) no gt [place] [id number] 03:11:00 Test Item Value Reference Range Interpretation Comments Etoh (%) (test code = Etoh (%)) [facility] [id number] 03:11:00 Test Item Value Reference Range Interpretation Comments Bili Total (test code = Bili Total) 0.5 0.2-1.3 [place] [id number] 03:11:00 Test Item Value Reference Range Interpretation Comments Salicylate Lvl (test no gt See_Comment [Autom ated message] The code = Salicylate Lvl) syste m which generated this result tra nsmitted reference range : <=30.0. The reference r carin was not used to int erpret this result as normal/abnormal . [facility] [id number] 03:11:00 Test Item Value Reference Range Interpretation Comments eGFR (test code = eGFR) 93 [facility] [id number] 03:11:00 Test Item Value Reference Range Interpretation Comments Glucose Lvl (test code = Glucose Lvl) 91 70-99 [facility] [id number] 03:11:00 Test Item Value Reference Range Interpretation Comments BUN (test code = BUN) 14 7-22 [facility] [id number] 03:11:00 Test Item Value Reference Range Interpretation Comments Creatinine Lvl (test code = Creatinine 1.10 0.50-1.40 Lvl) [facility]2020-01-09 03:11:00 Test Item Value Reference Range Interpretation Comments Sodium Lvl (test code = Sodium Lvl) 140 135-145 [facility]annC[facility]ITALDCFTP2508-32-10 03:11:00 Test Item Value Reference Range Interpretation Comments Potassium Lvl (test code = Potassium 3.8 3.5-5.1 Lvl) [place] 463930-01-09 03:11:00 Test Item Value Reference Range Interpretation Comments Chloride Lvl (test code = Chloride Lvl) 105 95-109 [place] 463930-01-09 03:11:00 Test Item Value Reference Range Interpretation Comments CO2 (test code = CO2) 27 24-32 [facility] [id number] 03:11:00 Test Item Value Reference Range Interpretation Comments Calcium Lvl (test code = Calcium Lvl) 9.5 8.5-10.5 [facility] [id number] 03:11:00 Test Item Value Reference Range Interpretation Comments Total Protein (test code = Total 7.5 6.4-8.4 Protein) [place] 463930-01-09 03:11:00 Test Item Value Reference Range Interpretation Comments AGAP (test code = AGAP) 11.8 10.0-20.0 [facility] [id number] 03:11:00 Test Item Value Reference Range Interpretation Comments Albumin Lvl (test code = Albumin Lvl) 4.2 3.5-5.0 [facility] [id number] 03:11:00 Test Item Value Reference Range Interpretation Comments ALT (test code = ALT) 25 See_Comment [Auto mated message] The system which ge nerated this result transmit mark reference range : <=65. The reference range was not used to interpr et this result as melinda l/abnormal. [facility] [id number] 03:11:00 Test Item Value Reference Range Interpretation Comments AST (test code = AST) 13 See_Comment [Auto mated message] The system which ge nerated this result transmit mark reference range : <=37. The reference range was not used to interpr et this result as melinda l/abnormal. [facility] [id number] 03:11:00 Test Item Value Reference Range Interpretation Comments Alk Phos (test code = Alk Phos) 74 39-136 [facility] [id number] 03:11:00 Test Item Value Reference Range Interpretation Comments Bili Total (test code = Bili Total) 0.5 0.2-1.3 [facility]2020-01-09 03:11:00 Test Item Value Reference Range Interpretation Comments eGFR (test code = eGFR) 93 [facility]2020-01-09 03:11:00 Test Item Value Reference Range Interpretation Comments AGAP (test code = AGAP) 11.8 10.0-20.0 [facility]2020-01-09 03:11:00 Test Item Value Reference Range Interpretation Comments B/C Ratio (test code = B/C Ratio) 13 1 - [facility] [id number] 03:11:00 Test Item Value Reference Range Interpretation Comments Globulin (test code = Globulin) 3.3 2.7-4.2 [facility]2020-01-09 03:11:00 Test Item Value Reference Range Interpretation Comments A/G Ratio (test code = A/G Ratio) 1.3 1 0.7-1.6 [facility]2020-01-09 03:11:00 Test Item Value Reference Range Interpretation Comments B/C Ratio (test code = B/C Ratio) 13 03-20 [facility] HospitalKihmgqjPPBHJCFWTZ6259-88-43 03:11:00 Test Item Value Reference Range Interpretation Comments WBC (test code = WBC) 10.6 3.7-10.4 [facility] HospitalWacaokjGPXLYQXXDX0412-87-73 03:11:00 Test Item Value Reference Range Interpretation Comments RBC (test code = RBC) 4.99 4.70-6.10 [facility] HospitalBxfuimiTNIQGQWNGE0618-20-84 03:11:00 Test Item Value Reference Range Interpretation Comments Hgb (test code = Hgb) 14.3 14.0-18.0 [place] 660070-01-09 03:11:00 Test Item Value Reference Range Interpretation Comments Hct (test code = Hct) 41.9 42.0-54.0 [facility]ChhllwqBJPUPXBEPZ5948-21-24 03:11:00 Test Item Value Reference Range Interpretation Comments MCV (test code = MCV) 83.8 80.0-94.0 [facility] HospitalBjbgubvONULJLRVNT0074-56-97 03:11:00 Test Item Value Reference Range Interpretation Comments MCH (test code = MCH) 28.6 pg 27.0-31.0 [place] [id number] 03:11:00 Test Item Value Reference Range Interpretation Comments MCHC (test code = MCHC) 34.1 32.0-36.0 [facility] HospitalXkcemacRXSHVIKFYZ6042-13-91 03:11:00 Test Item Value Reference Range Interpretation Comments RDW (test code = RDW) 13.8 11.5-14.5 [facility] SystemJueiyqpOUGNHXGIOA0853-74-26 03:11:00 Test Item Value Reference Range Interpretation Comments Platelet (test code = Platelet) 297 133-450 [facility] HospitalEfweoukCQDDWVCCHF8330-99-57 03:11:00 Test Item Value Reference Range Interpretation Comments MPV (test code = MPV) 7.9 7.4-10.4 [facility]2020-01-09 03:11:00 Test Item Value Reference Range Interpretation Comments Globulin (test code = Globulin) 3.3 2.7-4.2 [facility] HospitalQezxwptTFAVAWXPQF1640-49-55 03:11:00 Test Item Value Reference Range Interpretation Comments Segs (test code = Segs) 63.8 45.0-75.0 [facility] HospitalDedvzczUBGXFIOGHR6055-00-28 03:11:00 Test Item Value Reference Range Interpretation Comments Lymphocytes (test code = Lymphocytes) 26.9 20.0-40.0 [facility] HospitalSengclyGYEDLYBIUB6811-37-49 03:11:00 Test Item Value Reference Range Interpretation Comments Monocytes (test code = Monocytes) 8.5 2.0-12.0 [facility] HospitalWfxjewmXTHYMPPMRW5322-94-67 03:11:00 Test Item Value Reference Range Interpretation Comments Eosinophils (test code = 0.4 See_Comment [A utomated message] The Eosinophils) system which ge nerated this result tra nsmitted reference range : <=4.0. The reference r carin was not used to int erpret this result as normal/abnormal . [facility] HospitalDjuvwblCRZZLGXZEU6471-98-55 03:11:00 Test Item Value Reference Range Interpretation Comments Basophils (test code = 0.4 See_Comment [Aut omated message] The Basophils) system which ge nerated this result tra nsmitted reference range : <=1.0. The reference r carin was not used to int erpret this result as normal/abnormal . [facility] HospitalCqntvriOINSLXDBND7223-27-67 03:11:00 Test Item Value Reference Range Interpretation Comments Neutrophils # (test code = Neutrophils 6.8 1.5-8.1 #) [facility] HospitalFvgsrqpHCDEHCUEMT4105-48-27 03:11:00 Test Item Value Reference Range Interpretation Comments Lymphocytes # (test code = Lymphocytes 2.9 1.0-5.5 #) [facility] HospitalJwelwreZTSAAULYDV4977-02-23 03:11:00 Test Item Value Reference Range Interpretation Comments Monocytes # (test code 0.9 See_Comment [Aut omated message] The = Monocytes #) system which generated this result tra nsmitted reference range : <=0.8. The reference r carin was not used to int erpret this result as normal/abnormal . [place] [id number] 03:11:00 Test Item Value Reference Range Interpretation Comments Acetaminoph Lvl (test code = (10/03/19 9:11 PM) 10-20 Acetaminoph Lvl) [place] [id number] 03:11:00 Test Item Value Reference Range Interpretation Comments Ethanol Lvl (test code = Ethanol Lvl) no gt [facility] [id number] 03:11:00 Test Item Value Reference Range Interpretation Comments A/G Ratio (test code = A/G Ratio) 1.3 1 0.7-1.6 [place] [id number] 03:11:00 Test Item Value Reference Range Interpretation Comments Etoh (%) (test code = Etoh (%)) no gt [place] [id number] 03:11:00 Test Item Value Reference Range Interpretation Comments Salicylate Lvl (test no gt See_Comment [Autom ated message] The code = Salicylate Lvl) syste m which generated this result tra nsmitted reference range : <=30.0. The reference r carin was not used to int erpret this result as normal/abnormal . [facility] HospitalKawcjnzCBIULKNYCR0157-29-25 03:11:00 Test Item Value Reference Range Interpretation Comments WBC (test code = WBC) 10.6 3.7-10.4 [facility] HospitalBkvnaysJWPVONGTSP3746-90-77 03:11:00 Test Item Value Reference Range Interpretation Comments RBC (test code = RBC) 4.99 4.70-6.10 [place] [address]-01-09 03:11:00 Test Item Value Reference Range Interpretation Comments Hgb (test code = Hgb) 14.3 14.0-18.0 [facility] HospitalEeubyfrPSLQGDEGPV8309-13-06 03:11:00 Test Item Value Reference Range Interpretation Comments Hct (test code = Hct) 41.9 42.0-54.0 [facility] HospitalRwfojcrFFSCVTIAZO2687-98-01 03:11:00 Test Item Value Reference Range Interpretation Comments MCV (test code = MCV) 83.8 80.0-94.0 [facility] HospitalAistvdyNWSXVLESOB0801-57-49 03:11:00 Test Item Value Reference Range Interpretation Comments MCH (test code = MCH) 28.6 pg 27.0-31.0 [facility] HospitalEyhmkbaZKQZBQCLLH4371-86-84 03:11:00 Test Item Value Reference Range Interpretation Comments MCHC (test code = MCHC) 34.1 32.0-36.0 [facility] HospitalNvluynmXKLSGTIJPY9186-21-15 03:11:00 Test Item Value Reference Range Interpretation Comments RDW (test code = RDW) 13.8 11.5-14.5 [place] 660070-01-09 03:11:00 Test Item Value Reference Range Interpretation Comments Platelet (test code = Platelet) 297 133-450 [facility] HospitalKdxhgpdZFFSIXXQXJ3017-99-71 03:11:00 Test Item Value Reference Range Interpretation Comments MPV (test code = MPV) 7.9 7.4-10.4 [facility] HospitalGqfjbxoHEJYEBUJYM5992-19-99 03:11:00 Test Item Value Reference Range Interpretation Comments Segs (test code = Segs) 63.8 45.0-75.0 [facility] HospitalToeiikeJOWRQSBHJU1786-45-41 03:11:00 Test Item Value Reference Range Interpretation Comments Lymphocytes (test code = Lymphocytes) 26.9 20.0-40.0 [place] 660070-01-09 03:11:00 Test Item Value Reference Range Interpretation Comments Monocytes (test code = Monocytes) 8.5 2.0-12.0 [place] 660070-01-09 03:11:00 Test Item Value Reference Range Interpretation Comments Eosinophils (test code = 0.4 See_Comment [A utomated message] The Eosinophils) system which ge nerated this result tra nsmitted reference range : <=4.0. The reference r carin was not used to int erpret this result as normal/abnormal . [facility] SystemHopbzanTHRCYIRFTK9515-82-44 03:11:00 Test Item Value Reference Range Interpretation Comments Basophils (test code = 0.4 See_Comment [Aut omated message] The Basophils) system which ge nerated this result tra nsmitted reference range : <=1.0. The reference r carin was not used to int erpret this result as normal/abnormal . [facility] HospitalAbqsughSKFHKYRURP7853-23-63 03:11:00 Test Item Value Reference Range Interpretation Comments Neutrophils # (test code = Neutrophils 6.8 1.5-8.1 #) [facility] HospitalWybymloGRORINUXAF4080-30-63 03:11:00 Test Item Value Reference Range Interpretation Comments Lymphocytes # (test code = Lymphocytes 2.9 1.0-5.5 #) [facility] HospitalJzppdzxCQJJJFNEGA2354-14-07 03:11:00 Test Item Value Reference Range Interpretation Comments Monocytes # (test code 0.9 See_Comment [Aut omated message] The = Monocytes #) system which generated this result tra nsmitted reference range : <=0.8. The reference r carin was not used to int erpret this result as normal/abnormal . [facility] SystemDvgqswwQOJFMARRSX7785-51-40 03:11:00 Test Item Value Reference Range Interpretation Comments Acetaminoph Lvl (test code = (10/03/19 9:11 PM) 10-20 Acetaminoph Lvl) [facility]WelhkttWQNOVGPVRI3799-77-02 03:11:00 Test Item Value Reference Range Interpretation Comments Ethanol Lvl (test code = Ethanol Lvl) no gt [facility] SystemTyzvfaaGBVGCODFUJ7904-88-40 03:11:00 Test Item Value Reference Range Interpretation Comments Etoh (%) (test code = Etoh (%)) no gt [facility] SystemFleiisvRPRVTSKYLF6468-05-01 03:11:00 Test Item Value Reference Range Interpretation Comments Salicylate Lvl (test no gt See_Comment [Autom ated message] The code = Salicylate Lvl) syste m which generated this result tra nsmitted reference range : <=30.0. The reference r carin was not used to int erpret this result as normal/abnormal . [place] 463930-01-09 03:11:00 Test Item Value Reference Range Interpretation Comments Glucose Lvl (test code = Glucose Lvl) 91 70-99 [place] 463930-01-09 03:11:00 Test Item Value Reference Range Interpretation Comments BUN (test code = BUN) 14 7-22 [place] 463930-01-09 03:11:00 Test Item Value Reference Range Interpretation Comments Creatinine Lvl (test code = Creatinine 1.10 0.50-1.40 Lvl) [place] 463930-01-09 03:11:00 Test Item Value Reference Range Interpretation Comments Sodium Lvl (test code = Sodium Lvl) 140 135-145 [place] 463930-01-09 03:11:00 Test Item Value Reference Range Interpretation Comments Potassium Lvl (test code = Potassium 3.8 3.5-5.1 Lvl) [place] 463930-01-09 03:11:00 Test Item Value Reference Range Interpretation Comments Chloride Lvl (test code = Chloride Lvl) 105 95-109 [place] 463930-01-09 03:11:00 Test Item Value Reference Range Interpretation Comments CO2 (test code = CO2) 27 24-32 [place] 463930-01-09 03:11:00 Test Item Value Reference Range Interpretation Comments Calcium Lvl (test code = Calcium Lvl) 9.5 8.5-10.5 [place] 463930-01-09 03:11:00 Test Item Value Reference Range Interpretation Comments Total Protein (test code = Total 7.5 6.4-8.4 Protein) [place] 463930-01-09 03:11:00 Test Item Value Reference Range Interpretation Comments Albumin Lvl (test code = Albumin Lvl) 4.2 3.5-5.0 [place] 463930-01-09 03:11:00 Test Item Value Reference Range Interpretation Comments ALT (test code = ALT) 25 See_Comment [Auto mated message] The system which ge nerated this result transmit mark reference range : <=65. The reference range was not used to interpr et this result as melinda l/abnormal. [place] 463930-01-09 03:11:00 Test Item Value Reference Range Interpretation Comments AST (test code = AST) 13 See_Comment [Auto mated message] The system which ge nerated this result transmit mark reference range : <=37. The reference range was not used to interpr et this result as melinda l/abnormal. [place] 463930-01-09 03:11:00 Test Item Value Reference Range Interpretation Comments Alk Phos (test code = Alk Phos) 74 39-136 [place] 463930-01-09 03:11:00 Test Item Value Reference Range Interpretation Comments Bili Total (test code = Bili Total) 0.5 0.2-1.3 [place] 463930-01-09 03:11:00 Test Item Value Reference Range Interpretation Comments eGFR (test code = eGFR) 93 [facility]2020-01-09 03:11:00 Test Item Value Reference Range Interpretation Comments AGAP (test code = AGAP) 11.8 10.0-20.0 [place] 463930-01-09 03:11:00 Test Item Value Reference Range Interpretation Comments B/C Ratio (test code = B/C Ratio) 13 1 6-25 [facility] [id number] 03:11:00 Test Item Value Reference Range Interpretation Comments Globulin (test code = Globulin) 3.3 2.7-4.2 [facility]2020-01-09 03:11:00 Test Item Value Reference Range Interpretation Comments A/G Ratio (test code = A/G Ratio) 1.3 1 0.7-1.6 [facility] HospitalPkqckkdKOQISBCXGO3214-97-60 03:11:00 Test Item Value Reference Range Interpretation Comments WBC (test code = WBC) 10.6 3.7-10.4 [place] 660070-01-09 03:11:00 Test Item Value Reference Range Interpretation Comments RBC (test code = RBC) 4.99 4.70-6.10 [place] 463930-01-09 03:11:00 Test Item Value Reference Range Interpretation Comments Glucose Lvl (test code = Glucose Lvl) 91 70-99 [place] 463930-01-09 03:11:00 Test Item Value Reference Range Interpretation Comments BUN (test code = BUN) 14 7-22 [place] 463930-01-09 03:11:00 Test Item Value Reference Range Interpretation Comments Creatinine Lvl (test code = Creatinine 1.10 0.50-1.40 Lvl) [facility]2020-01-09 03:11:00 Test Item Value Reference Range Interpretation Comments Sodium Lvl (test code = Sodium Lvl) 140 135-145 [place] 463930-01-09 03:11:00 Test Item Value Reference Range Interpretation Comments Potassium Lvl (test code = Potassium 3.8 3.5-5.1 Lvl) [place] 463930-01-09 03:11:00 Test Item Value Reference Range Interpretation Comments Chloride Lvl (test code = Chloride Lvl) 105 95-109 [place] 463930-01-09 03:11:00 Test Item Value Reference Range Interpretation Comments CO2 (test code = CO2) 27 24-32 [place] 463930-01-09 03:11:00 Test Item Value Reference Range Interpretation Comments Calcium Lvl (test code = Calcium Lvl) 9.5 8.5-10.5 [place] 463930-01-09 03:11:00 Test Item Value Reference Range Interpretation Comments Total Protein (test code = Total 7.5 6.4-8.4 Protein) [place] 463930-01-09 03:11:00 Test Item Value Reference Range Interpretation Comments Albumin Lvl (test code = Albumin Lvl) 4.2 3.5-5.0 [place] 463930-01-09 03:11:00 Test Item Value Reference Range Interpretation Comments ALT (test code = ALT) 25 See_Comment [Auto mated message] The system which ge nerated this result transmit mark reference range : <=65. The reference range was not used to interpr et this result as melinda l/abnormal. [place] 463930-01-09 03:11:00 Test Item Value Reference Range Interpretation Comments AST (test code = AST) 13 See_Comment [Auto mated message] The system which [employer] nerated this result transmit mark reference range : <=37. The reference range was not used to interpr et this result as melinda l/abnormal. [place] 463930-01-09 03:11:00 Test Item Value Reference Range Interpretation Comments Alk Phos (test code = Alk Phos) 74 39-136 [place] 463930-01-09 03:11:00 Test Item Value Reference Range Interpretation Comments Bili Total (test code = Bili Total) 0.5 0.2-1.3 [place] 463930-01-09 03:11:00 Test Item Value Reference Range Interpretation Comments eGFR (test code = eGFR) 93 [place] 463930-01-09 03:11:00 Test Item Value Reference Range Interpretation Comments AGAP (test code = AGAP) 11.8 10.0-20.0 [place] 463930-01-09 03:11:00 Test Item Value Reference Range Interpretation Comments B/C Ratio (test code = B/C Ratio) 13 1 6-25 [place] 463930-01-09 03:11:00 Test Item Value Reference Range Interpretation Comments Globulin (test code = Globulin) 3.3 2.7-4.2 [place] 463930-01-09 03:11:00 Test Item Value Reference Range Interpretation Comments A/G Ratio (test code = A/G Ratio) 1.3 1 0.7-1.6 [place] 660070-01-09 03:11:00 Test Item Value Reference Range Interpretation Comments WBC (test code = WBC) 10.6 3.7-10.4 [place] 660070-01-09 03:11:00 Test Item Value Reference Range Interpretation Comments RBC (test code = RBC) 4.99 4.70-6.10 [place] 660070-01-09 03:11:00 Test Item Value Reference Range Interpretation Comments Hgb (test code = Hgb) 14.3 14.0-18.0 [place] 660070-01-09 03:11:00 Test Item Value Reference Range Interpretation Comments Hct (test code = Hct) 41.9 42.0-54.0 [place] 660070-01-09 03:11:00 Test Item Value Reference Range Interpretation Comments MCV (test code = MCV) 83.8 80.0-94.0 [place] [address]-01-09 03:11:00 Test Item Value Reference Range Interpretation Comments MCH (test code = MCH) 28.6 pg 27.0-31.0 [place] 660070-01-09 03:11:00 Test Item Value Reference Range Interpretation Comments MCHC (test code = MCHC) 34.1 32.0-36.0 [facility] HospitalVoqmqjaJPSJLLFPWF1645-86-86 03:11:00 Test Item Value Reference Range Interpretation Comments RDW (test code = RDW) 13.8 11.5-14.5 [place] 660070-01-09 03:11:00 Test Item Value Reference Range Interpretation Comments Platelet (test code = Platelet) 297 133-450 [facility] H[id number] 03:11:00 Test Item Value Reference Range Interpretation Comments MPV (test code = MPV) 7.9 7.4-10.4 [facility] H[id number] 03:11:00 Test Item Value Reference Range Interpretation Comments Segs (test code = Segs) 63.8 45.0-75.0 [place] [id number] 03:11:00 Test Item Value Reference Range Interpretation Comments Lymphocytes (test code = Lymphocytes) 26.9 20.0-40.0 [facility] H[id number] 03:11:00 Test Item Value Reference Range Interpretation Comments Monocytes (test code = Monocytes) 8.5 2.0-12.0 [facility] H[id number] 03:11:00 Test Item Value Reference Range Interpretation Comments Eosinophils (test code = 0.4 See_Comment [A utomated message] The Eosinophils) system which ge nerated this result tra nsmitted reference range : <=4.0. The reference r carin was not used to int erpret this result as normal/abnormal . [facility] H[id number] 03:11:00 Test Item Value Reference Range Interpretation Comments Basophils (test code = 0.4 See_Comment [Aut omated message] The Basophils) system which ge nerated this result tra nsmitted reference range : <=1.0. The reference r carin was not used to int erpret this result as normal/abnormal . [facility] H[id number] 03:11:00 Test Item Value Reference Range Interpretation Comments Neutrophils # (test code = Neutrophils 6.8 1.5-8.1 #) [facility] H[id number] 03:11:00 Test Item Value Reference Range Interpretation Comments Lymphocytes # (test code = Lymphocytes 2.9 1.0-5.5 #) [id number] 03:11:00 Test Item Value Reference Range Interpretation Comments Monocytes # (test code 0.9 See_Comment [Aut omated message] The = Monocytes #) system which generated this result tra nsmitted reference range : <=0.8. The reference r carin was not used to int erpret this result as normal/abnormal . [id number] 03:11:00 Test Item Value Reference Range Interpretation Comments Acetaminoph Lvl (test code = (10/03/19 9:11 PM) 10-20 Acetaminoph Lvl) [id number] 03:11:00 Test Item Value Reference Range Interpretation Comments Ethanol Lvl (test code = Ethanol Lvl) no gt [facility] H[id number] 03:11:00 Test Item Value Reference Range Interpretation Comments Etoh (%) (test code = Etoh (%)) no gt [facility] H[id number] 03:11:00 Test Item Value Reference Range Interpretation Comments Salicylate Lvl (test no gt See_Comment [Autom ated message] The code = Salicylate Lvl) syste m which generated this result tra nsmitted reference range : <=30.0. The reference r carin was not used to int erpret this result as normal/abnormal . [facility] Notes Date/Time Note Provider Source 2023-04-20 Formatting of this note might be differe nt from the original. Lauryn Brooke RN [facility] 13:26:11-00:00 Pt given printed and verbal [...] differe nt from the original. Franco Diaz [facility] 11:23:17-00:00 Patient to ED for n/v/d x 3 days. Denies fever. Abdominal pain and cramping that is intermittent. RN 2019-10-03 PROCEDURE INFORMATION: [facility] 23:23:00-00:00 Exam: XR Left Ribs with PA [...] Gabby Dimas MD On 10/04/2019 00:36:21; VR-[id number] 2019-10-03 PROCEDURE INFORMATION: [facility] 23:23:00-00:00 Exam: XR Left Ribs with PA [...] findings. Gabby Dimas MD On 10/04/2019 00:36:21; ROSLYN-ARAHM0 [id number] 2019-10-03 PROCEDURE INFORMATION: [facility] 23:23:00-00:00 Exam: XR Left Ribs with PA [...] findings. Gabby Dimas MD On 10/04/2019 00:36:21; ROSLYN-[id number] 2019-10-03 PROCEDURE INFORMATION: [facility] 23:23:00-00:00 Exam: XR Left Ribs with PA [...] Gabby Dimas MD On 10/04/2019 00:36:21; VR-[id number]
[2023-06-07] MEDS ORDERED: IBUPROFEN 400 MG TAB ONE (08:14)
--- NOTE | 2023-06-07 08:50 | RAD REPORT ---
EXAM DESCRIPTION: RAD - Hand Right 3 View - 06/07/2023 8:45 am CLINICAL HISTORY: PAIN COMPARISON: No comparisons FINDINGS/IMPRESSION: No acute fracture. No malalignment. No significant focal degenerative changes.
--- NOTE | 2023-06-07 08:53 | ER ---
Nurse's Notes [facility] Name: Gaudencio Kothari Age: 27 yrs Sex: Male : 1995 Arrival Date: 06/07/2023 Time: 07:44 Bed 12 Private MD: Diagnosis: Contusion of right middle finger without damage to nail Presentation: 06/07 07:53 Chief complaint: Patient states: "Last night, I shut my right middle finger in a car mb9 door. It hurts really bad. I just want to make sure I didn't break anything". Coronavirus screen: Vaccine status: Patient reports being unvaccinated. Ebola Screen: No symptoms or risks identified at this time. Initial Sepsis Screen: Does the patient meet any 2 criteria? No. Patient's initial sepsis screen is negative. Does the patient have a suspected source of infection? No. Patient's initial sepsis screen is negative. Risk Assessment: Do you want to hurt yourself or someone else? Patient reports no desire to harm self or others. Onset of symptoms was 2022. 07:53 Method Of Arrival: Ambulatory mb9 07:53 Acuity: BELEM 4 mb9 Triage Assessment: 07:56 General: Appears in no apparent distress. Behavior is calm, cooperative. Pain: mb9 Complains of pain in right hand. Neuro: Barth Agitation-Sedation Scale (RASS): 0 - Alert and Calm Level of Consciousness is awake, alert, obeys commands, Oriented to person, place, time, situation, Appropriate for age. Cardiovascular: Patient's skin is warm and dry. Respiratory: Airway is patent Respiratory effort is even, unlabored, Respiratory pattern is regular, symmetrical. GI: No signs and/or symptoms were reported involving the gastrointestinal system. : No signs and/or symptoms were reported regarding the genitourinary system. Derm: No signs and/or symptoms reported regarding the dermatologic system. Musculoskeletal: Range of motion: intact in all extremities. 09:29 Injury Description: Crush injury. ap3 Historical: - Allergies: 07:54 No Known Allergies; mb9 - Home Meds: 07:54 Abilify 10 mg Oral tab [Active]; citalopram 20 mg tablet [Active]; mb9 - PMHx: 07:54 Anxiety; BORDERLINE PERSONALITY DISORDER; Depression; mb9 - PSHx: 07:54 None; mb9 - Immunization history:: Adult Immunizations up to date. - Social history:: Smoking status: Reported history of juuling and/or vaping. Screenin:29 [facility] ED Fall Risk Assessment (Adult) History of falling in the last 3 months, ap3 including since admission No falls in past 3 months (0 pts). Abuse screen: Denies threats or abuse. Abuse screen: Denies threats or abuse. Nutritional screening: No deficits noted. Tuberculosis screening: No symptoms or risk factors identified. Vital Signs: 07:53 BP 144 / 94; Pulse 62; Resp 18; Temp 98; Pulse Ox 100% on R/A; Weight 117.93 kg; Height mb9 5 ft. 10 in. ; Pain 0/10; 07:53 Body Mass Index 37.31 (117.93 kg, 177.8 cm) mb9 07:53 Pain Scale: Adult mb9 ED Course: 07:46 Patient arrived in ED. im 07:54 Triage completed. mb9 07:55 Syeda Wolfe FNP-C is [facility]. kb 07:55 Aris Trujillo MD is Attending Physician. kb 07:55 Janet Perry, TOBI is Primary Nurse. mb9 07:55 Arm band placed on. mb9 08:47 Hand Right 3 View XRAY In Process Unspecified. EDMS 09:29 Patient has correct armband on for positive identification. Bed in low position. Call ap3 light in reach. Provided Education on: wound care. 09:29 No provider procedures requiring assistance completed. Patient did not have IV access ap3 during this emergency room visit. Administered Medications: 08:05 Drug: Ibuprofen PO 800 mg Route: PO; ap3 09:30 Follow up: Response: No adverse reaction ap3 Medication: 09:30 VIS not applicable for this client. ap3 Outcome: 08:52 Discharge ordered by . kb 09:29 Discharged to home ambulatory, with family. ap3 09:29 Condition: good 09:29 Discharge instructions given to patient, family, Instructed on discharge instructions, follow up and referral plans. Demonstrated understanding of instructions, follow-up care. 09:30 Patient left the ED. ap3 Signatures: Dispatcher [employer] EDNM Syeda Wolfe FNP-C FNP-Ckb Prokisch, Amanda, RN RN ap3 Jante Perry RN RN mb9 Lorna Quezada im
--- NOTE | 2023-06-07 08:53 | EDPHYS ---
Physician Documentation [facility] Name: Gaudencio Kothari Age: 27 yrs Sex: Male : 1995 Arrival Date: 06/07/2023 Time: 07:44 Bed 12 Private MD: ED Physician Aris Trujillo HPI: 06/07 07:57 This 27 yrs old Male presents to ER via Ambulatory with complaints of Finger Injury - kb right hand middle finger. 07:57 Patient is a 27-year-old male who shot his right middle finger in the door last night kb and pulled it back out. States he is still having pain to the end of his finger. Historical: - Allergies: 07:54 No Known Allergies; mb9 - Home Meds: 07:54 Abilify 10 mg Oral tab [Active]; citalopram 20 mg tablet [Active]; mb9 - PMHx: 07:54 Anxiety; BORDERLINE PERSONALITY DISORDER; Depression; mb9 - PSHx: 07:54 None; mb9 - Immunization history:: Adult Immunizations up to date. - Social history:: Smoking status: Reported history of juuling and/or vaping. ROS: 07:57 Constitutional: Negative for fever, chills, and weight loss. kb 07:57 MS/extremity: Positive for abrasion, pain, swelling, tenderness, of the dorsal aspect of distal phalanx of right middle finger. 07:57 All other systems are negative. Exam: 07:57 Constitutional: This is a well developed, well nourished patient who is awake, alert, kb and in no acute distress. Head/Face: Normocephalic, atraumatic. ENT: Moist Mucous membranes Cardiovascular: Regular rate Respiratory: Respirations even and unlabored. No increased work of breathing. Talking in full sentences Skin: Warm, dry with normal turgor. Normal color. Neuro: Awake and alert, GCS 15, oriented to person, place, time, and situation. Moves all extremities. Normal gait. 07:57 Musculoskeletal/extremity: Extremities: grossly normal except: noted in the dorsal aspect of distal phalanx of right middle finger: abrasion, pain, swelling, tenderness, ROM: intact in all extremities, Circulation is intact in all extremities. Sensation intact. Vital Signs: 07:53 BP 144 / 94; Pulse 62; Resp 18; Temp 98; Pulse Ox 100% on R/A; Weight 117.93 kg; Height mb9 5 ft. 10 in. ; Pain 0/10; 07:53 Body Mass Index 37.31 (117.93 kg, 177.8 cm) mb9 07:53 Pain Scale: Adult mb9 MDM: 07:55 Patient medically screened. kb 07:59 Differential diagnosis: dislocation, closed fracture, contusion. Data reviewed: vital kb signs, nurses notes. 08:51 Counseling: I had a detailed discussion with the patient and/or guardian regarding the kb historical points, exam findings, and any diagnostic results supporting the discharge/admit diagnosis, radiology results, the need for outpatient follow up, a family practitioner, to return to the emergency department if symptoms worsen or persist or if there are any questions or concerns that arise at home. 06/07 07:57 Order name: Hand Right 3 View XRAY; Complete Time: 08:51 kb Administered Medications: 08:05 Drug: Ibuprofen PO 800 mg Route: PO; ap3 09:30 Follow up: Response: No adverse reaction ap3 Disposition Summary: 06/07/23 08:52 Discharge Ordered Location: Home kb Condition: Stable kb Diagnosis - Contusion of right middle finger without damage to nail kb Followup: kb - With: Emergency Department - When: As needed - Reason: Worsening of condition Followup: kb - With: Private Physician - When: 2 - 3 days - Reason: Recheck today's complaints, Continuance of care, Re-evaluation by your physician Discharge Instructions: - Discharge Summary Sheet kb - Hand Contusion, Auoi-fh-Pqco kb Forms: - Medication Reconciliation Form kb - Thank You Letter kb - Antibiotic Education kb - Prescription Opioid Use kb - Patient Portal Instructions kb - Leadership Thank You Letter kb - Work release form ap3 Signatures: Dispatcher [employer] Syeda Martinez, ERIC MORATAYA-Brittani Pickett RN RN ap3 Janet Perry RN RN mb9
[2023-06-07 09:34] VITALS: BP 144/94; TEMP 98; O2SAT 100
== END 2023-06-07 09:30 | disposition home or self-care (01) ==
LOC: ER 07:44
DX: S60.031A Contusion of right middle finger without damage to nail, initial encounter (principal)
CPT/HCPCS: 99283

== ENCOUNTER 2023-06-14 07:43 | Emergency (ER) | payer OTHER ==
--- OUTSIDE RECORDS SUMMARY | 2023-06-14 07:50 | XMS REPORT | Continuity of Care Document ---
:1995 Author Organization [facility] t Address [address] [facility] [address] [place] [address] Care Team Providers Name Role Phone Asked, No Pcp Primary Care Physician Unavailable KEKE BACON Attending Clinician Unavailable Keke Bacon DO Attending Clinician DULCE GOMEZ Attending Clinician Unavailable Dulce Clifford Attending Clinician Donna Phillip Attending Clinician [phone] DONNA PHILLIP Attending Clinician Unavailable Payers Payer Name Policy Type Policy Number Effective Date Expiration Date [facility] [id number] 2023 00:00:00 Problems Condition Condition Condition Status Onset Resolution Last Treating Co mments Source Name Details Category Date Date Treatment Clinician Date BACK/ BACK/ Diagnosis Active 2020-01-11 Mem oria RIBCAGE RIBCAGE 10-03 16:57:00 l PAIN PAIN 00:00: Wilberto Active 00 10/03/2019 Ghassan Ladd History of Past Illness Condition Condition Condition Status Onset Resolution Last Treating Co mments Source Name Details Category Date Date Treatment Clinician Date Suicidal Suicidal Problem 2019-10-06 2019-10-06 Memoria ideations ideations 10-04 22:22:41 22:22:41 l 10/04/2019 18:00: Javy encinas 10/06/[address] [facility] Allergies, Adverse Reactions, Alerts Allergy Allergy Status Severity Reaction(s) Onset Inactive Treating Comm ents Source Name Type Date Date Clinician NO KNOWN Drug Active Univers ALLERGIE Class ity of S [facility] Social History Social Habit Start Date Stop Date Quantity Comments Source [facility] of Social 2019-05-19 2019-05-[address] function 00:00:00 00:00:00 Hospital Tobacco use and 2018-06-17 2018-06-17 Smokeless [facility] exposure 00:00:00 00:00:00 tobacco non-user Hospital Alcohol intake 2018-06-17 2018-06-17 Current [facility] 00:00:00 00:00:00 non-drinker of Hospital alcohol (finding) Sex Assigned At [birth year] [facility] 00:00:00 [facility]00[facility]00 Hospital Smoking Status Start Date Stop Date Source Social History [facility] Medications Ordered Filled Start Stop Current Ordering Indication Dosage Frequency Signature Comments Components Source Medication Medication Date Date Medication? Clinician (SIG) Name Name albuterol Yes [id number] 2{puff} Inhale 2 Univers 90 9-18 Puffs ity of mcg/actuati 00:00: every 4 Rex as on inhaler 00 (four) Medical hours as Branch needed for Wheezing or Shortness of Breath. NaCl 0.9% No 1000mL at 999 Uni vers (NS) bolus 04-20 mL/hr, ity of infusion 18:00: 18:13 1,000 mL, Rex as 1,000 mL 00 :00 IV Medical Infusion, Branch ONCE, 1 dose, On 04/20/23 at 1300, STAT dicyclomine No 20mg 20 mg, Uni vers (BENTYL) 04-20 Intramuscu ity of injection 18:00: 17:09 lar, ONCE, [place] 20 mg 00 :00 1 dose, On Medical Wed Branch 04/20/23 at 1300, KLEBER famotidine 2022- No 20mg 20 mg, Univ ers (PEPCID 04-20 Slow IV ity of (PF)) 17:00: 17:06 Push, [place] injection 00 :00 ONCE, 1 Medical 20 mg dose, On Branch Tue04/20/23 at 1200, KLEBER ketorolac 2022-0 2022- No 30mg 30 mg, Unive rs (TORADOL) 04-20 Slow IV ity of injection 17:00: 17:08 Push, [place] 30 mg 00 :00 ONCE, 1 Medical dose, On Branch Tue04/20/23 at 1200, KLEBER ondansetron 2022-0 2022- No 4mg 4 mg, Slow Univers (ZOFRAN 04-20 IV Push, ity of (PF)) 17:00: 17:07 ONCE, 1 [place] injection 4 00 :00 dose, On Medi luz maria mg Wed Branch 04/20/23 at 1200, KLEBER dicyclomine 2022-0 Yes [id number] 20mg Take 1 Univers 20 mg 7-26 tablet by ity of tablet 00:00: mouth 4 [place] 00 (four) Medical times Branch daily as needed for Abdominal pain. ondansetron 2022-0 Yes [id number] 4mg Take 1 Univers 4 mg 7-26 tablet by ity of disintegrat 00:00: mouth [place] ing tablet 00 every 8 Medica l (eight) Branch hours as needed for Nausea and Vomiting (N/V). dicyclomine 3-0 Yes [id number] 20mg Take 1 Univers 20 mg 7-26 tablet by ity of tablet 00:00: mouth 4 [place] 00 (four) Medical times Branch daily as needed for Abdominal pain. ondansetron 2022-0 Yes [id number] 4mg Take 1 Univers 4 mg 7-26 [...] a 10-04 (Same as: l 12:09: Motrin) [place] 00 "Do Not Crush" Take with food. Ibuprofen 2020-0 Yes Notes: Memori a 10-04 (Same as: l 12:09: Motrin) Wilberto 00 "Do Not Crush" Take with food. Ibuprofen 2020-0 Yes Notes: Memori a 10-04 (Same as: l 12:09: Motrin) Wilberto 00 "Do Not Crush" Take with food. Ibuprofen 2020-0 Yes Notes: Memori a 10-04 (Same as: l 12:09: Motrin) [place] 00 "Do Not Crush" Take with food. Ibuprofen 2020-0 Yes Notes: Memori a 10-04 (Same as: l 12:09: Motrin) Wilberto 00 "Do Not Crush" Take with food. Ibuprofen 2020-0 Yes Notes: Memori a 10-04 (Same as: l 12:09: Motrin) Wilberto 00 "Do Not Crush" Take with food. Ibuprofen 2020-0 Yes Notes: Memori a 10-04 (Same as: l 12:09: Motrin) [place] 00 "Do Not Crush" Take with food. escitalopra Yes 20mg Take 20 mg Univers m oxalate 9-05 by mouth ity of 20 mg 20:12: daily. [place] tablet 57 Medical Branch trazodone Yes Take by Unive rs HCl 9-05 mouth. ity of (TRAZODONE 20:12: [place] ORAL) 57 Medical Branch escitalopra Yes 20mg Take 20 mg Univers m oxalate 905 by mouth ity of 20 mg 20:12: daily. [place] tablet 57 Medical Branch trazodone Yes Take by Unive rs HCl 9-05 mouth. ity of (TRAZODONE 20:12: [place] ORAL) 57 Medical Branch No known No No known Metho di medications 06-[address] 17:53: [facility] l bacitracin Yes Apply to Uni vers 500 unit/g 04-10 affected ity o f ointment 00:00: area(s) 4 [place] 00 (four) Medical times Branch daily. bacitracin Yes Apply to Uni vers 500 unit/g 7-16 affected ity o f ointment 00:00: area([place] (four) Medical times Branch daily. Immunizations Ordered Filled Immunization Date Status Comments Sour e Immunization Name Name TDAP 2012-04-10 Completed University of 00:00:00 [facility] TDAP 2012-04-10 Completed University of 00:00:00 [facility] MMR 2001-04-26 Completed University of 00:00:00 [facility] MMR 2001-04-26 Completed University of 00:00:00 [facility] Polio (IPV/OPV) 2000-09-22 Completed Universit y of 00:00:00 [facility] Varicella 2000-09-22 Completed University of (varivax)(chicken 00:00:00 [place] M edical pox) Branch DTP 2000-09-22 Completed University of 00:00:00 [facility] Polio (IPV/OPV) 2000-09-22 Completed Universit y of 00:00:00 [facility] Varicella 2000-09-22 Completed University of (varivax)(chicken 00:00:00 [place] M edical pox) Branch DTP 2000-09-22 Completed University of 00:00:00 [facility] MMR 1996-12-18 Completed University of 00:00:00 [facility] DTP 1996-12-18 Completed University of 00:00:00 [facility] HIB 4 Dose Schedule 1996-12-18 Completed Unive rsity of 00:00:00 [facility] MMR 1996-12-18 Completed University of 00:00:00 [facility] DTP 1996-12-18 Completed University of 00:00:00 [facility] HIB 4 Dose Schedule 1996-12-18 Completed Unive rsity of 00:00:00 [facility] Polio (IPV/OPV) 1996-09-14 Completed Universit y of 00:00:00 [facility] DTP 1996-09-14 Completed University of 00:00:00 [facility] Polio (IPV/OPV) 1996-09-14 Completed Universit y of 00:00:00 [facility] DTP 1996-09-14 Completed University of 00:00:00 [facility] MMR 1996-05-20 Completed University of 00:00:00 [facility] MMR 1996-05-20 Completed University of 00:00:00 [place] [facility] Hep B, Adol or Pedi 1996-05-02 Completed Unive rsity of Dosage 00:00:00 [place] [facility] Polio (IPV/OPV) 1996-05-02 Completed Universit y of 00:00:00 [facility] DTP 1996-05-02 Completed University of 00:00:00 [facility] HIB 4 Dose Schedule 1996-05-02 Completed Unive rsity of 00:00:00 [place] [facility] Hep B, Adol or Pedi 1996-05-02 Completed Unive rsity of Dosage 00:00:00 [place] [facility] Polio (IPV/OPV) 1996-05-02 Completed Universit y of 00:00:00 [facility] DTP 1996-05-02 Completed University of 00:00:00 [facility] HIB 4 Dose Schedule 1996-05-02 Completed Unive rsity of 00:00:00 [facility] Polio (IPV/OPV) 1996-01-30 Completed Universit y of 00:00:00 [facility] DTP 1996-01-30 Completed University of 00:00:00 [facility] HIB 4 Dose Schedule 1996-01-30 Completed Unive rsity of 00:00:00 [facility] Polio (IPV/OPV) 1996-01-30 Completed Universit y of 00:00:00 [facility] DTP 1996-01-30 Completed University of 00:00:00 [facility] HIB 4 Dose Schedule 1996-01-30 Completed Unive rsity of 00:00:00 [facility] Polio (IPV/OPV) 1995 Completed Universit y of 00:00:00 [facility] DTP 1995 Completed University of 00:00:00 [facility] HIB 4 Dose Schedule 1995 Completed Unive rsity of 00:00:00 [facility] Polio (IPV/OPV) 1995 Completed Universit y of 00:00:00 [facility] DTP 1995 Completed University of 00:00:00 [place] [facility] HIB 4 Dose Schedule 1995 Completed Unive rsity of 00:00:00 [place] [facility] Hep B, Adol or Pedi 1995 Completed Unive rsity of Dosage 00:00:00 [place] [facility] Hep B, Adol or Pedi 1995 Completed Unive rsity of Dosage 00:00:00 [facility] Hep B, Adol or Pedi 1995 Completed Unive rsity of Dosage 00:00:00 [facility] Hep B, Adol or Pedi 1995 Completed Unive rsity of Dosage 00:00:00 [facility] Vital Signs Vital Name Observation Time Observation Value Comments Source Systolic blood 2023-06-13 16:13:00 138 mm[Hg] Univer sity of pressure [place] [facility] Diastolic blood 2023-06-13 16:13:00 81 mm[Hg] Unive rsity of pressure [facility] Heart rate 2023-06-13 16:13:00 80 /min Universi ty of [facility] Body temperature 2023-06-13 16:13:00 37 Jossy Univ ersity of [facility] Respiratory rate 2023-06-13 16:13:00 18 /min Univ ersity of [place] [facility] [place] Body weight 2023-06-13 16:13:00 117.935 kg Universi ty of [place] [facility] BMI 2023-06-13 16:13:00 37.31 kg/m2 Universi ty of [facility] Oxygen saturation in 2023-06-13 16:13:00 100 /min University Arterial blood by [facility] Pulse oximetry [place] Body temperature 2023-04-20 18:15:28 36.67 Jossy Univ ersity of [facility] Systolic blood 2023-04-20 18:10:00 138 mm[Hg] Univer sity of pressure [facility] Diastolic blood 2023-04-20 18:10:00 81 mm[Hg] Unive rsity of pressure [facility] Heart rate 2023-04-20 18:10:00 75 /min Universi ty of [place] [facility] Respiratory rate 2023-04-20 18:10:00 16 /min Univ ersity of [facility] Body height 2023-04-20 16:24:00 177.8 cm Universi ty of [place] [facility] Body weight 2023-04-20 16:24:00 113.399 kg Universi ty of [place] [facility] BMI 2023-04-20 16:24:00 35.87 kg/m2 Universi ty of [facility] Heart Rate 2019-10-04 15:38:00 [facility] Respitory Rate 2019-10-04 15:38:00 Memori al [place] Systolic (mm Hg) 2019-10-04 15:38:00 Azar rial Wilberto Diastolic (mm Hg) 2019-10-04 15:38:00 Mem orial [place] Temperature Oral (F) 2019-10-04 07:32:00 98.9 F [facility] [place] Heart Rate 2019-10-04 07:32:00 [facility] [place] Respitory Rate 2019-10-04 07:32:00 Memori al [place] Systolic (mm Hg) 2019-10-04 07:32:00 Azar rial Wilberto Diastolic (mm Hg) 2019-10-04 07:32:00 Mem orial [place] Systolic (mm Hg) 2019-10-04 02:45:00 Azar rial Wilberto Diastolic (mm Hg) 2019-10-04 02:45:00 Mem orial [place] Respitory Rate 2019-10-04 02:45:00 Memori al [place] Heart Rate 2019-10-04 02:45:00 Memorial Wilberto Temperature Oral (F) 2019-10-04 01:34:00 98.1 F [facility] [place] Weight 2019-10-04 01:34:00 [facility] [place] Procedures Procedure Date / Time Performing Clinician Source Performed NOTICE OF PRIVACY 2023-06-13 16:09:05 Doctor Unassigned, No [facility] PRACTICES Name Medical Branch CONSENT/REFUSAL FOR 2023-06-13 16:03:58 Doctor Unassigned, No [facility] DIAGNOSIS AND TREATMENT Name [facility] URINE DRUG (IMMUNOASSAY) 2023-04-20 16:48:00 Dulce Gomez [facility] - COMPREHENSIVE DRUG Medical [facility] SCREEN W/O REFLEX LIPASE 2023-04-20 16:48:00 Dulce Gomez Burns o f [facility] HEPATIC FUNCTION PANEL 2023-04-20 16:48:00 Dulce Gomez [facility] ([id number]) (ALB,T.PRO,BILI Medical Branch T,BU/BC,ALT,AST,ALK PHOS) BASIC METABOLIC PANEL 2023-04-20 16:48:00 Dulce Gomez [facility] (NA, K, CL, CO2, Medical Branch GLUCOSE, BUN, CREATININE, CA) CBC WITH DIFF 2023-04-20 16:48:00 [facility] URINALYSIS 2023-04-20 16:48:00 [facility] CONSENT/REFUSAL FOR 2023-04-20 16:16:26 Doctor Unassigned, No Un [facility] DIAGNOSIS AND TREATMENT Name [facility] Plan of Care Planned Activity Planned Date Details Comments Source Future Scheduled 2023-06-13 COVID-19 VACCINE [facility] Test 11:04:28 (#1) [code = COVID-19 VACCINE (#1)] Future Scheduled 2023-06-13 INFLUENZA VACCINE [facility] Test 11:04:28 (#1) [code = INFLUENZA VACCINE (#1)] Future Scheduled 2023-05-31 COVID-19 VACCINE [facility] Test 23:51:56 (#1) [code = COVID-19 VACCINE (#1)] Future Scheduled 2023-05-31 IN[facility]ENZA VACCINE [facility] Test 23:51:56 (#1) [code = INFLUENZA VACCINE (#1)] Future Scheduled 2023-05-06 COVID-19 VACCINE [facility] Test 11:37:25 (#1) [code = COVID-19 VACCINE (#1)] Future Scheduled 2023-05-06 INFLUENZA VACCINE [facility] Test 11:37:25 [code = INFLUENZA VACCINE] Future Scheduled 2023-05-06 COVID-19 VACCINE [facility] Test 11:37:25 (#1) [code = COVID-19 VACCINE (#1)] Future Scheduled 2023-05-06 INFLUENZA VACCINE [facility] Test 11:37:25 [code = INFLUENZA VACCINE] Future Scheduled 2022-10-06 INFLUENZA VACCINE [facility] [...] INFLUENZA VACCINE] Future Scheduled 2022-10-06 COVID-[address] [facility] Test 10:29:53 (#1) [code = COVID-19 VACCINE (#1)] Encounters Start End Encounter Admission Attending Care Care Encounter Source Date/Time Date/Time Type Type Clinicians Facility Department ID 2023-06-13 2023-06-13 [facility] [id number] Univers 11:14:00 12:08:00 KEKE parisi [facility] 2023-06-13 2023-06-13 Emergency [facility] [id number] Univers 11:14:00 12:08:00 Keke MARY [id number] ity [facility] [id number] [facility] [id number] [address] 2023-04-20 2023-04-20 Emergency [facility] [id number] Univers 11:26:00 13:27:00 [facility] 2023-04-20 2023-04-20 [facility] [id number] Univers 11:26:00 13:27:00 Dulce MARY [id number] i ty [facility] [id number] [facility] [id number] [address] 2019-10-04 2019-10-04 Emergency nullFlavo [facility] [id number] Memoria 01:16:42 16:09:00 r Wilberto 00 [facility] 2019-10-04 2019-10-04 Emergency nullFlavo [facility] [id number] Memoria 01:16:42 16:09:00 r Wilberto 00 [facility] 2019-10-03 2019-10-[address] [place] [id number] 19:16:42 10:09:00 Donna 00 Juan Pablo 2019-10-03 2019-10-04 Emergency E RITIKA PHILLIP MHBL [id number] MHBL 19:16:00 10:09:00 DONNA Results Test Description Test Time Test Comments Results Result Comments Source DRUG SCREEN 2019-10-04 03:20:00 Test Item Value Reference Range Interpretation Comme nts U Cannab Scr (test code = U Cannab Scr) Negative *NA*(10/03/19 9:20 P M) [id number] 03:20:00 Test Item Value Reference Range Interpretation Comments U Opiate Scr (test Negative *NA*(10/03/19 code = U Opiate Scr) 9:20 PM) [facility] [id number] 03:20:00 Test Item Value Reference Range Interpretation Comments U Phencyclidine Scr (test Negative *NA*(10/03/19 code = U Phencyclidine 9:20 PM) Scr) [facility] [id number] 03:20:00 Test Item Value Reference Range Interpretation Comments U Amph Scr (test code Negative *NA*(10/03/19 = U Amph Scr) 9:20 PM) [facility] [id number] 03:20:00 Test Item Value Reference Range Interpretation Comments U Dede Scr (test code Negative *NA*(10/03/19 = U Dede Scr) 9:20 PM) [facility] [id number] 03:20:00 Test Item Value Reference Range Interpretation Comments U Benzodiaz Scr (test Negative *NA*(10/03/19 code = U Benzodiaz Scr) 9:20 PM) [facility] [id number] 03:20:00 Test Item Value Reference Range Interpretation Comments U Cocaine Scr (test Negative *NA*(10/03/19 code = U Cocaine Scr) 9:20 PM) [facility] [id number] 03:20:00 Test Item Value Reference Range Interpretation Comments U Cannab Scr (test Negative *NA*(10/03/19 code = U Cannab Scr) 9:20 PM) [facility] [id number] 03:20:00 Test Item Value Reference Range Interpretation Comments U Opiate Scr (test Negative *NA*(10/03/19 code = U Opiate Scr) 9:20 PM) [facility] [id number] 03:20:00 Test Item Value Reference Range Interpretation Comments U Phencyclidine Scr (test Negative *NA*(10/03/19 code = U Phencyclidine 9:20 PM) Scr) [facility] [id number] 03:20:00 Test Item Value Reference Range Interpretation Comments UDS Note (test code = See Note *NA*(10/03/19 UDS Note) 9:20 PM) [facility] [id number] 03:20:00 Test Item Value Reference Range Interpretation Comments UDS Note (test code = See Note *NA*(10/03/19 UDS Note) 9:20 PM) [facility] [id number] 03:20:00 Test Item Value Reference Range Interpretation Comments U Amph Scr (test code Negative *NA*(10/03/19 = U Amph Scr) 9:20 PM) [facility] [id number] 03:20:00 Test Item Value Reference Range Interpretation Comments U Dede Scr (test code Negative *NA*(10/03/19 = U Dede Scr) 9:20 PM) [facility] [id number] 03:20:00 Test Item Value Reference Range Interpretation Comments U Benzodiaz Scr (test Negative *NA*(10/03/19 code = U Benzodiaz Scr) 9:20 PM) [facility] [id number] 03:20:00 Test Item Value Reference Range Interpretation Comments U Cocaine Scr (test Negative *NA*(10/03/19 code = U Cocaine Scr) 9:20 PM) [facility] [id number] 03:20:00 Test Item Value Reference Range Interpretation Comments U Cannab Scr (test Negative *NA*(10/03/19 code = U Cannab Scr) 9:20 PM) [facility] [id number] 03:20:00 Test Item Value Reference Range Interpretation Comments U Opiate Scr (test Negative *NA*(10/03/19 code = U Opiate Scr) 9:20 PM) [facility] [id number] 03:20:00 Test Item Value Reference Range Interpretation Comments U Phencyclidine Scr (test Negative *NA*(10/03/19 code = U Phencyclidine 9:20 PM) Scr) [facility] [id number] 03:20:00 Test Item Value Reference Range Interpretation Comments UDS Note (test code = See Note *NA*(10/03/19 UDS Note) 9:20 PM) [facility] [id number] 03:20:00 Test Item Value Reference Range Interpretation Comments U Amph Scr (test code Negative *NA*(10/03/19 = U Amph Scr) 9:20 PM) [facility] [id number] 03:20:00 Test Item Value Reference Range Interpretation Comments U Dede Scr (test code Negative *NA*(10/03/19 = U Dede Scr) 9:20 PM) [facility] [id number] 03:20:00 Test Item Value Reference Range Interpretation Comments U Benzodiaz Scr (test Negative *NA*(10/03/19 code = U Benzodiaz Scr) 9:20 PM) [facility] [id number] 03:20:00 Test Item Value Reference Range Interpretation Comments U Cocaine Scr (test Negative *NA*(10/03/19 code = U Cocaine Scr) 9:20 PM) [facility] [id number] 03:20:00 Test Item Value Reference Range Interpretation Comments U Cannab Scr (test Negative *NA*(10/03/19 code = U Cannab Scr) 9:20 PM) [facility] [id number] 03:20:00 Test Item Value Reference Range Interpretation Comments U Opiate Scr (test Negative *NA*(10/03/19 code = U Opiate Scr) 9:20 PM) [facility] [id number] 03:20:00 Test Item Value Reference Range Interpretation Comments U Phencyclidine Scr (test Negative *NA*(10/03/19 code = U Phencyclidine 9:20 PM) Scr) [facility] [id number] 03:20:00 Test Item Value Reference Range Interpretation Comments UDS Note (test code = See Note *NA*(10/03/19 UDS Note) 9:20 PM) [facility] [id number] 03:20:00 Test Item Value Reference Range Interpretation Comments U Amph Scr (test code Negative *NA*(10/03/19 = U Amph Scr) 9:20 PM) [facility] [id number] 03:20:00 Test Item Value Reference Range Interpretation Comments U Dede Scr (test code Negative *NA*(10/03/19 = U Dede Scr) 9:20 PM) [facility] [id number] 03:20:00 Test Item Value Reference Range Interpretation Comments U Benzodiaz Scr (test Negative *NA*(10/03/19 code = U Benzodiaz Scr) 9:20 PM) [facility] [id number] 03:20:00 Test Item Value Reference Range Interpretation Comments U Cocaine Scr (test Negative *NA*(10/03/19 code = U Cocaine Scr) 9:20 PM) [facility] [id number] 03:20:00 Test Item Value Reference Range Interpretation Comments U Cannab Scr (test Negative *NA*(10/03/19 code = U Cannab Scr) 9:20 PM) [facility] [id number] 03:20:00 Test Item Value Reference Range Interpretation Comments U Opiate Scr (test Negative *NA*(10/03/19 code = U Opiate Scr) 9:20 PM) [facility] [id number] 03:20:00 Test Item Value Reference Range Interpretation Comments U Phencyclidine Scr (test Negative *NA*(10/03/19 code = U Phencyclidine 9:20 PM) Scr) [facility] [id number] 03:20:00 Test Item Value Reference Range Interpretation Comments UDS Note (test code = See Note *NA*(10/03/19 UDS Note) 9:20 PM) [facility] [id number] 03:20:00 Test Item Value Reference Range Interpretation Comments U Amph Scr (test code Negative *NA*(10/03/19 = U Amph Scr) 9:20 PM) [facility] [id number] 03:20:00 Test Item Value Reference Range Interpretation Comments U Dede Scr (test code Negative *NA*(10/03/19 = U Dede Scr) 9:20 PM) [facility] [id number] 03:20:00 Test Item Value Reference Range Interpretation Comments U Benzodiaz Scr (test Negative *NA*(10/03/19 code = U Benzodiaz Scr) 9:20 PM) [facility] [id number] 03:20:00 Test Item Value Reference Range Interpretation Comments U Cocaine Scr (test Negative *NA*(10/03/19 code = U Cocaine Scr) 9:20 PM) [facility] [id number] 03:20:00 Test Item Value Reference Range Interpretation Comments U Cannab Scr (test Negative *NA*(10/03/19 code = U Cannab Scr) 9:20 PM) [facility] [id number] 03:20:00 Test Item Value Reference Range Interpretation Comments U Opiate Scr (test Negative *NA*(10/03/19 code = U Opiate Scr) 9:20 PM) [facility] [id number] 03:20:00 Test Item Value Reference Range Interpretation Comments U Phencyclidine Scr (test Negative *NA*(10/03/19 code = U Phencyclidine 9:20 PM) Scr) [facility] [id number] 03:20:00 Test Item Value Reference Range Interpretation Comments UDS Note (test code = See Note *NA*(10/03/19 UDS Note) 9:20 PM) [facility] [id number] 03:20:00 Test Item Value Reference Range Interpretation Comments U Amph Scr (test code Negative *NA*(10/03/19 = U Amph Scr) 9:20 PM) [facility] [id number] 03:20:00 Test Item Value Reference Range Interpretation Comments U Dede Scr (test code Negative *NA*(10/03/19 = U Dede Scr) 9:20 PM) [facility] [id number] 03:20:00 Test Item Value Reference Range Interpretation Comments U Benzodiaz Scr (test Negative *NA*(10/03/19 code = U Benzodiaz Scr) 9:20 PM) [facility] [id number] 03:20:00 Test Item Value Reference Range Interpretation Comments U Cocaine Scr (test Negative *NA*(10/03/19 code = U Cocaine Scr) 9:20 PM) [facility] [id number] 03:20:00 Test Item Value Reference Range Interpretation Comments U Cannab Scr (test Negative *NA*(10/03/19 code = U Cannab Scr) 9:20 PM) [facility] [id number] 03:20:00 Test Item Value Reference Range Interpretation Comments U Opiate Scr (test Negative *NA*(10/03/19 code = U Opiate Scr) 9:20 PM) [facility] [id number] 03:20:00 Test Item Value Reference Range Interpretation Comments U Phencyclidine Scr (test Negative *NA*(10/03/19 code = U Phencyclidine 9:20 PM) Scr) [facility] [id number] 03:20:00 Test Item Value Reference Range Interpretation Comments UDS Note (test code = See Note *NA*(10/03/19 UDS Note) 9:20 PM) [facility] [id number] 03:20:00 Test Item Value Reference Range Interpretation Comments U Amph Scr (test code Negative *NA*(10/03/19 = U Amph Scr) 9:20 PM) [facility] [id number] 03:20:00 Test Item Value Reference Range Interpretation Comments U Dede Scr (test code Negative *NA*(10/03/19 = U Dede Scr) 9:20 PM) [facility] [id number] 03:20:00 Test Item Value Reference Range Interpretation Comments U Amph Scr (test code Negative *NA*(10/03/19 = U Amph Scr) 9:20 PM) [facility] [id number] 03:20:00 Test Item Value Reference Range Interpretation Comments U Dede Scr (test code Negative *NA*(10/03/19 = U Dede Scr) 9:20 PM) [facility] [id number] 03:20:00 Test Item Value Reference Range Interpretation Comments U Benzodiaz Scr (test Negative *NA*(10/03/19 code = U Benzodiaz Scr) 9:20 PM) [facility] [id number] 03:20:00 Test Item Value Reference Range Interpretation Comments U Cocaine Scr (test Negative *NA*(10/03/19 code = U Cocaine Scr) 9:20 PM) [facility] [id number] 03:20:00 Test Item Value Reference Range Interpretation Comments U Cannab Scr (test Negative *NA*(10/03/19 code = U Cannab Scr) 9:20 PM) [facility] [id number] 03:20:00 Test Item Value Reference Range Interpretation Comments U Opiate Scr (test Negative *NA*(10/03/19 code = U Opiate Scr) 9:20 PM) [facility] [id number] 03:20:00 Test Item Value Reference Range Interpretation Comments U Phencyclidine Scr (test Negative *NA*(10/03/19 code = U Phencyclidine 9:20 PM) Scr) [facility] [id number] 03:20:00 Test Item Value Reference Range Interpretation Comments UDS Note (test code = See Note *NA*(10/03/19 UDS Note) 9:20 PM) [facility] [id number] 03:20:00 Test Item Value Reference Range Interpretation Comments U Benzodiaz Scr (test Negative *NA*(10/03/19 code = U Benzodiaz Scr) 9:20 PM) [facility] [id number] 03:20:00 Test Item Value Reference Range Interpretation Comments U Cocaine Scr (test Negative *NA*(10/03/19 code = U Cocaine Scr) 9:20 PM) [facility] [id number] 03:20:00 Test Item Value Reference Range Interpretation Comments U Cocaine Scr (test Negative *NA*(10/03/19 code = U Cocaine Scr) 9:20 PM) [facility] [id number] 03:20:00 Test Item Value Reference Range Interpretation Comments U Cannab Scr (test Negative *NA*(10/03/19 code = U Cannab Scr) 9:20 PM) [facility] [id number] 03:20:00 Test Item Value Reference Range Interpretation Comments U Opiate Scr (test Negative *NA*(10/03/19 code = U Opiate Scr) 9:20 PM) [facility] [id number] 03:20:00 Test Item Value Reference Range Interpretation Comments U Phencyclidine Scr (test Negative *NA*(10/03/19 code = U Phencyclidine 9:20 PM) Scr) [facility] [id number] 03:20:00 Test Item Value Reference Range Interpretation Comments UDS Note (test code = See Note *NA*(10/03/19 UDS Note) 9:20 PM) [facility] [id number] 03:20:00 Test Item Value Reference Range Interpretation Comments U Amph Scr (test code Negative *NA*(10/03/19 = U Amph Scr) 9:20 PM) [facility] [id number] 03:20:00 Test Item Value Reference Range Interpretation Comments U Dede Scr (test code Negative *NA*(10/03/19 = U Dede Scr) 9:20 PM) [facility] [id number] 03:20:00 Test Item Value Reference Range Interpretation Comments U Benzodiaz Scr (test Negative *NA*(10/03/19 code = U Benzodiaz Scr) 9:20 PM) [facility] [id number] 03:11:00 Test Item Value Reference Range Interpretation Comments Hgb (test code = Hgb) 14.3 14.0-18.0 [facility] [id number] 03:11:00 Test Item Value Reference Range Interpretation Comments Hct (test code = Hct) 41.9 42.0-54.0 [facility] [id number] 03:11:00 Test Item Value Reference Range Interpretation Comments MCV (test code = MCV) 83.8 80.0-94.0 [facility] WwyzminMQPVEMVVEX5196-34-74 03:11:00 Test Item Value Reference Range Interpretation Comments MCH (test code = MCH) 28.6 pg 27.0-31.0 [facility] ZauiaywJKTCYNSNFF2639-26-88 03:11:00 Test Item Value Reference Range Interpretation Comments MCHC (test code = MCHC) 34.1 32.0-36.0 [facility] HospitalSbzqzfrFESXVIJRCW6773-61-13 03:11:00 Test Item Value Reference Range Interpretation Comments RDW (test code = RDW) 13.8 11.5-14.5 [facility] HospitalLmtdfbuWWFONTNQJI7480-72-89 03:11:00 Test Item Value Reference Range Interpretation Comments Platelet (test code = Platelet) 297 133-450 [facility] CubmfekPAKUCSHBSS6950-16-88 03:11:00 Test Item Value Reference Range Interpretation Comments MPV (test code = MPV) 7.9 7.4-10.4 [facility] HospitalAsctnjlUSNPUGKSEA1182-75-68 03:11:00 Test Item Value Reference Range Interpretation Comments Segs (test code = Segs) 63.8 45.0-75.0 [facility] RuafhpaMVXMBIXWPR7572-69-64 03:11:00 Test Item Value Reference Range Interpretation Comments Lymphocytes (test code = Lymphocytes) 26.9 20.0-40.0 [facility]JzcmvaxBLYINWTYOM2499-56-29 03:11:00 Test Item Value Reference Range Interpretation Comments Monocytes (test code = Monocytes) 8.5 2.0-12.0 [facility] Hospit[id number] 03:11:00 Test Item Value Reference Range Interpretation Comments Eosinophils (test code = 0.4 See_Comment [A utomated message] The Eosinophils) system which ge nerated this result tra nsmitted reference range : <=4.0. The reference r carin was not used to int erpret this result as normal/abnormal . [facility] HospitalCiqcvpmVRRSEMXYCR2253-19-48 03:11:00 Test Item Value Reference Range Interpretation Comments Basophils (test code = 0.4 See_Comment [Aut omated message] The Basophils) system which ge nerated this result tra nsmitted reference range : <=1.0. The reference r carin was not used to int erpret this result as normal/abnormal . [facility] HospitalLaousowKUHYZVCRHT0461-35-20 03:11:00 Test Item Value Reference Range Interpretation Comments Neutrophils # (test code = Neutrophils 6.8 1.5-8.1 #) [facility] HospitalFdiybclNMHNZGVDBX7252-52-62 03:11:00 Test Item Value Reference Range Interpretation Comments Lymphocytes # (test code = Lymphocytes 2.9 1.0-5.5 #) [facility] HospitalHcsdufbGDVBROUUKD0776-70-53 03:11:00 Test Item Value Reference Range Interpretation Comments Monocytes # (test code 0.9 See_Comment [Aut omated message] The = Monocytes #) system which generated this result tra nsmitted reference range : <=0.8. The reference r carin was not used to int erpret this result as normal/abnormal . [facility]XtzlgbpCTHSHCLTRD6864-54-74 03:11:00 Test Item Value Reference Range Interpretation Comments Acetaminoph Lvl (test code = (10/03/19 9:11 PM) 10-20 Acetaminoph Lvl) [place] [id number] 03:11:00 Test Item Value Reference Range Interpretation Comments Ethanol Lvl (test code = Ethanol Lvl) no gt [facility]XlnzoseEWUTDGWGUR5404-24-59 03:11:00 Test Item Value Reference Range Interpretation Comments Etoh (%) (test code = Etoh (%)) no gt [facility] DallasMugwyhtBLANHOKIEY3571-89-00 03:11:00 Test Item Value Reference Range Interpretation Comments Salicylate Lvl (test no gt See_Comment [Autom ated message] The code = Salicylate Lvl) syste m which generated this result tra nsmitted reference range : <=30.0. The reference r carin was not used to int erpret this result as normal/abnormal . [facility] [id number] 03:11:00 Test Item Value Reference Range Interpretation Comments Glucose Lvl (test code = Glucose Lvl) 91 70-99 [facility] [id number] 03:11:00 Test Item Value Reference Range Interpretation Comments BUN (test code = BUN) 14 7-22 [facility]2020-01-09 03:11:00 Test Item Value Reference Range Interpretation Comments Creatinine Lvl (test code = Creatinine 1.10 0.50-1.40 Lvl) [facility]2020-01-09 03:11:00 Test Item Value Reference Range Interpretation Comments Sodium Lvl (test code = Sodium Lvl) 140 135-145 [facility] [id number] 03:11:00 Test Item Value Reference Range Interpretation Comments Potassium Lvl (test code = Potassium 3.8 3.5-5.1 Lvl) [facility]2020-01-09 03:11:00 Test Item Value Reference Range Interpretation Comments Chloride Lvl (test code = Chloride Lvl) 105 95-109 [facility]2020-01-09 03:11:00 Test Item Value Reference Range Interpretation Comments CO2 (test code = CO2) 27 24-32 [facility] [id number] 03:11:00 Test Item Value Reference Range Interpretation Comments Calcium Lvl (test code = Calcium Lvl) 9.5 8.5-10.5 [facility] [id number] 03:11:00 Test Item Value Reference Range Interpretation Comments Total Protein (test code = Total 7.5 6.4-8.4 Protein) [facility]2020-01-09 03:11:00 Test Item Value Reference Range Interpretation Comments Albumin Lvl (test code = Albumin Lvl) 4.2 3.5-5.0 [facility] [id number] 03:11:00 Test Item Value Reference Range Interpretation Comments ALT (test code = ALT) 25 See_Comment [Auto mated message] The system which ge nerated this result transmit mark reference range : <=65. The reference range was not used to interpr et this result as melinda l/abnormal. [facility] [id number] 03:11:00 Test Item Value Reference Range Interpretation Comments Glucose Lvl (test code = Glucose Lvl) 91 70-99 [facility] [id number] 03:11:00 Test Item Value Reference Range Interpretation Comments AST (test code = AST) 13 See_Comment [Auto mated message] The system which ge nerated this result transmit mark reference range : <=37. The reference range was not used to interpr et this result as melinda l/abnormal. [facility] [id number] 03:11:00 Test Item Value Reference Range Interpretation Comments Alk Phos (test code = Alk Phos) 74 39-136 [facility] [id number] 03:11:00 Test Item Value Reference Range Interpretation Comments Bili Total (test code = Bili Total) 0.5 0.2-1.3 [facility] [id number] 03:11:00 Test Item Value Reference Range Interpretation Comments eGFR (test code = eGFR) 93 [facility] [id number] 03:11:00 Test Item Value Reference Range Interpretation Comments AGAP (test code = AGAP) 11.8 10.0-20.0 [facility] [id number] 03:11:00 Test Item Value Reference Range Interpretation Comments B/C Ratio (test code = B/C Ratio) 13 1 6-25 [facility] [id number] 03:11:00 Test Item Value Reference Range Interpretation Comments Globulin (test code = Globulin) 3.3 2.7-4.2 [facility] [id number] 03:11:00 Test Item Value Reference Range Interpretation Comments A/G Ratio (test code = A/G Ratio) 1.3 1 0.7-1.6 [facility] HospitalRnsemthNIJZZWRZMZ7626-63-92 03:11:00 Test Item Value Reference Range Interpretation Comments WBC (test code = WBC) 10.6 3.7-10.4 [facility] DallasRfrcxkxXPJTGHTTOC8966-11-20 03:11:00 Test Item Value Reference Range Interpretation Comments RBC (test code = RBC) 4.99 4.70-6.10 [facility]2020-01-09 03:11:00 Test Item Value Reference Range Interpretation Comments BUN (test code = BUN) 14 7-22 [facility] DallasXwwzmwyMNDZOJUDUX9271-88-87 03:11:00 Test Item Value Reference Range Interpretation Comments Hgb (test code = Hgb) 14.3 14.0-18.0 [facility] DallasGnqsqunUMXOXGRMIF6834-33-43 03:11:00 Test Item Value Reference Range Interpretation Comments Hct (test code = Hct) 41.9 42.0-54.0 [facility]KrkbitjXCGAKBDPVI6562-15-80 03:11:00 Test Item Value Reference Range Interpretation Comments MCV (test code = MCV) 83.8 80.0-94.0 [facility] DallasZvmyspbAPJXDQOZIR1233-37-83 03:11:00 Test Item Value Reference Range Interpretation Comments MCH (test code = MCH) 28.6 pg 27.0-31.0 [facility] DallasXbecplaZASMFXZFHI0851-78-93 03:11:00 Test Item Value Reference Range Interpretation Comments MCHC (test code = MCHC) 34.1 32.0-36.0 [facility] HospitalOmfswyzODBFJYBMPY2942-84-25 03:11:00 Test Item Value Reference Range Interpretation Comments RDW (test code = RDW) 13.8 11.5-14.5 [facility] HospitalIlnonuvJYRNKEUOZX5251-55-84 03:11:00 Test Item Value Reference Range Interpretation Comments Platelet (test code = Platelet) 297 133-450 [facility] HospitalHgimpfjRYDRXRAWBE2635-27-43 03:11:00 Test Item Value Reference Range Interpretation Comments MPV (test code = MPV) 7.9 7.4-10.4 [facility] HospitalSldtimwSPGLONGPJP1534-23-84 03:11:00 Test Item Value Reference Range Interpretation Comments Segs (test code = Segs) 63.8 45.0-75.0 [facility] HospitalFujndhdVDJQZOSSTJ3728-57-87 03:11:00 Test Item Value Reference Range Interpretation Comments Lymphocytes (test code = Lymphocytes) 26.9 20.0-40.0 [facility]2020-01-09 03:11:00 Test Item Value Reference Range Interpretation Comments Creatinine Lvl (test code = Creatinine 1.10 0.50-1.40 Lvl) [facility] HospitalGkvlewfIMBSJCKGLX3560-33-71 03:11:00 Test Item Value Reference Range Interpretation Comments Monocytes (test code = Monocytes) 8.5 2.0-12.0 [facility] HospitalBcqwiznJUMQCTVJVA1791-64-16 03:11:00 Test Item Value Reference Range Interpretation Comments Eosinophils (test code = 0.4 See_Comment [A utomated message] The Eosinophils) system which ge nerated this result tra nsmitted reference range : <=4.0. The reference r carin was not used to int erpret this result as normal/abnormal . [facility] HospitalHzflhybZGOARNBIIF2994-27-48 03:11:00 Test Item Value Reference Range Interpretation Comments Basophils (test code = 0.4 See_Comment [Aut omated message] The Basophils) system which ge nerated this result tra nsmitted reference range : <=1.0. The reference r carin was not used to int erpret this result as normal/abnormal . [facility] HospitalGzqcdsgKGSNCDAWUF2041-80-39 03:11:00 Test Item Value Reference Range Interpretation Comments Neutrophils # (test code = Neutrophils 6.8 1.5-8.1 #) [facility] HospitalMtmjzpnCDBLURFYPT8379-46-30 03:11:00 Test Item Value Reference Range Interpretation Comments Lymphocytes # (test code = Lymphocytes 2.9 1.0-5.5 #) [place] [id number] 03:11:00 Test Item Value Reference Range Interpretation Comments Monocytes # (test code 0.9 See_Comment [Aut omated message] The = Monocytes #) system which generated this result tra nsmitted reference range : <=0.8. The reference r carin was not used to int erpret this result as normal/abnormal . [place] [id number] 03:11:00 Test Item Value Reference Range Interpretation Comments Acetaminoph Lvl (test code = (10/03/19 9:11 PM) 10-20 Acetaminoph Lvl) [place] [id number] 03:11:00 Test Item Value Reference Range Interpretation Comments Ethanol Lvl (test code = Ethanol Lvl) no gt [facility] CenterVccwzexTOTJTJYGGU3622-36-28 03:11:00 Test Item Value Reference Range Interpretation Comments Etoh (%) (test code = Etoh (%)) no gt [facility] CenterZgxsdmlCEWWGRQPLM8711-24-08 03:11:00 Test Item Value Reference Range Interpretation Comments Salicylate Lvl (test no gt See_Comment [Autom ated message] The code = Salicylate Lvl) syste m which generated this result tra nsmitted reference range : <=30.0. The reference r carin was not used to int erpret this result as normal/abnormal . [facility] [id number] 03:11:00 Test Item Value Reference Range Interpretation Comments Sodium Lvl (test code = Sodium Lvl) 140 135-145 [facility] [id number] 03:11:00 Test Item Value Reference Range Interpretation Comments Glucose Lvl (test code = Glucose Lvl) 91 70-99 [facility] [id number] 03:11:00 Test Item Value Reference Range Interpretation Comments Potassium Lvl (test code = Potassium 3.8 3.5-5.1 Lvl) [facility] [id number] 03:11:00 Test Item Value Reference Range Interpretation Comments BUN (test code = BUN) 14 7-22 [facility] [id number] 03:11:00 Test Item Value Reference Range Interpretation Comments Creatinine Lvl (test code = Creatinine 1.10 0.50-1.40 Lvl) [facility] [id number] 03:11:00 Test Item Value Reference Range Interpretation Comments Sodium Lvl (test code = Sodium Lvl) 140 135-145 [facility] [id number] 03:11:00 Test Item Value Reference Range Interpretation Comments Potassium Lvl (test code = Potassium 3.8 3.5-5.1 Lvl) [facility] [id number] 03:11:00 Test Item Value Reference Range Interpretation Comments Chloride Lvl (test code = Chloride Lvl) 105 95-109 [facility] [id number] 03:11:00 Test Item Value Reference Range Interpretation Comments CO2 (test code = CO2) 27 24-32 [facility] [id number] 03:11:00 Test Item Value Reference Range Interpretation Comments Calcium Lvl (test code = Calcium Lvl) 9.5 8.5-10.5 [facility] [id number] 03:11:00 Test Item Value Reference Range Interpretation Comments Total Protein (test code = Total 7.5 6.4-8.4 Protein) [facility] [id number] 03:11:00 Test Item Value Reference Range Interpretation Comments Albumin Lvl (test code = Albumin Lvl) 4.2 3.5-5.0 [facility] [id number] 03:11:00 Test Item Value Reference Range Interpretation Comments ALT (test code = ALT) 25 See_Comment [Auto mated message] The system which ge nerated this result transmit mark reference range : <=65. The reference range was not used to interpr et this result as melinda l/abnormal. [facility] [id number] 03:11:00 Test Item Value Reference Range Interpretation Comments Chloride Lvl (test code = Chloride Lvl) 105 95-109 [facility] [id number] 03:11:00 Test Item Value Reference Range Interpretation Comments AST (test code = AST) 13 See_Comment [Auto mated message] The system which ge nerated this result transmit mark reference range : <=37. The reference range was not used to interpr et this result as melinda l/abnormal. [facility] [employer] JOAUN6528-26-03 03:11:00 Test Item Value Reference Range Interpretation Comments Alk Phos (test code = Alk Phos) 74 39-136 [facility] [employer] [id number] 03:11:00 Test Item Value Reference Range Interpretation Comments Bili Total (test code = Bili Total) 0.5 0.2-1.3 [facility] [employer] [id number] 03:11:00 Test Item Value Reference Range Interpretation Comments eGFR (test code = eGFR) 93 [facility] [employer] [id number] 03:11:00 Test Item Value Reference Range Interpretation Comments AGAP (test code = AGAP) 11.8 10.0-20.0 [facility] [employer] [id number] 03:11:00 Test Item Value Reference Range Interpretation Comments B/C Ratio (test code = B/C Ratio) 13 1 6-25 [facility] [id number] 03:11:00 Test Item Value Reference Range Interpretation Comments Globulin (test code = Globulin) 3.3 2.7-4.2 [facility] [id number] 03:11:00 Test Item Value Reference Range Interpretation Comments A/G Ratio (test code = A/G Ratio) 1.3 1 0.7-1.6 [facility] HospitalWxubncdRTSURVENEL5511-65-30 03:11:00 Test Item Value Reference Range Interpretation Comments WBC (test code = WBC) 10.6 3.7-10.4 [facility] HospitalDubnacdSWLAOLEVQJ9208-76-10 03:11:00 Test Item Value Reference Range Interpretation Comments RBC (test code = RBC) 4.99 4.70-6.10 [facility]2020-01-09 03:11:00 Test Item Value Reference Range Interpretation Comments CO2 (test code = CO2) 27 24-32 [facility] HospitalEpnzrvsILYQQGRWBV0496-45-11 03:11:00 Test Item Value Reference Range Interpretation Comments Hgb (test code = Hgb) 14.3 14.0-18.0 [facility] HospitalQphautgLCJKBNKWCR6584-92-47 03:11:00 Test Item Value Reference Range Interpretation Comments Hct (test code = Hct) 41.9 42.0-54.0 [facility] HospitalGdwdyylAVLAUDPYMN6457-56-46 03:11:00 Test Item Value Reference Range Interpretation Comments MCV (test code = MCV) 83.8 80.0-94.0 [facility] HospitalIyjxsgnEZHYCVGFTV0094-38-47 03:11:00 Test Item Value Reference Range Interpretation Comments MCH (test code = MCH) 28.6 pg 27.0-31.0 [facility] HospitalIzmhyyiXVEYEJMRET3707-54-97 03:11:00 Test Item Value Reference Range Interpretation Comments MCHC (test code = MCHC) 34.1 32.0-36.0 [facility] HospitalJmufqnhXJSITVYGIW1493-11-94 03:11:00 Test Item Value Reference Range Interpretation Comments RDW (test code = RDW) 13.8 11.5-14.5 [facility] HospitalOmqcqhyURHTHWGZJE8942-21-93 03:11:00 Test Item Value Reference Range Interpretation Comments Platelet (test code = Platelet) 297 133-450 [facility] HospitalLavgpesLQHJLVYUDC1143-33-33 03:11:00 Test Item Value Reference Range Interpretation Comments MPV (test code = MPV) 7.9 7.4-10.4 [facility] [facility]GRS4399-97-78 03:11:00 Test Item Value Reference Range Interpretation Comments Segs (test code = Segs) 63.8 45.0-75.0 [facility]hzfgjmGUAJBEZUCB9010-53-72 03:11:00 Test Item Value Reference Range Interpretation Comments Lymphocytes (test code = Lymphocytes) 26.9 20.0-40.0 [facility]2020-01-09 03:11:00 Test Item Value Reference Range Interpretation Comments Calcium Lvl (test code = Calcium Lvl) 9.5 8.5-10.5 [facility] HospitalLdnmnpdOYGBGCGYKG7047-95-21 03:11:00 Test Item Value Reference Range Interpretation Comments Monocytes (test code = Monocytes) 8.5 2.0-12.0 [facility] HospitalPtarsqaLQJLVQDCFK5327-38-05 03:11:00 Test Item Value Reference Range Interpretation Comments Eosinophils (test code = 0.4 See_Comment [A utomated message] The Eosinophils) system which ge nerated this result tra nsmitted reference range : <=4.0. The reference r carin was not used to int erpret this result as normal/abnormal . [facility] HospitalYzwcbpiLJLGDRMCOZ3894-54-36 03:11:00 Test Item Value Reference Range Interpretation Comments Basophils (test code = 0.4 See_Comment [Aut omated message] The Basophils) system which ge nerated this result tra nsmitted reference range : <=1.0. The reference r carin was not used to int erpret this result as normal/abnormal . [facility] HospitalWguxakfPMKOPMNRZU4570-07-82 03:11:00 Test Item Value Reference Range Interpretation Comments Neutrophils # (test code = Neutrophils 6.8 1.5-8.1 #) [facility] HospitalKqfzpyoVELPHXNNAE0486-60-44 03:11:00 Test Item Value Reference Range Interpretation Comments Lymphocytes # (test code = Lymphocytes 2.9 1.0-5.5 #) [facility] HospitalNqhvsjzDMXYFWOAMG6394-21-02 03:11:00 Test Item Value Reference Range Interpretation Comments Monocytes # (test code 0.9 See_Comment [Aut omated message] The = Monocytes #) system which generated this result tra nsmitted reference range : <=0.8. The reference r carin was not used to int erpret this result as normal/abnormal . [place] [id number] 03:11:00 Test Item Value Reference Range Interpretation Comments Acetaminoph Lvl (test code = (10/03/19 9:11 PM) 10-20 Acetaminoph Lvl) [place] 640200-01-09 03:11:00 Test Item Value Reference Range Interpretation Comments Ethanol Lvl (test code = Ethanol Lvl) no gt [place] [id number] 03:11:00 Test Item Value Reference Range Interpretation Comments Etoh (%) (test code = Etoh (%)) no gt [place] [id number] 03:11:00 Test Item Value Reference Range Interpretation Comments Salicylate Lvl (test no gt See_Comment [Autom ated message] The code = Salicylate Lvl) syste m which generated this result tra nsmitted reference range : <=30.0. The reference r carin was not used to int erpret this result as normal/abnormal . [facility] [id number] 03:11:00 Test Item Value Reference Range Interpretation Comments Total Protein (test code = Total 7.5 6.4-8.4 Protein) [facility] [id number] 03:11:00 Test Item Value Reference Range Interpretation Comments Albumin Lvl (test code = Albumin Lvl) 4.2 3.5-5.0 [facility] [id number] 03:11:00 Test Item Value Reference Range Interpretation Comments Glucose Lvl (test code = Glucose Lvl) 91 70-99 [facility] [id number] 03:11:00 Test Item Value Reference Range Interpretation Comments BUN (test code = BUN) 14 7-22 [facility] [id number] 03:11:00 Test Item Value Reference Range Interpretation Comments Creatinine Lvl (test code = Creatinine 1.10 0.50-1.40 Lvl) [facility] [id number] 03:11:00 Test Item Value Reference Range Interpretation Comments Sodium Lvl (test code = Sodium Lvl) 140 135-145 [facility] [id number] 03:11:00 Test Item Value Reference Range Interpretation Comments Potassium Lvl (test code = Potassium 3.8 3.5-5.1 Lvl) [facility] HospitalbetNOWVID[id number] 03:11:00 Test Item Value Reference Range Interpretation Comments Chloride Lvl (test code = Chloride Lvl) 105 95-109 [facility] HospitalbetNOWROBERT [place] 51825VLVDO8319-54-03 03:11:00 Test Item Value Reference Range Interpretation Comments CO2 (test code = CO2) 27 24-32 [facility] [id number] 03:11:00 Test Item Value Reference Range Interpretation Comments Calcium Lvl (test code = Calcium Lvl) 9.5 8.5-10.5 [facility] [id number] 03:11:00 Test Item Value Reference Range Interpretation Comments Total Protein (test code = Total 7.5 6.4-8.4 Protein) [facility]2020-01-09 03:11:00 Test Item Value Reference Range Interpretation Comments Albumin Lvl (test code = Albumin Lvl) 4.2 3.5-5.0 [facility] [id number] 03:11:00 Test Item Value Reference Range Interpretation Comments ALT (test code = ALT) 25 See_Comment [Auto mated message] The system which ge nerated this result transmit mark reference range : <=65. The reference range was not used to interpr et this result as melinda l/abnormal. [facility] [id number] 03:11:00 Test Item Value Reference Range Interpretation Comments ALT (test code = ALT) 25 See_Comment [Auto mated message] The system which ge nerated this result transmit mark reference range : <=65. The reference range was not used to interpr et this result as melinda l/abnormal. [facility] [id number] 03:11:00 Test Item Value Reference Range Interpretation Comments AST (test code = AST) 13 See_Comment [Auto mated message] The system which ge nerated this result transmit mark reference range : <=37. The reference range was not used to interpr et this result as melinda l/abnormal. [facility] [id number] 03:11:00 Test Item Value Reference Range Interpretation Comments Alk Phos (test code = Alk Phos) 74 39-136 [place] 585770-01-09 03:11:00 Test Item Value Reference Range Interpretation Comments Bili Total (test code = Bili Total) 0.5 0.2-1.3 [place] 585770-01-09 03:11:00 Test Item Value Reference Range Interpretation Comments eGFR (test code = eGFR) 93 [place] 585770-01-09 03:11:00 Test Item Value Reference Range Interpretation Comments AGAP (test code = AGAP) 11.8 10.0-20.0 [place] 585770-01-09 03:11:00 Test Item Value Reference Range Interpretation Comments B/C Ratio (test code = B/C Ratio) 13 1 6-25 [place] 585770-01-09 03:11:00 Test Item Value Reference Range Interpretation Comments Globulin (test code = Globulin) 3.3 2.7-4.2 [place] 585770-01-09 03:11:00 Test Item Value Reference Range Interpretation Comments A/G Ratio (test code = A/G Ratio) 1.3 1 0.7-1.6 [place] [address]-01-09 03:11:00 Test Item Value Reference Range Interpretation Comments WBC (test code = WBC) 10.6 3.7-10.4 [place] 585770-01-09 03:11:00 Test Item Value Reference Range Interpretation Comments AST (test code = AST) 13 See_Comment [Auto mated message] The system which ge nerated this result transmit mark reference range : <=37. The reference range was not used to interpr et this result as melinda l/abnormal. [place] 619440-01-09 03:11:00 Test Item Value Reference Range Interpretation Comments RBC (test code = RBC) 4.99 4.70-6.10 [place] 619440-01-09 03:11:00 Test Item Value Reference Range Interpretation Comments Hgb (test code = Hgb) 14.3 14.0-18.0 [place] 619440-01-09 03:11:00 Test Item Value Reference Range Interpretation Comments Hct (test code = Hct) 41.9 42.0-54.0 [place] 619440-01-09 03:11:00 Test Item Value Reference Range Interpretation Comments MCV (test code = MCV) 83.8 80.0-94.0 [facility] DallasAcktyvgWDZNRPNMSQ5173-48-97 03:11:00 Test Item Value Reference Range Interpretation Comments MCH (test code = MCH) 28.6 pg 27.0-31.0 [facility] DallasVzuyfioIGEOJZNZYJ6207-10-01 03:11:00 Test Item Value Reference Range Interpretation Comments MCHC (test code = MCHC) 34.1 32.0-36.0 [facility] HospitalIpndzdlLWWGWCVVAR2851-88-06 03:11:00 Test Item Value Reference Range Interpretation Comments RDW (test code = RDW) 13.8 11.5-14.5 [facility] HospitalFhbxrjnFDMTCTCFFH7458-13-88 03:11:00 Test Item Value Reference Range Interpretation Comments Platelet (test code = Platelet) 297 133-450 [facility] HospitalZryevtmIOKRNCTGWC3236-44-04 03:11:00 Test Item Value Reference Range Interpretation Comments MPV (test code = MPV) 7.9 7.4-10.4 [facility] HospitalKywpfioYTZYUYOPWA5709-32-49 03:11:00 Test Item Value Reference Range Interpretation Comments Segs (test code = Segs) 63.8 45.0-75.0 [facility] [id number] 03:11:00 Test Item Value Reference Range Interpretation Comments Alk Phos (test code = Alk Phos) 74 39-136 [facility] DallasAvwcjdyBEDPVAPRRZ3947-89-80 03:11:00 Test Item Value Reference Range Interpretation Comments Lymphocytes (test code = Lymphocytes) 26.9 20.0-40.0 [facility] HospitalRqzyfywGTRAUZQELX1444-26-18 03:11:00 Test Item Value Reference Range Interpretation Comments Monocytes (test code = Monocytes) 8.5 2.0-12.0 [place] 619440-01-09 03:11:00 Test Item Value Reference Range Interpretation Comments Eosinophils (test code = 0.4 See_Comment [A utomated message] The Eosinophils) system which ge nerated this result tra nsmitted reference range : <=4.0. The reference r carin was not used to int erpret this result as normal/abnormal . [facility] HospitalDhnrmhhTKTLXWPHFC5640-92-04 03:11:00 Test Item Value Reference Range Interpretation Comments Basophils (test code = 0.4 See_Comment [Aut omated message] The Basophils) system which ge nerated this result tra nsmitted reference range : <=1.0. The reference r carin was not used to int erpret this result as normal/abnormal . [facility] DallasBcaunliUIUFSWRUGG0433-65-66 03:11:00 Test Item Value Reference Range Interpretation Comments Neutrophils # (test code = Neutrophils 6.8 1.5-8.1 #) [facility] HospitalCfxarcfNSNDUVBYJK1306-52-00 03:11:00 Test Item Value Reference Range Interpretation Comments Lymphocytes # (test code = Lymphocytes 2.9 1.0-5.5 #) [facility] HospitalYyqezhyZZJGEZSOTM4878-28-39 03:11:00 Test Item Value Reference Range Interpretation Comments Monocytes # (test code 0.9 See_Comment [Aut omated message] The = Monocytes #) system which generated this result tra nsmitted reference range : <=0.8. The reference r carin was not used to int erpret this result as normal/abnormal . [facility] DallasWyxhthrLRKGROYDCL9939-59-45 03:11:00 Test Item Value Reference Range Interpretation Comments Acetaminoph Lvl (test code = (10/03/19 9:11 PM) 10-20 Acetaminoph Lvl) [facility] DallasShygutpGCRTCQNBZW7897-05-31 03:11:00 Test Item Value Reference Range Interpretation Comments Ethanol Lvl (test code = Ethanol Lvl) no gt [place] [id number] 03:11:00 Test Item Value Reference Range Interpretation Comments Etoh (%) (test code = Etoh (%)) no gt [facility] [id number] 03:11:00 Test Item Value Reference Range Interpretation Comments Bili Total (test code = Bili Total) 0.5 0.2-1.3 [facility] CenterHdrdphvFPEIBGNNZL9092-37-61 03:11:00 Test Item Value Reference Range Interpretation Comments Salicylate Lvl (test no gt See_Comment [Autom ated message] The code = Salicylate Lvl) syste m which generated this result tra nsmitted reference range : <=30.0. The reference r carin was not used to int erpret this result as normal/abnormal . [facility] [id number] 03:11:00 Test Item Value Reference Range Interpretation Comments eGFR (test code = eGFR) 93 [place] 585770-01-09 03:11:00 Test Item Value Reference Range Interpretation Comments Glucose Lvl (test code = Glucose Lvl) 91 70-99 [place] 585770-01-09 03:11:00 Test Item Value Reference Range Interpretation Comments BUN (test code = BUN) 14 7-22 [place] 585770-01-09 03:11:00 Test Item Value Reference Range Interpretation Comments Creatinine Lvl (test code = Creatinine 1.10 0.50-1.40 Lvl) [place] 585770-01-09 03:11:00 Test Item Value Reference Range Interpretation Comments Sodium Lvl (test code = Sodium Lvl) 140 135-145 [place] 585770-01-09 03:11:00 Test Item Value Reference Range Interpretation Comments Potassium Lvl (test code = Potassium 3.8 3.5-5.1 Lvl) [place] 585770-01-09 03:11:00 Test Item Value Reference Range Interpretation Comments Chloride Lvl (test code = Chloride Lvl) 105 95-109 [place] 585770-01-09 03:11:00 Test Item Value Reference Range Interpretation Comments CO2 (test code = CO2) 27 24-32 [place] 585770-01-09 03:11:00 Test Item Value Reference Range Interpretation Comments Calcium Lvl (test code = Calcium Lvl) 9.5 8.5-10.5 [place] 585770-01-09 03:11:00 Test Item Value Reference Range Interpretation Comments Total Protein (test code = Total 7.5 6.4-8.4 Protein) [facility]2020-01-09 03:11:00 Test Item Value Reference Range Interpretation Comments AGAP (test code = AGAP) 11.8 10.0-20.0 [place] 585770-01-09 03:11:00 Test Item Value Reference Range Interpretation Comments Albumin Lvl (test code = Albumin Lvl) 4.2 3.5-5.0 [place] 585770-01-09 03:11:00 Test Item Value Reference Range Interpretation Comments ALT (test code = ALT) 25 See_Comment [Auto mated message] The system which ge nerated this result transmit mark reference range : <=65. The reference range was not used to interpr et this result as melinda l/abnormal. [facility] [id number] 03:11:00 Test Item Value Reference Range Interpretation Comments AST (test code = AST) 13 See_Comment [Auto mated message] The system which ge nerated this result transmit mark reference range : <=37. The reference range was not used to interpr et this result as melinda l/abnormal. [facility] [id number] 03:11:00 Test Item Value Reference Range Interpretation Comments Alk Phos (test code = Alk Phos) 74 39-136 [facility] [id number] 03:11:00 Test Item Value Reference Range Interpretation Comments Bili Total (test code = Bili Total) 0.5 0.2-1.3 [facility] [id number] 03:11:00 Test Item Value Reference Range Interpretation Comments eGFR (test code = eGFR) 93 [facility]E[employer] [facility] [id number] 03:11:00 Test Item Value Reference Range Interpretation Comments AGAP (test code = AGAP) 11.8 10.0-20.0 [facility] [id number] 03:11:00 Test Item Value Reference Range Interpretation Comments B/C Ratio (test code = B/C Ratio) 13 1 6-25 [facility] [facility] [id number] 03:11:00 Test Item Value Reference Range Interpretation Comments Globulin (test code = Globulin) 3.3 2.7-4.2 [facility] [id number] 03:11:00 Test Item Value Reference Range Interpretation Comments A/G Ratio (test code = A/G Ratio) 1.3 1 0.7-1.6 [facility] [id number] 03:11:00 Test Item Value Reference Range Interpretation Comments B/C Ratio (test code = B/C Ratio) 13 1 6-25 [facility] DallasNddfrkhMSUHNUQHFQ6869-56-76 03:11:00 Test Item Value Reference Range Interpretation Comments WBC (test code = WBC) 10.6 3.7-10.4 [facility] DallasRuceamyJGXVNRKNWH0690-44-20 03:11:00 Test Item Value Reference Range Interpretation Comments RBC (test code = RBC) 4.99 4.70-6.10 [facility] HospitalFlwhotiJFHBPNHLNJ3024-93-24 03:11:00 Test Item Value Reference Range Interpretation Comments Hgb (test code = Hgb) 14.3 14.0-18.0 [facility] HospitalYypxlnrXNAFDMBLUU9567-96-99 03:11:00 Test Item Value Reference Range Interpretation Comments Hct (test code = Hct) 41.9 42.0-54.0 [facility] HospitalDihwyheMBTQVHVEUQ5898-54-03 03:11:00 Test Item Value Reference Range Interpretation Comments MCV (test code = MCV) 83.8 80.0-94.0 [facility] HospitalJknazliCLWYWDFUNF9450-88-69 03:11:00 Test Item Value Reference Range Interpretation Comments MCH (test code = MCH) 28.6 pg 27.0-31.0 [facility] HospitalVuejwvqICHGWHAKCR4753-64-30 03:11:00 Test Item Value Reference Range Interpretation Comments MCHC (test code = MCHC) 34.1 32.0-36.0 [facility] DallasSqwqzosUVDBIULVLT9373-72-81 03:11:00 Test Item Value Reference Range Interpretation Comments RDW (test code = RDW) 13.8 11.5-14.5 [facility] HospitalYhgxmazIUEOXPQCBG9030-81-41 03:11:00 Test Item Value Reference Range Interpretation Comments Platelet (test code = Platelet) 297 133-450 [facility] HospitalAauhvmoEXUYKQAQWN5000-73-10 03:11:00 Test Item Value Reference Range Interpretation Comments MPV (test code = MPV) 7.9 7.4-10.4 [facility] [id number] 03:11:00 Test Item Value Reference Range Interpretation Comments Globulin (test code = Globulin) 3.3 2.7-4.2 [facility] HospitalPztxpxaXWYDRZKGMB5917-08-27 03:11:00 Test Item Value Reference Range Interpretation Comments Segs (test code = Segs) 63.8 45.0-75.0 [facility] HospitalNcucipoNJJPVEJFGC0039-99-98 03:11:00 Test Item Value Reference Range Interpretation Comments Lymphocytes (test code = Lymphocytes) 26.9 20.0-40.0 [facility] HospitalIcrhjroBLEVEEXVCV4654-97-41 03:11:00 Test Item Value Reference Range Interpretation Comments Monocytes (test code = Monocytes) 8.5 2.0-12.0 [facility] HospitalAuetgyvXADGRMQSYT1989-26-07 03:11:00 Test Item Value Reference Range Interpretation Comments Eosinophils (test code = 0.4 See_Comment [A utomated message] The Eosinophils) system which ge nerated this result tra nsmitted reference range : <=4.0. The reference r carin was not used to int erpret this result as normal/abnormal . [facility] DallasVvmvqkcTWURZNEPOQ5862-14-74 03:11:00 Test Item Value Reference Range Interpretation Comments Basophils (test code = 0.4 See_Comment [Aut omated message] The Basophils) system which ge nerated this result tra nsmitted reference range : <=1.0. The reference r carin was not used to int erpret this result as normal/abnormal . [facility] HospitalDsvkzlkUMRDIIOLMX1669-54-58 03:11:00 Test Item Value Reference Range Interpretation Comments Neutrophils # (test code = Neutrophils 6.8 1.5-8.1 #) [facility] DallasZkfxtyuUJPZJSDPDX4631-19-10 03:11:00 Test Item Value Reference Range Interpretation Comments Lymphocytes # (test code = Lymphocytes 2.9 1.0-5.5 #) [facility] DallasIuctxbcRPKTIEJODC4058-40-66 03:11:00 Test Item Value Reference Range Interpretation Comments Monocytes # (test code 0.9 See_Comment [Aut omated message] The = Monocytes #) system which generated this result tra nsmitted reference range : <=0.8. The reference r carin was not used to int erpret this result as normal/abnormal . [facility] DallasWdsltlhBIJTXZYJNM4270-12-58 03:11:00 Test Item Value Reference Range Interpretation Comments Acetaminoph Lvl (test code = (10/03/19 9:11 PM) 10-20 Acetaminoph Lvl) [facility] DallasRqiuxbtQEWSYIBJAI3938-59-07 03:11:00 Test Item Value Reference Range Interpretation Comments Ethanol Lvl (test code = Ethanol Lvl) no gt [facility] HospitalannCHEM [id number] 03:11:00 Test Item Value Reference Range Interpretation Comments A/G Ratio (test code = A/G Ratio) 1.3 1 0.7-1.6 [facility] HospitalRdulghiEYYFBTNVZP6922-27-46 03:11:00 Test Item Value Reference Range Interpretation Comments Etoh (%) (test code = Etoh (%)) no gt [facility] DallasMafnabvUWEBPVGNWZ6224-64-11 03:11:00 Test Item Value Reference Range Interpretation Comments Salicylate Lvl (test no gt See_Comment [Autom ated message] The code = Salicylate Lvl) syste m which generated this result tra nsmitted reference range : <=30.0. The reference r carin was not used to int erpret this result as normal/abnormal . [facility] HospitalQzhykdrZTKIWJELWQ5471-81-47 03:11:00 Test Item Value Reference Range Interpretation Comments WBC (test code = WBC) 10.6 3.7-10.4 [place] 585770-01-09 03:11:00 Test Item Value Reference Range Interpretation Comments Glucose Lvl (test code = Glucose Lvl) 91 70-99 [facility]2020-01-09 03:11:00 Test Item Value Reference Range Interpretation Comments BUN (test code = BUN) 14 7-22 [facility]2020-01-09 03:11:00 Test Item Value Reference Range Interpretation Comments Creatinine Lvl (test code = Creatinine 1.10 0.50-1.40 Lvl) [facility]2020-01-09 03:11:00 Test Item Value Reference Range Interpretation Comments Sodium Lvl (test code = Sodium Lvl) 140 135-145 [facility]2020-01-09 03:11:00 Test Item Value Reference Range Interpretation Comments Potassium Lvl (test code = Potassium 3.8 3.5-5.1 Lvl) [facility]2020-01-09 03:11:00 Test Item Value Reference Range Interpretation Comments Chloride Lvl (test code = Chloride Lvl) 105 95-109 [facility]2020-01-09 03:11:00 Test Item Value Reference Range Interpretation Comments CO2 (test code = CO2) 27 24-32 [facility]2020-01-09 03:11:00 Test Item Value Reference Range Interpretation Comments Calcium Lvl (test code = Calcium Lvl) 9.5 8.5-10.5 [facility] HospitalLcbunrbOJSQWVSZHQ3351-29-73 03:11:00 Test Item Value Reference Range Interpretation Comments RBC (test code = RBC) 4.99 4.70-6.10 [facility]2020-01-09 03:11:00 Test Item Value Reference Range Interpretation Comments Total Protein (test code = Total 7.5 6.4-8.4 Protein) [facility] [id number] 03:11:00 Test Item Value Reference Range Interpretation Comments Albumin Lvl (test code = Albumin Lvl) 4.2 3.5-5.0 [place] 585770-01-09 03:11:00 Test Item Value Reference Range Interpretation Comments ALT (test code = ALT) 25 See_Comment [Auto mated message] The system which ge nerated this result transmit mark reference range : <=65. The reference range was not used to interpr et this result as melinda l/abnormal. [facility] [id number] 03:11:00 Test Item Value Reference Range Interpretation Comments AST (test code = AST) 13 See_Comment [Auto mated message] The system which ge nerated this result transmit mark reference range : <=37. The reference range was not used to interpr et this result as melinda l/abnormal. [facility] [id number] 03:11:00 Test Item Value Reference Range Interpretation Comments Alk Phos (test code = Alk Phos) 74 39-136 [facility] [id number] 03:11:00 Test Item Value Reference Range Interpretation Comments Bili Total (test code = Bili Total) 0.5 0.2-1.3 [facility] [id number] 03:11:00 Test Item Value Reference Range Interpretation Comments eGFR (test code = eGFR) 93 [facility] [id number] 03:11:00 Test Item Value Reference Range Interpretation Comments AGAP (test code = AGAP) 11.8 10.0-20.0 [facility] [id number] 03:11:00 Test Item Value Reference Range Interpretation Comments B/C Ratio (test code = B/C Ratio) 13 1 6-25 [facility] [id number] 03:11:00 Test Item Value Reference Range Interpretation Comments Globulin (test code = Globulin) 3.3 2.7-4.2 [facility]OypntpdJTHPENUKYU9710-15-42 03:11:00 Test Item Value Reference Range Interpretation Comments Hgb (test code = Hgb) 14.3 14.0-18.0 [facility]2020-01-09 03:11:00 Test Item Value Reference Range Interpretation Comments A/G Ratio (test code = A/G Ratio) 1.3 1 0.7-1.6 [facility] HospitalPcbowaoKBBNRAYPNA1668-61-83 03:11:00 Test Item Value Reference Range Interpretation Comments WBC (test code = WBC) 10.6 3.7-10.4 [facility] HospitalBbovomvWWBARYKVDV1270-32-70 03:11:00 Test Item Value Reference Range Interpretation Comments RBC (test code = RBC) 4.99 4.70-6.10 [facility] HospitalWligozlOANXBQWJZI7635-64-35 03:11:00 Test Item Value Reference Range Interpretation Comments Hgb (test code = Hgb) 14.3 14.0-18.0 [place] 619440-01-09 03:11:00 Test Item Value Reference Range Interpretation Comments Hct (test code = Hct) 41.9 42.0-54.0 [facility] HospitalCjvqrjsYHLEKPWCBO1388-66-39 03:11:00 Test Item Value Reference Range Interpretation Comments MCV (test code = MCV) 83.8 80.0-94.0 [facility] HospitalNzlchqfGELLVTIOJR0830-65-78 03:11:00 Test Item Value Reference Range Interpretation Comments MCH (test code = MCH) 28.6 pg 27.0-31.0 [facility] HospitalSolfbwhGGINCZEMQH6781-05-55 03:11:00 Test Item Value Reference Range Interpretation Comments MCHC (test code = MCHC) 34.1 32.0-36.0 [facility] HospitalJhcefpdLOZVDANCGF4466-22-07 03:11:00 Test Item Value Reference Range Interpretation Comments RDW (test code = RDW) 13.8 11.5-14.5 [facility] HospitalNqsnsmrGHLQHWSKXI2453-47-18 03:11:00 Test Item Value Reference Range Interpretation Comments Platelet (test code = Platelet) 297 133-450 [facility] HospitalWmmomtoQBTLVYHJVA4895-48-42 03:11:00 Test Item Value Reference Range Interpretation Comments Hct (test code = Hct) 41.9 42.0-54.0 [place] 619440-01-09 03:11:00 Test Item Value Reference Range Interpretation Comments MPV (test code = MPV) 7.9 7.4-10.4 [facility] HospitalTixggqtSMLLEBFJET4657-47-44 03:11:00 Test Item Value Reference Range Interpretation Comments Segs (test code = Segs) 63.8 45.0-75.0 [facility] HospitalHyybvmzYYGVPEUAEE2660-17-69 03:11:00 Test Item Value Reference Range Interpretation Comments Lymphocytes (test code = Lymphocytes) 26.9 20.0-40.0 [place] 619440-01-09 03:11:00 Test Item Value Reference Range Interpretation Comments Monocytes (test code = Monocytes) 8.5 2.0-12.0 [facility] HospitalJiamaiiFYKRRGQLMZ0249-78-18 03:11:00 Test Item Value Reference Range Interpretation Comments Eosinophils (test code = 0.4 See_Comment [A utomated message] The Eosinophils) system which ge nerated this result tra nsmitted reference range : <=4.0. The reference r carin was not used to int erpret this result as normal/abnormal . [facility] HospitalQidivddNIUCTUWYPO2909-96-53 03:11:00 Test Item Value Reference Range Interpretation Comments Basophils (test code = 0.4 See_Comment [Aut omated message] The Basophils) system which ge nerated this result tra nsmitted reference range : <=1.0. The reference r carin was not used to int erpret this result as normal/abnormal . [facility] HospitalQmpxervXQIIBDYQOZ3454-38-95 03:11:00 Test Item Value Reference Range Interpretation Comments Neutrophils # (test code = Neutrophils 6.8 1.5-8.1 #) [facility] HospitalPkegkrwHIGLBOPQHW9288-71-96 03:11:00 Test Item Value Reference Range Interpretation Comments Lymphocytes # (test code = Lymphocytes 2.9 1.0-5.5 #) [facility] HospitalMoqffvlFDKTJVTFRX0601-51-38 03:11:00 Test Item Value Reference Range Interpretation Comments Monocytes # (test code 0.9 See_Comment [Aut omated message] The = Monocytes #) system which generated this result tra nsmitted reference range : <=0.8. The reference r carin was not used to int erpret this result as normal/abnormal . [facility]RxkheoaBWXHHVTNOO0244-07-37 03:11:00 Test Item Value Reference Range Interpretation Comments Acetaminoph Lvl (test code = (10/03/19 9:11 PM) 10-20 Acetaminoph Lvl) [facility] HospitalLaitvrrQZAKAVQMHR3898-88-57 03:11:00 Test Item Value Reference Range Interpretation Comments MCV (test code = MCV) 83.8 80.0-94.0 [place] [id number] 03:11:00 Test Item Value Reference Range Interpretation Comments Ethanol Lvl (test code = Ethanol Lvl) no gt [place] [id number] 03:11:00 Test Item Value Reference Range Interpretation Comments Etoh (%) (test code = Etoh (%)) no gt [place] [id number] 03:11:00 Test Item Value Reference Range Interpretation Comments Salicylate Lvl (test no gt See_Comment [Autom ated message] The code = Salicylate Lvl) syste m which generated this result tra nsmitted reference range : <=30.0. The reference r carin was not used to int erpret this result as normal/abnormal . [facility] HospitalQlddjiuVTUUNSSZTY4452-26-61 03:11:00 Test Item Value Reference Range Interpretation Comments MCH (test code = MCH) 28.6 pg 27.0-31.0 [facility]2020-01-09 03:11:00 Test Item Value Reference Range Interpretation Comments Glucose Lvl (test code = Glucose Lvl) 91 70-99 [facility]2020-01-09 03:11:00 Test Item Value Reference Range Interpretation Comments BUN (test code = BUN) 14 7-22 [place] 585770-01-09 03:11:00 Test Item Value Reference Range Interpretation Comments Creatinine Lvl (test code = Creatinine 1.10 0.50-1.40 Lvl) [place] 585770-01-09 03:11:00 Test Item Value Reference Range Interpretation Comments Sodium Lvl (test code = Sodium Lvl) 140 135-145 [facility] GCSYH4569[facility]14-66 03:11:00 Test Item Value Reference Range Interpretation Comments Potassium Lvl (test code = Potassium 3.8 3.5-5.1 Lvl) [facility]2020-01-09 03:11:00 Test Item Value Reference Range Interpretation Comments Chloride Lvl (test code = Chloride Lvl) 105 95-109 [facility] [id number] 03:11:00 Test Item Value Reference Range Interpretation Comments CO2 (test code = CO2) 27 24-32 [facility] DallasFvtaqqrBDLRGFGKFS2824-65-07 03:11:00 Test Item Value Reference Range Interpretation Comments MCHC (test code = MCHC) 34.1 32.0-36.0 [facility]2020-01-09 03:11:00 Test Item Value Reference Range Interpretation Comments Calcium Lvl (test code = Calcium Lvl) 9.5 8.5-10.5 [facility]2020-01-09 03:11:00 Test Item Value Reference Range Interpretation Comments Total Protein (test code = Total 7.5 6.4-8.4 Protein) [facility]2020-01-09 03:11:00 Test Item Value Reference Range Interpretation Comments Albumin Lvl (test code = Albumin Lvl) 4.2 3.5-5.0 [place] 585770-01-09 03:11:00 Test Item Value Reference Range Interpretation Comments ALT (test code = ALT) 25 See_Comment [Auto mated message] The system which ge nerated this result transmit mark reference range : <=65. The reference range was not used to interpr et this result as melinda l/abnormal. [facility]2020-01-09 03:11:00 Test Item Value Reference Range Interpretation Comments AST (test code = AST) 13 See_Comment [Auto mated message] The system which ge nerated this result transmit mark reference range : <=37. The reference range was not used to interpr et this result as melinda l/abnormal. [place] 585770-01-09 03:11:00 Test Item Value Reference Range Interpretation Comments Alk Phos (test code = Alk Phos) 74 39-136 [place] 585770-01-09 03:11:00 Test Item Value Reference Range Interpretation Comments Bili Total (test code = Bili Total) 0.5 0.2-1.3 [place] 585770-01-09 03:11:00 Test Item Value Reference Range Interpretation Comments eGFR (test code = eGFR) 93 [place] 585770-01-09 03:11:00 Test Item Value Reference Range Interpretation Comments AGAP (test code = AGAP) 11.8 10.0-20.0 [place] 585770-01-09 03:11:00 Test Item Value Reference Range Interpretation Comments B/C Ratio (test code = B/C Ratio) 13 1 6-25 [facility] HospitalYuwcnmlTNANKMEBUS7361-51-11 03:11:00 Test Item Value Reference Range Interpretation Comments RDW (test code = RDW) 13.8 11.5-14.5 [facility]2020-01-09 03:11:00 Test Item Value Reference Range Interpretation Comments Globulin (test code = Globulin) 3.3 2.7-4.2 [facility]2020-01-09 03:11:00 Test Item Value Reference Range Interpretation Comments A/G Ratio (test code = A/G Ratio) 1.3 1 0.7-1.6 [facility] HospitalAjhxuqwGXHDGGGNVS0152-45-26 03:11:00 Test Item Value Reference Range Interpretation Comments WBC (test code = WBC) 10.6 3.7-10.4 [facility] HospitalHhhhffrUMSILEAZAL6841-82-12 03:11:00 Test Item Value Reference Range Interpretation Comments RBC (test code = RBC) 4.99 4.70-6.10 [facility] HospitalBskalxiFHEDUNFDWD7042-89-90 03:11:00 Test Item Value Reference Range Interpretation Comments Hgb (test code = Hgb) 14.3 14.0-18.0 [facility] HospitalLglotjgIKHHZTYCSB0852-30-27 03:11:00 Test Item Value Reference Range Interpretation Comments Hct (test code = Hct) 41.9 42.0-54.0 [facility] HospitalTvbxktiPLEIOIHYFP0796-60-43 03:11:00 Test Item Value Reference Range Interpretation Comments MCV (test code = MCV) 83.8 80.0-94.0 [place] 619440-01-09 03:11:00 Test Item Value Reference Range Interpretation Comments MCH (test code = MCH) 28.6 pg 27.0-31.0 [facility] HospitalNduuygxMGIVIDNVQB9851-26-93 03:11:00 Test Item Value Reference Range Interpretation Comments MCHC (test code = MCHC) 34.1 32.0-36.0 [facility] HospitalIloihpzBPINELFBFJ9095-42-30 03:11:00 Test Item Value Reference Range Interpretation Comments RDW (test code = RDW) 13.8 11.5-14.5 [place] 619440-01-09 03:11:00 Test Item Value Reference Range Interpretation Comments Platelet (test code = Platelet) 297 133-450 [facility] HospitalYwbbcvzHLWMNEMUSB0395-77-07 03:11:00 Test Item Value Reference Range Interpretation Comments Platelet (test code = Platelet) 297 133-450 [facility] HospitalQiiassqTCBIBTYWYJ2775-68-48 03:11:00 Test Item Value Reference Range Interpretation Comments MPV (test code = MPV) 7.9 7.4-10.4 [facility] HospitalWvlboxvJAVLJUOIVL6960-87-71 03:11:00 Test Item Value Reference Range Interpretation Comments Segs (test code = Segs) 63.8 45.0-75.0 [facility] HospitalVanggalIASTSYNORL3252-10-12 03:11:00 Test Item Value Reference Range Interpretation Comments Lymphocytes (test code = Lymphocytes) 26.9 20.0-40.0 [place] 619440-01-09 03:11:00 Test Item Value Reference Range Interpretation Comments Monocytes (test code = Monocytes) 8.5 2.0-12.0 [facility] HospitalMfpposaVYYIREYUYC8002-01-23 03:11:00 Test Item Value Reference Range Interpretation Comments Eosinophils (test code = 0.4 See_Comment [A utomated message] The Eosinophils) system which ge nerated this result tra nsmitted reference range : <=4.0. The reference r carin was not used to int erpret this result as normal/abnormal . [facility] HospitalXfmlvtsEAGHGHXARB2734-87-79 03:11:00 Test Item Value Reference Range Interpretation Comments Basophils (test code = 0.4 See_Comment [Aut omated message] The Basophils) system which ge nerated this result tra nsmitted reference range : <=1.0. The reference r carin was not used to int erpret this result as normal/abnormal . [facility] HospitalUlkiulvZALIGKYFUV1153-62-14 03:11:00 Test Item Value Reference Range Interpretation Comments Neutrophils # (test code = Neutrophils 6.8 1.5-8.1 #) [facility] HospitalYlabdomQETPTCBECB5791-08-91 03:11:00 Test Item Value Reference Range Interpretation Comments Lymphocytes # (test code = Lymphocytes 2.9 1.0-5.5 #) [facility] HospitalHactrmiZUPTPHRYKI9654-28-14 03:11:00 Test Item Value Reference Range Interpretation Comments Monocytes # (test code 0.9 See_Comment [Aut omated message] The = Monocytes #) system which generated this result tra nsmitted reference range : <=0.8. The reference r carin was not used to int erpret this result as normal/abnormal . [facility] HospitalXreowlaGRGGFQKYHQ3409-17-89 03:11:00 Test Item Value Reference Range Interpretation Comments MPV (test code = MPV) 7.9 7.4-10.4 [place] [id number] 03:11:00 Test Item Value Reference Range Interpretation Comments Acetaminoph Lvl (test code = (10/03/19 9:11 PM) 10-20 Acetaminoph Lvl) [place] [id number] 03:11:00 Test Item Value Reference Range Interpretation Comments Ethanol Lvl (test code = Ethanol Lvl) no gt [place] [id number] 03:11:00 Test Item Value Reference Range Interpretation Comments Etoh (%) (test code = Etoh (%)) no gt [place] [id number] 03:11:00 Test Item Value Reference Range Interpretation Comments Salicylate Lvl (test no gt See_Comment [Autom ated message] The code = Salicylate Lvl) syste m which generated this result tra nsmitted reference range : <=30.0. The reference r carin was not used to int erpret this result as normal/abnormal . [facility] HospitalPpymaktZEJCWYGWMS3524-15-86 03:11:00 Test Item Value Reference Range Interpretation Comments Segs (test code = Segs) 63.8 45.0-75.0 [facility] HospitalXharsymTHFBXCADGM4032-73-02 03:11:00 Test Item Value Reference Range Interpretation Comments Lymphocytes (test code = Lymphocytes) 26.9 20.0-40.0 [facility] HospitalAbbfidoULAAPFSNZL9266-75-85 03:11:00 Test Item Value Reference Range Interpretation Comments Monocytes (test code = Monocytes) 8.5 2.0-12.0 [facility] HospitalOwwsosuWDKLARQRVX0209-92-98 03:11:00 Test Item Value Reference Range Interpretation Comments Eosinophils (test code = 0.4 See_Comment [A utomated message] The Eosinophils) system which ge nerated this result tra nsmitted reference range : <=4.0. The reference r carin was not used to int erpret this result as normal/abnormal . [facility] DallasXwlhwajWXAXOCBQSW0532-86-63 03:11:00 Test Item Value Reference Range Interpretation Comments Basophils (test code = 0.4 See_Comment [Aut omated message] The Basophils) system which ge nerated this result tra nsmitted reference range : <=1.0. The reference r carin was not used to int erpret this result as normal/abnormal . [facility]LqdeqhfULBGTJXKBA3033-07-82 03:11:00 Test Item Value Reference Range Interpretation Comments Neutrophils # (test code = Neutrophils 6.8 1.5-8.1 #) [facility] HospitalLtuyxcmLTSOFHLOBN0351-72-45 03:11:00 Test Item Value Reference Range Interpretation Comments Lymphocytes # (test code = Lymphocytes 2.9 1.0-5.5 #) [facility] HospitalSkmgzudRNMEQOWCAP2081-52-21 03:11:00 Test Item Value Reference Range Interpretation Comments Monocytes # (test code 0.9 See_Comment [Aut omated message] The = Monocytes #) system which generated this result tra nsmitted reference range : <=0.8. The reference r carin was not used to int erpret this result as normal/abnormal . [facility] DallasDkjqsihHHVTYSOXTB5673-61-42 03:11:00 Test Item Value Reference Range Interpretation Comments Acetaminoph Lvl (test code = (10/03/19 9:11 PM) 10-20 Acetaminoph Lvl) [facility] DallasYwabqbrEZERIUQBGT5068-86-93 03:11:00 Test Item Value Reference Range Interpretation Comments Ethanol Lvl (test code = Ethanol Lvl) [facility] gt [facility]JkbcjvtPQOSRQPOGM6722-32-51 03:11:00 Test Item Value Reference Range Interpretation Comments Etoh (%) (test code = Etoh (%)) no gt [facility] HospitalZsjdinsSYNSIGZLVK7600-28-39 03:11:00 Test Item Value Reference Range Interpretation Comments Salicylate Lvl (test no gt See_Comment [Autom ated message] The code = Salicylate Lvl) syste m which generated this result tra nsmitted reference range : <=30.0. The reference r carin was not used to int erpret this result as normal/abnormal . [facility] VBDTT4625-19-75 03:11:00 Test Item Value Reference Range Interpretation Comments Glucose Lvl (test code = Glucose Lvl) 91 70-99 [place] 585770-01-09 03:11:00 Test Item Value Reference Range Interpretation Comments BUN (test code = BUN) 14 7-22 [place] 585770-01-09 03:11:00 Test Item Value Reference Range Interpretation Comments Creatinine Lvl (test code = Creatinine 1.10 0.50-1.40 Lvl) [place] 585770-01-09 03:11:00 Test Item Value Reference Range Interpretation Comments Sodium Lvl (test code = Sodium Lvl) 140 135-145 [place] 585770-01-09 03:11:00 Test Item Value Reference Range Interpretation Comments Potassium Lvl (test code = Potassium 3.8 3.5-5.1 Lvl) [place] 585770-01-09 03:11:00 Test Item Value Reference Range Interpretation Comments Chloride Lvl (test code = Chloride Lvl) 105 95-109 [place] 585770-01-09 03:11:00 Test Item Value Reference Range Interpretation Comments CO2 (test code = CO2) 27 24-32 [place] 585770-01-09 03:11:00 Test Item Value Reference Range Interpretation Comments Calcium Lvl (test code = Calcium Lvl) 9.5 8.5-10.5 [place] 585770-01-09 03:11:00 Test Item Value Reference Range Interpretation Comments Total Protein (test code = Total 7.5 6.4-8.4 Protein) [place] 585770-01-09 03:11:00 Test Item Value Reference Range Interpretation Comments Albumin Lvl (test code = Albumin Lvl) 4.2 3.5-5.0 [place] 585770-01-09 03:11:00 Test Item Value Reference Range Interpretation Comments ALT (test code = ALT) 25 See_Comment [Auto mated message] The system which ge nerated this result transmit mark reference range : <=65. The reference range was not used to interpr et this result as melinda l/abnormal. [place] 585770-01-09 03:11:00 Test Item Value Reference Range Interpretation Comments AST (test code = AST) 13 See_Comment [Auto mated message] The system which ge nerated this result transmit mark reference range : <=37. The reference range was not used to interpr et this result as melinda l/abnormal. [facility]2020-01-09 03:11:00 Test Item Value Reference Range Interpretation Comments Alk Phos (test code = Alk Phos) 74 39-136 [place] 585770-01-09 03:11:00 Test Item Value Reference Range Interpretation Comments Bili Total (test code = Bili Total) 0.5 0.2-1.3 [place] 585770-01-09 03:11:00 Test Item Value Reference Range Interpretation Comments eGFR (test code = eGFR) 93 [place] 585770-01-09 03:11:00 Test Item Value Reference Range Interpretation Comments AGAP (test code = AGAP) 11.8 10.0-20.0 [place] 585770-01-09 03:11:00 Test Item Value Reference Range Interpretation Comments B/C Ratio (test code = B/C Ratio) 13 1 6-25 [place] 585770-01-09 03:11:00 Test Item Value Reference Range Interpretation Comments Globulin (test code = Globulin) 3.3 2.7-4.2 [place] 585770-01-09 03:11:00 Test Item Value Reference Range Interpretation Comments A/G Ratio (test code = A/G Ratio) 1.3 1 0.7-1.6 [place] 619440-01-09 03:11:00 Test Item Value Reference Range Interpretation Comments WBC (test code = WBC) 10.6 3.7-10.4 [place] 619440-01-09 03:11:00 Test Item Value Reference Range Interpretation Comments RBC (test code = RBC) 4.99 4.70-6.10 [place] 585770-01-09 03:11:00 Test Item Value Reference Range Interpretation Comments Glucose Lvl (test code = Glucose Lvl) 91 70-99 [facility]2020-01-09 03:11:00 Test Item Value Reference Range Interpretation Comments BUN (test code = BUN) 14 7-22 [place] 585770-01-09 03:11:00 Test Item Value Reference Range Interpretation Comments Creatinine Lvl (test code = Creatinine 1.10 0.50-1.40 Lvl) [facility]2020-01-09 03:11:00 Test Item Value Reference Range Interpretation Comments Sodium Lvl (test code = Sodium Lvl) 140 135-145 [place] 585770-01-09 03:11:00 Test Item Value Reference Range Interpretation Comments Potassium Lvl (test code = Potassium 3.8 3.5-5.1 Lvl) [facility]2020-01-09 03:11:00 Test Item Value Reference Range Interpretation Comments Chloride Lvl (test code = Chloride Lvl) 105 95-109 [place] 585770-01-09 03:11:00 Test Item Value Reference Range Interpretation Comments CO2 (test code = CO2) 27 24-32 [place] 585770-01-09 03:11:00 Test Item Value Reference Range Interpretation Comments Calcium Lvl (test code = Calcium Lvl) 9.5 8.5-10.5 [place] 585770-01-09 03:11:00 Test Item Value Reference Range Interpretation Comments Total Protein (test code = Total 7.5 6.4-8.4 Protein) [place] 585770-01-09 03:11:00 Test Item Value Reference Range Interpretation Comments Albumin Lvl (test code = Albumin Lvl) 4.2 3.5-5.0 [facility]2020-01-09 03:11:00 Test Item Value Reference Range Interpretation Comments ALT (test code = ALT) 25 See_Comment [Auto mated message] The system which ge nerated this result transmit mark reference range : <=65. The reference range was not used to interpr et this result as melinda l/abnormal. [facility]2020-01-09 03:11:00 Test Item Value Reference Range Interpretation Comments AST (test code = AST) 13 See_Comment [Auto mated message] The system which ge nerated this result transmit mark reference range : <=37. The reference range was not used to interpr et this result as melinda l/abnormal. [place] 585770-01-09 03:11:00 Test Item Value Reference Range Interpretation Comments Alk Phos (test code = Alk Phos) 74 39-136 [facility] DYYFZ0968-00-42 03:11:00 Test Item Value Reference Range Interpretation Comments Bili Total (test code = Bili Total) 0.5 0.2-1.3 [place] 585770-01-09 03:11:00 Test Item Value Reference Range Interpretation Comments eGFR (test code = eGFR) 93 [facility]2020-01-09 03:11:00 Test Item Value Reference Range Interpretation Comments AGAP (test code = AGAP) 11.8 10.0-20.0 [place] 585770-01-09 03:11:00 Test Item Value Reference Range Interpretation Comments B/C Ratio (test code = B/C Ratio) 13 1 6-25 [place] 585770-01-09 03:11:00 Test Item Value Reference Range Interpretation Comments Globulin (test code = Globulin) 3.3 2.7-4.2 [place] 585770-01-09 03:11:00 Test Item Value Reference Range Interpretation Comments A/G Ratio (test code = A/G Ratio) 1.3 1 0.7-1.6 [place] [address]-01-09 03:11:00 Test Item Value Reference Range Interpretation Comments WBC (test code = WBC) 10.6 3.7-10.4 [place] 619440-01-09 03:11:00 Test Item Value Reference Range Interpretation Comments RBC (test code = RBC) 4.99 4.70-6.10 [place] 619440-01-09 03:11:00 Test Item Value Reference Range Interpretation Comments Hgb (test code = Hgb) 14.3 14.0-18.0 [place] 619440-01-09 03:11:00 Test Item Value Reference Range Interpretation Comments Hct (test code = Hct) 41.9 42.0-54.0 [place] [address]-01-09 03:11:00 Test Item Value Reference Range Interpretation Comments MCV (test code = MCV) 83.8 80.0-94.0 [place] 619440-01-09 03:11:00 Test Item Value Reference Range Interpretation Comments MCH (test code = MCH) 28.6 pg 27.0-31.0 [place] [address]-01-09 03:11:00 Test Item Value Reference Range Interpretation Comments MCHC (test code = MCHC) 34.1 32.0-36.0 [facility] HospitalHhyhqrdWMODXTPLUE9507-28-62 03:11:00 Test Item Value Reference Range Interpretation Comments RDW (test code = RDW) 13.8 11.5-14.5 [facility] HospitalYejkqbcWPSYSPYFRX4359-41-95 03:11:00 Test Item Value Reference Range Interpretation Comments Platelet (test code = Platelet) 297 133-450 [facility] HospitalNeiihzsJTDZOFJBAZ7379-34-15 03:11:00 Test Item Value Reference Range Interpretation Comments MPV (test code = MPV) 7.9 7.4-10.4 [facility] HospitalDywbfosCQTQBEHILI2958-00-17 03:11:00 Test Item Value Reference Range Interpretation Comments Segs (test code = Segs) 63.8 45.0-75.0 [facility] HospitalTwssgycQPFCKUQKJE5904-02-73 03:11:00 Test Item Value Reference Range Interpretation Comments Lymphocytes (test code = Lymphocytes) 26.9 20.0-40.0 [facility] HospitalYhexlorYNRZJFUCUA1908-96-98 03:11:00 Test Item Value Reference Range Interpretation Comments Monocytes (test code = Monocytes) 8.5 2.0-12.0 [id number] 03:11:00 Test Item Value Reference Range Interpretation Comments Eosinophils (test code = 0.4 See_Comment [A utomated message] The Eosinophils) system which ge nerated this result tra nsmitted reference range : <=4.0. The reference r carin was not used to int erpret this result as normal/abnormal . [id number] 03:11:00 Test Item Value Reference Range Interpretation Comments Basophils (test code = 0.4 See_Comment [Aut omated message] The Basophils) system which ge nerated this result tra nsmitted reference range : <=1.0. The reference r carin was not used to int erpret this result as normal/abnormal . [id number] 03:11:00 Test Item Value Reference Range Interpretation Comments Neutrophils # (test code = Neutrophils 6.8 1.5-8.1 #) [id number] 03:11:00 Test Item Value Reference Range Interpretation Comments Lymphocytes # (test code = Lymphocytes 2.9 1.0-5.5 #) [id number] 03:11:00 Test Item Value Reference Range Interpretation Comments Monocytes # (test code 0.9 See_Comment [Aut omated message] The = Monocytes #) system which generated this result tra nsmitted reference range : <=0.8. The reference r carin was not used to int erpret this result as normal/abnormal . [id number] 03:11:00 Test Item Value Reference Range Interpretation Comments Acetaminoph Lvl (test code = (10/03/19 9:11 PM) 10-20 Acetaminoph Lvl) [place] [id number] 03:11:00 Test Item Value Reference Range Interpretation Comments Ethanol Lvl (test code = Ethanol Lvl) [facility] gt [id number] 03:11:00 Test Item Value Reference Range Interpretation Comments Etoh (%) (test code = Etoh (%)) no gt [place] [id number] 03:11:00 Test Item Value Reference Range Interpretation Comments Salicylate Lvl (test no gt See_Comment [Autom ated message] The code = Salicylate Lvl) syste m which generated this result tra nsmitted reference range : <=30.0. The reference r carin was not used to int erpret this result as normal/abnormal . [facility] Notes Date/Time Note Provider Source 2023-06-13 Formatting of this note might be differe nt from the original. Lynnette Cary RN [facility] 12:07:43-00:00 PT D/C home. GCS15, VS stabl e, no ataxia noted. Given one prescription and D/C paperwork. S/S relieved at this time. Pt ambulatory at time of discharge. Pt educated on viral syndrome, hydration, med usa ge, follow up care, s/s worsening condition. Pt verbalized understanding. Electronically signed by Lynnette Cary RN at 12:08 PM CDT 2023-06-13 Formatting of this note might be differe nt from the original. Franco Diaz [facility] 11:12:55-00:00 Patient has had a cough, hea dache, and body aches for 1 week and hasn't gotten better. RN 2023-06-13 Formatting of this note is different from the or iginal. [facility] - Health 11:03:00-00:00 [facility] Emergency Department Note Patient Name: Gaudencio Kothari Date of : 1995 27 year old male [id number] Primary Care Physician: [facility] Patient Escorted by: Family [5] Mode of Arrival: Personal means [1] EMS Treatment Prior to ED Arrival: Travel and Exposure Screening: Symptoms Does patient have any of these symptoms?: (not r ecorded) Exposure Screening Has patient had contact with someone with a communicable disease in the last month?: (not recorded) Diseases exposed to:: (not recorded) Is Patient ?: (not recorded) Exposure Date: (not recorded) Chief Complaint: Chief Complaint Patient presents with UPPER RESPIRATORY INFECTION History of Present Illness: The patient presents from [facility] for evaluation for cough, congestion and not feeling well for 1 week. He does have sick contacts at work. He has been using DayQuil during the day which does help him feel better. He is also a smoker . No history of asthma. No shortness of breath or chest pain. Here for evaluation. Past Medical History/Immunizations: History reviewed. No pertinent past medical hist ory. Allergies: No Known Allergies Past Social History: Tobacco Use Never Past Surgical History: History reviewed. No pertinent surgical history. Review of Systems: Review of Systems Constitutional: Negative for chills and fever. Respiratory: Positive for cough. Negative for sh ortness of breath. Cardiovascular: Negative for chest pain. Gastrointestinal: Negative for abdominal pain an d vomiting. Genitourinary: Negative for dysuria. Musculoskeletal: Positive fo r myalgias. Negative for arthralgias, neck pain and neck stiffness. Skin: Negative for wound. Neurological: Negative for dizziness. Psychiatric/Behavioral: Negative for agitation. Physical Exam: ED Triage Vitals [06/13/23 1113] Weight 117.9 kg (260 lb) Actual or estimated Height BP 138/81 Pulse 80 Resp 18 Temp 37 ?C (98.6 ?F) Temp src SpO2 100 % Measured on Physical Exam Vitals and nursing note reviewed. Constitutional: Appearance: Normal appearance. He is obese. HENT: Head: Normocephalic and atraumatic. Right Ear: Tympanic membrane and ear canal norm al. Left Ear: Tympanic membrane and ear canal melinda l. Nose: Nose normal. Mouth/Throat: Mouth: Mucous membranes are moist. Pharynx: Oropharynx is arturo r. No oropharyngeal exudate or posterior oropharyngeal erythema. Cardiovascular: Rate and Rhythm: Normal rate and regular rhythm . Pulses: Normal pulses. Pulmonary: Effort: Pulmonary effort is normal. No respirat ory distress. Breath sounds: No stridor. No wheezing or rhonc hi. Abdominal: General: There is no distension. Musculoskeletal: General: Normal range of motion. Cervical back: Normal range of motion and neck supple. Skin: General: Skin is warm and dry. Neurological: Mental Status: He is alert. Radiology: No orders to display Lab Results: Lab Results - No data to display EKG: If EKG completed, see Procedure Note. Orders and Treatments: No orders of the defined types were placed in th is encounter. Orders Placed This Encounter Medications albuterol 90 mcg/actuation inhaler First Provider Eval: ED Events Date/Time Event User Comments 06/13/23 1118 Medical Screening Begins KEKE BACON DO -- 06/13/23 1118 First Provider Evaluation KEKE BELLE DO -- No notes of EC Admission Criteria type on file. ED COURSE Diagnosis/Impression as of 06/13/23 1153 Upper respiratory tract infection, unspecified t ype Procedures: Procedures MDM: Medical Decision Making The patient presents from [facility] for evaluation for cough, congestion as well as body aches for the past 1 week. He also has sick contacts at work. He is a smoker. No history of asthma. No chest pain or shortness of breath. He has been using DayQuil at home to help with the symptoms. Vital signs are stable in the ER. The patient is obese. His tympanic membrane's are pearly pabon bilatera lly. His pharynx is pink and without excess erythema. He does have scattered expiratory wheezing on ex amination. Suspect a viral syndrome. As he does have the wheezing will prescribe the patient albuterol MDI to use to help with his wheezing and coughing. Recommend use [id number] er cough and cold medications as needed for symptoms. Also recommend the patient's stop smoking. He remained stable here in t ER and is okay for discharge home with PCP follow-up. Problems Addressed: Upper respiratory tract infection, unspecified t ype: acute illness or injury Risk OTC drugs. Prescription drug management. Flowsheet Documentation: Scoring Tools: No data recorded Disposition/Condition: ED Disposition ED Disposition Disch - Home Condition Stable Comment -- Discharge Medications: Patient's Medications START taking these medications ALBUTEROL 90 MCG/ACTUATION INHALER Inhale 2 Puffs every 4 (four) hours as needed for Wheezing or Shortness of Breath. CONTINUE taking these medications which have NOT CHANGED BACITRACIN 500 UNIT/G OINTM ENT Apply to affected area(s) 4 (four) times daily. DICYCLOMINE 20 MG TABLET Ta ke 1 tablet by mouth 4 (four) times daily as needed for Abdominal pain. ESCITALOPRAM OXALATE 20 MG TABLET Take 20 mg by mouth daily. ONDANSETRON 4 MG DISINTEGRA TING TABLET Take 1 tablet by mouth every 8 (eight) hours as needed for Nausea and Vomiting (N/V). TRAZODONE HCL (TRAZODONE ORAL) Take by mouth. START taking Modified Medications as Prescribed No medications on file STOP taking these medications No medications on file Follow-up: Electronically signed by: Keke Bacon DO 06/13/23 1153 2023-04-20 Formatting of this note might be differe nt from the original. Lauryn Brooke RN [facility] 13:26:11-00:00 Pt given printed and verbal discharge [...] distress, Electronically signed by Lauryn Brooke RN seth mancini 04/20/2023 1:27 PM CDT 2023-04-20 Formatting of this note might be differe nt from the original. Franco Diaz [facility] 11:23:17-00:00 Patient to ED for n/v/d x 3 days. Denies fever. Abdominal pain and cramping that is intermittent. RN 2019-10-03 PROCEDURE INFORMATION: [facility] 23:23:00-00:00 Exam: XR Left Ribs with PA [...] Gabby Dimas MD On 10/04/2019 00:36:21; [id number] 2019-10-03 PROCEDURE INFORMATION: [facility] 23:23:00-00:00 Exam: XR Left Ribs with PA [...] Gabby Dimas MD On 10/04/2019 00:36:21; [id number] 2019-10-03 PROCEDURE INFORMATION: [facility] 23:23:00-00:00 Exam: XR Left Ribs with PA [...] Gabby Dimas MD On 10/04/2019 00:36:21; [id number] 2019-10-03 PROCEDURE INFORMATION: [facility] 23:23:00-00:00 Exam: XR Left Ribs with PA [...] Gabby Dimas MD On 10/04/2019 00:36:21; [id number] 2019-10-03 PROCEDURE INFORMATION: [facility] 23:23:00-00:00 Exam: XR Left Ribs with PA [...] Gabby Dimas MD On 10/04/2019 00:36:21; [id number] 2019-10-03 PROCEDURE INFORMATION: [facility] 23:23:00-00:00 Exam: XR Left Ribs with PA [...] Gabby Dimas MD On 10/04/2019 00:36:21; [id number]
[2023-06-14 08:25] LABS: SARS-CoV-2 Antigen Rapid Res Negative (Negative)
--- NOTE | 2023-06-14 10:23 | RAD REPORT ---
EXAM DESCRIPTION: RAD - Chest Pa And Lat (2 Views) - 06/14/2023 9:17 am CLINICAL HISTORY: COUGH COMPARISON: Abdomen Acute Series dated 05/06/2023; Chest Pa And Lat (2 Views) dated 12/14/2022 TECHNIQUE: PA and lateral views of the chest were obtained. FINDINGS: The lungs are clear. Heart size is normal and central vasculature is within normal limits. No pleural effusion or pneumothorax seen. No acute bony finding noted. IMPRESSION: No acute cardiopulmonary process.
--- NOTE | 2023-06-14 10:31 | EDPHYS ---
Physician Documentation [facility] Name: Gaudencio Kothari Age: 27 yrs Sex: Male : 1995 Arrival Date: 06/14/2023 Time: 07:43 Bed IW1 Private MD: ED Physician Eduardo Long HPI: 06/14 08:26 This 27 yrs old Male presents to ER via Ambulatory with complaints of Cough, Body rn Aches, Congestion. 08:26 The patient or guardian reports cough, described as mild, flu symptoms. Onset: The rn symptoms/episode began/occurred 1 week(s) ago. Severity of symptoms: At their worst the symptoms were mild, in the emergency department the symptoms are unchanged. Modifying factors: The symptoms are alleviated by nothing, the symptoms are aggravated by nothing. Associated signs and symptoms: Pertinent positives: rhinorrhea, sore throat, Pertinent negatives: fever. The patient has not experienced similar symptoms in the past. The patient has been recently seen by a physician:. Patient reports feeling sick for 1 week with cough, congestion, muscle aches, and generalized weakness. Seen at [place] [facility] yesterday but states was Fast tracked, and no testing done. Prescribed albuterol inhaler and sent home. Comes in today for testing and to make sure that he is okay. Denies shortness of breath. Denies fever. Multiple sick contacts at work and at home and they were all negative for COVID by home testing.. Historical: - Allergies: 08:00 No Known Allergies; jl7 - Home Meds: 08:00 Abilify 10 mg Oral tab [Active]; citalopram 20 mg tablet [Active]; jl7 - PMHx: 08:00 Anxiety; BORDERLINE PERSONALITY DISORDER; Depression; jl7 - PSHx: 08:00 None; jl7 - Immunization history:: Adult Immunizations unknown. - Social history:: Smoking status: Patient reports the use of cigarette tobacco products, smokes one-half pack cigarettes per day, Patient uses street drugs, marijuana. - Family history:: not pertinent. - Hospitalizations: : No recent hospitalization is reported. ROS: 08:26 Constitutional: Negative for fever, chills, and weight loss, Eyes: Negative for injury, rn pain, redness, and discharge, ENT: Positive for nasal congestion and sore throat Neck: Negative for injury, pain, and swelling, Cardiovascular: Negative for chest pain, palpitations, and edema, Respiratory: Positive for cough, negative for shortness of breath Abdomen/GI: Negative for abdominal pain, nausea, vomiting, diarrhea, and constipation, Back: Negative for injury and pain, MS/Extremity: Negative for injury and deformity, Skin: Negative for injury, rash, and discoloration, Neuro: Positive for mild headache and generalized malaise Exam: 08:26 Constitutional: This is a well developed, well nourished patient who is awake, alert, rn and in no acute distress. Head/Face: Normocephalic, atraumatic. ENT: Mild pharyngeal erythema, no stridor, uvula midline Neck: Trachea midline, no masses palpated, and no cervical lymphadenopathy. Supple, full range of motion without nuchal rigidity, or vertebral point tenderness. No Meningismus. Cardiovascular: Regular rate and rhythm. No pulse deficits. Respiratory: No increased work of breathing, no retractions or nasal flaring. Abdomen/GI: Soft, non-tender MS/ Extremity: Pulses equal, no cyanosis Neuro: Awake and alert, GCS 15 Vital Signs: 07:59 BP 134 / 97; Pulse 80; Resp 15; Temp 98.2; Pulse Ox 99% ; Weight 117.93 kg; Height 5 jl7 ft. 10 in. ; Pain 5/10; 07:59 Body Mass Index 37.31 (117.93 kg, 177.8 cm) jl7 07:59 Pain Scale: Adult jl7 MDM: 07:45 Patient medically screened. rn 09:55 Independent interpretation of the following test(s) in the Emergency Department X-Ray: rn My interpretation is Chest x-ray images negative for pneumonia per my interpretation. 10:29 Differential Diagnosis: Bronchitis Influenza Upper Respiratory Infection Viral Syndrome rn Pneumonia. Data reviewed: vital signs, nurses notes, lab test result(s), radiologic studies, plain films, and as a result, I will discharge patient. Counseling: I had a detailed discussion with the patient and/or guardian regarding the historical points, exam findings, and any diagnostic results supporting the discharge/admit diagnosis, lab results, radiology results, the need for outpatient follow up, to return to the emergency department if symptoms worsen or persist or if there are any questions or concerns that arise at home. Special discussion: I discussed with the patient/guardian in detail that at this point there is no indication for admission to the hospital. It is understood, however, that if the symptoms persist or worsen the patient needs to return immediately for re-evaluation. 06/14 07:48 Order name: SARS RAPID; Complete Time: 09:29 rn 06/14 07:48 Order name: Flu; Complete Time: 09:29 rn 06/14 07:48 Order name: Strep rn 06/14 08:27 Order name: Throat Culture EDMS 06/14 07:56 Order name: XRAY Chest Pa And Lat (2 Views); Complete Time: 10:29 rn Administered Medications: No medications were administered Disposition Summary: 06/14/23 10:30 Discharge Ordered Notes: Location: Home rn Problem: new rn Symptoms: have improved rn Condition: Stable rn Diagnosis - Cough rn - Viral syndrome rn Followup: rn - With: Private Physician - When: As needed - Reason: Recheck today's complaints, Re-evaluation by your physician Discharge Instructions: - Discharge Summary Sheet rn - Cough, Adult rn - Viral Illness, Adult rn Forms: - Medication Reconciliation Form rn - Thank You Letter rn - Antibiotic internet sales director - Prescription Opioid Use rn - Patient Portal Instructions rn - Leadership Thank You Letter rn - Work release form jl7 Signatures: Dispatcher [employer] Eduardo Busch MD MD rn Jak Machado RN RN jl7
--- NOTE | 2023-06-14 10:31 | ER ---
Nurse's Notes [facility] Name: Gaudencio Kothari Age: 27 yrs Sex: Male : 1995 Arrival Date: 06/14/2023 Time: 07:43 Bed IW1 Private MD: Diagnosis: Cough;Viral syndrome Presentation: 06/14 07:59 Chief complaint: Patient states: Cough, congestion, body aches x 1 week. Coronavirus jl7 screen: Client presents with at least one sign or symptom that may indicate coronavirus-19. Ebola Screen: No symptoms or risks identified at this time. Initial Sepsis Screen: Does the patient meet any 2 criteria? No. Patient's initial sepsis screen is negative. Does the patient have a suspected source of infection? No. Patient's initial sepsis screen is negative. Risk Assessment: Do you want to hurt yourself or someone else? Patient reports no desire to harm self or others. Onset of symptoms was June 07, 2023. 07:59 Method Of Arrival: Ambulatory [facility] 07:59 Acuity: BELEM 4 jl7 Triage Assessment: 08:00 General: Appears in no apparent distress. uncomfortable, Behavior is calm, cooperative, jl7 appropriate for age. Pain: Complains of pain in body aches Pain currently is 5 out of 10 on a pain scale. Respiratory: no audible wheezing. Historical: - Allergies: 08:00 No Known Allergies; jl7 - Home Meds: 08:00 Abilify 10 mg Oral tab [Active]; citalopram 20 mg tablet [Active]; jl7 - PMHx: 08:00 Anxiety; BORDERLINE PERSONALITY DISORDER; Depression; jl7 - PSHx: 08:00 None; jl7 - Immunization history:: Adult Immunizations unknown. - Social history:: Smoking status: Patient reports the use of cigarette tobacco products, smokes one-half pack cigarettes per day, Patient uses street drugs, marijuana. - Family history:: not pertinent. - Hospitalizations: : No recent hospitalization is reported. Vital Signs: 07:59 BP 134 / 97; Pulse 80; Resp 15; Temp 98.2; Pulse Ox 99% ; Weight 117.93 kg; Height 5 jl7 ft. 10 in. ; Pain 5/10; 07:59 Body Mass Index 37.31 (117.93 kg, 177.8 cm) jl7 07:59 Pain Scale: Adult [facility] ED Course: 07:44 Patient arrived in ED. rg4 07:45 Eduardo Long MD is Attending Physician. rn 08:00 Triage completed. jl7 08:01 Strep Sent. em1 08:01 Flu Sent. em1 08:01 SARS RAPID Sent. em1 08:02 Arm band placed on right wrist. Patient placed in waiting room, Patient notified of jl7 wait time. 08:11 Radiology exam delayed due to unable to locate pt in [facility]. md2 09:19 XRAY Chest Pa And Lat (2 Views) In Process Unspecified. EDMS 11:00 Jak Machado, RN is Primary Nurse. jl7 11:01 No provider procedures requiring assistance completed. Patient did not have IV access jl7 during this emergency room visit. Administered Medications: No medications were administered Outcome: 10:30 Discharge ordered by MD. rn 11:01 Discharged to home ambulatory, jl7 11:01 Condition: stable 11:01 Discharge instructions given to patient, Instructed on discharge instructions, follow up and referral plans. Demonstrated understanding of instructions, follow-up care, 11:02 Patient left the ED. jl7 Signatures: Dispatcher [employer] EDGA Eduardo Long MD MD rn Martinez, Eric em1 Reyna Lama rg4 Jak Machado RN RN jl7 [place], Mikaela md2
[2023-06-14 11:12] VITALS: BP 134/97; TEMP 98.2; O2SAT 99
== END 2023-06-14 11:02 | disposition home or self-care (01) ==
LOC: ER 07:43
DX: B34.9 Viral infection, unspecified (principal); F17.210 Nicotine dependence, cigarettes, uncomplicated; Z20.822 Contact with and (suspected) exposure to COVID-19
CPT/HCPCS: 36415; 71046; 87070; 87081; 87804; 87811

== ENCOUNTER 2023-08-09 19:28 | Emergency (ER) | payer OTHER ==
--- OUTSIDE RECORDS SUMMARY | 2023-08-09 19:35 | XMS REPORT | Continuity of Care Document ---
:1995 Author Organization [facility] t Address [address] [facility] [address] [place] [address] Care Team Providers Name Role Phone Asked, No Pcp Primary Care Physician Unavailable KEKE BACON Attending Clinician Unavailable Keke Bacon DO Attending Clinician DULCE GOMEZ Attending Clinician Unavailable Dulce Clifford Attending Clinician Donna Phillip Attending Clinician DONNA PHILLIP Attending Clinician Unavailable Payers Payer Name Policy Type Policy Number Effective Date Expiration Date S [facility] [id number] 2023 00:00:00 Problems Condition Condition Condition Status [...] 10/04/2019 18:00: Javy n 10/06/2019 00 [facility] Allergies, Adverse Reactions, Alerts Allergy Allergy Status Severity Reaction(s) Onset Inactive Treating Comm ents Source Name Type Date Date Clinician NO KNOWN Drug Active Univers ALLERGIE Class ity of S [facility] Social History Social Habit Start Date Stop Date Quantity Comments Source Gender [facility] History of Social 2019-05-19 2019-05-[address] function 00:00:00 00:00:00 Hospital Tobacco use and 2018-06-17 2018-06-17 Smokeless [facility] exposure 00:00:00 00:00:00 tobacco non-user Hospital Alcohol intake 2018-06-17 2018-06-17 Current [facility] 00[facility]00:00 00:00:00 non-drinker of Hospital alcohol (finding) Sex Assigned At [birth year] [facility] 00:[facility] Smoking Status Start Date Stop Date Source Social History [facility] Medications Ordered Filled Start Stop Current Ordering Indication Dosage Frequency Signature Comments Components Source Medication Medication Date Date Medication? Clinician (SIG) Name Name albuterol Yes [id number] 2{puff} Inhale 2 Univers 90 9-18 Puffs [...] Wed Branch 04/20/23 at 1300, KLEBER famotidine 2022-0 2022- No 20mg 20 mg, Univ ers [...] Tue04/20/23 at 1200, KLEBER dicyclomine 2022-0 Yes [id number] 20mg Take 1 Univers 20 mg 7-26 tablet by ity of tablet 00:00: mouth 4 [place] 00 (four) Medical times Branch daily as needed for Abdominal pain. ondansetron 2022-0 Yes [id number] 4mg Take 1 Univers 4 mg 7-26 tablet by ity of disintegrat 00:00: mouth [place] ing tablet 00 every 8 Medica l (eight) Branch hours as needed for Nausea and Vomiting (N/V). dicyclomine 2022-0 Yes [id number] 20mg Take 1 Univers 20 mg 7-26 tablet by ity of tablet 00:00: mouth 4 [place] 00 (four) Medical times Branch daily as needed for Abdominal pain. ondansetron 2022-0 Yes [id number] 4mg Take 1 Univers 4 mg 7-26 tablet by ity of disintegrat 00:00: mouth [place] ing tablet 00 every 8 Medica l (eight) Branch hours as needed for Nausea and Vomiting (N/V). Ibuprofen 2019- Yes Notes: Memori a 10-04 (Same as: l 12:09: Motrin) [place] "Do Not Crush" Take with food. Ibuprofen 2019- Yes Notes: Memori a 10-04 (Same as: l 12:09: Motrin) [place] 00 "Do Not Crush" Take with food. Ibuprofen 2020-0 Yes Notes: Memori a - (Same as: l 12:09: Motrin) [place] 00 "Do Not Crush" Take with food. Ibuprofen 2020-0 Yes Notes: Memori a 10-04 (Same as: l 12:09: Motrin) [place] 00 "Do Not Crush" Take with food. Ibuprofen 2020-0 Yes Notes: Memori a - (Same as: l 12:09: Motrin) [place] 00 "Do Not Crush" Take with food. Ibuprofen 2020-0 Yes Notes: Memori a - (Same as: l 12:09: Motrin) [place] 00 "Do Not Crush" Take with food. [...] 20mg Take 20 mg Univers m oxalate 05 by mouth ity of 20 mg 20:12: daily. [place] tablet 57 Medical Branch trazodone Yes Take by Unive rs HCl 9-05 mouth. ity of (TRAZODONE 20:12: [place] ORAL) 57 Medical Branch escitalopra Yes 20mg Take 20 mg Univers m oxalate 05 by mouth ity of 20 mg 20:12: daily. [place] tablet 57 Medical Branch trazodone Yes Take by Unive rs HCl 905 mouth. ity of (TRAZODONE 20:12: [place] ORAL) [...] s 00 (four) Medical times Branch daily. Vital Signs Vital Name Observation Time Observation Value Comments Source Systolic blood 2023-06-13 16:13:00 138 mm[Hg] Univer sity of pressure [facility] Diastolic blood 2023-06-13 16:13:00 81 mm[Hg] Unive rsity of [facility] Heart rate 2023-06-13 16:13:00 80 /min [facility] Body temperature 2023-06-13 16:13:00 37 Jossy [facility] Respiratory rate 2023-06-13 16:13:00 18 /min [facility] Body weight 2023-06-13 16:13:00 117.935 kg Universi ty [facility] BMI 2023-06-13 16:13:00 37.31 kg/m2 [facility] Oxygen saturation in 2023-06-13 16:13:00 100 /min [facility] Arterial blood by [facility] Pulse oximetry [place] Body temperature 2023-04-20 18:15:28 36.67 Jossy [facility] Systolic blood 2023-04-20 18:10:00 138 mm[Hg] Univer sity of [facility] Diastolic blood 2023-04-20 18:10:00 81 mm[Hg] Unive rsity of [facility] Heart rate 2023-04-20 18:10:00 75 /min [facility] Respiratory rate 2023-04-20 18:10:00 16 /min [facility] Body height 2023-04-20 16:24:00 177.8 cm Universi ty [facility] Body weight 2023-04-20 16:24:00 113.399 kg Universi ty [facility] BMI 2023-04-20 16:24:00 35.87 [facility] 2019-10-04 15:38:00 [facility] [place] Respitory Rate 2019-10-04 15:38:00 Memori al [place] Systolic (mm Hg) 2019-10-04 15:38:00 Azar rial [place] Diastolic (mm Hg) 2019-10-04 15:38:00 Mem orial [place] Temperature Oral (F) 2019-10-04 07:32:00 98.9 F [facility] [place] Heart Rate 2019-10-04 07:32:00 [facility] [place] Respitory Rate 2019-10-04 07:32:00 Memori al [place] Systolic (mm Hg) 2019-10-04 07:32:00 Azar rial [place] Diastolic (mm Hg) 2019-10-04 07:32:00 Mem orial [place] Systolic (mm Hg) 2019-10-04 02:45:00 Azar rial [place] Diastolic (mm Hg) 2019-10-04 02:45:00 Mem orial [place] Respitory Rate 2019-10-04 02:45:00 Memori al [place] Heart Rate 2019-10-04 02:45:00 Memorial [place] Temperature Oral (F) 2019-10-04 01:34:00 98.1 F [facility] [place] Weight 2019-10-04 01:34:00 [facility] [place] Procedures Procedure Date / Time Performing Clinician Source Performed NOTICE OF PRIVACY 2023-06-13 16:09:05 Doctor Unassigned, No Univ [facility] PRACTICES Name Medical Branch CONSENT/REFUSAL FOR 2023-06-13 16:03:58 [facility] Name Medical Branch CBC WITH DIFF 2023-04-20 16:48:00 Dulce Gomez [facility] URINALYSIS 2023-04-20 16:48:00 [facility] URINE DRUG (IMMUNOASSAY) 2023-04-20 16:48:00 Dulce Gomez [facility] DRUG [facility] nc SCREEN W/O REFLEX LIPASE 2023-04-20 16:48:00 Dulce Gomez [facility] HEPATIC FUNCTION PANEL 2023-04-20 16:48:00 Dulce Gomez [facility] ([id number]) (ALB,T.PRO,BILI Medical Branch T,BU/BC,ALT,AST,ALK PHOS) BASIC METABOLIC PANEL 2023-04-20 16:48:00 Dulce Gomez [facility] (NA, K, CL, CO2, Medical Branch GLUCOSE, BUN, CREATININE, CA) CONSENT/REFUSAL FOR 2023-04-20 16:16:26 Doctor Unassigned, No Un [facility] DIAGNOSIS AND TREATMENT Name Medical Branch Plan of Care Planned Activity Planned Date Details Comments Source Future Scheduled 2023-07-22 INFLUENZA VACCINE [facility] Test 20:26:15 (#1) [code = INFLUENZA VACCINE (#1)] Future Scheduled 2023-07-22 COVID-19 VACCINE [facility] Test 20:26:15 (#1) [code = COVID-19 VACCINE (#1)] Future Scheduled 2023-06-13 COVID-19 VACCINE [facility] Test 11:04:28 (#1) [code = COVID-19 VACCINE (#1)] Future Scheduled 2023-06-13 INFLUENZA VACCINE [facility] Test 11:04:28 (#1) [code = INFLUENZA VACCINE (#1)] Future Scheduled 2023-05-31 COVID-19 VACCINE [facility] Test 23:51:56 (#1) [code = COVID-19 VACCINE (#1)] Future Scheduled 2023-05-31 INFLUENZA VACCINE [facility] Test 23:51:56 (#1) [code = INFLUENZA VACCINE (#1)] Future Scheduled 2023-05-06 INFLUENZA VACCINE [facility] Test 11:37:25 [code = INFLUENZA VACCINE] Future Scheduled 2023-05-06 COVID-19 VACCINE [facility] Test 11:37:25 (#1) [code = COVID-19 VACCINE (#1)] Future Scheduled 2023-05-06 INFLUENZA VACCINE Method is Hospital Test 11:37:25 [code = INFLUENZA VACCINE] Future Scheduled 2023-05-06 COVID-19 VACCINE [facility] Test 11:37:25 (#1) [code = COVID-19 VACCINE (#1)] Future Scheduled 2022-10-06 COVID-19 VACCINE [facility] Hospital Test 10:29:53 (#1) [code = COVID-19 VACCINE (#1)] Future Scheduled 2022-10-06 INFLUENZA VACCINE Method [facility] Test 10:29:53 [code = INFLUENZA VACCINE] Future Scheduled 2022-10-06 COVID-19 VACCINE Methodi [facility] Test 10:29:53 (#1) [code = COVID-19 VACCINE (#1)] Future Scheduled 2022-10-06 INFLUENZA VACCINE Method [facility] Hospital Test 10:29:53 [code = INFLUENZA VACCINE] Future Scheduled 2022-10-06 COVID-19 VACCINE Methodi [facility] Test 10:29:53 (#1) [code = COVID-19 VACCINE (#1)] Future Scheduled 2022-10-06 INFLUENZA VACCINE Method [facility] Test 10:29:53 [code = INFLUENZA VACCINE] Encounters Start End Encounter Admission Attending Care Care Encounter Source Date/Time Date/Time Type Type Clinicians Facility Department ID 2023-06-13 2023-06-13 Emergency X [facility] ERT [id number] Univers 11:14:00 12:08:00 KEKE parisi [facility] 2023-06-13 2023-06-13 [facility] [id number] Univers 11:14:00 12:08:00 Keke MARY [id number] ity [facility] [id number] [facility] [id number] [address] 2023-04-20 2023-04-20 [facility] [id number] Univers 11:26:00 13:27:00 DULCE parisi [facility] 2023-04-20 2023-04-20 [facility] [id number] Univers 11:26:00 13:27:00 Dulce MARY [id number] i ty [facility] [id number] [facility] [id number] [address] 2019-10-04 2019-10-04 [facility] [id number] Memoria 01:16:42 16:09:00 ada Ladd 00 l [facility] 2019-10-04 2019-10-04 [facility] [id number] Memoria 01:16:42 16:09:00 r [place] 00 l [facility] 2019-10-03 2019-10-04 Outpatient Fadisaiah, [place] [id number] 19:16:42 10:09:00 Donna 00 [place] 2019-10-03 2019-10-04 Emergency E DONALDO, MHBL MHBL [id number] MHBL 19:16:00 10:09:00 DONNA Results Test Description Test Time Test Comments Results Result Comments Source DRUG SCREEN 2019-10-04 03:20:00 Test Item Value Reference Range Interpretation Comme nts U Cannab Scr (test code = U Cannab Scr) Negative *NA*(10/03/19 9:20 P M) [facility] [id number] 03:20:00 Test Item Value Reference Range Interpretation Comments U Opiate Scr (test Negative *NA*(10/03/19 code = U Opiate Scr) 9:20 PM) [facility] [id number] 03:20:00 Test Item Value Reference Range Interpretation Comments U Phencyclidine Scr (test Negative *NA*(10/03/19 code = U Phencyclidine 9:20 PM) Scr) [facility] [id number] 03:20:00 Test Item Value Reference Range Interpretation Comments U Amph Scr (test code Negative *NA*(10/03/19 = U Amph Scr) 9:20 PM) [facility] [id number] 03:20:00 Test Item Value Reference Range Interpretation Comments U Dede Scr (test code Negative *NA*(10/03/19 = U Dede Scr) 9:20 PM) [facility] [id number] 03:20:00 Test Item Value Reference Range Interpretation Comments U Benzodiaz Scr (test Negative *NA*(10/03/19 code = U Benzodiaz Scr) 9:20 PM) [facility] [id number] 03:20:00 Test Item Value Reference Range Interpretation Comments U Cocaine Scr (test Negative *NA*(10/03/19 code = U Cocaine Scr) 9:20 PM) [facility] [id number] 03:20:00 Test Item Value Reference Range Interpretation Comments U Cannab Scr (test Negative *NA*(10/03/19 code = U Cannab Scr) 9:20 PM) [facility] [id number] 03:20:00 Test Item Value Reference Range Interpretation Comments U Opiate Scr (test Negative *NA*(10/03/19 code = U Opiate Scr) 9:20 PM) [facility] [id number] 03:20:00 Test Item Value Reference Range Interpretation Comments U Phencyclidine Scr (test Negative *NA*(10/03/19 code = U Phencyclidine 9:20 PM) Scr) [facility] [id number] 03:20:00 Test Item Value Reference Range Interpretation Comments UDS Note (test code = See Note *NA*(10/03/19 UDS Note) 9:20 PM) [facility] [id number] 03:20:00 Test Item Value Reference Range Interpretation Comments UDS Note (test code = See Note *NA*(10/03/19 UDS Note) 9:20 PM) [facility] [id number] 03:20:00 Test Item Value Reference Range Interpretation Comments U Amph Scr (test code Negative *NA*(10/03/19 = U Amph Scr) 9:20 PM) [facility] [id number] 03:20:00 Test Item Value Reference Range Interpretation Comments U Dede Scr (test code Negative *NA*(10/03/19 = U Dede Scr) 9:20 PM) [facility] [id number] 03:20:00 Test Item Value Reference Range Interpretation Comments U Benzodiaz Scr (test Negative *NA*(10/03/19 code = U Benzodiaz Scr) 9:20 PM) [facility] [id number] 03:20:00 Test Item Value Reference Range Interpretation Comments U Cocaine Scr (test Negative *NA*(10/03/19 code = U Cocaine Scr) 9:20 PM) [facility] [id number] 03:20:00 Test Item Value Reference Range Interpretation Comments U Cannab Scr (test Negative *NA*(10/03/19 code = U Cannab Scr) 9:20 PM) [facility] [id number] 03:20:00 Test Item Value Reference Range Interpretation Comments U Opiate Scr (test Negative *NA*(10/03/19 code = U Opiate Scr) 9:20 PM) [facility] [id number] 03:20:00 Test Item Value Reference Range Interpretation Comments U Phencyclidine Scr (test Negative *NA*(10/03/19 code = U Phencyclidine 9:20 PM) Scr) [facility] [id number] 03:20:00 Test Item Value Reference Range Interpretation Comments UDS Note (test code = See Note *NA*(10/03/19 UDS Note) 9:20 PM) [facility] [id number] 03:20:00 Test Item Value Reference Range Interpretation Comments U Amph Scr (test code Negative *NA*(10/03/19 = U Amph Scr) 9:20 PM) [facility] [id number] 03:20:00 Test Item Value Reference Range Interpretation Comments U Dede Scr (test code Negative *NA*(10/03/19 = U Dede Scr) 9:20 PM) [facility] [id number] 03:20:00 Test Item Value Reference Range Interpretation Comments U Benzodiaz Scr (test Negative *NA*(10/03/19 code = U Benzodiaz Scr) 9:20 PM) [facility] [id number] 03:20:00 Test Item Value Reference Range Interpretation Comments U Cocaine Scr (test Negative *NA*(10/03/19 code = U Cocaine Scr) 9:20 PM) [facility] [id number] 03:20:00 Test Item Value Reference Range Interpretation Comments U Cannab Scr (test Negative *NA*(10/03/19 code = U Cannab Scr) 9:20 PM) [facility] [id number] 03:20:00 Test Item Value Reference Range Interpretation Comments U Opiate Scr (test Negative *NA*(10/03/19 code = U Opiate Scr) 9:20 PM) [facility] [id number] 03:20:00 Test Item Value Reference Range Interpretation Comments U Phencyclidine Scr (test Negative *NA*(10/03/19 code = U Phencyclidine 9:20 PM) Scr) [facility] [id number] 03:20:00 Test Item Value Reference Range Interpretation Comments UDS Note (test code = See Note *NA*(10/03/19 UDS Note) 9:20 PM) [facility] [id number] 03:20:00 Test Item Value Reference Range Interpretation Comments U Amph Scr (test code Negative *NA*(10/03/19 = U Amph Scr) 9:20 PM) [facility] [id number] 03:20:00 Test Item Value Reference Range Interpretation Comments U Dede Scr (test code Negative *NA*(10/03/19 = U Dede Scr) 9:20 PM) [facility] [id number] 03:20:00 Test Item Value Reference Range Interpretation Comments U Benzodiaz Scr (test Negative *NA*(10/03/19 code = U Benzodiaz Scr) 9:20 PM) [facility] [id number] 03:20:00 Test Item Value Reference Range Interpretation Comments U Cocaine Scr (test Negative *NA*(10/03/19 code = U Cocaine Scr) 9:20 PM) [facility] [id number] 03:20:00 Test Item Value Reference Range Interpretation Comments U Cannab Scr (test Negative *NA*(10/03/19 code = U Cannab Scr) 9:20 PM) [facility] [id number] 03:20:00 Test Item Value Reference Range Interpretation Comments U Opiate Scr (test Negative *NA*(10/03/19 code = U Opiate Scr) 9:20 PM) [facility] [id number] 03:20:00 Test Item Value Reference Range Interpretation Comments U Phencyclidine Scr (test Negative *NA*(10/03/19 code = U Phencyclidine 9:20 PM) Scr) [facility] [id number] 03:20:00 Test Item Value Reference Range Interpretation Comments UDS Note (test code = See Note *NA*(10/03/19 UDS Note) 9:20 PM) [facility] [id number] 03:20:00 Test Item Value Reference Range Interpretation Comments U Amph Scr (test code Negative *NA*(10/03/19 = U Amph Scr) 9:20 PM) [facility] [id number] 03:20:00 Test Item Value Reference Range Interpretation Comments U Dede Scr (test code Negative *NA*(10/03/19 = U Dede Scr) 9:20 PM) [facility] [id number] 03:20:00 Test Item Value Reference Range Interpretation Comments U Benzodiaz Scr (test Negative *NA*(10/03/19 code = U Benzodiaz Scr) 9:20 PM) [facility] [id number] 03:20:00 Test Item Value Reference Range Interpretation Comments U Cocaine Scr (test Negative *NA*(10/03/19 code = U Cocaine Scr) 9:20 PM) [facility] [id number] 03:20:00 Test Item Value Reference Range Interpretation Comments U Cannab Scr (test Negative *NA*(10/03/19 code = U Cannab Scr) 9:20 PM) [facility] [id number] 03:20:00 Test Item Value Reference Range Interpretation Comments U Opiate Scr (test Negative *NA*(10/03/19 code = U Opiate Scr) 9:20 PM) [facility] [id number] 03:20:00 Test Item Value Reference Range Interpretation Comments U Phencyclidine Scr (test Negative *NA*(10/03/19 code = U Phencyclidine 9:20 PM) Scr) [facility] [id number] 03:20:00 Test Item Value Reference Range Interpretation Comments UDS Note (test code = See Note *NA*(10/03/19 UDS Note) 9:20 PM) [facility] [id number] 03:20:00 Test Item Value Reference Range Interpretation Comments U Amph Scr (test code Negative *NA*(10/03/19 = U Amph Scr) 9:20 PM) [facility] [id number] 03:20:00 Test Item Value Reference Range Interpretation Comments U Dede Scr (test code Negative *NA*(10/03/19 = U Dede Scr) 9:20 PM) [facility] [id number] 03:20:00 Test Item Value Reference Range Interpretation Comments U Benzodiaz Scr (test Negative *NA*(10/03/19 code = U Benzodiaz Scr) 9:20 PM) [facility] [id number] 03:20:00 Test Item Value Reference Range Interpretation Comments U Cocaine Scr (test Negative *NA*(10/03/19 code = U Cocaine Scr) 9:20 PM) [facility] [id number] 03:20:00 Test Item Value Reference Range Interpretation Comments U Cannab Scr (test Negative *NA*(10/03/19 code = U Cannab Scr) 9:20 PM) [facility] [id number] 03:20:00 Test Item Value Reference Range Interpretation Comments U Opiate Scr (test Negative *NA*(10/03/19 code = U Opiate Scr) 9:20 PM) [facility] [id number] 03:20:00 Test Item Value Reference Range Interpretation Comments U Phencyclidine Scr (test Negative *NA*(10/03/19 code = U Phencyclidine 9:20 PM) Scr) [facility] [id number] 03:20:00 Test Item Value Reference Range Interpretation Comments UDS Note (test code = See Note *NA*(10/03/19 UDS Note) 9:20 PM) [facility] [id number] 03:20:00 Test Item Value Reference Range Interpretation Comments U Amph Scr (test code Negative *NA*(10/03/19 = U Amph Scr) 9:20 PM) [facility] [id number] 03:20:00 Test Item Value Reference Range Interpretation Comments U Dede Scr (test code Negative *NA*(10/03/19 = U Dede Scr) 9:20 PM) [facility] [id number] 03:20:00 Test Item Value Reference Range Interpretation Comments U Benzodiaz Scr (test Negative *NA*(10/03/19 code = U Benzodiaz Scr) 9:20 PM) [facility] [id number] 03:20:00 Test Item Value Reference Range Interpretation Comments U Cocaine Scr (test Negative *NA*(10/03/19 code = U Cocaine Scr) 9:20 PM) [facility] [id number] 03:20:00 Test Item Value Reference Range Interpretation Comments U Cannab Scr (test Negative *NA*(10/03/19 code = U Cannab Scr) 9:20 PM) [facility] [id number] 03:20:00 Test Item Value Reference Range Interpretation Comments U Opiate Scr (test Negative *NA*(10/03/19 code = U Opiate Scr) 9:20 PM) [facility] [id number] 03:20:00 Test Item Value Reference Range Interpretation Comments U Phencyclidine Scr (test Negative *NA*(10/03/19 code = U Phencyclidine 9:20 PM) Scr) [facility] [id number] 03:20:00 Test Item Value Reference Range Interpretation Comments UDS Note (test code = See Note *NA*(10/03/19 UDS Note) 9:20 PM) [facility] [id number] 03:20:00 Test Item Value Reference Range Interpretation Comments U Amph Scr (test code Negative *NA*(10/03/19 = U Amph Scr) 9:20 PM) [facility] [id number] 03:20:00 Test Item Value Reference Range Interpretation Comments U Dede Scr (test code Negative *NA*(10/03/19 = U Dede Scr) 9:20 PM) [facility] [id number] 03:20:00 Test Item Value Reference Range Interpretation Comments U Amph Scr (test code Negative *NA*(10/03/19 = U Amph Scr) 9:20 PM) [facility] [id number] 03:20:00 Test Item Value Reference Range Interpretation Comments U Dede Scr (test code Negative *NA*(10/03/19 = U Dede Scr) 9:20 PM) [facility] [id number] 03:20:00 Test Item Value Reference Range Interpretation Comments U Benzodiaz Scr (test Negative *NA*(10/03/19 code = U Benzodiaz Scr) 9:20 PM) [facility] [id number] 03:20:00 Test Item Value Reference Range Interpretation Comments U Cocaine Scr (test Negative *NA*(10/03/19 code = U Cocaine Scr) 9:20 PM) [facility] [id number] 03:20:00 Test Item Value Reference Range Interpretation Comments U Cannab Scr (test Negative *NA*(10/03/19 code = U Cannab Scr) 9:20 PM) [facility] [id number] 03:20:00 Test Item Value Reference Range Interpretation Comments U Opiate Scr (test Negative *NA*(10/03/19 code = U Opiate Scr) 9:20 PM) [facility] [id number] 03:20:00 Test Item Value Reference Range Interpretation Comments U Phencyclidine Scr (test Negative *NA*(10/03/19 code = U Phencyclidine 9:20 PM) Scr) [facility] [id number] 03:20:00 Test Item Value Reference Range Interpretation Comments UDS Note (test code = See Note *NA*(10/03/19 UDS Note) 9:20 PM) [facility] [id number] 03:20:00 Test Item Value Reference Range Interpretation Comments U Benzodiaz Scr (test Negative *NA*(10/03/19 code = U Benzodiaz Scr) 9:20 PM) [facility] [id number] 03:20:00 Test Item Value Reference Range Interpretation Comments U Cocaine Scr (test Negative *NA*(10/03/19 code = U Cocaine Scr) 9:20 PM) [facility] [id number] 03:20:00 Test Item Value Reference Range Interpretation Comments U Cocaine Scr (test Negative *NA*(10/03/19 code = U Cocaine Scr) 9:20 PM) [facility] [id number] 03:20:00 Test Item Value Reference Range Interpretation Comments U Cannab Scr (test Negative *NA*(10/03/19 code = U Cannab Scr) 9:20 PM) [facility] [id number] 03:20:00 Test Item Value Reference Range Interpretation Comments U Opiate Scr (test Negative *NA*(10/03/19 code = U Opiate Scr) 9:20 PM) [facility] [id number] 03:20:00 Test Item Value Reference Range Interpretation Comments U Phencyclidine Scr (test Negative *NA*(10/03/19 code = U Phencyclidine 9:20 PM) Scr) [facility] [id number] 03:20:00 Test Item Value Reference Range Interpretation Comments UDS Note (test code = See Note *NA*(10/03/19 UDS Note) 9:20 PM) [facility] [id number] 03:20:00 Test Item Value Reference Range Interpretation Comments U Amph Scr (test code Negative *NA*(1/8/20 = U Amph Scr) 9:20 PM) [facility] [id number] 03:20:00 Test Item Value Reference Range Interpretation Comments U Dede Scr (test code Negative *NA*(10/03/19 = U Dede Scr) 9:20 PM) [facility] [id number] 03:20:00 Test Item Value Reference Range Interpretation Comments U Benzodiaz Scr (test Negative *NA*(10/03/19 code = U Benzodiaz Scr) 9:20 PM) [facility] CenterWyczoixEJMUJTWWKB1845-71-32 03:11:00 Test Item Value Reference Range Interpretation Comments Hgb (test code = Hgb) 14.3 14.0-18.0 [facility] FjfjifyVENKGVTNXW7297-81-72 03:11:00 Test Item Value Reference Range Interpretation Comments Hct (test code = Hct) 41.9 42.0-54.0 [facility]enRewpjbpFITOCOYHBF1068-25-89 03:11:00 Test Item Value Reference Range Interpretation Comments MCV (test code = MCV) 83.8 80.0-94.0 [facility] KzfvhcrIMXCHAMFWK4730-23-04 03:11:00 Test Item Value Reference Range Interpretation Comments MCH (test code = MCH) 28.6 pg 27.0-31.0 [facility] AjvopujXSXQNHDZQN0313-88-14 03:11:00 Test Item Value Reference Range Interpretation Comments MCHC (test code = MCHC) 34.1 32.0-36.0 [facility]enLkwsvzsZYMTUUDCTN1012-96-95 03:11:00 Test Item Value Reference Range Interpretation Comments RDW (test code = RDW) 13.8 11.5-14.5 [facility]enQpgqyxdAUEQPQHZGD2555-08-35 03:11:00 Test Item Value Reference Range Interpretation Comments Platelet (test code = Platelet) 297 133-450 [facility] GdnordsGUIOPFAROH6718-85-80 03:11:00 Test Item Value Reference Range Interpretation Comments MPV (test code = MPV) 7.9 7.4-10.4 [facility]enGmvbprzRLFXPKWDEG1369-50-03 03:11:00 Test Item Value Reference Range Interpretation Comments Segs (test code = Segs) 63.8 45.0-75.0 [facility]enNzynkepHSIYXDZATB8849-45-43 03:11:00 Test Item Value Reference Range Interpretation Comments Lymphocytes (test code = Lymphocytes) 26.9 20.0-40.0 [facility] FallsWrrijncASIRFEXPEH6119-53-67 03:11:00 Test Item Value Reference Range Interpretation Comments Monocytes (test code = Monocytes) 8.5 2.0-12.0 [facility] FallsLztzipcQVKYHMEQXG1157-50-64 03:11:00 Test Item Value Reference Range Interpretation Comments Eosinophils (test code = 0.4 See_Comment [A utomated message] The Eosinophils) system which ge nerated this result tra nsmitted reference range : <=4.0. The reference r carin was not used to int erpret this result as normal/abnormal . [facility] FallsTmnonweWUEXBGOAUM3406-18-91 03:11:00 Test Item Value Reference Range Interpretation Comments Basophils (test code = 0.4 See_Comment [Aut omated message] The Basophils) system which ge nerated this result tra nsmitted reference range : <=1.0. The reference r carin was not used to int erpret this result as normal/abnormal . [facility] FallsEelzrnwHFFWRTXHIN0845-19-72 03:11:00 Test Item Value Reference Range Interpretation Comments Neutrophils # (test code = Neutrophils 6.8 1.5-8.1 #) [facility] FallsWxuvzluQKMXNREEOJ2910-33-20 03:11:00 Test Item Value Reference Range Interpretation Comments Lymphocytes # (test code = Lymphocytes 2.9 1.0-5.5 #) [facility] FallsByhhjrgZQREGTLNEP0605-72-40 03:11:00 Test Item Value Reference Range Interpretation Comments Monocytes # (test code 0.9 See_Comment [Aut omated message] The = Monocytes #) system which generated this result tra nsmitted reference range : <=0.8. The reference r carin was not used to int erpret this result as normal/abnormal . [place] [id number] 03:11:00 Test Item Value Reference Range Interpretation Comments Acetaminoph Lvl (test code = (10/03/19 9:11 PM) 10-20 Acetaminoph Lvl) [place] [id number] 03:11:00 Test Item Value Reference Range Interpretation Comments Ethanol Lvl (test code = Ethanol Lvl) no gt [place] [id number] 03:11:00 Test Item Value Reference Range Interpretation Comments Etoh (%) (test code = Etoh (%)) no gt [facility] CenterJsjaqssUXAGYDCRXS0102-13-29 03:11:00 Test Item Value Reference Range Interpretation Comments Salicylate Lvl (test no gt See_Comment [Autom ated message] The code = Salicylate Lvl) syste m which generated this result tra nsmitted reference range : <=30.0. The reference r carin was not used to int erpret this result as normal/abnormal . [facility] Records [id number] 03:11:00 Test Item Value Reference Range Interpretation Comments Glucose Lvl (test code = Glucose Lvl) 91 70-99 [place] 667110-01-09 03:11:00 Test Item Value Reference Range Interpretation Comments BUN (test code = BUN) 14 7-22 [place] 667110-01-09 03:11:00 Test Item Value Reference Range Interpretation Comments Creatinine Lvl (test code = Creatinine 1.10 0.50-1.40 Lvl) [facility]2020-01-09 03:11:00 Test Item Value Reference Range Interpretation Comments Sodium Lvl (test code = Sodium Lvl) 140 135-145 [place] 667110-01-09 03:11:00 Test Item Value Reference Range Interpretation Comments Potassium Lvl (test code = Potassium 3.8 3.5-5.1 Lvl) [facility]2020-01-09 03:11:00 Test Item Value Reference Range Interpretation Comments Chloride Lvl (test code = Chloride Lvl) 105 95-109 [place] 667110-01-09 03:11:00 Test Item Value Reference Range Interpretation Comments CO2 (test code = CO2) 27 24-32 [place] 667110-01-09 03:11:00 Test Item Value Reference Range Interpretation Comments Calcium Lvl (test code = Calcium Lvl) 9.5 8.5-10.5 [place] 667110-01-09 03:11:00 Test Item Value Reference Range Interpretation Comments Total Protein (test code = Total 7.5 6.4-8.4 Protein) [facility]2020-01-09 03:11:00 Test Item Value Reference Range Interpretation Comments Albumin Lvl (test code = Albumin Lvl) 4.2 3.5-5.0 [facility] [id number] 03:11:00 Test Item Value Reference Range Interpretation Comments ALT (test code = ALT) 25 See_Comment [Auto mated message] The system which ge nerated this result transmit mark reference range : <=65. The reference range was not used to interpr et this result as melinda l/abnormal. [facility] [id number] 03:11:00 Test Item Value Reference Range Interpretation Comments Glucose Lvl (test code = Glucose Lvl) 91 70-99 [facility] [id number] 03:11:00 Test Item Value Reference Range Interpretation Comments AST (test code = AST) 13 See_Comment [Auto mated message] The system which ge nerated this result transmit mark reference range : <=37. The reference range was not used to interpr et this result as melinda l/abnormal. [facility] [id number] 03:11:00 Test Item Value Reference Range Interpretation Comments Alk Phos (test code = Alk Phos) 74 39-[address] [facility] [employer] [id number] 03:11:00 Test Item Value Reference Range Interpretation Comments Bili Total (test code = Bili Total) 0.5 0.2-1.[address] [facility] [employer] [id number] 03:11:00 Test Item Value Reference Range Interpretation Comments eGFR (test code = eGFR) 93 [facility] [id number] 03:11:00 Test Item Value Reference Range Interpretation Comments AGAP (test code = AGAP) 11.8 10.0-20.[address] [facility] [employer] [id number] 03:11:00 Test Item Value Reference Range Interpretation Comments B/C Ratio (test code = B/C Ratio) 13 1 6-25 [facility] [id number] 03:11:00 Test Item Value Reference Range Interpretation Comments Globulin (test code = Globulin) 3.3 2.7-4.2 [facility] [id number] 03:11:00 Test Item Value Reference Range Interpretation Comments A/G Ratio (test code = A/G Ratio) 1.3 1 0.7-1.6 [facility] CenterXpdfrxtNNYGQDJEGA1472-57-58 03:11:00 Test Item Value Reference Range Interpretation Comments WBC (test code = WBC) 10.6 3.7-10.4 [facility]YccmydzHQTOBVEPAE6700-74-69 03:11:00 Test Item Value Reference Range Interpretation Comments RBC (test code = RBC) 4.99 4.70-6.10 [facility] [id number] 03:11:00 Test Item Value Reference Range Interpretation Comments BUN (test code = BUN) 14 7-22 [facility] MichiganVqrofadETLHRPUTRG2644-29-57 03:11:00 Test Item Value Reference Range Interpretation Comments Hgb (test code = Hgb) 14.3 14.0-18.0 [facility] MichiganHbmltyxTECBNLDUZS7054-64-79 03:11:00 Test Item Value Reference Range Interpretation Comments Hct (test code = Hct) 41.9 42.0-54.0 [facility] MichiganDizjuuaLGBGRUBNAN0882-91-64 03:11:00 Test Item Value Reference Range Interpretation Comments MCV (test code = MCV) 83.8 80.0-94.0 [facility] MichiganNtnhritGNFQXSCNVG6302-36-65 03:11:00 Test Item Value Reference Range Interpretation Comments MCH (test code = MCH) 28.6 pg 27.0-31.0 [facility] MichiganWizcvpsERXQRSCGSV5556-79-31 03:11:00 Test Item Value Reference Range Interpretation Comments MCHC (test code = MCHC) 34.1 32.0-36.0 [facility] MichiganCqcntreHNELYDWQRH4420-10-14 03:11:00 Test Item Value Reference Range Interpretation Comments RDW (test code = RDW) 13.8 11.5-14.5 [facility] MichiganEtvsjuxJCDQJVGSIX7911-48-92 03:11:00 Test Item Value Reference Range Interpretation Comments Platelet (test code = Platelet) 297 133-450 [facility] MichiganJvnljfmSHDYZAORMS8379-99-26 03:11:00 Test Item Value Reference Range Interpretation Comments MPV (test code = MPV) 7.9 7.4-10.4 [facility] MichiganZybjoefYUBIVNRZAS2698-17-19 03:11:00 Test Item Value Reference Range Interpretation Comments Segs (test code = Segs) 63.8 45.0-75.0 [facility] MichiganEbrmwaiCSXZHUZQSC1832-24-63 03:11:00 Test Item Value Reference Range Interpretation Comments Lymphocytes (test code = Lymphocytes) 26.9 20.0-40.0 [facility]2020-01-09 03:11:00 Test Item Value Reference Range Interpretation Comments Creatinine Lvl (test code = Creatinine 1.10 0.50-1.40 Lvl) [facility] FallsGiezvrkLISGLUUHUB8676-44-15 03:11:00 Test Item Value Reference Range Interpretation Comments Monocytes (test code = Monocytes) 8.5 2.0-12.0 [facility] FallsAhoscpnTQKUJKJOXX5558-76-40 03:11:00 Test Item Value Reference Range Interpretation Comments Eosinophils (test code = 0.4 See_Comment [A utomated message] The Eosinophils) system which ge nerated this result tra nsmitted reference range : <=4.0. The reference r carin was not used to int erpret this result as normal/abnormal . [facility] FallsKpmnapcZPZFLCJLKA4159-01-78 03:11:00 Test Item Value Reference Range Interpretation Comments Basophils (test code = 0.4 See_Comment [Aut omated message] The Basophils) system which ge nerated this result tra nsmitted reference range : <=1.0. The reference r carin was not used to int erpret this result as normal/abnormal . [facility] FallsExxcecfFYAKIYKIBI6624-26-49 03:11:00 Test Item Value Reference Range Interpretation Comments Neutrophils # (test code = Neutrophils 6.8 1.5-8.1 #) [facility] FallsJgsxtrzFOWOCMWMQQ4049-98-73 03:11:00 Test Item Value Reference Range Interpretation Comments Lymphocytes # (test code = Lymphocytes 2.9 1.0-5.5 #) [facility] FallsNpnwtpmKJCUDDKUNA1527-95-96 03:11:00 Test Item Value Reference Range Interpretation Comments Monocytes # (test code 0.9 See_Comment [Aut omated message] The = Monocytes #) system which generated this result tra nsmitted reference range : <=0.8. The reference r carin was not used to int erpret this result as normal/abnormal . [place] [id number] 03:11:00 Test Item Value Reference Range Interpretation Comments Acetaminoph Lvl (test code = (10/03/19 9:11 PM) 10-20 Acetaminoph Lvl) [place] [id number] 03:11:00 Test Item Value Reference Range Interpretation Comments Ethanol Lvl (test code = Ethanol Lvl) no gt [place] [id number] 03:11:00 Test Item Value Reference Range Interpretation Comments Etoh (%) (test code = Etoh (%)) no gt [facility]SveauvlRVYMCSEQFE1414-31-90 03:11:00 Test Item Value Reference Range Interpretation Comments Salicylate Lvl (test no gt See_Comment [Autom ated message] The code = Salicylate Lvl) syste m which generated this result tra nsmitted reference range : <=30.0. The reference r carin was not used to int erpret this result as normal/abnormal . [facility] X[employer]et [id number] 03:11:00 Test Item Value Reference Range Interpretation Comments Sodium Lvl (test code = Sodium Lvl) 140 135-145 [facility] [id number] 03:11:00 Test Item Value Reference Range Interpretation Comments Glucose Lvl (test code = Glucose Lvl) 91 70-99 [facility] [id number] 03:11:00 Test Item Value Reference Range Interpretation Comments Potassium Lvl (test code = Potassium 3.8 3.5-5.1 Lvl) [facility] [id number] 03:11:00 Test Item Value Reference Range Interpretation Comments BUN (test code = BUN) 14 7-22 [facility] [id number] 03:11:00 Test Item Value Reference Range Interpretation Comments Creatinine Lvl (test code = Creatinine 1.10 0.50-1.40 Lvl) [facility] [id number] 03:11:00 Test Item Value Reference Range Interpretation Comments Sodium Lvl (test code = Sodium Lvl) 140 135-145 [facility] [id number] 03:11:00 Test Item Value Reference Range Interpretation Comments Potassium Lvl (test code = Potassium 3.8 3.5-5.1 Lvl) [facility] [id number] 03:11:00 Test Item Value Reference Range Interpretation Comments Chloride Lvl (test code = Chloride Lvl) 105 95-109 [facility] [id number] 03:11:00 Test Item Value Reference Range Interpretation Comments CO2 (test code = CO2) 27 24-32 [facility] [id number] 03:11:00 Test Item Value Reference Range Interpretation Comments Calcium Lvl (test code = Calcium Lvl) 9.5 8.5-10.5 [facility]2020-01-09 03:11:00 Test Item Value Reference Range Interpretation Comments Total Protein (test code = Total 7.5 6.4-8.4 Protein) [place] 667110-01-09 03:11:00 Test Item Value Reference Range Interpretation Comments Albumin Lvl (test code = Albumin Lvl) 4.2 3.5-5.0 [facility]2020-01-09 03:11:00 Test Item Value Reference Range Interpretation Comments ALT (test code = ALT) 25 See_Comment [Auto mated message] The system which ge nerated this result transmit mark reference range : <=65. The reference range was not used to interpr et this result as melinda l/abnormal. [place] 667110-01-09 03:11:00 Test Item Value Reference Range Interpretation Comments Chloride Lvl (test code = Chloride Lvl) 105 95-109 [facility]2020-01-09 03:11:00 Test Item Value Reference Range Interpretation Comments AST (test code = AST) 13 See_Comment [Auto mated message] The system which ge nerated this result transmit mark reference range : <=37. The reference range was not used to interpr et this result as melinda l/abnormal. [facility] [id number] 03:11:00 Test Item Value Reference Range Interpretation Comments Alk Phos (test code = Alk Phos) 74 39-136 [facility] [id number] 03:11:00 Test Item Value Reference Range Interpretation Comments Bili Total (test code = Bili Total) 0.5 0.2-1.3 [facility] [id number] 03:11:00 Test Item Value Reference Range Interpretation Comments eGFR (test code = eGFR) 93 [facility]2020-01-09 03:11:00 Test Item Value Reference Range Interpretation Comments AGAP (test code = AGAP) 11.8 10.0-20.0 [facility] [id number] 03:11:00 Test Item Value Reference Range Interpretation Comments B/C Ratio (test code = B/C Ratio) 13 1 6-25 [facility]2020-01-09 03:11:00 Test Item Value Reference Range Interpretation Comments Globulin (test code = Globulin) 3.3 2.7-4.2 [facility]2020-01-09 03:11:00 Test Item Value Reference Range Interpretation Comments A/G Ratio (test code = A/G Ratio) 1.3 1 0.7-1.6 [place] [id number] 03:11:00 Test Item Value Reference Range Interpretation Comments WBC (test code = WBC) 10.6 3.7-10.4 [facility] FallsAxihsknCSPJBLCWFC8857-78-70 03:11:00 Test Item Value Reference Range Interpretation Comments RBC (test code = RBC) 4.99 4.70-6.10 [facility]2020-01-09 03:11:00 Test Item Value Reference Range Interpretation Comments CO2 (test code = CO2) 27 24-32 [facility] FallsAidrjpdEUYXMEMGMU2279-07-55 03:11:00 Test Item Value Reference Range Interpretation Comments Hgb (test code = Hgb) 14.3 14.0-18.0 [facility] FallsVujchdqCEPAPYDLJZ6758-15-40 03:11:00 Test Item Value Reference Range Interpretation Comments Hct (test code = Hct) 41.9 42.0-54.0 [facility] FallsXopjxrlRZWHKREVMB4713-39-59 03:11:00 Test Item Value Reference Range Interpretation Comments MCV (test code = MCV) 83.8 80.0-94.0 [facility] FallsIpawtupAZRQCPYKID3639-35-67 03:11:00 Test Item Value Reference Range Interpretation Comments MCH (test code = MCH) 28.6 pg 27.0-31.0 [facility] FallsAubhgwrHTJEGKVVDB7309-80-05 03:11:00 Test Item Value Reference Range Interpretation Comments MCHC (test code = MCHC) 34.1 32.0-36.0 [facility] FallsXylqzptJIZRCEUWNA6289-62-74 03:11:00 Test Item Value Reference Range Interpretation Comments RDW (test code = RDW) 13.8 11.5-14.5 [facility] FallsTrgobhjQRNVAOLGKS5742-05-94 03:11:00 Test Item Value Reference Range Interpretation Comments Platelet (test code = Platelet) 297 133-450 [facility] FallsJbixjwfCGAYQOFLWM2372-07-91 03:11:00 Test Item Value Reference Range Interpretation Comments MPV (test code = MPV) 7.9 7.4-10.4 [place] 532920-01-09 03:11:00 Test Item Value Reference Range Interpretation Comments Segs (test code = Segs) 63.8 45.0-75.0 [facility] FallsOfumxjkMVSYJNJUEI6658-54-71 03:11:00 Test Item Value Reference Range Interpretation Comments Lymphocytes (test code = Lymphocytes) 26.9 20.0-40.0 [facility]2020-01-09 03:11:00 Test Item Value Reference Range Interpretation Comments Calcium Lvl (test code = Calcium Lvl) 9.5 8.5-10.5 [facility] FallsEwrrhioMMZEFQFNJR2042-86-88 03:11:00 Test Item Value Reference Range Interpretation Comments Monocytes (test code = Monocytes) 8.5 2.0-12.0 [place] 532920-01-09 03:11:00 Test Item Value Reference Range Interpretation Comments Eosinophils (test code = 0.4 See_Comment [A utomated message] The Eosinophils) system which ge nerated this result tra nsmitted reference range : <=4.0. The reference r carin was not used to int erpret this result as normal/abnormal . [facility] FallsRmwthqyRQNWYUPZTO5448-64-40 03:11:00 Test Item Value Reference Range Interpretation Comments Basophils (test code = 0.4 See_Comment [Aut omated message] The Basophils) system which ge nerated this result tra nsmitted reference range : <=1.0. The reference r carin was not used to int erpret this result as normal/abnormal . [facility] FallsScfdwxwXAQQYGWFCO3583-09-02 03:11:00 Test Item Value Reference Range Interpretation Comments Neutrophils # (test code = Neutrophils 6.8 1.5-8.1 #) [place] [id number] 03:11:00 Test Item Value Reference Range Interpretation Comments Lymphocytes # (test code = Lymphocytes 2.9 1.0-5.5 #) [facility] FallsPnbygqsXJNNTAEJIP5693-32-72 03:11:00 Test Item Value Reference Range Interpretation Comments Monocytes # (test code 0.9 See_Comment [Aut omated message] The = Monocytes #) system which generated this result tra nsmitted reference range : <=0.8. The reference r carin was not used to int erpret this result as normal/abnormal . [place] 975680-01-09 03:11:00 Test Item Value Reference Range Interpretation Comments Acetaminoph Lvl (test code = (10/03/19 9:11 PM) 10-20 Acetaminoph Lvl) [place] [id number] 03:11:00 Test Item Value Reference Range Interpretation Comments Ethanol Lvl (test code = Ethanol Lvl) no gt [place] [id number] 03:11:00 Test Item Value Reference Range Interpretation Comments Etoh (%) (test code = Etoh (%)) no gt [place] [id number] 03:11:00 Test Item Value Reference Range Interpretation Comments Salicylate Lvl (test no gt See_Comment [Autom ated message] The code = Salicylate Lvl) syste m which generated this result tra nsmitted reference range : <=30.0. The reference r carin was not used to int erpret this result as normal/abnormal . [facility] [id number] 03:11:00 Test Item Value Reference Range Interpretation Comments Total Protein (test code = Total 7.5 6.4-8.4 Protein) [facility] [id number] 03:11:00 Test Item Value Reference Range Interpretation Comments Albumin Lvl (test code = Albumin Lvl) 4.2 3.5-5.0 [facility] [id number] 03:11:00 Test Item Value Reference Range Interpretation Comments Glucose Lvl (test code = Glucose Lvl) 91 70-99 [facility] [id number] 03:11:00 Test Item Value Reference Range Interpretation Comments BUN (test code = BUN) 14 7-22 [facility] [id number] 03:11:00 Test Item Value Reference Range Interpretation Comments Creatinine Lvl (test code = Creatinine 1.10 0.50-1.40 Lvl) [facility]2020-01-09 03:11:00 Test Item Value Reference Range Interpretation Comments Sodium Lvl (test code = Sodium Lvl) 140 135-145 [facility] [id number] 03:11:00 Test Item Value Reference Range Interpretation Comments Potassium Lvl (test code = Potassium 3.8 3.5-5.1 Lvl) [place] 667110-01-09 03:11:00 Test Item Value Reference Range Interpretation Comments Chloride Lvl (test code = Chloride Lvl) 105 95-109 [place] 667110-01-09 03:11:00 Test Item Value Reference Range Interpretation Comments CO2 (test code = CO2) 27 24-32 [place] 667110-01-09 03:11:00 Test Item Value Reference Range Interpretation Comments Calcium Lvl (test code = Calcium Lvl) 9.5 8.5-10.5 [place] 667110-01-09 03:11:00 Test Item Value Reference Range Interpretation Comments Total Protein (test code = Total 7.5 6.4-8.4 Protein) [facility]2020-01-09 03:11:00 Test Item Value Reference Range Interpretation Comments Albumin Lvl (test code = Albumin Lvl) 4.2 3.5-5.0 [place] 667110-01-09 03:11:00 Test Item Value Reference Range Interpretation Comments ALT (test code = ALT) 25 See_Comment [Auto mated message] The system which ge nerated this result transmit mark reference range : <=65. The reference range was not used to interpr et this result as melinda l/abnormal. [facility]2020-01-09 03:11:00 Test Item Value Reference Range Interpretation Comments ALT (test code = ALT) 25 See_Comment [Auto mated message] The system which ge nerated this result transmit mark reference range : <=65. The reference range was not used to interpr et this result as melinda l/abnormal. [facility] [id number] 03:11:00 Test Item Value Reference Range Interpretation Comments AST (test code = AST) 13 See_Comment [Auto mated message] The system which ge nerated this result transmit mark reference range : <=37. The reference range was not used to interpr et this result as melinda l/abnormal. [place] [address]-01-09 03:11:00 Test Item Value Reference Range Interpretation Comments Alk Phos (test code = Alk Phos) 74 39-136 [place] 667110-01-09 03:11:00 Test Item Value Reference Range Interpretation Comments Bili Total (test code = Bili Total) 0.5 0.2-1.3 [place] 667110-01-09 03:11:00 Test Item Value Reference Range Interpretation Comments eGFR (test code = eGFR) 93 [place] 667110-01-09 03:11:00 Test Item Value Reference Range Interpretation Comments AGAP (test code = AGAP) 11.8 10.0-20.0 [place] 667110-01-09 03:11:00 Test Item Value Reference Range Interpretation Comments B/C Ratio (test code = B/C Ratio) 13 1 6-25 [place] [address]-01-09 03:11:00 Test Item Value Reference Range Interpretation Comments Globulin (test code = Globulin) 3.3 2.7-4.2 [place] 667110-01-09 03:11:00 Test Item Value Reference Range Interpretation Comments A/G Ratio (test code = A/G Ratio) 1.3 1 0.7-1.6 [place] 532920-01-09 03:11:00 Test Item Value Reference Range Interpretation Comments WBC (test code = WBC) 10.6 3.7-10.4 [place] 667110-01-09 03:11:00 Test Item Value Reference Range Interpretation Comments AST (test code = AST) 13 See_Comment [Auto mated message] The system which ge nerated this result transmit mark reference range : <=37. The reference range was not used to interpr et this result as melinda l/abnormal. [place] 532920-01-09 03:11:00 Test Item Value Reference Range Interpretation Comments RBC (test code = RBC) 4.99 4.70-6.10 [place] 532920-01-09 03:11:00 Test Item Value Reference Range Interpretation Comments Hgb (test code = Hgb) 14.3 14.0-18.0 [place] 532920-01-09 03:11:00 Test Item Value Reference Range Interpretation Comments Hct (test code = Hct) 41.9 42.0-54.0 [place] 532920-01-09 03:11:00 Test Item Value Reference Range Interpretation Comments MCV (test code = MCV) 83.8 80.0-94.0 [facility] CenterImhpoffIPWLLBSPOR4279-49-64 03:11:00 Test Item Value Reference Range Interpretation Comments MCH (test code = MCH) 28.6 pg 27.0-31.0 [facility] CenterNwaefxxLGTJGQYSEL1431-01-51 03:11:00 Test Item Value Reference Range Interpretation Comments MCHC (test code = MCHC) 34.1 32.0-36.0 [facility] CenterJpnawzfISQQWBGTKI1278-81-42 03:11:00 Test Item Value Reference Range Interpretation Comments RDW (test code = RDW) 13.8 11.5-14.5 [facility]StoqtntDSLVXGKFBK6738-99-70 03:11:00 Test Item Value Reference Range Interpretation Comments Platelet (test code = Platelet) 297 133-450 [facility] MichiganEucpzucTEHKJLHEDE4430-92-07 03:11:00 Test Item Value Reference Range Interpretation Comments MPV (test code = MPV) 7.9 7.4-10.4 [facility] FallsTswzgztUSLERRDACO7540-92-47 03:11:00 Test Item Value Reference Range Interpretation Comments Segs (test code = Segs) 63.8 45.0-75.0 [facility]2020-01-09 03:11:00 Test Item Value Reference Range Interpretation Comments Alk Phos (test code = Alk Phos) 74 39-136 [facility] CenterJjcspuuUBQGMLWBVO5357-09-89 03:11:00 Test Item Value Reference Range Interpretation Comments Lymphocytes (test code = Lymphocytes) 26.9 20.0-40.0 [facility] MichiganBjokcfeFHBMUYAQYM0032-46-72 03:11:00 Test Item Value Reference Range Interpretation Comments Monocytes (test code = Monocytes) 8.5 2.0-12.0 [facility] FallsWsxguzxMYWRIDRXSH9033-88-19 03:11:00 Test Item Value Reference Range Interpretation Comments Eosinophils (test code = 0.4 See_Comment [A utomated message] The Eosinophils) system which ge nerated this result tra nsmitted reference range : <=4.0. The reference r carin was not used to int erpret this result as normal/abnormal . [facility] FallsSbffwxsUQVIAVVEDR3741-96-91 03:11:00 Test Item Value Reference Range Interpretation Comments Basophils (test code = 0.4 See_Comment [Aut omated message] The Basophils) system which ge nerated this result tra nsmitted reference range : <=1.0. The reference r carin was not used to int erpret this result as normal/abnormal . [facility] FallsBwvqnahTHGXLMFSKZ2661-42-04 03:11:00 Test Item Value Reference Range Interpretation Comments Neutrophils # (test code = Neutrophils 6.8 1.5-8.1 #) [facility] FallsWidjiqlMKJUEMUFHW9828-27-16 03:11:00 Test Item Value Reference Range Interpretation Comments Lymphocytes # (test code = Lymphocytes 2.9 1.0-5.5 #) [facility] FallsXhgfeydZKTAMIQZWF7548-25-89 03:11:00 Test Item Value Reference Range Interpretation Comments Monocytes # (test code 0.9 See_Comment [Aut omated message] The = Monocytes #) system which generated this result tra nsmitted reference range : <=0.8. The reference r carin was not used to int erpret this result as normal/abnormal . [place] 45193020-01-09 03:11:00 Test Item Value Reference Range Interpretation Comments Acetaminoph Lvl (test code = (10/03/19 9:11 PM) 10-20 Acetaminoph Lvl) [place] 45193020-01-09 03:11:00 Test Item Value Reference Range Interpretation Comments Ethanol Lvl (test code = Ethanol Lvl) no gt [facility]QitvjwnKJGSUOURQE1041-44-26 03:11:00 Test Item Value Reference Range Interpretation Comments Etoh (%) (test code = Etoh (%)) no gt [facility] [id number] 03:11:00 Test Item Value Reference Range Interpretation Comments Bili Total (test code = Bili Total) 0.5 0.2-1.3 [place] 975680-01-09 03:11:00 Test Item Value Reference Range Interpretation Comments Salicylate Lvl (test no gt See_Comment [Autom ated message] The code = Salicylate Lvl) syste m which generated this result tra nsmitted reference range : <=30.0. The reference r acrin was not used to int erpret this result as normal/abnormal . [facility] [id number] 03:11:00 Test Item Value Reference Range Interpretation Comments eGFR (test code = eGFR) 93 [place] 667110-01-09 03:11:00 Test Item Value Reference Range Interpretation Comments Glucose Lvl (test code = Glucose Lvl) 91 70-99 [place] 667110-01-09 03:11:00 Test Item Value Reference Range Interpretation Comments BUN (test code = BUN) 14 7-22 [place] 667110-01-09 03:11:00 Test Item Value Reference Range Interpretation Comments Creatinine Lvl (test code = Creatinine 1.10 0.50-1.40 Lvl) [place] 667110-01-09 03:11:00 Test Item Value Reference Range Interpretation Comments Sodium Lvl (test code = Sodium Lvl) 140 135-145 [place] 667110-01-09 03:11:00 Test Item Value Reference Range Interpretation Comments Potassium Lvl (test code = Potassium 3.8 3.5-5.1 Lvl) [place] 667110-01-09 03:11:00 Test Item Value Reference Range Interpretation Comments Chloride Lvl (test code = Chloride Lvl) 105 95-109 [place] 667110-01-09 03:11:00 Test Item Value Reference Range Interpretation Comments CO2 (test code = CO2) 27 24-32 [place] 667110-01-09 03:11:00 Test Item Value Reference Range Interpretation Comments Calcium Lvl (test code = Calcium Lvl) 9.5 8.5-10.5 [place] 667110-01-09 03:11:00 Test Item Value Reference Range Interpretation Comments Total Protein (test code = Total 7.5 6.4-8.4 Protein) [facility]2020-01-09 03:11:00 Test Item Value Reference Range Interpretation Comments AGAP (test code = AGAP) 11.8 10.0-20.0 [place] 667110-01-09 03:11:00 Test Item Value Reference Range Interpretation Comments Albumin Lvl (test code = Albumin Lvl) 4.2 3.5-5.0 [place] 667110-01-09 03:11:00 Test Item Value Reference Range Interpretation Comments ALT (test code = ALT) 25 See_Comment [Auto mated message] The system which ge nerated this result transmit mark reference range : <=65. The reference range was not used to interpr et this result as melinda l/abnormal. [facility] [id number] 03:11:00 Test Item Value Reference Range Interpretation Comments AST (test code = AST) 13 See_Comment [Auto mated message] The system which ge nerated this result transmit mark reference range : <=37. The reference range was not used to interpr et this result as melinda l/abnormal. [facility] [id number] 03:11:00 Test Item Value Reference Range Interpretation Comments Alk Phos (test code = Alk Phos) 74 39-136 [facility]2020-01-09 03:11:00 Test Item Value Reference Range Interpretation Comments Bili Total (test code = Bili Total) 0.5 0.2-1.3 [facility] [id number] 03:11:00 Test Item Value Reference Range Interpretation Comments eGFR (test code = eGFR) 93 [facility]2020-01-09 03:11:00 Test Item Value Reference Range Interpretation Comments AGAP (test code = AGAP) 11.8 10.0-20.0 [facility] [id number] 03:11:00 Test Item Value Reference Range Interpretation Comments B/C Ratio (test code = B/C Ratio) 13 1 6-25 [facility] [id number] 03:11:00 Test Item Value Reference Range Interpretation Comments Globulin (test code = Globulin) 3.3 2.7-4.2 [facility] [id number] 03:11:00 Test Item Value Reference Range Interpretation Comments A/G Ratio (test code = A/G Ratio) 1.3 1 0.7-1.6 [facility] [id number] 03:11:00 Test Item Value Reference Range Interpretation Comments B/C Ratio (test code = B/C Ratio) 13 1 6-25 [facility] CenterQbjbbyzNIDPUYZSMO5450-38-18 03:11:00 Test Item Value Reference Range Interpretation Comments WBC (test code = WBC) 10.6 3.7-10.4 [facility] CenterVrbhjzxDUEXDWQHIJ4201-33-14 03:11:00 Test Item Value Reference Range Interpretation Comments RBC (test code = RBC) 4.99 4.70-6.10 [place] 532920-01-09 03:11:00 Test Item Value Reference Range Interpretation Comments Hgb (test code = Hgb) 14.3 14.0-18.0 [facility]enUqxpavtUQVQXJKSES5150-80-56 03:11:00 Test Item Value Reference Range Interpretation Comments Hct (test code = Hct) 41.9 42.0-54.0 [facility]enHfkaomvLQROHBUTPA1380-09-65 03:11:00 Test Item Value Reference Range Interpretation Comments MCV (test code = MCV) 83.8 80.0-94.0 [facility]enFpmvqjhZXMHWUSDBS0567-82-69 03:11:00 Test Item Value Reference Range Interpretation Comments MCH (test code = MCH) 28.6 pg 27.0-31.0 [facility]enGwkcnyrUXNKLWEPJU1093-69-46 03:11:00 Test Item Value Reference Range Interpretation Comments MCHC (test code = MCHC) 34.1 32.0-36.0 [facility] CenterVqvfailBBTRFQBGED8449-65-66 03:11:00 Test Item Value Reference Range Interpretation Comments RDW (test code = RDW) 13.8 11.5-14.5 [facility]enTmfwqewVLUTVYKMZF6350-36-66 03:11:00 Test Item Value Reference Range Interpretation Comments Platelet (test code = Platelet) 297 133-450 [facility]enXggtkyfACKZQMPFRG2196-06-00 03:11:00 Test Item Value Reference Range Interpretation Comments MPV (test code = MPV) 7.9 7.4-10.4 [facility] [id number] 03:11:00 Test Item Value Reference Range Interpretation Comments Globulin (test code = Globulin) 3.3 2.7-4.2 [facility]enFutihviISGEUPVYCW0089-41-25 03:11:00 Test Item Value Reference Range Interpretation Comments Segs (test code = Segs) 63.8 45.0-75.0 [facility]enOphndhqTCKVVMSHHT0080-45-44 03:11:00 Test Item Value Reference Range Interpretation Comments Lymphocytes (test code = Lymphocytes) 26.9 20.0-40.0 [facility] HarlingenZsusibsDPXIWWGFRB3331-76-44 03:11:00 Test Item Value Reference Range Interpretation Comments Monocytes (test code = Monocytes) 8.5 2.0-12.0 [facility]lingenTbkzxqeUXUXPTFZTR6281-82-33 03:11:00 Test Item Value Reference Range Interpretation Comments Eosinophils (test code = 0.4 See_Comment [A utomated message] The Eosinophils) system which ge nerated this result tra nsmitted reference range : <=4.0. The reference r carin was not used to int erpret this result as normal/abnormal . [facility] FallsRapikbhTXXDYHBQRA3640-99-00 03:11:00 Test Item Value Reference Range Interpretation Comments Basophils (test code = 0.4 See_Comment [Aut omated message] The Basophils) system which ge nerated this result tra nsmitted reference range : <=1.0. The reference r carin was not used to int erpret this result as normal/abnormal . [facility]WynmcgpGETEKZXYKU7065-91-14 03:11:00 Test Item Value Reference Range Interpretation Comments Neutrophils # (test code = Neutrophils 6.8 1.5-8.1 #) [facility] FallsNehaahnDNDKNDEFFR2831-74-85 03:11:00 Test Item Value Reference Range Interpretation Comments Lymphocytes # (test code = Lymphocytes 2.9 1.0-5.5 #) [facility] FallsTrolphjJYVGUZCTWM2656-33-08 03:11:00 Test Item Value Reference Range Interpretation Comments Monocytes # (test code 0.9 See_Comment [Aut omated message] The = Monocytes #) system which generated this result tra nsmitted reference range : <=0.8. The reference r carin was not used to int erpret this result as normal/abnormal . [facility] CenterAwqzuwvBSSCARDMKQ8419-48-33 03:11:00 Test Item Value Reference Range Interpretation Comments Acetaminoph Lvl (test code = (10/03/19 9:11 PM) 10-20 Acetaminoph Lvl) [facility] CenterNtpvbvbRGMJQLOMYS6691-56-94 03:11:00 Test Item Value Reference Range Interpretation Comments Ethanol Lvl (test code = Ethanol Lvl) no gt [facility] CenterCHEM [id number] 03:11:00 Test Item Value Reference Range Interpretation Comments A/G Ratio (test code = A/G Ratio) 1.3 1 0.7-1.6 [facility] CenterAiwxmnhZNATQDSNRM3345-48-03 03:11:00 Test Item Value Reference Range Interpretation Comments Etoh (%) (test code = Etoh (%)) no gt [facility] CenterYfmspvmVLQEAZJWNK1912-82-26 03:11:00 Test Item Value Reference Range Interpretation Comments Salicylate Lvl (test no gt See_Comment [Autom ated message] The code = Salicylate Lvl) syste m which generated this result tra nsmitted reference range : <=30.0. The reference r carin was not used to int erpret this result as normal/abnormal . [facility] FallsInyclfsIUIBEJHLCA7485-99-82 03:11:00 Test Item Value Reference Range Interpretation Comments WBC (test code = WBC) 10.6 3.7-10.4 [facility]2020-01-09 03:11:00 Test Item Value Reference Range Interpretation Comments Glucose Lvl (test code = Glucose Lvl) 91 70-99 [place] 667110-01-09 03:11:00 Test Item Value Reference Range Interpretation Comments BUN (test code = BUN) 14 7-22 [place] 667110-01-09 03:11:00 Test Item Value Reference Range Interpretation Comments Creatinine Lvl (test code = Creatinine 1.10 0.50-1.40 Lvl) [place] 667110-01-09 03:11:00 Test Item Value Reference Range Interpretation Comments Sodium Lvl (test code = Sodium Lvl) 140 135-145 [place] 667110-01-09 03:11:00 Test Item Value Reference Range Interpretation Comments Potassium Lvl (test code = Potassium 3.8 3.5-5.1 Lvl) [place] 667110-01-09 03:11:00 Test Item Value Reference Range Interpretation Comments Chloride Lvl (test code = Chloride Lvl) 105 95-109 [place] 667110-01-09 03:11:00 Test Item Value Reference Range Interpretation Comments CO2 (test code = CO2) 27 24-32 [facility]2020-01-09 03:11:00 Test Item Value Reference Range Interpretation Comments Calcium Lvl (test code = Calcium Lvl) 9.5 8.5-10.5 [facility] FallsRwpegnxCFUAUPFZZO8601-51-07 03:11:00 Test Item Value Reference Range Interpretation Comments RBC (test code = RBC) 4.99 4.70-6.10 [place] 667110-01-09 03:11:00 Test Item Value Reference Range Interpretation Comments Total Protein (test code = Total 7.5 6.4-8.4 Protein) [facility]2020-01-09 03:11:00 Test Item Value Reference Range Interpretation Comments Albumin Lvl (test code = Albumin Lvl) 4.2 3.5-5.0 [facility]2020-01-09 03:11:00 Test Item Value Reference Range Interpretation Comments ALT (test code = ALT) 25 See_Comment [Auto mated message] The system which ge nerated this result transmit mark reference range : <=65. The reference range was not used to interpr et this result as melinda l/abnormal. [facility]2020-01-09 03:11:00 Test Item Value Reference Range Interpretation Comments AST (test code = AST) 13 See_Comment [Auto mated message] The system which ge nerated this result transmit mark reference range : <=37. The reference range was not used to interpr et this result as melinda l/abnormal. [place] 667110-01-09 03:11:00 Test Item Value Reference Range Interpretation Comments Alk Phos (test code = Alk Phos) 74 39-136 [facility]2020-01-09 03:11:00 Test Item Value Reference Range Interpretation Comments Bili Total (test code = Bili Total) 0.5 0.2-1.3 [place] 667110-01-09 03:11:00 Test Item Value Reference Range Interpretation Comments eGFR (test code = eGFR) 93 [facility]2020-01-09 03:11:00 Test Item Value Reference Range Interpretation Comments AGAP (test code = AGAP) 11.8 10.0-20.0 [facility]2020-01-09 03:11:00 Test Item Value Reference Range Interpretation Comments B/C Ratio (test code = B/C Ratio) 13 1 6-25 [place] 667110-01-09 03:11:00 Test Item Value Reference Range Interpretation Comments Globulin (test code = Globulin) 3.3 2.7-4.2 [facility] FallsJhgscmnFFKVPYYNXW8725-57-26 03:11:00 Test Item Value Reference Range Interpretation Comments Hgb (test code = Hgb) 14.3 14.0-18.0 [facility] [id number] 03:11:00 Test Item Value Reference Range Interpretation Comments A/G Ratio (test code = A/G Ratio) 1.3 1 0.7-1.6 [facility] FallsDealuipGMVNBBZWYK4907-85-10 03:11:00 Test Item Value Reference Range Interpretation Comments WBC (test code = WBC) 10.6 3.7-10.4 [facility] FallsPmcjgmiSMHPNGIKLA9875-24-83 03:11:00 Test Item Value Reference Range Interpretation Comments RBC (test code = RBC) 4.99 4.70-6.10 [facility] FallsQqvceukCXOWHYRPHW9085-93-45 03:11:00 Test Item Value Reference Range Interpretation Comments Hgb (test code = Hgb) 14.3 14.0-18.0 [facility] FallsFrmsptbNEVDYTOQLA0502-29-21 03:11:00 Test Item Value Reference Range Interpretation Comments Hct (test code = Hct) 41.9 42.0-54.0 [facility] FallsWipdiqdGEYTCWNPJH6358-40-22 03:11:00 Test Item Value Reference Range Interpretation Comments MCV (test code = MCV) 83.8 80.0-94.0 [facility] FallsOpjznuqTAAYSCSYOO6920-15-88 03:11:00 Test Item Value Reference Range Interpretation Comments MCH (test code = MCH) 28.6 pg 27.0-31.0 [facility] FallsBgypxfhARCRBEZDUL0979-40-32 03:11:00 Test Item Value Reference Range Interpretation Comments MCHC (test code = MCHC) 34.1 32.0-36.0 [facility] FallsNcdwzujHRLELISJNY0504-77-98 03:11:00 Test Item Value Reference Range Interpretation Comments RDW (test code = RDW) 13.8 11.5-14.5 [facility] FallsYsnxwnmOMCDNUTNBQ1290-50-68 03:11:00 Test Item Value Reference Range Interpretation Comments Platelet (test code = Platelet) 297 133-450 [facility] FallsNlilnmjKPMORBDOEQ2088-08-65 03:11:00 Test Item Value Reference Range Interpretation Comments Hct (test code = Hct) 41.9 42.0-54.0 [facility] FallsBggmyznHKIWSASCPX6465-60-39 03:11:00 Test Item Value Reference Range Interpretation Comments MPV (test code = MPV) 7.9 7.4-10.4 [facility] FallsSesvuroGWBJTZBNHK8986-50-44 03:11:00 Test Item Value Reference Range Interpretation Comments Segs (test code = Segs) 63.8 45.0-75.0 [facility] FallsHpjrppqWTDFVYGJXI3747-65-64 03:11:00 Test Item Value Reference Range Interpretation Comments Lymphocytes (test code = Lymphocytes) 26.9 20.0-40.0 [facility] FallsBmhhfnzEIVZVFKTNX9620-17-44 03:11:00 Test Item Value Reference Range Interpretation Comments Monocytes (test code = Monocytes) 8.5 2.0-12.0 [facility] FallsKexjjgwPMXEKVPZPJ7540-07-88 03:11:00 Test Item Value Reference Range Interpretation Comments Eosinophils (test code = 0.4 See_Comment [A utomated message] The Eosinophils) system which ge nerated this result tra nsmitted reference range : <=4.0. The reference r carin was not used to int erpret this result as normal/abnormal . [facility] FallsUgkrynmMRJNYWNSEJ3437-36-39 03:11:00 Test Item Value Reference Range Interpretation Comments Basophils (test code = 0.4 See_Comment [Aut omated message] The Basophils) system which ge nerated this result tra nsmitted reference range : <=1.0. The reference r carin was not used to int erpret this result as normal/abnormal . [facility] FallsTopdaftRDUILKMIFZ8802-61-89 03:11:00 Test Item Value Reference Range Interpretation Comments Neutrophils # (test code = Neutrophils 6.8 1.5-8.1 #) [facility] FallsLneqlmuBEYEVRPYVC0508-32-15 03:11:00 Test Item Value Reference Range Interpretation Comments Lymphocytes # (test code = Lymphocytes 2.9 1.0-5.5 #) [facility] FallsVnsdvzyCWBZNTOPQI6697-26-92 03:11:00 Test Item Value Reference Range Interpretation Comments Monocytes # (test code 0.9 See_Comment [Aut omated message] The = Monocytes #) system which generated this result tra nsmitted reference range : <=0.8. The reference r carin was not used to int erpret this result as normal/abnormal . [facility] CenterCyoteiqZFWGSOWUBE7610-75-63 03:11:00 Test Item Value Reference Range Interpretation Comments Acetaminoph Lvl (test code = (10/03/19 9:11 PM) 10-20 Acetaminoph Lvl) [facility] FallsHwlvoqoQKWXTTRVIC0484-09-62 03:11:00 Test Item Value Reference Range Interpretation Comments MCV (test code = MCV) 83.8 80.0-94.0 [place] [id number] 03:11:00 Test Item Value Reference Range Interpretation Comments Ethanol Lvl (test code = Ethanol Lvl) no gt [place] [id number] 03:11:00 Test Item Value Reference Range Interpretation Comments Etoh (%) (test code = Etoh (%)) no gt [place] [id number] 03:11:00 Test Item Value Reference Range Interpretation Comments Salicylate Lvl (test no gt See_Comment [Autom ated message] The code = Salicylate Lvl) syste m which generated this result tra nsmitted reference range : <=30.0. The reference r carin was not used to int erpret this result as normal/abnormal . [facility] FallsMnjcxjcXGEKSRWIXI1131-63-80 03:11:00 Test Item Value Reference Range Interpretation Comments MCH (test code = MCH) 28.6 pg 27.0-31.0 [facility]2020-01-09 03:11:00 Test Item Value Reference Range Interpretation Comments Glucose Lvl (test code = Glucose Lvl) 91 70-99 [facility]2020-01-09 03:11:00 Test Item Value Reference Range Interpretation Comments BUN (test code = BUN) 14 7-22 [facility]2020-01-09 03:11:00 Test Item Value Reference Range Interpretation Comments Creatinine Lvl (test code = Creatinine 1.10 0.50-1.40 Lvl) [facility]2020-01-09 03:11:00 Test Item Value Reference Range Interpretation Comments Sodium Lvl (test code = Sodium Lvl) 140 135-145 [place] 667110-01-09 03:11:00 Test Item Value Reference Range Interpretation Comments Potassium Lvl (test code = Potassium 3.8 3.5-5.1 Lvl) [facility]2020-01-09 03:11:00 Test Item Value Reference Range Interpretation Comments Chloride Lvl (test code = Chloride Lvl) 105 95-109 [place] 667110-01-09 03:11:00 Test Item Value Reference Range Interpretation Comments CO2 (test code = CO2) 27 24-32 [facility] FallsOxjglrmFRWRUGTDCO5181-53-87 03:11:00 Test Item Value Reference Range Interpretation Comments MCHC (test code = MCHC) 34.1 32.0-36.0 [place] 667110-01-09 03:11:00 Test Item Value Reference Range Interpretation Comments Calcium Lvl (test code = Calcium Lvl) 9.5 8.5-10.5 [place] 667110-01-09 03:11:00 Test Item Value Reference Range Interpretation Comments Total Protein (test code = Total 7.5 6.4-8.4 Protein) [place] 667110-01-09 03:11:00 Test Item Value Reference Range Interpretation Comments Albumin Lvl (test code = Albumin Lvl) 4.2 3.5-5.0 [place] 667110-01-09 03:11:00 Test Item Value Reference Range Interpretation Comments ALT (test code = ALT) 25 See_Comment [Auto mated message] The system which ge nerated this result transmit mark reference range : <=65. The reference range was not used to interpr et this result as melinda l/abnormal. [place] 667110-01-09 03:11:00 Test Item Value Reference Range Interpretation Comments AST (test code = AST) 13 See_Comment [Auto mated message] The system which ge nerated this result transmit mark reference range : <=37. The reference range was not used to interpr et this result as melinda l/abnormal. [place] 667110-01-09 03:11:00 Test Item Value Reference Range Interpretation Comments Alk Phos (test code = Alk Phos) 74 39-136 [place] 667110-01-09 03:11:00 Test Item Value Reference Range Interpretation Comments Bili Total (test code = Bili Total) 0.5 0.2-1.3 [place] 667110-01-09 03:11:00 Test Item Value Reference Range Interpretation Comments eGFR (test code = eGFR) 93 [place] 667110-01-09 03:11:00 Test Item Value Reference Range Interpretation Comments AGAP (test code = AGAP) 11.8 10.0-20.0 [place] 667110-01-09 03:11:00 Test Item Value Reference Range Interpretation Comments B/C Ratio (test code = B/C Ratio) 13 1 6-25 [facility] FallsWrcnqtqGBULLFSURT0138-70-31 03:11:00 Test Item Value Reference Range Interpretation Comments RDW (test code = RDW) 13.8 11.5-14.5 [facility]2020-01-09 03:11:00 Test Item Value Reference Range Interpretation Comments Globulin (test code = Globulin) 3.3 2.7-4.2 [facility]2020-01-09 03:11:00 Test Item Value Reference Range Interpretation Comments A/G Ratio (test code = A/G Ratio) 1.3 1 0.7-1.6 [facility] FallsHpligqlPMVDYIKVFA5662-44-70 03:11:00 Test Item Value Reference Range Interpretation Comments WBC (test code = WBC) 10.6 3.7-10.4 [facility] FallsDfjxogjGYASZNEEVB7166-89-75 03:11:00 Test Item Value Reference Range Interpretation Comments RBC (test code = RBC) 4.99 4.70-6.10 [facility] FallsDmxbslcWGLMJNPWQY1230-93-54 03:11:00 Test Item Value Reference Range Interpretation Comments Hgb (test code = Hgb) 14.3 14.0-18.0 [facility] FallsXswcgsuYNSODJSNFS7032-36-03 03:11:00 Test Item Value Reference Range Interpretation Comments Hct (test code = Hct) 41.9 42.0-54.0 [facility] FallsKaxsfhdBSVEFMIXKC2203-22-07 03:11:00 Test Item Value Reference Range Interpretation Comments MCV (test code = MCV) 83.8 80.0-94.0 [place] 532920-01-09 03:11:00 Test Item Value Reference Range Interpretation Comments MCH (test code = MCH) 28.6 pg 27.0-31.0 [facility] FallsPjsddceAZTTATHWRJ7593-96-50 03:11:00 Test Item Value Reference Range Interpretation Comments MCHC (test code = MCHC) 34.1 32.0-36.0 [facility] FallsWcgeitrQPFFVPPMTE2345-78-61 03:11:00 Test Item Value Reference Range Interpretation Comments RDW (test code = RDW) 13.8 11.5-14.5 [place] 532920-01-09 03:11:00 Test Item Value Reference Range Interpretation Comments Platelet (test code = Platelet) 297 133450 [facility] FallsQmgarbvJULOGNIDFN8473-90-28 03:11:00 Test Item Value Reference Range Interpretation Comments Platelet (test code = Platelet) 297 133-450 [facility] FallsGkbgkmtCCWXLWQWXI8903-86-48 03:11:00 Test Item Value Reference Range Interpretation Comments MPV (test code = MPV) 7.9 7.4-10.4 [facility] FallsYgnpgcmJQDLMHTPSS5547-46-31 03:11:00 Test Item Value Reference Range Interpretation Comments Segs (test code = Segs) 63.8 45.0-75.0 [facility] FallsRhdxacgHNNZDCULBM1641-89-74 03:11:00 Test Item Value Reference Range Interpretation Comments Lymphocytes (test code = Lymphocytes) 26.9 20.0-40.0 [facility] FallsHztbqwqOTSMQIIKTC7562-79-19 03:11:00 Test Item Value Reference Range Interpretation Comments Monocytes (test code = Monocytes) 8.5 2.0-12.0 [facility] FallsMlvndyxFTFMDVISWG9585-36-30 03:11:00 Test Item Value Reference Range Interpretation Comments Eosinophils (test code = 0.4 See_Comment [A utomated message] The Eosinophils) system which ge nerated this result tra nsmitted reference range : <=4.0. The reference r carin was not used to int erpret this result as normal/abnormal . [facility] FallsFxziceqUMBMBCTRUQ0989-86-99 03:11:00 Test Item Value Reference Range Interpretation Comments Basophils (test code = 0.4 See_Comment [Aut omated message] The Basophils) system which ge nerated this result tra nsmitted reference range : <=1.0. The reference r carin was not used to int erpret this result as normal/abnormal . [facility] FallsDlmythhJVUSCHIDMB0432-79-02 03:11:00 Test Item Value Reference Range Interpretation Comments Neutrophils # (test code = Neutrophils 6.8 1.5-8.1 #) [facility] FallsGjyjmlnLWAKAQCUCN0900-09-94 03:11:00 Test Item Value Reference Range Interpretation Comments Lymphocytes # (test code = Lymphocytes 2.9 1.0-5.5 #) [facility] FallsNqpnfwlXMHDSBMEMD1018-64-41 03:11:00 Test Item Value Reference Range Interpretation Comments Monocytes # (test code 0.9 See_Comment [Aut omated message] The = Monocytes #) system which generated this result tra nsmitted reference range : <=0.8. The reference r carin was not used to int erpret this result as normal/abnormal . [facility] FallsTdtxjvaWUNOAYDJKF9949-20-58 03:11:00 Test Item Value Reference Range Interpretation Comments MPV (test code = MPV) 7.9 7.4-10.4 [place] 975680-01-09 03:11:00 Test Item Value Reference Range Interpretation Comments Acetaminoph Lvl (test code = (10/03/19 9:11 PM) 10-20 Acetaminoph Lvl) [place] 975680-01-09 03:11:00 Test Item Value Reference Range Interpretation Comments Ethanol Lvl (test code = Ethanol Lvl) no gt [place] 45193020-01-09 03:11:00 Test Item Value Reference Range Interpretation Comments Etoh (%) (test code = Etoh (%)) no gt [place] 45193020-01-09 03:11:00 Test Item Value Reference Range Interpretation Comments Salicylate Lvl (test no gt See_Comment [Autom ated message] The code = Salicylate Lvl) syste m which generated this result tra nsmitted reference range : <=30.0. The reference r carin was not used to int erpret this result as normal/abnormal . [facility] FallsGmjzurrJRUGRBRNRJ8608-53-16 03:11:00 Test Item Value Reference Range Interpretation Comments Segs (test code = Segs) 63.8 45.0-75.0 [place] 667110-01-09 03:11:00 Test Item Value Reference Range Interpretation Comments Glucose Lvl (test code = Glucose Lvl) 91 70-99 [place] 667110-01-09 03:11:00 Test Item Value Reference Range Interpretation Comments BUN (test code = BUN) 14 7-22 [place] 667110-01-09 03:11:00 Test Item Value Reference Range Interpretation Comments Creatinine Lvl (test code = Creatinine 1.10 0.50-1.40 Lvl) [place] 667110-01-09 03:11:00 Test Item Value Reference Range Interpretation Comments Sodium Lvl (test code = Sodium Lvl) 140 135-145 [place] [address]-01-09 03:11:00 Test Item Value Reference Range Interpretation Comments Potassium Lvl (test code = Potassium 3.8 3.5-5.1 Lvl) [place] 667110-01-09 03:11:00 Test Item Value Reference Range Interpretation Comments Chloride Lvl (test code = Chloride Lvl) 105 95-109 [facility]NpozqfbYDBVYZFUUZ5127-65-42 03:11:00 Test Item Value Reference Range Interpretation Comments Lymphocytes (test code = Lymphocytes) 26.9 20.0-40.0 [place] [address]-01-09 03:11:00 Test Item Value Reference Range Interpretation Comments CO2 (test code = CO2) 27 24-32 [place] [address]-01-09 03:11:00 Test Item Value Reference Range Interpretation Comments Calcium Lvl (test code = Calcium Lvl) 9.5 8.5-10.5 [place] 667110-01-09 03:11:00 Test Item Value Reference Range Interpretation Comments Total Protein (test code = Total 7.5 6.4-8.4 Protein) [place] [address]-01-09 03:11:00 Test Item Value Reference Range Interpretation Comments Albumin Lvl (test code = Albumin Lvl) 4.2 3.5-5.0 [place] 667110-01-09 03:11:00 Test Item Value Reference Range Interpretation Comments ALT (test code = ALT) 25 See_Comment [Auto mated message] The system which ge nerated this result transmit mark reference range : <=65. The reference range was not used to interpr et this result as melinda l/abnormal. [place] 667110-01-09 03:11:00 Test Item Value Reference Range Interpretation Comments AST (test code = AST) 13 See_Comment [Auto mated message] The system which ge nerated this result transmit mark reference range : <=37. The reference range was not used to interpr et this result as melinda l/abnormal. [place] 667110-01-09 03:11:00 Test Item Value Reference Range Interpretation Comments Alk Phos (test code = Alk Phos) 74 39-136 [place] 667110-01-09 03:11:00 Test Item Value Reference Range Interpretation Comments Bili Total (test code = Bili Total) 0.5 0.2-1.3 [facility]2020-01-09 03:11:00 Test Item Value Reference Range Interpretation Comments eGFR (test code = eGFR) 93 [facility]2020-01-09 03:11:00 Test Item Value Reference Range Interpretation Comments AGAP (test code = AGAP) 11.8 10.0-20.0 [facility] FallsRpivccwERNYVNDOJJ9741-78-09 03:11:00 Test Item Value Reference Range Interpretation Comments Monocytes (test code = Monocytes) 8.5 2.0-12.0 [facility]2020-01-09 03:11:00 Test Item Value Reference Range Interpretation Comments B/C Ratio (test code = B/C Ratio) 13 1 6-25 [place] 667110-01-09 03:11:00 Test Item Value Reference Range Interpretation Comments Globulin (test code = Globulin) 3.3 2.7-4.2 [facility]2020-01-09 03:11:00 Test Item Value Reference Range Interpretation Comments A/G Ratio (test code = A/G Ratio) 1.3 1 0.7-1.6 [facility] FallsXaboxlrVPZKXRFMNH6707-49-36 03:11:00 Test Item Value Reference Range Interpretation Comments WBC (test code = WBC) 10.6 3.7-10.4 [facility] FallsJrthlrmORAIDWJQBF7972-79-38 03:11:00 Test Item Value Reference Range Interpretation Comments RBC (test code = RBC) 4.99 4.70-6.10 [facility] FallsDxzlzajXSIJEBVSCC4809-58-69 03:11:00 Test Item Value Reference Range Interpretation Comments Hgb (test code = Hgb) 14.3 14.0-18.0 [facility] FallsJgbnvphAOBLHANOLC1083-58-81 03:11:00 Test Item Value Reference Range Interpretation Comments Hct (test code = Hct) 41.9 42.0-54.0 [facility] FallsCirakfnNSLXCUQWEK4266-24-19 03:11:00 Test Item Value Reference Range Interpretation Comments MCV (test code = MCV) 83.8 80.0-94.0 [facility] FallsDgtbfisBZRBMTCAAI5129-88-55 03:11:00 Test Item Value Reference Range Interpretation Comments MCH (test code = MCH) 28.6 pg 27.0-31.0 [place] 532920-01-09 03:11:00 Test Item Value Reference Range Interpretation Comments MCHC (test code = MCHC) 34.1 32.0-36.0 [facility] FallsUcyzeeyRZMLZRIDSB7257-85-71 03:11:00 Test Item Value Reference Range Interpretation Comments Eosinophils (test code = 0.4 See_Comment [A utomated message] The Eosinophils) system which ge nerated this result tra nsmitted reference range : <=4.0. The reference r carin was not used to int erpret this result as normal/abnormal . [facility] FallsLerhnciMLAHUMRZIA5011-90-89 03:11:00 Test Item Value Reference Range Interpretation Comments RDW (test code = RDW) 13.8 11.5-14.5 [facility] FallsVanrngjBVMTKSDAFL9966-29-53 03:11:00 Test Item Value Reference Range Interpretation Comments Platelet (test code = Platelet) 297 133-450 [facility] FallsJweqrcbYYLPYDTNSL9456-37-73 03:11:00 Test Item Value Reference Range Interpretation Comments MPV (test code = MPV) 7.9 7.4-10.4 [facility] FallsHvwnclmXMIURHECHY7258-51-07 03:11:00 Test Item Value Reference Range Interpretation Comments Segs (test code = Segs) 63.8 45.0-75.0 [facility] FallsFioozirAKGBZXDVDB5291-45-05 03:11:00 Test Item Value Reference Range Interpretation Comments Lymphocytes (test code = Lymphocytes) 26.9 20.0-40.0 [facility] FallsPupxjgpQWITGQBXHW0476-68-08 03:11:00 Test Item Value Reference Range Interpretation Comments Monocytes (test code = Monocytes) 8.5 2.0-12.0 [place] 532920-01-09 03:11:00 Test Item Value Reference Range Interpretation Comments Eosinophils (test code = 0.4 See_Comment [A utomated message] The Eosinophils) system which ge nerated this result tra nsmitted reference range : <=4.0. The reference r carin was not used to int erpret this result as normal/abnormal . [facility] FallsPbtrmpbULDBGEKYGD7302-36-48 03:11:00 Test Item Value Reference Range Interpretation Comments Basophils (test code = 0.4 See_Comment [Aut omated message] The Basophils) system which ge nerated this result tra nsmitted reference range : <=1.0. The reference r carin was not used to int erpret this result as normal/abnormal . [facility] FallsVenkqjfTRCYSEJPSC2222-69-05 03:11:00 Test Item Value Reference Range Interpretation Comments Neutrophils # (test code = Neutrophils 6.8 1.5-8.1 #) [facility] FallsXmdqhorCXMOXUKFKE3692-24-81 03:11:00 Test Item Value Reference Range Interpretation Comments Lymphocytes # (test code = Lymphocytes 2.9 1.0-5.5 #) [facility] FallsKppziphSZNBXJUUWV9367-36-77 03:11:00 Test Item Value Reference Range Interpretation Comments Basophils (test code = 0.4 See_Comment [Aut omated message] The Basophils) system which ge nerated this result tra nsmitted reference range : <=1.0. The reference r carin was not used to int erpret this result as normal/abnormal . [facility] FallsNzopdbgQLBBRUYMJQ5436-39-55 03:11:00 Test Item Value Reference Range Interpretation Comments Monocytes # (test code 0.9 See_Comment [Aut omated message] The = Monocytes #) system which generated this result tra nsmitted reference range : <=0.8. The reference r carin was not used to int erpret this result as normal/abnormal . [place] 45193020-01-09 03:11:00 Test Item Value Reference Range Interpretation Comments Acetaminoph Lvl (test code = (10/03/19 9:11 PM) 10-20 Acetaminoph Lvl) [place] 45193020-01-09 03:11:00 Test Item Value Reference Range Interpretation Comments Ethanol Lvl (test code = Ethanol Lvl) no gt [place] 45193020-01-09 03:11:00 Test Item Value Reference Range Interpretation Comments Etoh (%) (test code = Etoh (%)) no gt [place] 45193020-01-09 03:11:00 Test Item Value Reference Range Interpretation Comments Salicylate Lvl (test no gt See_Comment [Autom ated message] The code = Salicylate Lvl) syste m which generated this result tra nsmitted reference range : <=30.0. The reference r carin was not used to int erpret this result as normal/abnormal . [facility] FallsUjdytycCVYFCPAHNP7900-71-84 03:11:00 Test Item Value Reference Range Interpretation Comments Neutrophils # (test code = Neutrophils 6.8 1.5-8.1 #) [facility] FallsExtylhfDNHLNBLIYQ0076-54-02 03:11:00 Test Item Value Reference Range Interpretation Comments Lymphocytes # (test code = Lymphocytes 2.9 1.0-5.5 #) [facility] FallsEcjitfaKRHCMJPPIR0379-65-97 03:11:00 Test Item Value Reference Range Interpretation Comments Monocytes # (test code 0.9 See_Comment [Aut omated message] The = Monocytes #) system which generated this result tra nsmitted reference range : <=0.8. The reference r carin was not used to int erpret this result as normal/abnormal . [place] 45193020-01-09 03:11:00 Test Item Value Reference Range Interpretation Comments Acetaminoph Lvl (test code = (10/03/19 9:11 PM) 10-20 Acetaminoph Lvl) [place] 45193020-01-09 03:11:00 Test Item Value Reference Range Interpretation Comments Ethanol Lvl (test code = Ethanol Lvl) no gt [place] 45193020-01-09 03:11:00 Test Item Value Reference Range Interpretation Comments Etoh (%) (test code = Etoh (%)) no gt [place] 45193020-01-09 03:11:00 Test Item Value Reference Range Interpretation Comments Salicylate Lvl (test no gt See_Comment [Autom ated message] The code = Salicylate Lvl) syste m which generated this result tra nsmitted reference range : <=30.0. The reference r carin was not used to int erpret this result as normal/abnormal . [facility] [id number] 03:11:00 Test Item Value Reference Range Interpretation Comments Glucose Lvl (test code = Glucose Lvl) 91 70-99 [facility] [id number] 03:11:00 Test Item Value Reference Range Interpretation Comments BUN (test code = BUN) 14 7-22 [facility] [id number] 03:11:00 Test Item Value Reference Range Interpretation Comments Creatinine Lvl (test code = Creatinine 1.10 0.50-1.40 Lvl) [place] 667110-01-09 03:11:00 Test Item Value Reference Range Interpretation Comments Sodium Lvl (test code = Sodium Lvl) 140 135-145 [place] 667110-01-09 03:11:00 Test Item Value Reference Range Interpretation Comments Potassium Lvl (test code = Potassium 3.8 3.5-5.1 Lvl) [place] 667110-01-09 03:11:00 Test Item Value Reference Range Interpretation Comments Chloride Lvl (test code = Chloride Lvl) 105 95-109 [place] 667110-01-09 03:11:00 Test Item Value Reference Range Interpretation Comments CO2 (test code = CO2) 27 24-32 [place] 667110-01-09 03:11:00 Test Item Value Reference Range Interpretation Comments Calcium Lvl (test code = Calcium Lvl) 9.5 8.5-10.5 [place] 667110-01-09 03:11:00 Test Item Value Reference Range Interpretation Comments Total Protein (test code = Total 7.5 6.4-8.4 Protein) [place] 667110-01-09 03:11:00 Test Item Value Reference Range Interpretation Comments Albumin Lvl (test code = Albumin Lvl) 4.2 3.5-5.0 [place] 667110-01-09 03:11:00 Test Item Value Reference Range Interpretation Comments ALT (test code = ALT) 25 See_Comment [Auto mated message] The system which ge nerated this result transmit mark reference range : <=65. The reference range was not used to interpr et this result as melinda l/abnormal. [place] 667110-01-09 03:11:00 Test Item Value Reference Range Interpretation Comments AST (test code = AST) 13 See_Comment [Auto mated message] The system which ge nerated this result transmit mark reference range : <=37. The reference range was not used to interpr et this result as melinad l/abnormal. [place] 667110-01-09 03:11:00 Test Item Value Reference Range Interpretation Comments Alk Phos (test code = Alk Phos) 74 39-136 [facility] Records [id number] 03:11:00 Test Item Value Reference Range Interpretation Comments Bili Total (test code = Bili Total) 0.5 0.2-1.3 [facility]2020-01-09 03:11:00 Test Item Value Reference Range Interpretation Comments eGFR (test code = eGFR) 93 [facility]2020-01-09 03:11:00 Test Item Value Reference Range Interpretation Comments AGAP (test code = AGAP) 11.8 10.0-20.0 [place] 667110-01-09 03:11:00 Test Item Value Reference Range Interpretation Comments B/C Ratio (test code = B/C Ratio) 13 1 6-25 [place] 667110-01-09 03:11:00 Test Item Value Reference Range Interpretation Comments Globulin (test code = Globulin) 3.3 2.7-4.2 [place] 667110-01-09 03:11:00 Test Item Value Reference Range Interpretation Comments A/G Ratio (test code = A/G Ratio) 1.3 1 0.7-1.6 [place] 532920-01-09 03:11:00 Test Item Value Reference Range Interpretation Comments WBC (test code = WBC) 10.6 3.7-10.4 [place] 532920-01-09 03:11:00 Test Item Value Reference Range Interpretation Comments RBC (test code = RBC) 4.99 4.70-6.10 [facility]2020-01-09 03:11:00 Test Item Value Reference Range Interpretation Comments Glucose Lvl (test code = Glucose Lvl) 91 70-99 [facility]2020-01-09 03:11:00 Test Item Value Reference Range Interpretation Comments BUN (test code = BUN) 14 7-22 [facility]2020-01-09 03:11:00 Test Item Value Reference Range Interpretation Comments Creatinine Lvl (test code = Creatinine 1.10 0.50-1.40 Lvl) [facility]2020-01-09 03:11:00 Test Item Value Reference Range Interpretation Comments Sodium Lvl (test code = Sodium Lvl) 140 135-145 [place] [id number] 03:11:00 Test Item Value Reference Range Interpretation Comments Potassium Lvl (test code = Potassium 3.8 3.5-5.1 Lvl) [place] [id number] 03:11:00 Test Item Value Reference Range Interpretation Comments Chloride Lvl (test code = Chloride Lvl) 105 95-109 [place] [id number] 03:11:00 Test Item Value Reference Range Interpretation Comments CO2 (test code = CO2) 27 24-32 [place] [id number] 03:11:00 Test Item Value Reference Range Interpretation Comments Calcium Lvl (test code = Calcium Lvl) 9.5 8.5-10.5 [place] [id number] 03:11:00 Test Item Value Reference Range Interpretation Comments Total Protein (test code = Total 7.5 6.4-8.4 Protein) [facility]2020-01-09 03:11:00 Test Item Value Reference Range Interpretation Comments Albumin Lvl (test code = Albumin Lvl) 4.2 3.5-5.0 [facility] [id number] 03:11:00 Test Item Value Reference Range Interpretation Comments ALT (test code = ALT) 25 <=65 [place] [id number] 03:11:00 Test Item Value Reference Range Interpretation Comments AST (test code = AST) 13 <=37 [facility] [id number] 03:11:00 Test Item Value Reference Range Interpretation Comments Alk Phos (test code = Alk Phos) 74 39-136 [facility]2020-01-09 03:11:00 Test Item Value Reference Range Interpretation Comments Bili Total (test code = Bili Total) 0.5 0.2-1.3 [facility] [id number] 03:11:00 Test Item Value Reference Range Interpretation Comments eGFR (test code = eGFR) 93 [place] [id number] 03:11:00 Test Item Value Reference Range Interpretation Comments AGAP (test code = AGAP) 11.8 10.0-20.0 [facility] [id number] 03:11:00 Test Item Value Reference Range Interpretation Comments B/C Ratio (test code = B/C Ratio) 13 1 6-25 [facility] [id number] 03:11:00 Test Item Value Reference Range Interpretation Comments Globulin (test code = Globulin) 3.3 2.7-4.2 [facility]2020-01-09 03:11:00 Test Item Value Reference Range Interpretation Comments A/G Ratio (test code = A/G Ratio) 1.3 1 0.7-1.6 [id number] 03:11:00 Test Item Value Reference Range Interpretation Comments WBC (test code = WBC) 10.6 3.7-10.4 [id number] 03:11:00 Test Item Value Reference Range Interpretation Comments RBC (test code = RBC) 4.99 4.70-6.10 [id number] 03:11:00 Test Item Value Reference Range Interpretation Comments Hgb (test code = Hgb) 14.3 14.0-18.0 [facility] FallsEjrhxutPDNJHAIAHM1407-04-10 03:11:00 Test Item Value Reference Range Interpretation Comments Hct (test code = Hct) 41.9 42.0-54.0 [facility] [id number] 03:11:00 Test Item Value Reference Range Interpretation Comments MCV (test code = MCV) 83.8 80.0-94.0 [id number] 03:11:00 Test Item Value Reference Range Interpretation Comments MCH (test code = MCH) 28.6 pg 27.0-31.0 [facility] FallsQkanvmdKCQVWRPHSG8207-37-59 03:11:00 Test Item Value Reference Range Interpretation Comments MCHC (test code = MCHC) 34.1 32.0-36.0 [facility] FallsXiovnhcZAJHZPNCSX2071-27-89 03:11:00 Test Item Value Reference Range Interpretation Comments RDW (test code = RDW) 13.8 11.5-14.5 [facility] FallsXecyenxDETFYCBPJS9182-00-68 03:11:00 Test Item Value Reference Range Interpretation Comments Platelet (test code = Platelet) 297 133-450 [id number] 03:11:00 Test Item Value Reference Range Interpretation Comments MPV (test code = MPV) 7.9 7.4-10.4 [facility] [id number] 03:11:00 Test Item Value Reference Range Interpretation Comments Segs (test code = Segs) 63.8 45.0-75.0 [facility] [id number] 03:11:00 Test Item Value Reference Range Interpretation Comments Lymphocytes (test code = Lymphocytes) 26.9 20.0-40.0 [facility] [id number] 03:11:00 Test Item Value Reference Range Interpretation Comments Monocytes (test code = Monocytes) 8.5 2.0-12.0 [facility] [id number] 03:11:00 Test Item Value Reference Range Interpretation Comments Eosinophils (test code = Eosinophils) 0.4 <=4.0 [facility] [id number] 03:11:00 Test Item Value Reference Range Interpretation Comments Basophils (test code = Basophils) 0.4 <=1.0 [place] [id number] 03:11:00 Test Item Value Reference Range Interpretation Comments Neutrophils # (test code = Neutrophils 6.8 1.5-8.1 #) [facility] [id number] 03:11:00 Test Item Value Reference Range Interpretation Comments Lymphocytes # (test code = Lymphocytes 2.9 1.0-5.5 #) [facility] [id number] 03:11:00 Test Item Value Reference Range Interpretation Comments Monocytes # (test code = Monocytes #) 0.9 <=0.8 [place] [id number] 03:11:00 Test Item Value Reference Range Interpretation Comments Acetaminoph Lvl (test code = (10/03/19 9:11 PM) 10-20 Acetaminoph Lvl) [place] [id number] 03:11:00 Test Item Value Reference Range Interpretation Comments Ethanol Lvl (test code = Ethanol Lvl) no gt [place] [id number] 03:11:00 Test Item Value Reference Range Interpretation Comments Etoh (%) (test code = Etoh (%)) no gt [place] [id number] 03:11:00 Test Item Value Reference Range Interpretation Comments Salicylate Lvl (test code = Salicylate no gt <=30.0 Lvl) [facility]
[2023-08-09 20:30] LABS: SARS-CoV-2 Antigen Rapid Res Negative (Negative)
--- NOTE | 2023-08-09 20:43 | EDPHYS ---
Physician Documentation [facility] Name: Gaudencio Kothari Age: 27 yrs Sex: Male : 1995 Arrival Date: 08/09/2023 Time: 19:28 Bed 13 Private MD: ED Physician Thomas Rod HPI: 08/09 20:00 This 27 yrs old Male presents to ER via Ambulatory with complaints of Sore Throat. cp 20:00 The patient presents with sore throat. The patient describes throat pain as constant. cp Onset: The symptoms/episode began/occurred yesterday. Severity of symptoms: in the emergency department the symptoms are unchanged, despite home interventions. Associated signs and symptoms: Pertinent positives: slight cough, Pertinent negatives diarrhea, dysphagia, earache, fever, vomiting. Historical: - Allergies: 19:47 No Known Allergies; vc1 - Home Meds: 19:47 Abilify 10 mg Oral tab [Active]; Lexapro 20 mg oral tablet 1 tab daily [Active]; vc1 - PMHx: 19:47 Anxiety; BORDERLINE PERSONALITY DISORDER; Depression; vc1 - PSHx: 19:47 None; vc1 - Immunization history:: Client reports having NOT received the Covid vaccine. Flu vaccine is not up to date. - Social history:: Smoking status: Patient reports the use of cigarette tobacco products, buys 1 pack of cigarettes every 3 to 4 months but smokes in 3 days, Reported history of juuling and/or vaping. ROS: 20:05 Constitutional: Negative for body aches, chills, fever, poor PO intake, cp 20:05 Eyes: Negative for injury, pain, redness, and discharge, cp 20:05 ENT: Positive for sore throat, Negative for drainage from ear(s), ear pain, sinus congestion, difficulty swallowing, difficulty handling secretions, 20:05 Respiratory: Negative for cough, shortness of breath, wheezing, 20:05 Abdomen/GI: Negative for abdominal pain, vomiting, diarrhea, constipation, 20:05 Skin: Negative for rash, 20:05 Neuro: Negative for altered mental status, headache, 20:05 All other systems are negative, Exam: 20:10 Constitutional: The patient appears in no acute distress, alert, awake, non-toxic, well cp developed, well nourished, 20:10 Head/Face: Normocephalic, atraumatic. cp 20:10 Eyes: Periorbital structures: appear normal, Conjunctiva: normal, no exudate, no injection, Sclera: no appreciated abnormality, Lids and lashes: appear normal, bilaterally, 20:10 ENT: External ear(s): are unremarkable, Ear canal(s): are normal, clear, TM's: dullness, bilaterally, Nose: is normal, Mouth: Lips: moist, Oral mucosa: moist, Posterior pharynx: Airway: no evidence of obstruction, patent, Tonsils: with erythema, no enlargement, no exudate, Uvula: midline, swelling, is not appreciated, erythema, that is mild, exudate, is not appreciated, 20:10 Neck: ROM/movement: is normal, is supple, without pain, no range of motions limitations, no meningismus, 20:10 Chest/axilla: Inspection: normal, 20:10 Cardiovascular: Rate: normal, Rhythm: regular, 20:10 Respiratory: the patient does not display signs of respiratory distress, Respirations: normal, no use of accessory muscles, no retractions, labored breathing, is not present, Breath sounds: are clear throughout, no decreased breath sounds, no stridor, no wheezing, 20:10 Abdomen/GI: Inspection: abdomen appears normal, 20:10 Skin: no rash present. Vital Signs: 19:45 BP 134 / 87; Pulse 91; Resp 18; Temp 98.4; Pulse Ox 99% ; Weight 115.67 kg; Height 5 vc1 ft. 10 in. ; Pain 6/10; 20:53 BP 129 / 88; Pulse 87; Resp 17 S; Pulse Ox 99% on R/A; lg3 19:45 Body Mass Index 36.59 (115.67 kg, 177.8 cm) vc1 19:45 Pain Scale: Adult vc1 MDM: 19:38 Patient medically screened. cp 20:00 Differential diagnosis: apthous stomatitis, apthous ulcer, group A strep tonsillitis, cp laryngitis, peritonsillar abscess retropharyngeal abcess. 20:42 Data reviewed: vital signs, nurses notes, lab test result(s). cp 20:42 Counseling: I had a detailed discussion with the patient and/or guardian regarding the cp historical points, exam findings, and any diagnostic results supporting the discharge/admit diagnosis, lab results, to return to the emergency department if symptoms worsen or persist or if there are any questions or concerns that arise at home. 08/09 19:50 Order name: Strep; Complete Time: 20:41 08/09 20:41 Interpretation: Reviewed. 08/09 19:50 Order name: SARS-COV-2 Antigen Rapid; Complete Time: 20:40 08/09 20:41 Interpretation: Reviewed. 08/09 19:50 Order name: Influenza Screen (a \T\ B); Complete Time: 20:40 08/09 20:38 Order name: Throat Culture EDMS Administered Medications: No medications were administered Disposition Summary: 08/09/23 20:43 Discharge Ordered Notes: Location: Home cp Problem: new cp Symptoms: are unchanged cp Condition: Stable cp Diagnosis - Acute pharyngitis, unspecified cp Followup: cp - With: Private Physician - When: 2 - 3 days - Reason: Worsening of condition Discharge Instructions: - Discharge Summary Sheet cp - Pharyngitis cp - Sore Throat cp Forms: - Medication Reconciliation Form cp - Thank You Letter cp - Antibiotic Education cp - Prescription Opioid Use cp - Patient Portal Instructions cp - Leadership Thank You Letter cp Prescriptions: - Lidocaine Viscous - take 5 milliliter ORAL route every 4-6 hours; 1 unit; Refills: 0, Product cp Selection Permitted - Ibuprofen 800 mg Oral Tablet - take 1 tablet ORAL route every 8 hours As needed take with food; 30 tablet; cp Refills: 0, Product Selection Permitted Signatures: Dispatcher [employer] EDMS Avelino House PA PA cp [place]ote, Vanessa RN RN vc1
--- NOTE | 2023-08-09 20:43 | ER ---
Nurse's Notes [facility] Name: Gaudencio Kothari Age: 27 yrs Sex: Male : 1995 Arrival Date: 08/09/2023 Time: 19:28 Bed 13 Private MD: Diagnosis: Acute pharyngitis, unspecified Presentation: 08/09 19:45 Chief complaint: Patient states: It hurts to swallow but just on the right side. It vc1 feels like a sore muscle when I go to swallow. Coronavirus screen: Vaccine status: Patient reports being unvaccinated. Client denies travel out of the [place] in the last 14 days. cough unrelated to allergies, sore throat, Client presents with at least one sign or symptom that may indicate coronavirus-19. Ebola Screen: Patient negative for fever greater than or equal to 101.5 degrees Fahrenheit, and additional compatible Ebola Virus Disease symptoms Patient denies exposure to infectious person. Patient denies travel to an Ebola-affected area in the 21 days before illness onset. No symptoms or risks identified at this time. Initial Sepsis Screen: Does the patient meet any 2 criteria? No. Patient's initial sepsis screen is negative. Does the patient have a suspected source of infection? No. Patient's initial sepsis screen is negative. Risk Assessment: Do you want to hurt yourself or someone else? Patient reports no desire to harm self or others. Onset of symptoms was August 09, 2023 at 07:00. Care prior to arrival: None. 19:45 Method Of Arrival: Ambulatory vc1 19:45 Acuity: BELEM 4 vc1 Triage Assessment: 19:47 General: Appears in no apparent distress. uncomfortable, Behavior is calm, cooperative, vc1 appropriate for age. Pain: Complains of pain in right aspect of posterior pharynx Pain does not radiate. Pain currently is 6 out of 10 on a pain scale. Quality of pain is described as aching, Pain began this morning Is continuous, Aggravated by eating, drinking. EENT: Throat is reddened has enlarged tonsils on right. Neuro: No deficits noted. Cardiovascular: No deficits noted. Respiratory: Airway is patent Respiratory effort is even, unlabored, Respiratory pattern is regular, symmetrical. GI: No deficits noted. No signs and/or symptoms were reported involving the gastrointestinal system. : No deficits noted. No signs and/or symptoms were reported regarding the genitourinary system. Derm: No deficits noted. No signs and/or symptoms reported regarding the dermatologic system. Musculoskeletal: No deficits noted. No signs and/or symptoms reported regarding the musculoskeletal system. Historical: - Allergies: 19:47 No Known Allergies; vc1 - Home Meds: 19:47 Abilify 10 mg Oral tab [Active]; Lexapro 20 mg oral tablet 1 tab daily [Active]; vc1 - PMHx: 19:47 Anxiety; BORDERLINE PERSONALITY DISORDER; Depression; vc1 - PSHx: 19:47 None; vc1 - Immunization history:: Client reports having NOT received the Covid vaccine. Flu vaccine is not up to date. - Social history:: Smoking status: Patient reports the use of cigarette tobacco products, buys 1 pack of cigarettes every 3 to 4 months but smokes in 3 days, Reported history of juuling and/or vaping. Screenin:50 [facility] ED Fall Risk Assessment (Adult) History of falling in the last 3 months, vc1 including since admission No falls in past 3 months (0 pts) Confusion or Disorientation No (0 pts) Intoxicated or Sedated No (0 pts) Impaired Gait No (0 pts) Mobility Assist Device Used No (0 pt) Altered Elimination No (0 pt) Score/Fall Risk Level 0 - 2 = Low Risk Oriented to surroundings, Maintained a safe environment, Educated pt \T\ family on fall prevention, incl call for assistance when getting out of bed. Abuse screen: Denies threats or abuse. Nutritional screening: No deficits noted. Tuberculosis screening: No symptoms or risk factors identified. Assessment: 19:51 Respiratory: Airway is patent Respiratory effort is even, unlabored, Respiratory vc1 pattern is regular, symmetrical, Breath sounds are clear. 20:06 General: Appears in no apparent distress. comfortable, Behavior is calm, cooperative. lg3 Pain: Complains of pain in throat. Neuro: No deficits noted. Barth Agitation-Sedation Scale (RASS): 0 - Alert and Calm Level of Consciousness is awake, alert, obeys commands, Oriented to person, place, time, situation. Cardiovascular: No deficits noted. Denies chest pain, shortness of breath, Capillary refill < 3 seconds Clubbing of nail beds is absent JVD is absent Patient's skin is warm and dry. Respiratory: No deficits noted. Airway is patent Respiratory effort is even, unlabored, Respiratory pattern is regular, symmetrical. GI: No deficits noted. No signs and/or symptoms were reported involving the gastrointestinal system. : No deficits noted. No signs and/or symptoms were reported regarding the genitourinary system. EENT: Oral mucosa is moist. Throat is reddened Reports difficulty swallowing pain when swallowing. Derm: No deficits noted. No signs and/or symptoms reported regarding the dermatologic system. Skin is intact, is healthy with good turgor, Skin is dry, Skin is normal, Skin temperature is warm. Musculoskeletal: No deficits noted. No signs and/or symptoms reported regarding the musculoskeletal system. Circulation, motion, and sensation intact. Range of motion: intact in all extremities. 20:53 Reassessment: Patient appears in no apparent distress at this time. No changes from lg3 previously documented assessment. Patient and/or family updated on plan of care and expected duration. Pain level reassessed. Patient is alert, oriented x 3, equal unlabored respirations, skin warm/dry/pink. Vital Signs: 19:45 BP 134 / 87; Pulse 91; Resp 18; Temp 98.4; Pulse Ox 99% ; Weight 115.67 kg; Height 5 vc1 ft. 10 in. ; Pain 6/10; 20:53 BP 129 / 88; Pulse 87; Resp 17 S; Pulse Ox 99% on R/A; lg3 19:45 Body Mass Index 36.59 (115.67 kg, 177.8 cm) vc1 19:45 Pain Scale: Adult vc1 ED Course: 19:31 Patient arrived in ED. jj6 19:34 Avelino House PA is PHCP. cp 19:34 Thomas Rod MD is Attending Physician. cp 19:47 Triage completed. vc1 19:50 Arm band placed on right wrist. vc1 19:51 Patient has correct armband on for positive identification. Bed in low position. Call vc1 light in reach. Pulse ox on. NIBP on. 20:06 Yuliet Nunez, TOBI is Primary Nurse. lg3 20:06 Door closed. Noise minimized. Warm blanket given. Family accompanied patient. lg3 20:06 Patient maintains SpO2 saturation greater than 95% on room air. lg3 20:07 Influenza Screen (a \T\ B) Sent. lg3 20:07 SARS-COV-2 Antigen Rapid Sent. lg3 20:08 Strep Sent. lg3 20:53 No provider procedures requiring assistance completed. Patient did not have IV access lg3 during this emergency room visit. Administered Medications: No medications were administered Medication: 19:51 VIS not applicable for this client. vc1 Outcome: 20:43 Discharge ordered by MD. cp 20:53 Discharged to home ambulatory, lg3 20:53 Condition: stable 20:53 Discharge instructions given to patient, Instructed on discharge instructions, follow up and referral plans. medication usage, Demonstrated understanding of instructions, follow-up care, medications, Prescriptions given X 2, 20:54 Patient left the ED. lg3 Signatures: Avelino House PA PA cp Gibson, Lacie, RN RN lg3 Joan Goncalves6 Betty Webb RN RN vc1
[2023-08-09 20:59] VITALS: TEMP 98.4; O2SAT 99
[2023-08-09 21:00] VITALS: BP 129/88
== END 2023-08-09 20:54 | disposition home or self-care (01) ==
LOC: ER 19:28
DX: J02.9 Acute pharyngitis, unspecified (principal); Z11.52 Encounter for screening for COVID-19; F17.210 Nicotine dependence, cigarettes, uncomplicated
CPT/HCPCS: 36415; 87070; 87081; 87804; 87811; 99284

== ENCOUNTER 2024-01-04 07:19 | Emergency (ER) | payer OTHER ==
[2024-01-04] MEDS ORDERED: ALBUTEROL 2.5 MG/3 ML NEB SOL ONE (07:31)
[2024-01-04] MEDS ORDERED: IPRATROPIUM BROM 0.5MG/2.5ML ONE (07:31)
--- NOTE | 2024-01-04 07:52 | RAD REPORT ---
EXAM DESCRIPTION: RAD - Chest Single View - 01/04/2024 7:47 am CLINICAL HISTORY: COUGH Chest pain. COMPARISON: Chest Pa And Lat (2 Views) dated 06/14/2023; Abdomen Acute Series dated 05/06/2023; Chest Pa And Lat (2 Views) dated 12/14/2022 FINDINGS: Portable technique limits examination quality. The lungs are grossly clear. The heart is normal in size. No displaced fractures. IMPRESSION: No acute intrathoracic process suspected.
[2024-01-04 08:54] LABS: SARS-CoV-2 Antigen CONTROL BLUE LINE VIS/BG OK; SARS-CoV-2 Antigen Rapid Res Negative (Negative)
--- NOTE | 2024-01-04 08:56 | ER ---
Nurse's Notes [facility] Name: Gaudencio Kothari Age: 28 yrs Sex: Male : 1995 Arrival Date: 01/04/2024 Time: 07:19 Bed 18 Private MD: Diagnosis: Viral infection, unspecified Presentation: 01/03 07:30 Chief complaint: Patient states: Cough, congestion, fever, SOB since Tuesday. ll1 Coronavirus screen: Vaccine status: Patient reports being unvaccinated. Client denies travel out of the [place] in the last 14 days. congestion, cough unrelated to allergies, fatigue, fever, headache, Client presents with at least one sign or symptom that may indicate coronavirus-19. Standard/surgical mask placed on the client. Ebola Screen: Patient denies travel to an Ebola-affected area in the 21 days before illness onset. Initial Sepsis Screen: Does the patient meet any 2 criteria? No. Patient's initial sepsis screen is negative. Does the patient have a suspected source of infection? No. Patient's initial sepsis screen is negative. Risk Assessment: Do you want to hurt yourself or someone else? Patient reports no desire to harm self or others. Onset of symptoms was January 01, 2024. 07:30 Method Of Arrival: Ambulatory ll1 07:30 Acuity: BELEM 4 ll1 Historical: - Allergies: 07:29 No Known Allergies; ll1 - Home Meds: 07:29 citalopram 20 mg tablet [Active]; aripiprazole oral [Active]; ll1 - PMHx: 07:29 Anxiety; BORDERLINE PERSONALITY DISORDER; Depression; ll1 - Immunization history:: Adult Immunizations up to date. - Infectious Disease History:: Denies. - Social history:: Smoking status: Reported history of juuling and/or vaping. Screenin:05 [facility] ED Fall Risk Assessment (Adult) History of falling in the last 3 months, ld1 including since admission No falls in past 3 months (0 pts). Abuse screen: Denies threats or abuse. Denies injuries from another. Nutritional screening: No deficits noted. Tuberculosis screening: No symptoms or risk factors identified. Assessment: 08:05 General: Appears in no apparent distress. comfortable, Behavior is calm, cooperative, ld1 appropriate for age. Pain: Denies pain. Neuro: Level of Consciousness is awake, alert, obeys commands, Oriented to person, place, time, situation, Appropriate for age. Cardiovascular: Capillary refill < 3 seconds Patient's skin is warm and dry. Respiratory: Airway is patent Respiratory effort is even, unlabored. GI: Abdomen is round non-distended. : No signs and/or symptoms were reported regarding the genitourinary system. EENT: No signs and/or symptoms were reported regarding the EENT system. Derm: No signs and/or symptoms reported regarding the dermatologic system. Musculoskeletal: No signs and/or symptoms reported regarding the musculoskeletal system. Vital Signs: 07:30 BP 149 / 98; Pulse 82; Resp 18; Temp 98.1; Pulse Ox 100% on R/A; Weight 122.92 kg; ll1 Height 5 ft. 10 in. ; 08:05 BP 134 / 89; Pulse 73; Resp 18; Pulse Ox 96% on R/A; ld1 07:30 Body Mass Index 38.88 (122.92 kg, 177.8 cm) ll1 ED Course: 07:20 Patient arrived in ED. rg4 07:23 Hermilo Fishman MD is Attending Physician. ec2 07:23 Arm band placed on Patient placed in an exam room, on a stretcher. ll1 07:24 Na Ramos, TOBI is Primary Nurse. ld1 07:32 Triage completed. ll1 07:48 CXR XRAY In Process Unspecified. EDMS 07:50 SARS RAPID Sent. ld1 07:50 Influenza Screen (a \T\ B) Sent. ld1 08:05 Patient has correct armband on for positive identification. Placed in gown. Bed in low ld1 position. Call light in reach. Side rails up X2. Provided Education on: medication . night monitor on. Pulse ox on. NIBP on. 08:05 No provider procedures requiring assistance completed. ld1 09:04 Patient did not have IV access during this emergency room visit. ld1 Administered Medications: 07:50 Drug: DuoNeb Nebulize (3:1) (2.5 mg - 0.5 mg) 3 ml Nebulizer once Route: Nebulizer; ld1 Medication: 08:05 VIS not applicable for this client. ld1 Outcome: 08:56 Discharge ordered by . ec2 09:03 Discharged to home ambulatory, with family, ld1 09:03 Condition: stable 09:03 Discharge instructions given to patient, family, Instructed on discharge instructions, follow up and referral plans. medication usage, Demonstrated understanding of instructions, follow-up care, medications, Prescriptions given X 2, 09:04 Patient left the ED. ld1 Signatures: Dispatcher [employer] Reyna Vallejo rg4 Josephine Xavier RN RN ll1 Na Ramos RN RN ld1 Hermilo Fishman MD MD ec2
--- NOTE | 2024-01-04 08:56 | EDPHYS ---
Physician Documentation [facility] Name: Gaudencio Kothari Age: 28 yrs Sex: Male : 1995 Arrival Date: 01/04/2024 Time: 07:19 Bed 18 Private MD: ED Physician Hermilo Fishman HPI: 01/03 07:27 This 28 yrs old Male presents to ER via Unassigned with complaints of Cough. ec2 07:27 Patient arrives today for 3 days of cough and cold symptoms. Patient with sick contacts ec2 at home. Patient been having cough, increased shortness of breath. No significant medical problems. Patient reports frequent cough. Patient reports decreased appetite as well.. Historical: - Allergies: 07:29 No Known Allergies; ll1 - Home Meds: 07:29 citalopram 20 mg tablet [Active]; aripiprazole oral [Active]; ll1 - PMHx: 07:29 Anxiety; BORDERLINE PERSONALITY DISORDER; Depression; ll1 - Immunization history:: Adult Immunizations up to date. - Infectious Disease History:: Denies. - Social history:: Smoking status: Reported history of juuling and/or vaping. ROS: 07:27 Constitutional: as per hpi ec2 Exam: 07:27 Constitutional: GEN: NAD Head: atraumatic Eyes: EOMI Ears: External ears are ec2 normal. CV: regular rate LUNGS: no respiratory distress, scattered wheezes throughout, no rales, no rhonchi ABD: non-distended SKIN: no evidence of rashes MSK: no evidence of trauma NEURO: moves all extremities equally Vital Signs: 07:30 BP 149 / 98; Pulse 82; Resp 18; Temp 98.1; Pulse Ox 100% on R/A; Weight 122.92 kg; ll1 Height 5 ft. 10 in. ; 08:05 BP 134 / 89; Pulse 73; Resp 18; Pulse Ox 96% on R/A; ld1 07:30 Body Mass Index 38.88 (122.92 kg, 177.8 cm) ll1 MDM: 07:23 Patient medically screened. ec2 07:27 Data reviewed: vital signs. ED course: Patient arrives today for evaluation of upper ec2 respiratory complaint. Examination remarkable for pulmonary findings noted above. Will obtain viral swab, chest x-ray. Will treat the patient with a DuoNeb as well. Suspect viral infection causing the patient's wheezing. Doubt pneumonia given lack of focal lung sounds. Doubt systemic issues given reassuring vital signs.. 01/03 07:27 Order name: Influenza Screen (a \T\ B); Complete Time: 08:55 ec2 01/03 07:27 Order name: SARS RAPID; Complete Time: 08:55 ec2 01/03 07:27 Order name: CXR XRAY; Complete Time: 08:20 ec2 Administered Medications: 07:50 Drug: DuoNeb Nebulize (3:1) (2.5 mg - 0.5 mg) 3 ml Nebulizer once Route: Nebulizer; ld1 Disposition Summary: 01/04/24 08:56 Discharge Ordered Notes: Location: Home ec2 Condition: Stable ec2 Diagnosis - Viral infection, unspecified ec2 Followup: ec2 - With: Private Physician - When: - Reason: Re-evaluation by your physician Discharge Instructions: - Discharge Summary Sheet ec2 - Viral Illness, Adult ec2 Forms: - Work release form ll1 - Medication Reconciliation Form ec2 - Thank You Letter ec2 - Antibiotic Education ec2 - Prescription Opioid Use ec2 - Patient Portal Instructions ec2 - Leadership Thank You Letter ec2 Prescriptions: - albuterol sulfate 90 mcg/actuation Inhalation HFA Aerosol Inhaler - inhale 2 inhalation INHALATION route every 3 hours as needed for bronchospasm; ec2 administer via ventilator; 90 microgram; Refills: 0, Product Selection Permitted - Tessalon Perles 100 mg Oral Capsule - take 1 capsule ORAL route every 8 hours As needed; 15 capsule; Refills: 0, ec2 Product Selection Permitted Signatures: Dispatcher [employer] Josephine Sweeney RN RN ll1 Na Ramos RN RN ld1 Hermilo Fishman MD MD ec2 Corrections: (The following items were deleted from the chart) 07:28 07:28 Influenza Screen (A \T\ B)+BA.LAB.BRZ ordered. EDMS EDMS 07:28 07:28 SARS-COV-2 Antigen Rapid+I.LAB.BRZ ordered. EDMS EDMS
[2024-01-04 11:56] VITALS: TEMP 98.1
[2024-01-04 12:29] VITALS: BP 134/89; O2SAT 96
== END 2024-01-04 09:04 | disposition home or self-care (01) ==
LOC: ER 07:19
DX: B34.9 Viral infection, unspecified (principal); Z11.52 Encounter for screening for COVID-19
CPT/HCPCS: 36415; 87804 ×2; 71045; 87811; J7613; J7644

== ENCOUNTER 2024-01-30 18:58 | Emergency (ER) | payer OTHER ==
[2024-01-30] MEDS ORDERED: ONDANSETRON 4 MG/2 ML VIAL ONE (19:58)
--- NOTE | 2024-01-30 20:06 | RAD REPORT ---
EXAM DESCRIPTION: RAD - Chest Single View - 01/30/2024 7:59 pm CLINICAL HISTORY: CHEST PAIN Chest pain. COMPARISON: Chest Single View dated 01/04/2024; Chest Pa And Lat (2 Views) dated 06/14/2023; Abdomen A cute Series dated 05/06/2023; Chest Pa And Lat (2 Views) dated 12/14/2022 FINDINGS: Portable technique limits examination quality. The lungs are grossly clear. The heart is normal in size. No displaced fractures. IMPRESSION: No acute intrathoracic process suspected.
[2024-01-30 20:13] LABS: Absolute Eosinophils 0.2 K/uL (0-0.5); Absolute Lymphocytes (CBC) 2.9 K/uL (0.7-4.9); Absolute Monocytes 0.6 K/uL (0.1-1.3); Basophils % 0.3 % (0-1.3); Eosinophils % 1.8 % (0-4.4); Hematocrit 38.2 % (39.6-49.0); Hemoglobin 12.7 g/dL (13.6-17.9); Lymphocytes % 29.4 % (15.3-44.8); MCH 29.3 pg (27.0-35.0); MCHC 33.2 g/dL (32.0-36.0); MCV 88.3 fL (80-100); MPV 7.6 fL (7.6-11.3); Monocytes % 6.4 % (3.3-12.3); Neutrophils % 62.1 % (41.7-73.7); Platelets 245 thou/uL (152-406); RBC Red Blood Cell Count 4.33 M/uL (4.33-5.43); Red Cell Distribution Width 14.6 % (12.1-15.2)
[2024-01-30 20:25] LABS: Anion Gap 7.9 mEq/L (5.0-15.0); Potassium 3.9 mEq/L (3.5-5.1); Troponin High Sensitivity 5.1 pg/mL (<58.9)
--- NOTE | 2024-01-30 20:33 | ER ---
Nurse's Notes [facility] Name: Gaudencio Kothari Age: 28 yrs Sex: Male : 1995 Arrival Date: 01/30/2024 Time: 18:58 Bed 7 Private MD: Diagnosis: Chest pain on breathing Presentation: 01/29 19:13 Chief complaint: Patient states: pt reports chest pains. he thinks it is more muscular as6 but was told to come here just in case. Coronavirus screen: At this time, the client does not indicate any symptoms associated with coronavirus-19. Ebola Screen: No symptoms or risks identified at this time. Initial Sepsis Screen: Does the patient meet any 2 criteria? No. Patient's initial sepsis screen is negative. Does the patient have a suspected source of infection? No. Patient's initial sepsis screen is negative. Risk Assessment: Do you want to hurt yourself or someone else? Patient reports no desire to harm self or others. Onset of symptoms was January 25, 2024. 19:13 Method Of Arrival: Ambulatory as6 19:13 Acuity: BELEM 3 as6 Historical: - Allergies: 19:15 No Known Allergies; as6 - PMHx: 19:15 BORDERLINE PERSONALITY DISORDER; Depression; Anxiety; as6 - PSHx: 19:15 None; as6 - Immunization history:: Adult Immunizations up to date. - Infectious Disease History:: Denies. - Social history:: Smoking status: Patient reports the use of cigarette tobacco products, Reported history of juuling and/or vaping. Screenin:55 [facility] ED Fall Risk Assessment (Adult) History of falling in the last 3 months, km8 including since admission No falls in past 3 months (0 pts) Confusion or Disorientation No (0 pts) Intoxicated or Sedated No (0 pts) Impaired Gait No (0 pts) Mobility Assist Device Used No (0 pt) Altered Elimination No (0 pt) Score/Fall Risk Level 0 - 2 = Low Risk Oriented to surroundings, Maintained a safe environment, Educated pt \T\ family on fall prevention, incl call for assistance when getting out of bed, Assessed \T\ reinforced patient's understanding of fall precautions. Abuse screen: Denies threats or abuse. Denies injuries from another. Nutritional screening: No deficits noted. Tuberculosis screening: No symptoms or risk factors identified. Assessment: 19:55 Reassessment: Patient appears in no apparent distress at this time. Patient and/or km8 family updated on plan of care and expected duration. Pain level reassessed. Patient is alert, oriented x 3, equal unlabored respirations, skin warm/dry/pink. General: Appears in no apparent distress. distressed, comfortable, Behavior is calm, cooperative, appropriate for age. Pain: Complains of pain in anterior aspect of left upper chest Pain radiates to left breast Pain currently is 6 out of 10 on a pain scale. Quality of pain is described as dull, Pain began gradually. Neuro: Level of Consciousness is awake, alert, obeys commands, Oriented to person, place, time, situation. Cardiovascular: Reports chest pain, Denies shortness of breath, Patient's skin is warm and dry. Rhythm is sinus rhythm Chest pain is described as mild, quality is dull is located in left anterior chest wall radiates is aggravated by left arm movement. 19:55 Respiratory: Airway is patent Respiratory effort is even, unlabored, Respiratory km8 pattern is regular, symmetrical. 19:55 GI: No signs and/or symptoms were reported involving the gastrointestinal system. : km8 No signs and/or symptoms were reported regarding the genitourinary system. EENT: No signs and/or symptoms were reported regarding the EENT system. Derm: No signs and/or symptoms reported regarding the dermatologic system. Skin is intact, is healthy with good turgor, Skin is dry, Skin is pink, warm \T\ dry. normal, Skin temperature is warm. Musculoskeletal: No signs and/or symptoms reported regarding the musculoskeletal system. Range of motion: intact in all extremities. 20:45 Reassessment: Patient appears in no apparent distress at this time. Patient and/or bm8 family updated on plan of care and expected duration. Pain level reassessed. Patient is alert, oriented x 3, equal unlabored respirations, skin warm/dry/pink. Patient states feeling better. Patient states symptoms have improved. Vital Signs: 19:13 BP 132 / 83; Pulse 74; Resp 16 S; Temp 97.9; Pulse Ox 100% on R/A; Weight 122.47 kg as6 (R); Height 5 ft. 10 in. (R); Pain 6/10; 20:00 BP 122 / 78; Pulse 66; Resp 16; Pulse Ox 97% on R/A; km8 20:45 BP 112 / 71; Pulse 69; Resp 18; Temp 98; Pulse Ox 97% ; Pain 4/10; bm8 19:13 Body Mass Index 38.74 (122.47 kg, 177.8 cm) as6 19:13 Pain Scale: Adult as6 20:45 Pain Scale: Adult bm8 Thornton Coma Score: 19:55 Eye Response: spontaneous(4). Motor Response: obeys commands(6). Verbal Response: km8 oriented(5). Total: 15. 20:45 Eye Response: spontaneous(4). Motor Response: obeys commands(6). Verbal Response: bm8 oriented(5). Total: 15. ED Course: 19:02 Patient arrived in ED. mr 19:03 Syeda Wolfe, [facility]. kb 19:03 Solange Dinh MD is Attending Physician. kb 19:15 Triage completed. as6 19:15 Arm band placed on. as6 19:26 Mindy Campbell, RN is Primary Nurse. km8 19:55 Patient has correct armband on for positive identification. Bed in low position. Call km8 light in reach. Side rails up X2. Client placed on continuous cardiac and pulse oximetry monitoring. NIBP monitoring applied. monitoring tech on. Pulse ox on. NIBP on. 19:55 O2 via room air. km8 19:56 Initial lab(s) drawn, by me, sent to lab. EKG done, by ED staff, reviewed by Mindy luna RN. Inserted saline lock: 22 gauge in left upper arm, using aseptic technique. Blood collected. 20:01 XRAY Chest (1 view) In Process Unspecified. EDMS 20:45 Provided Education on: POST ER CARE. bm8 20:45 No provider procedures requiring assistance completed. IV discontinued, intact, bm8 bleeding controlled, No redness/swelling at site. Pressure dressing applied. Administered Medications: 20:01 CANCELLED (Patient Refused): ondansetron 4 mg IVP once; over 2 minutes kb 20:45 Drug: Ketorolac IVP 15 mg IVP once Route: IVP; Site: left upper arm; bm8 20:45 Follow up: Response: Medication administered at discharge. bm8 Medication: 19:55 VIS not applicable for this client. km8 Outcome: 20:32 Discharge ordered by . sterling 20:45 Discharged to home ambulatory, bm8 20:45 Condition: stable 20:45 Discharge instructions given to patient, family, Instructed on discharge instructions, follow up and referral plans. Demonstrated understanding of instructions, follow-up care, medications, 20:47 Patient left the ED. bm8 Signatures: Dispatcher [employer] EDMI Syeda Wolfe, WEB SERVICES PROFESSIONAL-C WEB SERVICES PROFESSIONAL-CkJanet Reyes, Reg Reg mr Royer Paz, RN RN as6 Mindy Campbell, RN RN km8 Zia Benedict, RN RN bm8
--- NOTE | 2024-01-30 20:33 | EDPHYS ---
Physician Documentation [facility] Name: Gaudencio Kothari Age: 28 yrs Sex: Male : 1995 Arrival Date: 01/30/2024 Time: 18:58 Bed 7 Private MD: ED Physician Solange Dinh HPI: 01/29 22:39 This 28 yrs old Male presents to ER via Ambulatory with complaints of Chest Pain. kb 22:39 Pt is a 28 year old male who presents for left chest pain that started a week ago. kb States the pain is worse with movement and breathing. Denies radiation, palpitations, shortness of breath. States he has had a cough for about a month. Denies fever. Historical: - Allergies: 19:15 No Known Allergies; as6 - PMHx: 19:15 BORDERLINE PERSONALITY DISORDER; Depression; Anxiety; as6 - PSHx: 19:15 None; as6 - Immunization history:: Adult Immunizations up to date. - Infectious Disease History:: Denies. - Social history:: Smoking status: Patient reports the use of cigarette tobacco products, Reported history of juuling and/or vaping. ROS: 22:39 Constitutional: As per HPI kb Exam: 20:18 Constitutional: This is a well developed, well nourished patient who is awake, alert, kb and in no acute distress. Head/Face: Normocephalic, atraumatic. ENT: Moist Mucous membranes Cardiovascular: Regular rate Respiratory: Respirations even and unlabored. No increased work of breathing. Talking in full sentences Abdomen/GI: Soft, non-tender. No distention Skin: Warm, dry with normal turgor. Normal color. MS/ Extremity: Pulses equal, no cyanosis. Neurovascular intact. Full, normal range of motion. Neuro: Awake and alert, GCS 15, oriented to person, place, time, and situation. Moves all extremities. Normal gait. 20:18 Chest/axilla: Inspection: normal, Palpation: tenderness, that is moderate, of the anterior aspect of left upper chest, that totally reproduces the patient's complaints, 20:18 ECG was reviewed by the Attending Physician. Vital Signs: 19:13 BP 132 / 83; Pulse 74; Resp 16 S; Temp 97.9; Pulse Ox 100% on R/A; Weight 122.47 kg as6 (R); Height 5 ft. 10 in. (R); Pain 6/10; 20:00 BP 122 / 78; Pulse 66; Resp 16; Pulse Ox 97% on R/A; km8 20:45 BP 112 / 71; Pulse 69; Resp 18; Temp 98; Pulse Ox 97% ; Pain 4/10; bm8 19:13 Body Mass Index 38.74 (122.47 kg, 177.8 cm) as6 19:13 Pain Scale: Adult as6 20:45 Pain Scale: Adult bm8 Tamiment Coma Score: 19:55 Eye Response: spontaneous(4). Motor Response: obeys commands(6). Verbal Response: km8 oriented(5). Total: 15. 20:45 Eye Response: spontaneous(4). Motor Response: obeys commands(6). Verbal Response: bm8 oriented(5). Total: 15. MDM: 19:03 Patient medically screened. kb 20:32 Data reviewed: vital signs, nurses notes. kb 22:39 Differential diagnosis: chest wall pain, pleurisy, acute mi, arrhythmia. Counseling: I kb had a detailed discussion with the patient and/or guardian regarding the historical points, exam findings, and any diagnostic results supporting the discharge/admit diagnosis, lab results, radiology results, the need for outpatient follow up, a family practitioner, to return to the emergency department if symptoms worsen or persist or if there are any questions or concerns that arise at home. 01/29 19:18 Order name: Basic Metabolic Panel; Complete Time: 20:31 kb 01/29 19:18 Order name: CBC with Diff; Complete Time: 20:16 kb 01/29 19:18 Order name: Troponin HS; Complete Time: 20:31 kb 01/29 19:18 Order name: XRAY Chest (1 view); Complete Time: 20:07 kb 01/29 19:18 Order name: EKG; Complete Time: 19:19 kb 01/29 19:18 Order name: Cardiac monitoring; Complete Time: 19:39 kb 01/29 19:18 Order name: EKG - Nurse/Tech; Complete Time: 19:39 kb 01/29 19:18 Order name: IV Saline Lock; Complete Time: 19:56 kb 01/29 19:18 Order name: Labs collected and sent; Complete Time: 19:56 kb 01/29 19:18 Order name: O2 Per Protocol; Complete Time: 19:39 kb 01/29 19:18 Order name: O2 Sat Monitoring; Complete Time: 19:40 kb EC:18 Rate is 73 beats/min. Rhythm is regular. QRS [place] is Normal. ID interval is normal at kb 160 msec. QRS interval is normal at 102 msec. QT interval is normal at 407 msec. Administered Medications: 20:01 CANCELLED (Patient Refused): ondansetron 4 mg IVP once; over 2 minutes kb 20:45 Drug: Ketorolac IVP 15 mg IVP once Route: IVP; Site: left upper arm; bm8 20:45 Follow up: Response: Medication administered at discharge. bm8 Disposition: 20:19 I reviewed the patient's care provided by the Advanced Practice Provider and agree with gb1 the diagnosis and treatment plan. Disposition Summary: 01/30/24 20:32 Discharge Ordered Notes: Location: Home kb Condition: Stable kb Diagnosis - Chest pain on breathing kb Followup: kb - With: Emergency Department - When: As needed - Reason: Worsening of condition Followup: kb - With: Private Physician - When: 2 - 3 days - Reason: Recheck today's complaints, Continuance of care, Re-evaluation by your physician Discharge Instructions: - Discharge Summary Sheet kb - Chest Wall Pain, [id number] kb Forms: - Medication Reconciliation Form kb - Antibiotic Education kb - Prescription Opioid Use kb - Patient Portal Instructions kb - Leadership Thank You Letter kb Signatures: Dispatcher [employer] Syeda Martinez FNP-C FNP-Royer Herrera RN RN as6 Solange Dinh MD MD gb1 Zia Benedict, RN RN bm8 Corrections: (The following items were deleted from the chart) 20:01 20:00 Ondansetron IVP 4 mg IVP once; over 2 minutes ordered. kb kb
[2024-01-30] MEDS ORDERED: KETOROLAC 30 MG/ML INJ ONE (20:40)
[2024-01-30 21:51] VITALS: BP 112/71; TEMP 98; O2SAT 97
--- NOTE | 2024-01-31 14:00 | EKG ---
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
== END 2024-01-30 20:47 | disposition home or self-care (01) ==
LOC: ER 18:58
DX: R07.1 Chest pain on breathing (principal); Z72.0 Tobacco use
CPT/HCPCS: 93005; 85025; 80048; 36415; 84484; 71045; 96374; 99285; J2405

== ENCOUNTER 2024-11-29 08:38 | Emergency (ER) | payer OTHER ==
--- NOTE | 2024-11-29 09:32 | EDPHYS ---
Physician Documentation [facility] Name: Gaudencio Kothari Age: 29 yrs Sex: Male : 1995 Arrival Date: 11/29/2024 Time: 08:38 Bed 10 Private MD: ED Physician Avelino Wright HPI: 11/29 09:21 This 29 yrs old Male presents to ER via Ambulatory with complaints of Laceration To [facility] Head, Headache, Head Injury-Adult. 09:21 The patient has a laceration related to: walking. The laceration(s) is(are) located on muna the top of head. Onset: The symptoms/episode began/occurred just prior to arrival. Associated signs and symptoms: The patient has no apparent associated signs or symptoms. The patient has not experienced similar symptoms in the past. Historical: - Allergies: 09:12 No Known Allergies; iw - PMHx: 09:12 BORDERLINE PERSONALITY DISORDER; Anxiety; Depression; iw - PSHx: 09:12 None; iw - Immunization history:: Adult Immunizations up to date. - Infectious Disease History:: Denies. - Family history:: not pertinent. - Social history:: Smoking status: unknown. ROS: 09:21 Constitutional: Negative for fever, chills, and weight loss, Eyes: Negative for injury, muna pain, redness, and discharge, ENT: Negative for injury, pain, and discharge, Neck: Negative for injury, pain, and swelling, Cardiovascular: Negative for chest pain, palpitations, and edema, Respiratory: Negative for shortness of breath, cough, wheezing, and pleuritic chest pain, Abdomen/GI: Negative for abdominal pain, nausea, vomiting, diarrhea, and constipation, Back: Negative for injury and pain, : Negative for injury, bleeding, discharge, and swelling, MS/Extremity: Negative for injury and deformity, Neuro: Negative for headache, weakness, numbness, tingling, and seizure, Psych: Negative for depression, anxiety, suicide ideation, homicidal ideation, and hallucinations, Allergy/Immunology: Negative for hives, rash, and allergies, Endocrine: Negative for neck swelling, polydipsia, polyuria, polyphagia, and marked weight changes, Hematologic/Lymphatic: Negative for swollen nodes, abnormal bleeding, and unusual bruising, 09:21 Skin: Positive for abrasion(s), laceration(s), swelling, Exam: 09:21 Constitutional: This is a well developed, well nourished patient who is awake, alert, muna and in no acute distress. Eyes: Pupils equal round and reactive to light, extra-ocular motions intact. Lids and lashes normal. Conjunctiva and sclera are non-icteric and not injected. Cornea within normal limits. Periorbital areas with no swelling, redness, or edema. ENT: Nares patent. No nasal discharge, no septal abnormalities noted. Tympanic membranes are normal and external auditory canals are clear. Oropharynx with no redness, swelling, or masses, exudates, or evidence of obstruction, uvula midline. Mucous membranes moist. Neck: Trachea midline, no thyromegaly or masses palpated, and no cervical lymphadenopathy. Supple, full range of motion without nuchal rigidity, or vertebral point tenderness. No Meningismus. Chest/axilla: Normal chest wall appearance and motion. Nontender with no deformity. No lesions are appreciated. Cardiovascular: Regular rate and rhythm with a normal S1 and S2. No gallops, murmurs, or rubs. Normal PMI, no JVD. No pulse deficits. Respiratory: Lungs have equal breath sounds bilaterally, clear to auscultation and percussion. No rales, rhonchi or wheezes noted. No increased work of breathing, no retractions or nasal flaring. Abdomen/GI: Soft, non-tender, with normal bowel sounds. No distension or tympany. No guarding or rebound. No evidence of tenderness throughout. Back: No spinal tenderness. No costovertebral tenderness. Full range of motion. Skin: Warm, dry with normal turgor. Normal color with no rashes, no lesions, and no evidence of cellulitis. MS/ Extremity: Pulses equal, no cyanosis. Neurovascular intact. Full, normal range of motion., bilateral aka Neuro: Awake and alert, GCS 15, oriented to person, place, time, and situation. Cranial nerves II-XII grossly intact. Motor strength 5/5 in all extremities. Sensory grossly intact. Cerebellar exam normal. Normal gait. Psych: Awake, alert, with orientation to person, place and time. Behavior, mood, and affect are within normal limits. 09:21 Head/face: Noted is contusion, that is superficial, of the top of head, Vital Signs: 09:11 BP 167 / 96; Pulse 75; Resp 16; Temp 98.2; Pulse Ox 99% on R/A; iw MDM: 08:46 Medical Screening Exam initiated muna 09:27 Differential diagnosis: superficial laceration. Data reviewed: vital signs, nurses [facility] notes. Consideration of Admission/Observation Escalation of care including admission/observation considered. I considered the following discharge prescriptions or medication management in the emergency department Medications were administered in the Emergency Department. See MAR. Test considered but Not performed: CT: no ct abdominal. Care significantly affected by the following chronic conditions: borderline, anxiety, depression. 11/29 09:20 Order name: Wound Care; Complete Time: 09:37 muna Administered Medications: 16:33 Not Given (Patient Refused): [id number] 1 application iw Topical once Disposition Summary: 11/29/24 09:31 Discharge Ordered Notes: Location: Home umna Problem: new muna Symptoms: have improved muna Condition: Stable muna Diagnosis - Abrasion of other part of head muna - Laceration without foreign body of other part of head muna Followup: [facility] - With: Private Physician - When: 2 - 3 days - Reason: Recheck today's complaints, Continuance of care, Re-evaluation by your physician Discharge Instructions: - Discharge Summary Sheet muna - Head Injury, Adult muna - Laceration Care, Adult muna - Facial Laceration, [id number] muna - Head Injury, Adult, [id number] [facility] Forms: - Medication Reconciliation Form [facility] - Antibiotic Education muna - Prescription Opioid Use muna - Patient Portal Instructions [facility] - Leadership Thank You Letter [facility] Prescriptions: - Neosporin (nst-ohm-vlkmn) 3.5-400-5,000 [id number] Topical Ointment in Packet - apply 1 application TOPICAL route 3 times per day; 15 gram; Refills: 0, Product [facility] Selection Permitted Signatures: Avelino Wright MD MD cha Williams, Irene, RN RN iw
--- NOTE | 2024-11-29 09:32 | ER ---
Nurse's Notes [facility] Name: Gaudencio Kothari Age: 29 yrs Sex: Male : 1995 Arrival Date: 11/29/2024 Time: 08:38 Bed 10 Private MD: Diagnosis: Abrasion of other part of head;Laceration without foreign body of other part of head Presentation: 11/29 09:11 Chief complaint: Patient states: I hit my head at 0530 this morning , abrasion to front iw of scalp. Coronavirus screen: At this time, the client does not indicate any symptoms associated with coronavirus-19. Ebola Screen: No symptoms or risks identified at this time. Initial Sepsis Screen: Does the patient meet any 2 criteria? No. Patient's initial sepsis screen is negative. Does the patient have a suspected source of infection? No. Patient's initial sepsis screen is negative. Risk Assessment: Do you want to hurt yourself or someone else? Patient reports no desire to harm self or others. Onset of symptoms was November 29, 2024. 09:11 Method Of Arrival: Ambulatory iw 09:11 Acuity: BELEM 4 iw 09:15 Complicating Factors: There are no complicating factors for this patient. iw Historical: - Allergies: 09:12 No Known Allergies; iw - PMHx: 09:12 BORDERLINE PERSONALITY DISORDER; Anxiety; Depression; iw - PSHx: 09:12 None; iw - Immunization history:: Adult Immunizations up to date. - Infectious Disease History:: Denies. - Family history:: not pertinent. - Social history:: Smoking status: unknown. Screenin:57 [facility] ED Fall Risk Assessment (Adult) History of falling in the last 3 months, iw including since admission Yes- single mechanical fall (1 pt) Confusion or Disorientation No (0 pts) Intoxicated or Sedated No (0 pts) Impaired Gait No (0 pts) Mobility Assist Device Used No (0 pt) Altered Elimination No (0 pt) Score/Fall Risk Level 0 - 2 = Low Risk Oriented to surroundings, Maintained a safe environment. Abuse screen: Denies threats or abuse. Nutritional screening: No deficits noted. 09:57 Tuberculosis screening: No symptoms or risk factors identified. iw Assessment: 09:00 General: Appears in no apparent distress. Behavior is calm, cooperative. Pain: iw Complains of pain in top of head. Neuro: Level of Consciousness is awake, alert, obeys commands, Oriented to person, place, time, situation, Moves all extremities. Musculoskeletal: Range of motion: intact in all extremities. Injury Description: Laceration sustained to top of head. 09:00 Injury Description: Laceration is jagged, 0.5 to 2.5 cm long, not bleeding, was iw sustained 30-60 minutes ago. Vital Signs: 09:11 BP 167 / 96; Pulse 75; Resp 16; Temp 98.2; Pulse Ox 99% on R/A; iw ED Course: 08:44 Patient arrived in ED. al6 08:46 Avelino Wright MD is Attending Physician. [facility] 09:00 Patient has correct armband on for positive identification. Provided Education on: . iw 09:12 Triage completed. iw 09:12 Arm band placed on. iw 09:58 No provider procedures requiring assistance completed. Patient did not have IV access iw during this emergency room visit. 10:29 Sheeba Baldwin, RN is Primary Nurse. iw Administered Medications: 16:33 Not Given (Patient Refused): [id number]-[id number]-ibnbgcjvuyunjygrs 1 application iw Topical once Medication: 09:58 VIS not applicable for this client. iw Outcome: 09:31 Discharge ordered by . muna 10:28 Discharged to home ambulatory, with family, 10:28 Condition: good 10:28 Discharge instructions given to patient, Instructed on discharge instructions, follow up and referral plans. medication usage, Demonstrated understanding of instructions, follow-up care, medications, Prescriptions given X 1, 10:29 Patient left the ED. iw Signatures: Avelino Wright MD MD cha Williams, Irene, RN RN Tiffany Bashir al6
[2024-11-29 10:55] VITALS: BP 167/96; TEMP 98.2; O2SAT 99
== END 2024-11-29 10:29 | disposition home or self-care (01) ==
LOC: ER 08:38
DX: S01.81XA Laceration without foreign body of other part of head, initial encounter (principal)
CPT/HCPCS: 99283